=== PATIENT | female | born 1960 | race Caucasian/White ===

== ENCOUNTER → 2020-07-20 14:16 | Outpatient (BNVA) | payer OTHER, SELFPAY | PROVIDERS: PCP Physician Assistant Medical; Referring Provider Physician Assistant Medical; Visit Provider Physician Assistant Medical | DX: Z86.718 Personal history of other venous thrombosis and embolism (principal); Z51.81 Encounter for therapeutic drug level monitoring; Z79.01 Long term (current) use of anticoagulants | CPT/HCPCS: 85610; 99211 ==

== ENCOUNTER → 2020-07-25 13:27 | Outpatient (BNVA) | payer OTHER, SELFPAY | PROVIDERS: PCP Physician Assistant Medical; Visit Provider Internal Medicine | DX: Z86.718 Personal history of other venous thrombosis and embolism (principal); Z51.81 Encounter for therapeutic drug level monitoring; Z79.01 Long term (current) use of anticoagulants | CPT/HCPCS: 85610 ==

== ENCOUNTER → 2020-08-24 14:15 | Outpatient (BNVA) | payer OTHER, SELFPAY | PROVIDERS: PCP Physician Assistant Medical; Visit Provider Internal Medicine | DX: I82.401 Acute embolism and thrombosis of unspecified deep veins of right lower extremity (principal); Z79.01 Long term (current) use of anticoagulants; Z51.81 Encounter for therapeutic drug level monitoring | CPT/HCPCS: 85610; 99211 ==

== ENCOUNTER → 2020-09-07 14:37 | Outpatient (BNVA) | payer OTHER, SELFPAY | PROVIDERS: PCP Physician Assistant Medical; Visit Provider Internal Medicine | DX: Z86.718 Personal history of other venous thrombosis and embolism (principal); Z51.81 Encounter for therapeutic drug level monitoring; Z79.01 Long term (current) use of anticoagulants | CPT/HCPCS: 85610; 99211 ==

== ENCOUNTER → 2020-10-01 15:46 | Outpatient (BNVA) | payer OTHER, SELFPAY | PROVIDERS: PCP Physician Assistant Medical; Referring Provider Physician Assistant Medical; Visit Provider Internal Medicine | DX: I82.401 Acute embolism and thrombosis of unspecified deep veins of right lower extremity (principal); Z51.81 Encounter for therapeutic drug level monitoring; Z79.01 Long term (current) use of anticoagulants | CPT/HCPCS: 85610; 99211 ==

== ENCOUNTER → 2020-10-16 11:30 | Outpatient (BNVA) | payer OTHER, SELFPAY | PROVIDERS: PCP Physician Assistant Medical; Visit Provider Internal Medicine | DX: I82.401 Acute embolism and thrombosis of unspecified deep veins of right lower extremity (principal); Z51.81 Encounter for therapeutic drug level monitoring; Z79.01 Long term (current) use of anticoagulants | CPT/HCPCS: 85610; 99211 ==

== ENCOUNTER → 2020-11-15 14:30 | Outpatient (BNVA) | payer OTHER, SELFPAY | PROVIDERS: PCP Physician Assistant Medical; Visit Provider Internal Medicine | DX: I82.401 Acute embolism and thrombosis of unspecified deep veins of right lower extremity (principal); Z51.81 Encounter for therapeutic drug level monitoring; Z79.01 Long term (current) use of anticoagulants | CPT/HCPCS: 85610; 99211 ==

== ENCOUNTER → 2020-12-14 14:32 | Outpatient (BNVA) | payer OTHER, SELFPAY | PROVIDERS: PCP Physician Assistant Medical; Visit Provider Internal Medicine | DX: I82.401 Acute embolism and thrombosis of unspecified deep veins of right lower extremity (principal); Z51.81 Encounter for therapeutic drug level monitoring; Z79.01 Long term (current) use of anticoagulants | CPT/HCPCS: 85610; 99211 ==

== ENCOUNTER → 2021-01-11 14:36 | Outpatient (BNVA) | payer OTHER, SELFPAY | PROVIDERS: PCP Physician Assistant Medical; Visit Provider Internal Medicine | DX: I82.401 Acute embolism and thrombosis of unspecified deep veins of right lower extremity (principal); Z51.81 Encounter for therapeutic drug level monitoring; Z79.01 Long term (current) use of anticoagulants | CPT/HCPCS: 85610; 99211 ==

== ENCOUNTER → 2021-01-28 11:26 | Outpatient (BNVA) | payer OTHER, SELFPAY | PROVIDERS: PCP Physician Assistant Medical; Visit Provider Internal Medicine | DX: Z86.718 Personal history of other venous thrombosis and embolism (principal); Z79.01 Long term (current) use of anticoagulants; Z51.81 Encounter for therapeutic drug level monitoring | CPT/HCPCS: 85610; 99211 ==

== ENCOUNTER → 2021-02-25 13:14 | Outpatient (BNVA) | payer OTHER, SELFPAY | PROVIDERS: PCP Physician Assistant Medical; Visit Provider Internal Medicine | DX: Z86.718 Personal history of other venous thrombosis and embolism (principal); Z79.01 Long term (current) use of anticoagulants; Z51.81 Encounter for therapeutic drug level monitoring | CPT/HCPCS: 85610; 99211 ==

== ENCOUNTER → 2021-03-14 13:44 | Outpatient (BNVA) | payer OTHER, SELFPAY | PROVIDERS: PCP Physician Assistant Medical; Visit Provider Internal Medicine | DX: Z86.718 Personal history of other venous thrombosis and embolism (principal); Z51.81 Encounter for therapeutic drug level monitoring; Z79.01 Long term (current) use of anticoagulants | CPT/HCPCS: 85610; 99211 ==

== ENCOUNTER → 2021-03-29 14:01 | Outpatient (BNVA) | payer OTHER, SELFPAY | PROVIDERS: PCP Physician Assistant Medical; Visit Provider Internal Medicine | DX: Z86.718 Personal history of other venous thrombosis and embolism (principal); Z51.81 Encounter for therapeutic drug level monitoring; Z79.01 Long term (current) use of anticoagulants | CPT/HCPCS: 85610; 99211 ==

== ENCOUNTER → 2021-04-30 13:24 | Outpatient (BNVA) | payer OTHER, SELFPAY | PROVIDERS: PCP Physician Assistant Medical; Visit Provider Internal Medicine | DX: Z86.718 Personal history of other venous thrombosis and embolism (principal); Z51.81 Encounter for therapeutic drug level monitoring; Z79.01 Long term (current) use of anticoagulants | CPT/HCPCS: 85610; 99211 ==

== ENCOUNTER → 2021-05-31 15:06 | Outpatient (BNVA) | payer OTHER, SELFPAY | PROVIDERS: PCP Physician Assistant Medical; Visit Provider Internal Medicine | DX: Z86.718 Personal history of other venous thrombosis and embolism (principal); Z51.81 Encounter for therapeutic drug level monitoring; Z79.01 Long term (current) use of anticoagulants | CPT/HCPCS: 85610; 99211 ==

== ENCOUNTER 2021-06-27 09:05 | Outpatient (RCR) | payer OTHER, SELFPAY | END 2021-07-30 07:31 | disposition home or self-care (01) | LOC: HO.WCC 09:05 | PROVIDERS: PCP Physician Assistant Medical; Visit Provider Surgery | DX: Z09 Encounter for follow-up examination after completed treatment for conditions other than malignant neoplasm (principal); I87.301 Chronic venous hypertension (idiopathic) without complications of right lower extremity; Z86.718 Personal history of other venous thrombosis and embolism; Z79.01 Long term (current) use of anticoagulants | CPT/HCPCS: 99212; 99214 ==

== ENCOUNTER → 2021-06-28 15:23 | Outpatient (BNVA) | payer OTHER, SELFPAY | PROVIDERS: PCP Physician Assistant Medical; Visit Provider Internal Medicine | DX: Z86.718 Personal history of other venous thrombosis and embolism (principal); Z51.81 Encounter for therapeutic drug level monitoring; Z79.01 Long term (current) use of anticoagulants | CPT/HCPCS: 85610; 99211 ==

== ENCOUNTER 2021-08-02 14:05 | Outpatient (REF) | payer OTHER, SELFPAY ==
--- NOTE | ~2021-08-02 | MM_ITS ---
EXAMINATION: MM SCREENING DIGITAL BREAST TOMOSYNTHESIS, BILATERAL CLINICAL INFORMATION: Screening. Asymptomatic. The lifetime risk of breast cancer based on the Tyrer-Cuzick Model is 5%. COMPARISON: Mammography: 04/27/2020, 02/03/2019, 10/29/2017 TECHNIQUE: Digital breast tomosynthesis is performed in both the craniocaudal and mediolateral oblique views along with computer-aided detection (CAD). Synthesized 2D images are generated from the tomosynthesis. FINDINGS: There are scattered areas of fibroglandular density (ACR BI-RADS breast composition Category b). There is no interval mass or architectural abnormality or abnormal calcifications. No developing density. Parenchymal pattern is similar to prior studies. There is stable small nodular asymmetry posterior central left breast and a stable intramammary node posterior upper outer quadrant right breast. The axilla and skin contours are unremarkable. MM/MM tomosynthesis screening BI IMPRESSION: No mammographic evidence of malignancy. ASSESSMENT: BI-RADS 2: Benign RECOMMENDATION: Routine annual mammography screening. This patient's information was entered into a reminder system with a target due date for their next mammogram.
== END 2021-08-02 14:06 | disposition home or self-care (01) ==
LOC: HO.MAMMO 14:05
PROVIDERS: Visit Provider Physician Assistant Medical
DX: Z12.31 Encounter for screening mammogram for malignant neoplasm of breast (principal); Z86.718 Personal history of other venous thrombosis and embolism; Z51.81 Encounter for therapeutic drug level monitoring; Z79.01 Long term (current) use of anticoagulants
CPT/HCPCS: 77063; 77067; 85610

== ENCOUNTER → 2021-08-09 13:35 | Outpatient (BNVA) | payer OTHER, SELFPAY | PROVIDERS: PCP Physician Assistant Medical; Visit Provider Internal Medicine | DX: Z86.718 Personal history of other venous thrombosis and embolism (principal); Z51.81 Encounter for therapeutic drug level monitoring; Z79.01 Long term (current) use of anticoagulants | CPT/HCPCS: 85610; 99211 ==

== ENCOUNTER → 2021-08-16 13:27 | Outpatient (BNVA) | payer OTHER, SELFPAY | PROVIDERS: PCP Physician Assistant Medical; Visit Provider Internal Medicine | DX: Z86.718 Personal history of other venous thrombosis and embolism (principal); Z51.81 Encounter for therapeutic drug level monitoring; Z79.01 Long term (current) use of anticoagulants | CPT/HCPCS: 85610; 99211 ==

== ENCOUNTER → 2021-09-02 13:14 | Outpatient (BNVA) | payer OTHER, SELFPAY | PROVIDERS: PCP Physician Assistant Medical; Visit Provider Internal Medicine | DX: Z86.718 Personal history of other venous thrombosis and embolism (principal); Z51.81 Encounter for therapeutic drug level monitoring; Z79.01 Long term (current) use of anticoagulants | CPT/HCPCS: 85610; 99211 ==

== ENCOUNTER → 2021-09-19 13:28 | Outpatient (BNVA) | payer OTHER, SELFPAY | PROVIDERS: PCP Physician Assistant Medical; Visit Provider Internal Medicine | DX: Z86.718 Personal history of other venous thrombosis and embolism (principal); Z51.81 Encounter for therapeutic drug level monitoring; Z79.01 Long term (current) use of anticoagulants | CPT/HCPCS: 85610; 99211 ==

== ENCOUNTER → 2021-10-17 13:34 | Outpatient (BNVA) | payer OTHER, SELFPAY | PROVIDERS: PCP Physician Assistant Medical; Visit Provider Internal Medicine | DX: Z86.718 Personal history of other venous thrombosis and embolism (principal); Z51.81 Encounter for therapeutic drug level monitoring; Z79.01 Long term (current) use of anticoagulants | CPT/HCPCS: 85610; 99211 ==

== ENCOUNTER → 2021-11-14 14:02 | Outpatient (BNVA) | payer OTHER, SELFPAY | PROVIDERS: PCP Physician Assistant Medical; Visit Provider Internal Medicine | DX: Z86.718 Personal history of other venous thrombosis and embolism (principal); Z51.81 Encounter for therapeutic drug level monitoring; Z79.01 Long term (current) use of anticoagulants | CPT/HCPCS: 85610; 99211 ==

== ENCOUNTER → 2021-11-29 15:30 | Outpatient (BNVA) | payer OTHER, SELFPAY | PROVIDERS: PCP Physician Assistant Medical; Visit Provider Internal Medicine | DX: Z86.718 Personal history of other venous thrombosis and embolism (principal); Z51.81 Encounter for therapeutic drug level monitoring; Z79.01 Long term (current) use of anticoagulants | CPT/HCPCS: 85610; 99211 ==

== ENCOUNTER → 2021-12-26 14:13 | Outpatient (BNVA) | payer OTHER, SELFPAY | PROVIDERS: PCP Physician Assistant Medical; Visit Provider Internal Medicine | DX: Z86.718 Personal history of other venous thrombosis and embolism (principal); Z51.81 Encounter for therapeutic drug level monitoring; Z79.01 Long term (current) use of anticoagulants | CPT/HCPCS: 85610 ==

== ENCOUNTER → 2022-01-23 13:28 | Outpatient (BNVA) | payer OTHER, SELFPAY | PROVIDERS: PCP Physician Assistant Medical; Visit Provider Internal Medicine | DX: Z86.718 Personal history of other venous thrombosis and embolism (principal); Z51.81 Encounter for therapeutic drug level monitoring; Z79.01 Long term (current) use of anticoagulants | CPT/HCPCS: 85610; 99211 ==

== ENCOUNTER → 2022-02-20 15:33 | Outpatient (BNVA) | payer OTHER, SELFPAY | PROVIDERS: PCP Physician Assistant Medical; Visit Provider Internal Medicine | DX: Z86.718 Personal history of other venous thrombosis and embolism (principal); Z79.01 Long term (current) use of anticoagulants; Z51.81 Encounter for therapeutic drug level monitoring | CPT/HCPCS: 85610; 99211 ==

== ENCOUNTER 2022-02-24 13:10 | Emergency (ER) | payer OTHER, SELFPAY ==
--- NOTE | ~2022-02-24 | CT_ITS ---
EXAMINATION: CT CERVICAL SPINE WITHOUT CONTRAST CLINICAL INFORMATION: Fall, trauma, on Coumadin COMPARISON: CT had 02/24/2022 TECHNIQUE: Multidetector volumetric CT imaging of the cervical spine is performed without contrast in the axial plane. Additional 2D reformatted coronal and sagittal images are generated on the CT workstation and uploaded to PACS. This CT examination was performed using dose optimization techniques as appropriate, variously including the following: *Automated exposure control *Adjustment of mA and/or kV according to patient size (this includes techniques or standardized protocols for targeted exams where dose is matched to indication/reason for exam; i.e. extremities or head) *Use of iterative reconstruction technique DLP: 333 mGy-cm FINDINGS: There is straightening of the cervical lordosis and borderline dextrocurvature which may be related to muscle spasm. There is no cervical vertebral compression, fracture, perched facet, or prevertebral soft tissue swelling. The odontoid appears intact. There are mild degenerative changes facets. There is borderline spondylolisthesis C4-C5 likely related to the degenerative change. No focal significant disc narrowing and no erosive change. There are arachnoid granulations seen at the parasagittal occiput. No paraspinal soft tissue swelling or hematoma. CT/CT cervical spine wo con IMPRESSION: -Straightening cervical lordosis with borderline dextrocurvature likely related to muscle spasm. -No vertebral compression or fracture or paraspinal hematoma. -Mild multilevel facet degeneration. Borderline spondylolisthesis C4-C5.
--- NOTE | ~2022-02-24 | CT_ITS ---
EXAMINATION: CT HEAD WITHOUT CONTRAST CLINICAL INFORMATION: Fall, trauma, on Coumadin COMPARISON: None TECHNIQUE: Contiguous axial imaging was performed from the skull base to vertex without intravenous administration of contrast. Additional 2-D coronal and sagittal reformatted images are generated on the CT workstation and uploaded to PACS. This CT examination was performed using dose optimization techniques as appropriate, variously including the following: *Automated exposure control *Adjustment of mA and/or kV according to patient size (this includes techniques or standardized protocols for targeted exams where dose is matched to indication/reason for exam; i.e. extremities or head) *Use of iterative reconstruction technique DLP: 666 mGy-cm FINDINGS: There is a contusion of the scalp right parietal region with scalp soft tissue swelling approximately 1 cm in thickness. The underlying calvarium appears intact and there is no fracture or pneumocephalus. The sinuses or middle ears and mastoid air cells appear well-aerated and clear. There is no intracranial hemorrhage, hematoma, or extra-axial fluid collection. The ventricles are normal in size. There is no hydrocephalus, edema, or mass effect. The valentino-white matter differentiation appears well preserved . There is no visible acute territorial infarct or mass lesion. CT/CT head/brain wo con IMPRESSION: -Contusion right scalp parietal region 1 cm in thickness. Calvarium intact. -No acute intracranial abnormality.
[2022-02-24 13:25] VITALS: BP 181/85; PULSE 79; RESP 16; TEMP 36.6; O2SAT 97; BMI 34.7
--- NOTE | 2022-02-24 13:58 | ED_ITS ---
HPI - Fall General Chief Complaint: Fall Stated Complaint: fall head inj on blood thinners Time Seen by Provider: 02/24/22 13:57 Source: patient Mode of arrival: ambulatory Limitations: no limitations History of Present Illness complaint: fall Onset (ago): minute(s) (prior to arrival ) Fall from: standing Fall witnessed: no Place fall occurred: home Loss of consciousness: none Prolonged down time: no Symptoms prior to fall: none Context: other (pulled down by her 120lb dog) Location of injury: head Severity: moderate Quality: dull and aching Associated symptoms (after fall): headache Related Data Home Medications Medication Instructions Recorded Confirmed amlodipine 5 mg tablet 5 mg PO DAILY 12/14/20 02/20/22 carvedilol 6.25 mg tablet 6.25 mg PO BID 12/14/20 02/20/22 clonidine HCl 0.1 mg tablet 0.1 mg PO BID 12/14/20 02/20/22 hydrochlorothiazide 25 mg tablet 25 mg PO DAILY 12/14/20 02/20/22 loratadine 10 mg tablet 10 mg PO DAILY PRN 12/14/20 02/20/22 losartan 100 mg tablet 100 mg PO DAILY 12/14/20 02/20/22 fluticasone propionate 50 1 spray INTRANASAL DAILY 05/31/21 02/20/22 mcg/actuation nasal spray,suspension Previous Rx's Medication Instructions Recorded warfarin 5 mg tablet 5 mg PO DAILY #90 tab 07/20/20 warfarin 2.5 mg tablet 2.5 mg PO DAILY #90 tab 07/25/20 Allergies Allergy/AdvReac Type Severity Reaction Status Date / Time lisinopril [Lisinopril] Allergy Mild COUGH Verified 02/20/22 15:38 Sulfa (Sulfonamide Allergy Mild UNKNOWN Verified 02/20/22 15:38 Antibiotics) Sulfa Allergy Unknown UNKNOWN Uncoded 02/20/22 15:38 Review of Systems Review of Systems: Constitutional : No Fever, No Chills, No Fatigue ENT/Mouth : No sore throat, No Rhinorrhea Eyes: No Eye Pain, No Swelling, No Redness Cardiovascular : No Chest Pain, No SOB, No Dyspnea on Exertion Respiratory : No Cough, No Sputum Gastrointestinal : No Nausea, No Vomiting, No Diarrhea, No abdominal Pain Genitourinary : No Dysuria, No Urinary Frequency, No Hematuria, Musculoskeletal : No joint pain, No Myalgias, No Joint Swelling Skin : No Skin Lesions, No rash Neuro : No Weakness, No Numbness, No Dizziness, positive Headache Psych : No Anxiety/Panic, No Depression Heme/Lymph: No Bruising, No Bleeding,No Lymphadenopathy Endocrine : No Polyuria, No Polydipsia All other systems reviewed and are negative [facility] Past Medical History Attestation statement: The following information was validated with the patient. Medical History (Updated 02/24/22 @ 14:19 by Darlene Arenas DO) DVT (deep venous thrombosis) HTN (hypertension) Social History Social History (Updated 02/24/22 @ 13:59 by Darlene Arenas DO) Patient Tobacco Use Status: Never used Tobacco Advance Directives: No Advance Directives Information Provided: Yes Physical Exam Vital Signs: Vital Signs: Last Vital Signs Temp 98.1 F 02/24/22 16:26 Pulse 79 02/24/22 16:26 Resp 18 02/24/22 16:26 BP 161/80 H 02/24/22 16:26 Pulse Ox 96 02/24/22 16:26 BMI result Body Mass Index 34.7 Appearance: Alert. Oriented X3. No acute distress. Eyes: Pupils equal, round and reactive to light. ENT: Pharynx normal. no gordon signs, TMs normal bilaterally. Hematoma noted posterior parietal occiput Neck: Normal inspection. Neck supple. CVS: Normal heart rate and rhythm. Pulses normal. Respiratory: No respiratory distress. Breath sounds normal. Abdomen: Soft and nontender. Skin: Skin warm and dry. Normal skin color. Normal skin turgor. Extremities: No lower extremity edema. No calf ttp Neuro: Oriented X 3. No motor deficit. No sensory deficit. Course Course Course Narrative: GCS 15 stable for DC MDM - Fall MDM Narrative Medical decision making narrative: 61 yo female with hx of DVT on coumadin here with c/o mechanical fall after her dog pulled her down - she hit her head, no LOC she is on coumadin. She denies any other injury. At this time will obtain CT head/cervical spine for trauma, basic labs including INR. tylenol for pain. She is currently GCS 15. Lab Data Result diagrams: 02/24/22 14:20 02/24/22 14:44 Labs: Lab Results 02/24/22 02/24/22 02/24/22 Range/Units 14:19 14:20 14:44 WBC 6.1 (4.8-10.8) X10*3/uL RBC 4.30 (4.20-5.50) X10*6/uL Hgb 13.2 (12.0-16.0) g/dl Hct 38.7 (37.0-47.0) % MCV 90.0 (80.0-98.0) fL MCH 30.7 (27.0-33.0) pg MCHC 34.1 (31.0-35.0) g/dl RDW 13.8 (11.0-16.0) % Plt Count 111 L (160-400) X10*3/uL MPV 12.6 H (9.4-12.3) fL Absolute Nucleated RBC 0.000 (0.0-0.012) X10*3/uL Nucleated RBC % (auto) 0.0 (0.0-0.2) /100WBC PT 23.5 H (9.9-13.0) SEC INR 2.0 H (0.9-1.1) Sodium 136 (135-145) mmol/L Potassium 3.7 (3.3-5.1) mmol/L Chloride 98 (96-108) mmol/L Carbon Dioxide 30 H (22-29) mmol/L Anion Gap 12 (12-20) BUN 11 (9-16) mg/dL Creatinine 0.77 (0.5-1.4) mg/dL Estim Creat Clear Calc 77.1 Estimated GFR > 60 Random Glucose 116 H (60-115) mg/dL Calcium 9.5 (8.4-10.2) mg/dL Discharge Plan Discharge Clinical Impression: Head injury, Hematoma of scalp Patient Disposition: Home, Self-Care Instructions: Head Injury (ED), Contusion in Adults (ED) Additional Instructions: return to ED for any worsening symptoms or concerns INR 2.0 return for severe headaches, change in behaviors, confusion or any other concerns Prescriptions: No Action fluticasone propionate 50 mcg/actuation spray,suspension 1 spray intranasal DAILY 0RF warfarin 5 mg tablet 5 mg PO DAILY Qty: 90 0RF Protocol: Dose Management Condition: Thursday (Week One) Dose/Route: 7.5 mg Instruction: 1 x 2.5 mg tablet, 1 x 5 mg tablet Condition: Thursday Dose/Route: 7.5 mg Instruction: 1 x 2.5 mg tablet, 1 x 5 mg tablet Condition: Thursday Dose/Route: 7.5 mg Instruction: 1 x 2.5 mg tablet, 1 x 5 mg tablet Condition: Thursday Dose/Route: 7.5 mg Instruction: 1 x 2.5 mg tablet, 1 x 5 mg tablet Condition: Dose/Route: 7.5 mg Instruction: 1 x 2.5 mg tablet, 1 x 5 mg tablet Condition: Thursday Dose/Route: 7.5 mg Instruction: 1 x 2.5 mg tablet, 1 x 5 mg tablet Condition: Thursday Dose/Route: 7.5 mg Instruction: 1 x 2.5 mg tablet, 1 x 5 mg tablet Condition: Thursday (Week Two) Dose/Route: 7.5 mg Instruction: 1 x 2.5 mg tablet, 1 x 5 mg tablet Condition: Thursday Dose/Route: 7.5 mg Instruction: 1 x 2.5 mg tablet, 1 x 5 mg tablet Condition: Thursday Dose/Route: 7.5 mg Instruction: 1 x 2.5 mg tablet, 1 x 5 mg tablet Condition: Thursday Dose/Route: 7.5 mg Instruction: 1 x 2.5 mg tablet, 1 x 5 mg tablet Condition: Dose/Route: 7.5 mg Instruction: 1 x 2.5 mg tablet, 1 x 5 mg tablet Condition: Thursday Dose/Route: 7.5 mg Instruction: 1 x 2.5 mg tablet, 1 x 5 mg tablet Condition: Thursday Dose/Route: 7.5 mg Instruction: 1 x 2.5 mg tablet, 1 x 5 mg tablet Protocol Text: Adjustment Start Date: 02/20/22 INR Value: 2.7 INR Date: 02/20/22 Recheck Date: 03/22/22 Additional Instructions: CONT TO EAT A MIX OF REDS AND GREENS Rx Instructions: TAKES 7.5MG DAILY warfarin 2.5 mg tablet 2.5 mg PO DAILY Qty: 90 0RF Protocol: Dose Management Condition: Thursday (Week One) Dose/Route: 7.5 mg Instruction: 1 x 2.5 mg tablet, 1 x 5 mg tablet Condition: Thursday Dose/Route: 7.5 mg Instruction: 1 x 2.5 mg tablet, 1 x 5 mg tablet Condition: Thursday Dose/Route: 7.5 mg Instruction: 1 x 2.5 mg tablet, 1 x 5 mg tablet Condition: Thursday Dose/Route: 7.5 mg Instruction: 1 x 2.5 mg tablet, 1 x 5 mg tablet Condition: Dose/Route: 7.5 mg Instruction: 1 x 2.5 mg tablet, 1 x 5 mg tablet Condition: Thursday Dose/Route: 7.5 mg Instruction: 1 x 2.5 mg tablet, 1 x 5 mg tablet Condition: Thursday Dose/Route: 7.5 mg Instruction: 1 x 2.5 mg tablet, 1 x 5 mg tablet Condition: Thursday (Week Two) Dose/Route: 7.5 mg Instruction: 1 x 2.5 mg tablet, 1 x 5 mg tablet Condition: Thursday Dose/Route: 7.5 mg Instruction: 1 x 2.5 mg tablet, 1 x 5 mg tablet Condition: Thursday Dose/Route: 7.5 mg Instruction: 1 x 2.5 mg tablet, 1 x 5 mg tablet Condition: Thursday Dose/Route: 7.5 mg Instruction: 1 x 2.5 mg tablet, 1 x 5 mg tablet Condition: Dose/Route: 7.5 mg Instruction: 1 x 2.5 mg tablet, 1 x 5 mg tablet Condition: Thursday Dose/Route: 7.5 mg Instruction: 1 x 2.5 mg tablet, 1 x 5 mg tablet Condition: Thursday Dose/Route: 7.5 mg Instruction: 1 x 2.5 mg tablet, 1 x 5 mg tablet Protocol Text: Adjustment Start Date: 02/20/22 INR Value: 2.7 INR Date: 02/20/22 Recheck Date: 03/22/22 Additional Instructions: CONT TO EAT A MIX OF REDS AND GREENS Rx Instructions: 7.5MG DAILY losartan 100 mg tablet 100 mg PO DAILY 0RF hydrochlorothiazide 25 mg tablet 25 mg PO DAILY 0RF amlodipine 5 mg tablet 5 mg PO DAILY 0RF carvedilol 6.25 mg tablet 6.25 mg PO BID 0RF clonidine HCl 0.1 mg tablet 0.1 mg PO BID 0RF loratadine 10 mg tablet 10 mg PO DAILY [id number] Stand Alone Forms: Work/School Release
[2022-02-24 14:27] LABS: Hematocrit 38.7 % (37.0-47.0); Hemoglobin 13.2 g/dl (12.0-16.0); Mean Corpuscular HGB Conc 34.1 g/dl (31.0-35.0); Mean Corpuscular Hemoglobin 30.7 pg (27.0-33.0); Mean Platelet Volume 12.6 fL (9.4-12.3); Platelet Count 111 X10*3/uL (160-400); Red Cell Distribution Width 13.8 % (11.0-16.0); White Blood Count 6.1 X10*3/uL (4.8-10.8)
[2022-02-24 14:38] LABS: Prothrombin Time 23.5 SEC (9.9-13.0)
[2022-02-24 15:08] LABS: Anion Gap 12 (12-20); Blood Urea Nitrogen 11 mg/dL (9-16); Calcium 9.5 mg/dL (8.4-10.2); Carbon Dioxide 30 mmol/L (22-29); Chloride 98 mmol/L (96-108); Creatinine Clr Calc Pharmacy 77.1; Estimated Glomerular Filt Rate > 60; Glucose Random 116 mg/dL (60-115); Potassium 3.7 mmol/L (3.3-5.1); Sodium 136 mmol/L (135-145)
[2022-02-24 16:26] VITALS: BP 161/80; PULSE 79; RESP 18; TEMP 36.7; O2SAT 96
[2022-02-24] MEDS: Acetaminophen 325 MG TABLET 650 MG PO (16:36)
== END 2022-02-24 17:20 | disposition home or self-care (01) ==
PROVIDERS: Emergency Provider Emergency Medicine; PCP Physician Assistant Medical
DX: S00.03XA Contusion of scalp, initial encounter (principal); I10 Essential (primary) hypertension; Z86.718 Personal history of other venous thrombosis and embolism; Z79.01 Long term (current) use of anticoagulants; W18.39XA Other fall on same level, initial encounter; Y93.9 Activity, unspecified; Y92.009 Unspecified place in unspecified non-institutional (private) residence as the place of occurrence of the external cause; Y99.9 Unspecified external cause status
CPT/HCPCS: 36415; 70450; 72125; 80048; 85027; 85610; 99284

== ENCOUNTER → 2022-03-20 13:24 | Outpatient (BNVA) | payer OTHER, SELFPAY | PROVIDERS: PCP Physician Assistant Medical; Visit Provider Internal Medicine | DX: Z86.718 Personal history of other venous thrombosis and embolism (principal); Z79.01 Long term (current) use of anticoagulants; Z51.81 Encounter for therapeutic drug level monitoring | CPT/HCPCS: 85610; 99211 ==

== ENCOUNTER → 2022-04-24 14:37 | Outpatient (BNVA) | payer OTHER, SELFPAY | PROVIDERS: PCP Physician Assistant Medical; Visit Provider Internal Medicine | DX: Z86.718 Personal history of other venous thrombosis and embolism (principal); Z51.81 Encounter for therapeutic drug level monitoring; Z79.01 Long term (current) use of anticoagulants | CPT/HCPCS: 85610; 99211 ==

== ENCOUNTER 2022-05-22 13:59 | Outpatient (REF) | payer OTHER, SELFPAY ==
[2022-05-22 14:30] LABS: Prothrombin Time 81.4 SEC (10.0-13.1)
[2022-05-22 14:33] LABS: INTERNATIONAL NORM RATIO 6.6 (0.9-1.1)
== END 2022-05-22 14:00 | disposition home or self-care (01) ==
LOC: HO.LAB 13:59
PROVIDERS: Visit Provider Internal Medicine
DX: I82.401 Acute embolism and thrombosis of unspecified deep veins of right lower extremity (principal); Z51.81 Encounter for therapeutic drug level monitoring; Z79.01 Long term (current) use of anticoagulants
CPT/HCPCS: 36415; 85610; 99212

== ENCOUNTER → 2022-05-27 13:31 | Outpatient (BNVA) | payer OTHER, SELFPAY | PROVIDERS: PCP Physician Assistant Medical; Visit Provider Internal Medicine | DX: I82.401 Acute embolism and thrombosis of unspecified deep veins of right lower extremity (principal); Z51.81 Encounter for therapeutic drug level monitoring; Z79.01 Long term (current) use of anticoagulants | CPT/HCPCS: 85610; 99211 ==

== ENCOUNTER 2022-06-12 07:59 | Outpatient (RCR) | payer OTHER, SELFPAY | END 2022-08-01 14:21 | disposition home or self-care (01) | LOC: HO.WCC 07:59 | PROVIDERS: Visit Provider Surgery | DX: I87.311 Chronic venous hypertension (idiopathic) with ulcer of right lower extremity (principal); L97.812 Non-pressure chronic ulcer of other part of right lower leg with fat layer exposed; I73.9 Peripheral vascular disease, unspecified; L93.0 Discoid lupus erythematosus | CPT/HCPCS: 11042; 11045; 29580; 97597; 97598; 99212 ==

== ENCOUNTER → 2022-06-26 13:26 | Outpatient (BNVA) | payer OTHER, SELFPAY | PROVIDERS: PCP Physician Assistant Medical; Visit Provider Internal Medicine | DX: Z86.718 Personal history of other venous thrombosis and embolism (principal); Z51.81 Encounter for therapeutic drug level monitoring; Z79.01 Long term (current) use of anticoagulants | CPT/HCPCS: 85610; 99211 ==

== ENCOUNTER → 2022-07-24 13:29 | Outpatient (BNVA) | payer OTHER, SELFPAY | PROVIDERS: PCP Physician Assistant Medical; Visit Provider Internal Medicine | DX: Z86.718 Personal history of other venous thrombosis and embolism (principal); Z51.81 Encounter for therapeutic drug level monitoring; Z79.01 Long term (current) use of anticoagulants | CPT/HCPCS: 85610; 99211 ==

== ENCOUNTER → 2022-08-07 13:08 | Outpatient (BNVA) | payer OTHER, SELFPAY | PROVIDERS: PCP Physician Assistant Medical; Visit Provider Internal Medicine | DX: Z86.718 Personal history of other venous thrombosis and embolism (principal); Z79.01 Long term (current) use of anticoagulants; Z51.81 Encounter for therapeutic drug level monitoring | CPT/HCPCS: 85610; 99211 ==

== ENCOUNTER → 2022-08-22 13:24 | Outpatient (BNVA) | payer OTHER, SELFPAY | PROVIDERS: PCP Physician Assistant Medical; Visit Provider Internal Medicine | DX: I82.401 Acute embolism and thrombosis of unspecified deep veins of right lower extremity (principal); Z51.81 Encounter for therapeutic drug level monitoring; Z79.01 Long term (current) use of anticoagulants | CPT/HCPCS: 85610; 99211 ==

== ENCOUNTER → 2022-09-19 13:27 | Outpatient (BNVA) | payer OTHER, SELFPAY | PROVIDERS: PCP Physician Assistant Medical; Visit Provider Internal Medicine | DX: I82.401 Acute embolism and thrombosis of unspecified deep veins of right lower extremity (principal); Z51.81 Encounter for therapeutic drug level monitoring; Z79.01 Long term (current) use of anticoagulants | CPT/HCPCS: 85610; 99211 ==

== ENCOUNTER → 2022-10-16 13:20 | Outpatient (BNVA) | payer OTHER, SELFPAY | PROVIDERS: PCP Physician Assistant Medical; Visit Provider Internal Medicine | DX: I82.401 Acute embolism and thrombosis of unspecified deep veins of right lower extremity (principal); Z79.01 Long term (current) use of anticoagulants; Z51.81 Encounter for therapeutic drug level monitoring | CPT/HCPCS: 85610; 99211 ==

== ENCOUNTER → 2022-10-23 11:37 | Outpatient (BNVA) | payer OTHER, SELFPAY | PROVIDERS: PCP Physician Assistant Medical; Visit Provider Internal Medicine | DX: I82.401 Acute embolism and thrombosis of unspecified deep veins of right lower extremity (principal); Z51.81 Encounter for therapeutic drug level monitoring; Z79.01 Long term (current) use of anticoagulants | CPT/HCPCS: 85610; 99211 ==

== ENCOUNTER → 2022-11-21 14:59 | Outpatient (BNVA) | payer OTHER, SELFPAY | PROVIDERS: PCP Physician Assistant Medical; Visit Provider Internal Medicine | DX: I82.401 Acute embolism and thrombosis of unspecified deep veins of right lower extremity (principal); Z51.81 Encounter for therapeutic drug level monitoring; Z79.01 Long term (current) use of anticoagulants | CPT/HCPCS: 85610; 99211 ==

== ENCOUNTER → 2022-12-02 11:00 | Outpatient (BNVA) | payer OTHER, SELFPAY | PROVIDERS: PCP Physician Assistant Medical; Visit Provider Internal Medicine | DX: Z51.81 Encounter for therapeutic drug level monitoring (principal); Z79.01 Long term (current) use of anticoagulants | CPT/HCPCS: 85610; 99211 ==

== ENCOUNTER → 2022-12-26 13:15 | Outpatient (BNVA) | payer OTHER, SELFPAY | PROVIDERS: PCP Physician Assistant Medical; Visit Provider Internal Medicine | DX: I82.401 Acute embolism and thrombosis of unspecified deep veins of right lower extremity (principal); Z51.81 Encounter for therapeutic drug level monitoring; Z79.01 Long term (current) use of anticoagulants | CPT/HCPCS: 85610; 99211 ==

== ENCOUNTER 2022-12-30 16:30 | Emergency (ER) | payer OTHER, SELFPAY ==
--- NOTE | ~2022-12-30 | US_ITS ---
EXAMINATION: US VENOUS ULTRASOUND WITH DOPPLER LOWER EXTREMITY, RIGHT CLINICAL INFORMATION: Right lower extremity pain. COMPARISON: None TECHNIQUE: Ultrasound of the deep veins is performed from the hip to the calf with compression sonography and color and pulse Doppler assessment. Spectral analysis with color-flow imaging is performed. FINDINGS: There is normal venous compression and respiratory variation and augmented flow. The visualized common femoral vein, superficial femoral vein, profunda femoral vein, popliteal vein, and the trifurcation region shows no evidence of deep venous thrombosis. There is a popliteal fossa cyst measuring 2.1 x 0.7 x 3 cm. There are varicose veins at the mid thigh which are compressible, no evidence of superficial thrombosis. Morphologically normal-appearing lymph node with fatty luba in the groin. This has a short axis diameter of 0.6 cm. If the patient's symptoms persist, followup ultrasound in 5 days 7 days might be of value to exclude proximal propagation from a non-visualized calf vein. US/US venous duplex LE RT IMPRESSION: No DVT demonstrated in the right lower extremity. Popliteal fossa cyst
[2022-12-30 17:09] VITALS: BP 185/75; PULSE 85; RESP 20; TEMP 36.4; O2SAT 100; BMI 34.7
--- NOTE | 2022-12-30 17:10 | ED_ITS ---
HPI - General Adult General Chief complaint: General Medical Stated complaint: right leg pain/ history of clots Time Seen by Provider: 12/30/22 19:47 Related Data Home Medications Medication Instructions Recorded Confirmed carvedilol 6.25 mg tablet 6.25 mg PO BID 12/14/20 12/26/22 clonidine HCl 0.1 mg tablet 0.1 mg PO BID 12/14/20 12/26/22 hydrochlorothiazide 25 mg tablet 25 mg PO DAILY 12/14/20 12/26/22 loratadine 10 mg tablet 10 mg PO DAILY PRN 12/14/20 12/26/22 losartan 100 mg tablet 100 mg PO DAILY 12/14/20 12/26/22 fluticasone propionate 50 1 spray intranasal DAILY 05/31/21 12/26/22 mcg/actuation nasal spray,suspension famotidine 10 mg tablet 10 mg PO DAILY PRN acid reflux 08/22/22 12/26/22 amlodipine 5 mg tablet 10 mg PO DAILY 10/16/22 12/26/22 atorvastatin 10 mg tablet 10 mg PO DAILY 10/16/22 12/26/22 Previous Rx's Medication Instructions Recorded warfarin 5 mg tablet 5 mg PO DAILY #90 tabs 07/20/20 warfarin 2.5 mg tablet 2.5 mg PO DAILY #90 tabs 07/25/20 tramadol 50 mg tablet 50 mg PO Q6H PRN pain #20 tabs 12/30/22 Allergies Allergy/AdvReac Type Severity Reaction Status Date / Time lisinopril [Lisinopril] Allergy Mild COUGH Verified 12/26/22 13:19 Sulfa (Sulfonamide Allergy Mild UNKNOWN Verified 12/26/22 13:19 Antibiotics) Sulfa Allergy Unknown UNKNOWN Uncoded 12/26/22 13:19 [facility] Past Medical History Medical History DVT (deep venous thrombosis) HTN (hypertension) Social History Social History Patient Tobacco Use Status: Never used Tobacco Physical Exam ED Vital Signs: Vital Signs - 24 hr 12/30/22 17:09 Temperature 97.6 F Pulse Rate 85 Respiratory Rate 20 Blood Pressure 185/75 H Pulse Oximetry 100 Oxygen Delivery Method Room Air BMI result Body Mass Index 34.7 Course Course Course Narrative: RME-- 62-year-old female with a past medical history of DVT on Coumadin, last INR check 12/26/22 & therapeutic presenting to the ED complaining of RLE pain/cramping x today Reports compliance with Coumadin. Denies fall/injury or SOB INR and Venous US ordered Medical Decision Making Lab Data Labs: Lab Results 12/30/22 Range/Units 17:37 PT 32.3 H (10.0-13.1) SEC INR 2.7 H D (0.9-1.1) Discharge Plan Discharge Clinical Impression: Musculoskeletal leg pain Patient Disposition: Home, Self-Care Instructions: Musculoskeletal Pain (ED) Additional Instructions: Your sonogram is negative for blood clot Take Tylenol/tramadol for leg pain Follow with PCP Prescriptions: New tramadol 50 mg tablet 50 mg PO Q6H PRN (Reason: pain) Qty: 20 0RF No Action fluticasone propionate 50 mcg/actuation spray,suspension 1 spray intranasal DAILY warfarin 5 mg tablet 5 mg PO DAILY Qty: 90 0RF Protocol: Dose Management Condition: Thursday (Week One) Dose/Route: 7.5 mg Instruction: 1 x 2.5 mg tablet, 1 x 5 mg tablet Condition: Thursday Dose/Route: 7.5 mg Instruction: 1 x 2.5 mg tablet, 1 x 5 mg tablet Condition: Thursday Dose/Route: 7.5 mg Instruction: 1 x 2.5 mg tablet, 1 x 5 mg tablet Condition: Thursday Dose/Route: 7.5 mg Instruction: 1 x 2.5 mg tablet, 1 x 5 mg tablet Condition: Dose/Route: 7.5 mg Instruction: 1 x 2.5 mg tablet, 1 x 5 mg tablet Condition: Thursday Dose/Route: 7.5 mg Instruction: 1 x 2.5 mg tablet, 1 x 5 mg tablet Condition: Thursday Dose/Route: 7.5 mg Instruction: 1 x 2.5 mg tablet, 1 x 5 mg tablet Condition: Thursday (Week Two) Dose/Route: 7.5 mg Instruction: 1 x 2.5 mg tablet, 1 x 5 mg tablet Condition: Thursday Dose/Route: 7.5 mg Instruction: 1 x 2.5 mg tablet, 1 x 5 mg tablet Condition: Thursday Dose/Route: 7.5 mg Instruction: 1 x 2.5 mg tablet, 1 x 5 mg tablet Condition: Thursday Dose/Route: 7.5 mg Instruction: 1 x 2.5 mg tablet, 1 x 5 mg tablet Condition: Dose/Route: 7.5 mg Instruction: 1 x 2.5 mg tablet, 1 x 5 mg tablet Condition: Thursday Dose/Route: 7.5 mg Instruction: 1 x 2.5 mg tablet, 1 x 5 mg tablet Condition: Thursday Dose/Route: 7.5 mg Instruction: 1 x 2.5 mg tablet, 1 x 5 mg tablet Protocol Text: Adjustment Start Date: Thursday12/26/22 INR Value: 2.1 INR Date: 12/26/22 Recheck Date: 01/23/23 Additional Instructions: INR is in low end of range continue usual dosing no heavy duty greens today or tomorrow then balance greens and reds in diet Rx Instructions: TAKES 7.5MG DAILY warfarin 2.5 mg tablet 2.5 mg PO DAILY Qty: 90 0RF Protocol: Dose Management Condition: Thursday (Week One) Dose/Route: 7.5 mg Instruction: 1 x 2.5 mg tablet, 1 x 5 mg tablet Condition: Thursday Dose/Route: 7.5 mg Instruction: 1 x 2.5 mg tablet, 1 x 5 mg tablet Condition: Thursday Dose/Route: 7.5 mg Instruction: 1 x 2.5 mg tablet, 1 x 5 mg tablet Condition: Thursday Dose/Route: 7.5 mg Instruction: 1 x 2.5 mg tablet, 1 x 5 mg tablet Condition: Dose/Route: 7.5 mg Instruction: 1 x 2.5 mg tablet, 1 x 5 mg tablet Condition: Thursday Dose/Route: 7.5 mg Instruction: 1 x 2.5 mg tablet, 1 x 5 mg tablet Condition: Thursday Dose/Route: 7.5 mg Instruction: 1 x 2.5 mg tablet, 1 x 5 mg tablet Condition: Thursday (Week Two) Dose/Route: 7.5 mg Instruction: 1 x 2.5 mg tablet, 1 x 5 mg tablet Condition: Thursday Dose/Route: 7.5 mg Instruction: 1 x 2.5 mg tablet, 1 x 5 mg tablet Condition: Thursday Dose/Route: 7.5 mg Instruction: 1 x 2.5 mg tablet, 1 x 5 mg tablet Condition: Thursday Dose/Route: 7.5 mg Instruction: 1 x 2.5 mg tablet, 1 x 5 mg tablet Condition: Dose/Route: 7.5 mg Instruction: 1 x 2.5 mg tablet, 1 x 5 mg tablet Condition: Thursday Dose/Route: 7.5 mg Instruction: 1 x 2.5 mg tablet, 1 x 5 mg tablet Condition: Thursday Dose/Route: 7.5 mg Instruction: 1 x 2.5 mg tablet, 1 x 5 mg tablet Protocol Text: Adjustment Start Date: Thursday12/26/22 INR Value: 2.1 INR Date: 12/26/22 Recheck Date: 01/23/23 Additional Instructions: INR is in low end of range continue usual dosing no heavy duty greens today or tomorrow then balance greens and reds in diet Rx Instructions: 7.5MG DAILY losartan 100 mg tablet 100 mg PO DAILY hydrochlorothiazide 25 mg tablet 25 mg PO DAILY carvedilol 6.25 mg tablet 6.25 mg PO BID clonidine HCl 0.1 mg tablet 0.1 mg PO BID loratadine 10 mg tablet 10 mg PO DAILY PRN famotidine 10 mg tablet 10 mg PO DAILY PRN (Reason: acid reflux) amlodipine 5 mg tablet 10 mg PO DAILY atorvastatin 10 mg tablet 10 mg PO DAILY Interventions: ED Discharge Assessment Last Done: 12/30/22 20:18 Discharge Date/Time: 12/30/22 20:19
[2022-12-30 17:49] LABS: INTERNATIONAL NORM RATIO 2.7 (0.9-1.1); Prothrombin Time 32.3 SEC (10.0-13.1)
--- NOTE | 2022-12-30 19:37 | PC.NURSE ---
pt c/o R leg pain accompanied by swelling, states h/o blood clot in R leg, pain started earlier today aox4 resting quietly in room, no apparent distress denies sob, denies chest pain
--- NOTE | 2022-12-30 19:56 | ED.EXTPRO ---
HPI - Extremity Problem General Chief complaint: General Medical Stated complaint: right leg pain/ history of clots Time Seen by Provider: 12/30/22 19:47 Source: patient Mode of arrival: ambulatory Limitations: no limitations History of Present Illness HPI Narrative: Patient with history of chronic right leg pain on Coumadin for DVT for years and for lupus notice increased pain for last few days and slight increase swelling. No shortness of breath patient does have chronic osteoarthritis of the knee also no fever no skin color changes no shortness of breath Related Data Home Medications Medication Instructions Recorded Confirmed carvedilol 6.25 mg tablet 6.25 mg PO BID 12/14/20 12/26/22 clonidine HCl 0.1 mg tablet 0.1 mg PO BID 12/14/20 12/26/22 hydrochlorothiazide 25 mg tablet 25 mg PO DAILY 12/14/20 12/26/22 loratadine 10 mg tablet 10 mg PO DAILY PRN 12/14/20 12/26/22 losartan 100 mg tablet 100 mg PO DAILY 12/14/20 12/26/22 fluticasone propionate 50 1 spray intranasal DAILY 05/31/21 12/26/22 mcg/actuation nasal spray,suspension famotidine 10 mg tablet 10 mg PO DAILY PRN acid reflux 08/22/22 12/26/22 amlodipine 5 mg tablet 10 mg PO DAILY 10/16/22 12/26/22 atorvastatin 10 mg tablet 10 mg PO DAILY 10/16/22 12/26/22 Previous Rx's Medication Instructions Recorded warfarin 5 mg tablet 5 mg PO DAILY #90 tabs 07/20/20 warfarin 2.5 mg tablet 2.5 mg PO DAILY #90 tabs 07/25/20 tramadol 50 mg tablet 50 mg PO Q6H PRN pain #20 tabs 12/30/22 Allergies Allergy/AdvReac Type Severity Reaction Status Date / Time lisinopril [Lisinopril] Allergy Mild COUGH Verified 12/26/22 13:19 Sulfa (Sulfonamide Allergy Mild UNKNOWN Verified 12/26/22 13:19 Antibiotics) Sulfa Allergy Unknown UNKNOWN Uncoded 12/26/22 13:19 Review of Systems Review of Systems: Yes all other systems are reviewed and are negative PMFSH Past Medical History Medical History DVT (deep venous thrombosis) HTN (hypertension) Social History Social History Patient Tobacco Use Status: Never used Tobacco Advance Directives: No Advance Directives Information Provided: Yes Physical Exam Vital Signs: Vital Signs: Last Vital Signs Temp 97.6 F 12/30/22 17:09 Pulse 85 12/30/22 17:09 Resp 20 12/30/22 17:09 BP 185/75 H 12/30/22 17:09 Pulse Ox 100 12/30/22 17:09 O2 Del Method 12/30/22 17:09 BMI result Body Mass Index 34.7 Appearance: Alert. Oriented X3. No acute distress. ENT: Pharynx normal. Oral Mucosa moist Neck: Normal inspection. Neck supple. CVS: Normal heart rate and rhythm. Pulses normal. Respiratory: No respiratory distress. Equal air entry bilateral, Abdomen: Soft and nontender. Bowel sounds are present, Skin: Skin warm and dry. Normal skin color. Normal skin turgor. Extremities: Trace lower extremity edema. Diffuse calf tenderness Nasir sign negative diffuse tenderness at the right knee joint no effusion, popliteal fullness++ Neuro: Oriented X 3. No motor deficit. Medical Decision Making Medical Decision Making MDM Narrative: Venous Doppler negative for DVT INR 2.7 will discharge patient home advised to take tramadol/tylenol Lab Data Labs: Lab Results 12/30/22 Range/Units 17:37 PT 32.3 H (10.0-13.1) SEC INR 2.7 H D (0.9-1.1) Discharge Plan Discharge Clinical Impression: Musculoskeletal leg pain Patient Disposition: Home, Self-Care Instructions: Musculoskeletal Pain (ED) Additional Instructions: Your sonogram is negative for blood clot Take Tylenol/tramadol for leg pain Follow with PCP Prescriptions: New tramadol 50 mg tablet 50 mg PO Q6H PRN (Reason: pain) Qty: 20 0RF No Action fluticasone propionate 50 mcg/actuation spray,suspension 1 spray intranasal DAILY warfarin 5 mg tablet 5 mg PO DAILY Qty: 90 0RF Protocol: Dose Management Condition: Thursday (Week One) Dose/Route: 7.5 mg Instruction: 1 x 2.5 mg tablet, 1 x 5 mg tablet Condition: Thursday Dose/Route: 7.5 mg Instruction: 1 x 2.5 mg tablet, 1 x 5 mg tablet Condition: Thursday Dose/Route: 7.5 mg Instruction: 1 x 2.5 mg tablet, 1 x 5 mg tablet Condition: Thursday Dose/Route: 7.5 mg Instruction: 1 x 2.5 mg tablet, 1 x 5 mg tablet Condition: Dose/Route: 7.5 mg Instruction: 1 x 2.5 mg tablet, 1 x 5 mg tablet Condition: Thursday Dose/Route: 7.5 mg Instruction: 1 x 2.5 mg tablet, 1 x 5 mg tablet Condition: Thursday Dose/Route: 7.5 mg Instruction: 1 x 2.5 mg tablet, 1 x 5 mg tablet Condition: Thursday (Week Two) Dose/Route: 7.5 mg Instruction: 1 x 2.5 mg tablet, 1 x 5 mg tablet Condition: Thursday Dose/Route: 7.5 mg Instruction: 1 x 2.5 mg tablet, 1 x 5 mg tablet Condition: Thursday Dose/Route: 7.5 mg Instruction: 1 x 2.5 mg tablet, 1 x 5 mg tablet Condition: Thursday Dose/Route: 7.5 mg Instruction: 1 x 2.5 mg tablet, 1 x 5 mg tablet Condition: Dose/Route: 7.5 mg Instruction: 1 x 2.5 mg tablet, 1 x 5 mg tablet Condition: Thursday Dose/Route: 7.5 mg Instruction: 1 x 2.5 mg tablet, 1 x 5 mg tablet Condition: Thursday Dose/Route: 7.5 mg Instruction: 1 x 2.5 mg tablet, 1 x 5 mg tablet Protocol Text: Adjustment Start Date: Thursday12/26/22 INR Value: 2.1 INR Date: 12/26/22 Recheck Date: 01/23/23 Additional Instructions: INR is in low end of range continue usual dosing no heavy duty greens today or tomorrow then balance greens and reds in diet Rx Instructions: TAKES 7.5MG DAILY warfarin 2.5 mg tablet 2.5 mg PO DAILY Qty: 90 0RF Protocol: Dose Management Condition: Thursday (Week One) Dose/Route: 7.5 mg Instruction: 1 x 2.5 mg tablet, 1 x 5 mg tablet Condition: Thursday Dose/Route: 7.5 mg Instruction: 1 x 2.5 mg tablet, 1 x 5 mg tablet Condition: Thursday Dose/Route: 7.5 mg Instruction: 1 x 2.5 mg tablet, 1 x 5 mg tablet Condition: Thursday Dose/Route: 7.5 mg Instruction: 1 x 2.5 mg tablet, 1 x 5 mg tablet Condition: Dose/Route: 7.5 mg Instruction: 1 x 2.5 mg tablet, 1 x 5 mg tablet Condition: Thursday Dose/Route: 7.5 mg Instruction: 1 x 2.5 mg tablet, 1 x 5 mg tablet Condition: Thursday Dose/Route: 7.5 mg Instruction: 1 x 2.5 mg tablet, 1 x 5 mg tablet Condition: Thursday (Week Two) Dose/Route: 7.5 mg Instruction: 1 x 2.5 mg tablet, 1 x 5 mg tablet Condition: Thursday Dose/Route: 7.5 mg Instruction: 1 x 2.5 mg tablet, 1 x 5 mg tablet Condition: Thursday Dose/Route: 7.5 mg Instruction: 1 x 2.5 mg tablet, 1 x 5 mg tablet Condition: Thursday Dose/Route: 7.5 mg Instruction: 1 x 2.5 mg tablet, 1 x 5 mg tablet Condition: Dose/Route: 7.5 mg Instruction: 1 x 2.5 mg tablet, 1 x 5 mg tablet Condition: Thursday Dose/Route: 7.5 mg Instruction: 1 x 2.5 mg tablet, 1 x 5 mg tablet Condition: Thursday Dose/Route: 7.5 mg Instruction: 1 x 2.5 mg tablet, 1 x 5 mg tablet Protocol Text: Adjustment Start Date: Thursday12/26/22 INR Value: 2.1 INR Date: 12/26/22 Recheck Date: 01/23/23 Additional Instructions: INR is in low end of range continue usual dosing no heavy duty greens today or tomorrow then balance greens and reds in diet Rx Instructions: 7.5MG DAILY losartan 100 mg tablet 100 mg PO DAILY hydrochlorothiazide 25 mg tablet 25 mg PO DAILY carvedilol 6.25 mg tablet 6.25 mg PO BID clonidine HCl 0.1 mg tablet 0.1 mg PO BID loratadine 10 mg tablet 10 mg PO DAILY PRN famotidine 10 mg tablet 10 mg PO DAILY PRN (Reason: acid reflux) amlodipine 5 mg tablet 10 mg PO DAILY atorvastatin 10 mg tablet 10 mg PO DAILY
== END 2022-12-30 20:19 | disposition home or self-care (01) ==
PROVIDERS: Physician Assistant; Emergency Provider Internal Medicine; PCP Physician Assistant Medical
DX: M79.18 Myalgia, other site (principal); M79.604 Pain in right leg; I10 Essential (primary) hypertension; M17.11 Unilateral primary osteoarthritis, right knee; Z86.718 Personal history of other venous thrombosis and embolism; Z79.01 Long term (current) use of anticoagulants
CPT/HCPCS: 36415; 85610; 93971; 99283; 99284

== ENCOUNTER → 2023-01-23 13:18 | Outpatient (BNVA) | payer OTHER, MEDICAID, SELFPAY | PROVIDERS: PCP Physician Assistant Medical; Visit Provider Internal Medicine | DX: I82.401 Acute embolism and thrombosis of unspecified deep veins of right lower extremity (principal); Z51.81 Encounter for therapeutic drug level monitoring; Z79.01 Long term (current) use of anticoagulants | CPT/HCPCS: 85610; 99211 ==

== ENCOUNTER → 2023-02-06 13:06 | Outpatient (BNVA) | payer OTHER, SELFPAY | PROVIDERS: PCP Physician Assistant Medical; Visit Provider Internal Medicine | DX: I82.401 Acute embolism and thrombosis of unspecified deep veins of right lower extremity (principal); Z51.81 Encounter for therapeutic drug level monitoring; Z79.01 Long term (current) use of anticoagulants | CPT/HCPCS: 85610; 99211 ==

== ENCOUNTER → 2023-02-10 11:33 | Outpatient (BNVA) | payer OTHER, MEDICAID, SELFPAY | PROVIDERS: PCP Physician Assistant Medical; Visit Provider Internal Medicine | DX: I82.401 Acute embolism and thrombosis of unspecified deep veins of right lower extremity (principal); Z51.81 Encounter for therapeutic drug level monitoring; Z79.01 Long term (current) use of anticoagulants | CPT/HCPCS: 85610; 99211 ==

== ENCOUNTER → 2023-02-12 14:36 | Outpatient (BNVA) | payer OTHER, MEDICAID, SELFPAY | PROVIDERS: PCP Physician Assistant Medical; Visit Provider Surgery Vascular Surgery | DX: Z13.89 Encounter for screening for other disorder (principal) ==

== ENCOUNTER → 2023-02-24 11:38 | Outpatient (BNVA) | payer OTHER, MEDICAID, SELFPAY | PROVIDERS: PCP Physician Assistant Medical; Visit Provider Internal Medicine | DX: Z51.81 Encounter for therapeutic drug level monitoring (principal); Z79.01 Long term (current) use of anticoagulants; Z86.718 Personal history of other venous thrombosis and embolism | CPT/HCPCS: 85610; 99211 ==

== ENCOUNTER → 2023-03-10 09:04 | Outpatient (BNVA) | payer OTHER, MEDICAID, SELFPAY | PROVIDERS: PCP Physician Assistant Medical; Visit Provider Internal Medicine | DX: I82.401 Acute embolism and thrombosis of unspecified deep veins of right lower extremity (principal); Z51.81 Encounter for therapeutic drug level monitoring; Z79.01 Long term (current) use of anticoagulants | CPT/HCPCS: 85610; 99211 ==

== ENCOUNTER 2023-03-12 12:54 | Outpatient (REF) | payer OTHER, MEDICAID, SELFPAY ==
--- NOTE | ~2023-03-12 | US_ITS ---
EXAMINATION: US VENOUS REFLUX/INSUFFICIENCY CLINICAL INFORMATION: Varicose veins right lower extremity with inflammation Venous reflux. COMPARISON: None. TECHNIQUE: Bilateral lower extremity venous insufficiency ultrasound was performed with velocity measurements. Color flow Doppler imaging was performed. FINDINGS: RIGHT SIDE: No evidence of DVT or venous reflux within the common femoral, mid femoral, or popliteal vein. GREATER SAPHENOUS VEIN: The right saphenofemoral junction measures 1.1cm. The reflux time is 3600 ms. Proximal thigh measures 1.1cm. Reflux time is 2592ms. Mid thigh measures 1.6cm. Reflux time is 2760ms. Above-knee measures 0.7cm. Reflux time is 3140ms. At the knee measures 1.32cm. Reflux time is 3096ms. Below the knee measures 0.5cm. Reflux time is 2964ms. Mid calf measures 0.2cm. Reflux time is 0ms. At the level of the ankle it measures0.1cm. Reflux time is 0ms. SMALL SAPHENOUS VEIN: The upper right small saphenous vein measures 0.2 cm. Reflux time is 0ms. The lower small saphenous vein measures 0.2cm. Reflux time is 0ms. There is a varicosity at the right mid thigh which measures 1.7 cm in diameter with reflux time 2864 ms. At the proximal calf there is a 0.7 cm varicosity which has reflux time 3172 ms There is a varicosity at the distal calf which measures 0.7 cm and has does not demonstrate reflux Incidental note is made of a Kendrick's cyst on the right which measures 2 x 0.7 x 1.7 cm LEFT SIDE: No evidence of DVT or venous reflux within the common femoral, mid femoral, or popliteal vein. GREATER SAPHENOUS VEIN: The left saphenofemoral junction measures 1.1cm. The reflux time is 0 ms. Proximal thigh measures 0.7cm. Reflux time is 0ms. Mid thigh measures 0.4cm. Reflux time is 0ms. Above-knee measures 0.3cm. Reflux time is 0ms. At the knee measures 0.3cm. Reflux time is 0ms. Below the knee measures 0.7cm. Reflux time is 2008ms. Mid calf measures 0.3cm. Reflux time is 0ms. At the level of the ankle it measures0.3cm. Reflux time is 0ms. SMALL SAPHENOUS VEIN: The upper left small saphenous vein measures 0.3 cm. Reflux time is 0ms. At the mid calf the small saphenous measures 0.5 cm. Reflux time is 0 ms At the distal calf the small saphenous measures 0.2 cm and reflux time is 0 ms. At the left popliteal fossa there is a 0.8 cm varicosity with reflux time 3604 ms. At the proximal thigh there is a 0.3 cm varicosity which does not demonstrate reflux. At the proximal calf there is a 0.5 cm varicosity with reflux time 3600 ms. At the left mid calf there is a 0.6 cm velocity with reflux time 1976 ms. US/US venous duplex LE BI IMPRESSION: No evidence of DVT on limited ultrasound. The right great saphenous vein is dilated and demonstrates reflux from the level of the saphenofemoral junction to below the knee. There are several right lower extremity varicosities, as described, the largest measuring 1.7 cm in diameter with reflux time 2864 ms. The left great saphenous vein demonstrates reflux only at the below the knee segment. There are multiple left lower extremity varicosities which demonstrate reflux, the largest is at the level of the popliteal fossa measures 0.8 cm. Incidental note of a Kendrick cyst on the right.
== END 2023-03-12 12:55 | disposition home or self-care (01) ==
LOC: HO.US 12:54
PROVIDERS: PCP Physician Assistant Medical; Visit Provider Surgery Vascular Surgery
DX: I83.11 Varicose veins of right lower extremity with inflammation (principal)
CPT/HCPCS: 93970

== ENCOUNTER → 2023-04-03 14:02 | Outpatient (BNVA) | payer OTHER, MEDICAID, SELFPAY | PROVIDERS: PCP Physician Assistant Medical; Visit Provider Internal Medicine | DX: Z51.81 Encounter for therapeutic drug level monitoring (principal); Z79.01 Long term (current) use of anticoagulants; Z86.718 Personal history of other venous thrombosis and embolism | CPT/HCPCS: 85610; 99211 ==

== ENCOUNTER → 2023-04-16 13:50 | Outpatient (BNVA) | payer OTHER, MEDICAID, SELFPAY | PROVIDERS: PCP Physician Assistant Medical; Visit Provider Surgery Vascular Surgery ==

== ENCOUNTER 2023-05-01 13:58 | Outpatient (AMB) | payer OTHER, MEDICAID, SELFPAY ==
[2023-05-01 14:20] LABS: Prothrombin Time Whole Bld POC 37.1 sec (11.1-13.5); ~PT, ~INR - Anti Coag Clinic 3.1 (0.9-1.1)
--- NOTE | 2023-05-01 14:28 | MHC.OFFVISCO ---
Intake Intake Visit Reasons: Anticoagulation Allergies lisinopril [Lisinopril] Allergy (Mild, Verified 05/01/23 14:11) COUGH Sulfa (Sulfonamide Antibiotics) Allergy (Mild, Verified 05/01/23 14:11) UNKNOWN Sulfa Allergy (Unknown, Uncoded 04/16/23 13:58) UNKNOWN Medication List - Last Reconciled 05/01/23 by Priya Ulloa, RN amlodipine 10 mg PO DAILY atorvastatin 10 mg PO DAILY carvedilol 6.25 mg PO BID clonidine HCl 0.1 mg PO BID famotidine 10 mg PO DAILY PRN fluticasone propionate 50 mcg/actuation 1 spray intranasal DAILY hydrochlorothiazide 25 mg PO DAILY ketorolac 0.5% 0 drps ophthalmic (eye) loratadine 10 mg PO DAILY PRN losartan 100 mg PO DAILY warfarin 5 mg See Protocol PO DAILY warfarin 2.5 mg See Protocol PO DAILY Nursing Note NO CP,SOB,DIET/MED CHANGES,FALLS ORSX OF BBLEEDING. CONTINUE PRESENT DOSE AND FOLLOW-UP IN 4 WEEKS GOOD UNDERSTYANDING OF DOSING INSTR. 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
== END 2023-05-01 14:43 | disposition home or self-care (01) ==
LOC: HO.ACS 13:58
PROVIDERS: PCP Physician Assistant Medical; Visit Provider Internal Medicine
DX: Z79.01 Long term (current) use of anticoagulants (principal)

== ENCOUNTER → 2023-05-01 13:58 | Outpatient (BNVA) | payer OTHER, SELFPAY | PROVIDERS: PCP Physician Assistant Medical; Visit Provider Internal Medicine | DX: Z51.81 Encounter for therapeutic drug level monitoring (principal); Z79.01 Long term (current) use of anticoagulants; Z86.718 Personal history of other venous thrombosis and embolism | CPT/HCPCS: 85610; 99211 ==

== ENCOUNTER 2023-05-15 09:25 | Outpatient (AMB) | payer OTHER, MEDICAID, SELFPAY ==
[2023-05-15 09:48] VITALS: BMI 34.7
--- NOTE | 2023-05-15 09:48 | MHC.OFFVIS ---
Intake Vital Signs 05/15/23 09:48 Height 5 ft 2 in Weight 190 lb BMI 34.7 Intake Visit Reasons: Right GSV RFA Intake Note: Patient is here for a Right GSV RFA Allergies lisinopril [Lisinopril] Allergy (Mild, Verified 05/15/23 09:48) COUGH Sulfa (Sulfonamide Antibiotics) Allergy (Mild, Verified 05/15/23 09:48) UNKNOWN Sulfa Allergy (Unknown, Uncoded 04/16/23 13:58) UNKNOWN [facility] Medical History DVT (deep venous thrombosis) HTN (hypertension) Social History Patient Tobacco Use Status: Never used Tobacco Physical Exam Vital Signs: BMI result Body Mass Index 34.7 Office Procedures Vascular Office Procedure Details Details: Diagnosis: Varicose veins with inflammation of right leg Procedure: Endovenous radiofrequency ablation of the right great saphenous vein and right accessory great saphenous vein of the lower extremity with Venclose RF ablation Anesthesia: Local infiltration 5 cc, Tumescent 500 cc. Estimated Blood Loss: Minimal The patient was transferred to the procedure suite and the insufficient saphenous vein was mapped by ultrasound and diagrammed on the overlying skin. The depth and diameter of the vein(s) to be treated was documented. The varicose tributary veins and suitable access sites were identified and mapped as well. The patient was then positioned supine on the procedure table. The affected limb was prepped and draped in the usual sterile fashion. The RF catheter was placed on the sterile field, flushed and wiped down, prepared, and connected by a sterile cable. The patient was placed in a supine position and local anesthesia was instilled in the skin overlying the access site. A skin incision was made overlying the identified and mapped great saphenous vein entry site. The vein was accessed using ultrasound guidance and the Seldinger technique, a guide wire was introduced through the needle, which was then exchanged over the guide wire for a 6F sheath, which was secured in place. The guide wire was removed and the sheath was flushed. The RF catheter was placed into the vein through the sheath and preferentially, imaging was used to place the catheter tip just inferior to the superficial epigastric vein to preserve normal physiological flow in that vein. Additionally, it was confirmed by ultrasound guidance that the catheter tip was also placed a minimum of 1.5cm distal to the saphenofemoral junction. After the RF catheter position was verified by ultrasound, tumescent anesthesia was infiltrated, under ultrasound guidance, precisely into the perivenous compartment along the entire length of vein from the entry site to the saphenofemoral junction until a halo of fluid was noted around the vein. The patient was appropriately position. After RF catheter position was again confirmed with ultrasound imaging, and under direct external compression along the length of the heating element, RF energy was applied. The vein was segmentally ablated by heating a 10 cm segment and then indexing the catheter forward by 9.5 cm until the treatment length is completed. Device temperature was maintained at 120 plus or minus 5 degrees C with an initial power level of 4W/cm dropping to below 2W/cm for each treatment. Total vein length treated 15 cm Total cycles of RF 4. In a similar fashion just below the knee the accessory saphenous vein was accessed. The RF catheter was positioned as proximally as possible under direct vision of ultrasound. Tumescence was infiltrated under ultrasound guidance to create a halo of fluid around the vein. Once this was accomplished the vein was segmentally ablated by heating a 10 cm segment and then index Ng the catheter forward by 9.5 cm until the treatment length was completed. Device temperature was maintained at 120+/- 5 degrees C and the initial power of 4 w dropping below 2 w per cm for each treatment. Total vein length treated was 30 cm with a total cycles of RF 7. Repeat ultrasound of the saphenous vein was performed, confirming successful treatment. The catheter and sheath were withdrawn and hemostasis established with direct pressure. After assuring hemostasis, the skin incision over the saphenous vein was closed with a steristip and a compression wrap was applied from the level of the foot to the most proximal level of the thigh. Discharge instructions were given to the patient inclusive of follow-up ultrasound and recommended follow-up with us. 15484 - Endovenous RF, 1st Vein 47174 - RF Ablation, subsequent vein All charges added?: Procedure code (CPT) selection complete Coding Level of Care Code Procedure Only Diagnoses CPT Codes Details - Vascular 1: 12986 - Endovenous RF, 1st Vein ([id number]) Details - Vascular 2: 14549 - RF Ablation, subsequent vein ([id number])
== END 2023-05-15 13:19 | disposition home or self-care (01) ==
PROVIDERS: PCP Physician Assistant Medical; Visit Provider Surgery Vascular Surgery
DX: I83.11 Varicose veins of right lower extremity with inflammation (principal)
CPT/HCPCS: 36475; 36476

== ENCOUNTER → 2023-05-15 09:25 | Outpatient (BNVA) | payer OTHER, MEDICAID, SELFPAY | PROVIDERS: PCP Physician Assistant Medical; Visit Provider Surgery Vascular Surgery | DX: M79.604 Pain in right leg (principal) | CPT/HCPCS: 36475; 36476 ==

== ENCOUNTER 2023-05-18 14:09 | Outpatient (REF) | payer OTHER, MEDICAID, SELFPAY ==
--- NOTE | ~2023-05-18 | US_ITS ---
EXAMINATION: TRIPLEX SCANNING OF RIGHT LOWER EXTREMITY; SUPERFICIAL ULTRASOUND WITH DOPPLER OF RIGHT LOWER EXTREMITY CLINICAL INFORMATION: Status post radiofrequency ablation of the right great saphenous vein Ambulatory phlebectomy performed: No COMPARISON: preprocedure studies. TECHNIQUE: Color flow triplex imaging and compression Doppler were performed as well as superficial ultrasound with Doppler. FINDINGS: RIGHT LOWER EXTREMITY DEEP VENOUS SYSTEM: Respiratory variation, normal compression and augmented flow are noted throughout the lower extremity. The visualized common femoral vein, femoral vein, profunda femoral vein, popliteal vein and the calf veins show no evidence of deep venous thrombosis. There is no evidence of Kendrick's cyst. SUPERFICIAL VENOUS SYSTEM: The great saphenous vein is occluded from the access site to just before the saphenofemoral junction. There is no extension of thrombus into the deep system. US/US venous duplex LE RT IMPRESSION: No evidence of DVT.
== END 2023-05-18 14:10 | disposition home or self-care (01) ==
LOC: HO.US 14:09
PROVIDERS: PCP Physician Assistant Medical; Visit Provider Surgery Vascular Surgery
DX: M79.604 Pain in right leg (principal)
CPT/HCPCS: 93971

== ENCOUNTER 2023-05-29 13:29 | Outpatient (AMB) | payer OTHER, MEDICAID, SELFPAY ==
[2023-05-29 13:38] LABS: ~PT, ~INR - Anti Coag Clinic 1.5 (0.9-1.1)
--- NOTE | 2023-05-29 13:51 | MHC.OFFVISCO ---
Intake Intake Visit Reasons: Anticoagulation Allergies lisinopril [Lisinopril] Allergy (Mild, Verified 05/29/23 13:33) COUGH Sulfa (Sulfonamide Antibiotics) Allergy (Mild, Verified 05/29/23 13:33) UNKNOWN Sulfa Allergy (Unknown, Uncoded 05/29/23 13:33) UNKNOWN Medication List - Last Reconciled 05/29/23 by Ewa Price, RN amlodipine 10 mg PO DAILY atorvastatin 10 mg PO DAILY carvedilol 6.25 mg PO BID clonidine HCl 0.1 mg PO BID famotidine 10 mg PO DAILY PRN fluticasone propionate 50 mcg/actuation 1 spray intranasal DAILY hydrochlorothiazide 25 mg PO DAILY ketorolac 0.5% 0 drps ophthalmic (eye) loratadine 10 mg PO DAILY PRN losartan 100 mg PO DAILY warfarin 5 mg See Protocol PO DAILY warfarin 2.5 mg See Protocol PO DAILY Nursing Note Amb to [facility] feeling well Medications and supplements reviewed No changes in health, diet, medications, or supplements Denies any unusual signs and symptoms of bruising, bleeding Denies any new Chest pain, SOB, or clotting INR: 1.5 below range, pt then sts she missed dose on Thursday and usually takes med in am and did not take yet today (now 1345) encourage to call [facility] if she misses a dose and try to take med at same time, reviewed reminder systems, phone alarm etc Nutritional guidance given:no greens until seen Dose: increase dose today to 12.5mg (vs 7.5mg) and increase tomorrow to 10mg (vs 7.5mg) then resume usual dosing of 7.5mg daily on Thursday; F/U INR: Saturday 06/02 Patient verbalizes understanding of instructions given with accurate read back/ teach back of dosing Critical INR reported to Karley STEPHENSON at PCP office (Dr. 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
== END 2023-05-29 14:04 | disposition home or self-care (01) ==
LOC: HO.ACS 13:29
PROVIDERS: PCP Physician Assistant Medical; Visit Provider Internal Medicine
DX: Z79.01 Long term (current) use of anticoagulants (principal)

== ENCOUNTER → 2023-05-29 13:29 | Outpatient (BNVA) | payer OTHER, MEDICAID, SELFPAY | PROVIDERS: PCP Physician Assistant Medical; Visit Provider Internal Medicine | DX: Z86.718 Personal history of other venous thrombosis and embolism (principal); Z51.81 Encounter for therapeutic drug level monitoring; Z79.01 Long term (current) use of anticoagulants | CPT/HCPCS: 85610; 99211 ==

== ENCOUNTER 2023-06-02 10:42 | Outpatient (AMB) | payer OTHER, MEDICAID, SELFPAY ==
--- NOTE | 2023-06-02 10:49 | MHC.OFFVISCO ---
Intake Intake Visit Reasons: Anticoagulation Allergies lisinopril [Lisinopril] Allergy (Mild, Verified 06/02/23 10:46) COUGH Sulfa (Sulfonamide Antibiotics) Allergy (Mild, Verified 06/02/23 10:46) UNKNOWN Sulfa Allergy (Unknown, Uncoded 06/02/23 10:46) UNKNOWN Medication List - Last Reconciled 06/02/23 by Mahogany Murphy RN amlodipine 10 mg PO DAILY atorvastatin 10 mg PO DAILY carvedilol 6.25 mg PO BID clonidine HCl 0.1 mg PO BID famotidine 10 mg PO DAILY PRN fluticasone propionate 50 mcg/actuation 1 spray intranasal DAILY hydrochlorothiazide 25 mg PO DAILY ketorolac 0.5% 0 drps ophthalmic (eye) loratadine 10 mg PO DAILY PRN losartan 100 mg PO DAILY warfarin 5 mg See Protocol PO DAILY warfarin 2.5 mg See Protocol PO DAILY Nursing Note INR: 2.7 in therapeutic range prev inr low due to missed dose and increased greens Medications and supplements reviewed No changes in health, diet, medications, or supplements, Denies any signs and symptoms of bleeding or bruising or clotting. 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
[2023-06-02 10:50] LABS: Prothrombin Time Whole Bld POC 32.3 sec (11.1-13.5); ~PT, ~INR - Anti Coag Clinic 2.7 (0.9-1.1)
== END 2023-06-02 10:54 | disposition home or self-care (01) ==
LOC: HO.ACS 10:42
PROVIDERS: PCP Physician Assistant Medical; Visit Provider Internal Medicine
DX: Z79.01 Long term (current) use of anticoagulants (principal)

== ENCOUNTER → 2023-06-02 10:42 | Outpatient (BNVA) | payer OTHER, MEDICAID, SELFPAY | PROVIDERS: PCP Physician Assistant Medical; Visit Provider Internal Medicine | DX: I82.4Z1 Acute embolism and thrombosis of unspecified deep veins of right distal lower extremity (principal); I83.11 Varicose veins of right lower extremity with inflammation; Z51.81 Encounter for therapeutic drug level monitoring; Z79.01 Long term (current) use of anticoagulants | CPT/HCPCS: 85610; 99211 ==

== ENCOUNTER 2023-06-02 11:06 | Outpatient (AMB) | payer OTHER, MEDICAID, SELFPAY ==
--- NOTE | 2023-06-02 11:15 | MHC.OFFVIS ---
Intake Intake Visit Reasons: 2 week follow up Right GSV RFA 05/15/23 Intake Note: Patient is here for a follow up s/p right GSV RFA 05/15/23, Allergies lisinopril [Lisinopril] Allergy (Mild, Verified 06/02/23 11:16) COUGH Sulfa (Sulfonamide Antibiotics) Allergy (Mild, Verified 06/02/23 11:16) UNKNOWN Sulfa Allergy (Unknown, Uncoded 06/02/23 10:46) UNKNOWN HPI 2 week follow up Right GSV RFA 05/15/23 HPI Details Very pleasant 63-year-old female presents for follow-up status post radiofrequency ablation of the right great saphenous vein. She reports in prove min in general with decreased swelling. She does have some mild postprocedure phlebitis. She now presents for routine postprocedure follow-up. [facility] Medical History DVT (deep venous thrombosis) HTN (hypertension) Social History Patient Tobacco Use Status: Never used Tobacco Review of Systems Const Reports as per HPI ENT Reports no additional complaints Card Denies chest pain, Denies chest pain at rest and Denies chest pain with activity Resp Denies chest congestion and Denies cough GI Reports no additional complaints Musc Details: pain over varicosities, aching of lower extremities, swelling, cramping, heaviness and tiredness, itching Denies abnormal gait Skin/Breast Reports pruritus and Denies wounds Neuro Reports no additional complaints and Denies abnormal gait Psych Denies no additional complaints Physical Exam Const General: cooperative, healthy appearing and comfortable Orientation/consciousness: oriented to person, oriented to place and oriented to time Neck Carotids: no bruits Chest Chest palpation & inspection: normal inspection of the chest and normal palpation of entire chest wall Resp Effort & Inspection: normal respiratory effort and able to speak in complete sentences Cardio Rate: regular rate Heart sounds: S1 normal heart sound present and S2 normal heart sound present Peripheral pulses: Peripheral pulses 2+ throughout GI Inspection: Yes normal to inspection Skin Other: +2 edema, large rope-like varicosities greater than 4 mm CEAP Classification C4 - skin color changes Ep - Etiology Primary As - superficial veins P - reflux General skin exam: dry skin Neuro General: oriented to person, oriented to place and oriented to time Extrem Right lower extremity: full ROM, normal capillary refill and edema Left lower extremity: full ROM, normal capillary refill and edema Psych Mental Status: mental status grossly normal Results AMB INR Fingerstick AMB INR Fingerstick 2.7 Last Edit by Mahogany Murphy RN on 06/02/23 10:50 Results Reviewed Results Reviewed: Brief summary of venous insufficiency testing is as follows: right great saphenous vein: Ablated right small saphenous vein: negative right accessory vein: none present left great saphenous vein: negative left small saphenous vein: negative left accessory vein: none present Please note there is no evidence of any venous aneurysms or significant tortuosity Assessment & Plan Assessment & Plan (1) Varicose veins of right lower extremity with inflammation: Comment: 05/15/2023- right great saphenous vein radiofrequency ablation Code(s): I83.11 - Varicose veins of right lower extremity with inflammation Plan: In short patient has done well with the right great saphenous vein ablation. She does have significant varicosities in the right lower extremity inclusive of the calf area. There is also skin discoloration. In addition she does have a fair amount of left lower extremity varicosities. She does have a refluxing vein below knee. At the current time we have elected to manage this conservatively. She is going to be working at the [employer] during June. After that she will return for follow-up. She was encouraged to wear compression during this time. She will follow up with us in approximately 3 months time for repeat evaluation for possible microphlebectomy. Thank you for allowing us to assist in her care. If there are questions or concerns please do not hesitate to contact us. Coding Level of Care Code Est Pt Level 4 (78238) Diagnoses Varicose veins of right lower extremity with inflammation I83.11
== END 2023-06-02 12:45 | disposition home or self-care (01) ==
PROVIDERS: PCP Physician Assistant Medical; Visit Provider Surgery Vascular Surgery
DX: I83.11 Varicose veins of right lower extremity with inflammation (principal); I83.92 Asymptomatic varicose veins of left lower extremity
CPT/HCPCS: 99213

== ENCOUNTER 2023-06-30 11:36 | Outpatient (AMB) | payer OTHER, SELFPAY ==
--- NOTE | 2023-06-30 11:40 | MHC.OFFVISCO ---
Intake Intake Visit Reasons: Anticoagulation Allergies lisinopril [Lisinopril] Allergy (Mild, Verified 06/30/23 11:37) COUGH Sulfa (Sulfonamide Antibiotics) Allergy (Mild, Verified 06/30/23 11:37) UNKNOWN Sulfa Allergy (Unknown, Uncoded 06/30/23 11:37) UNKNOWN Medication List - Last Reconciled 06/30/23 by Mahogany Murphy RN amlodipine 10 mg PO DAILY atorvastatin 10 mg PO DAILY carvedilol 6.25 mg PO BID clonidine HCl 0.1 mg PO BID famotidine 10 mg PO DAILY PRN fluticasone propionate 50 mcg/actuation 1 spray intranasal DAILY hydrochlorothiazide 25 mg PO DAILY ketorolac 0.5% 0 drps ophthalmic (eye) loratadine 10 mg PO DAILY PRN losartan 100 mg PO DAILY warfarin 5 mg See Protocol PO DAILY warfarin 2.5 mg See Protocol PO DAILY Nursing Note INR 1.9-?? out of therapeutic range- denies missed dose Medications and supplements reviewed Patient status: no c.o Medications or supplements: no changes Diet: good- has had spinach Denies any signs and symptoms of bleeding or clotting or unusual bruising Bleeding, bruising, clotting discussed Nutritional guidance given: no greens for 2 days, eat a red today Dose: take 10mg today then cont reg 7.5mg x 7 F/U INR Date : pt req 3 weeks?? Patient verbalizing understanding of instructions given. Anti-Coag Initial Assessment Social Hx Patient Tobacco Use Status: Never used Tobacco Coding Level of Care Code Est Patient Level 1 Diagnoses Current use of anticoagulant therapy Z79.01 Assessment & Plan Assessment & Plan (1) Current use of anticoagulant therapy: Code(s): Z79.01 - halfway (current) use of anticoagulants Category: Medical
[2023-06-30 11:41] LABS: Prothrombin Time Whole Bld POC 22.7 sec (11.1-13.5); ~PT, ~INR - Anti Coag Clinic 1.9 (0.9-1.1)
== END 2023-06-30 11:46 | disposition home or self-care (01) ==
LOC: HO.ACS 11:36
PROVIDERS: PCP Physician Assistant Medical; Visit Provider Internal Medicine
DX: Z79.01 Long term (current) use of anticoagulants (principal)

== ENCOUNTER → 2023-06-30 11:36 | Outpatient (BNVA) | payer OTHER, SELFPAY | PROVIDERS: PCP Physician Assistant Medical; Visit Provider Internal Medicine | DX: Z86.718 Personal history of other venous thrombosis and embolism (principal); Z51.81 Encounter for therapeutic drug level monitoring; Z79.01 Long term (current) use of anticoagulants | CPT/HCPCS: 85610; 99211 ==

== ENCOUNTER 2023-07-21 11:15 | Outpatient (AMB) | payer OTHER, SELFPAY ==
--- NOTE | 2023-07-21 11:38 | MHC.OFFVISCO ---
Intake Intake Visit Reasons: Anticoagulation Allergies lisinopril [Lisinopril] Allergy (Mild, Verified 07/21/23 11:34) COUGH Sulfa (Sulfonamide Antibiotics) Allergy (Mild, Verified 07/21/23 11:34) UNKNOWN Sulfa Allergy (Unknown, Uncoded 07/21/23 11:34) UNKNOWN Medication List - Last Reconciled 07/21/23 by Mahogany Murphy RN amlodipine 10 mg PO DAILY atorvastatin 10 mg PO DAILY carvedilol 6.25 mg PO BID clonidine HCl 0.1 mg PO BID famotidine 10 mg PO DAILY PRN fluticasone propionate 50 mcg/actuation 1 spray intranasal DAILY hydrochlorothiazide 25 mg PO DAILY ketorolac 0.5% 0 drps ophthalmic (eye) loratadine 10 mg PO DAILY PRN losartan 100 mg PO DAILY warfarin 5 mg See Protocol PO DAILY warfarin 2.5 mg See Protocol PO DAILY Nursing Note INR: 2.7- in therapeutic range Medications and supplements reviewed- no changes No changes in health, diet, medications, or supplements, Denies any signs and symptoms of bleeding or bruising or clotting. Bleeding, bruising, clotting discussed Nutritional guidance given Dose: 7.5mg x 7 F/U INR: 4 weeks Patient verbalizes understanding of instructions given pt c.o fatigue- worked at the [employer] every day Anti-Coag Initial Assessment Social Hx Patient Tobacco Use Status: Never used Tobacco Coding Level of Care Code Est Patient Level 1 Diagnoses Current use of anticoagulant therapy Z79.01 Results AMB INR Fingerstick AMB INR Fingerstick 2.7 Last Edit by Mahogany Murphy RN on 07/21/23 11:40 Assessment & Plan Assessment & Plan (1) Current use of anticoagulant therapy: Code(s): Z79.01 - FDC (current) use of anticoagulants Category: Medical
[2023-07-21 11:47] LABS: Prothrombin Time Whole Bld POC 32.8 sec (11.1-13.5); ~PT, ~INR - Anti Coag Clinic 2.7 (0.9-1.1)
== END 2023-07-21 11:44 | disposition home or self-care (01) ==
LOC: HO.ACS 11:15
PROVIDERS: PCP Physician Assistant Medical; Visit Provider Internal Medicine
DX: Z79.01 Long term (current) use of anticoagulants (principal)

== ENCOUNTER → 2023-07-21 11:15 | Outpatient (BNVA) | payer OTHER, SELFPAY | PROVIDERS: PCP Physician Assistant Medical; Visit Provider Internal Medicine | DX: Z86.718 Personal history of other venous thrombosis and embolism (principal); Z51.81 Encounter for therapeutic drug level monitoring; Z79.01 Long term (current) use of anticoagulants | CPT/HCPCS: 85610; 99211 ==

== ENCOUNTER 2023-08-07 13:07 | Outpatient (REF) | payer OTHER, SELFPAY | END 2023-08-07 13:08 | disposition home or self-care (01) | LOC: HO.MAMMO 13:07 | PROVIDERS: PCP Physician Assistant Medical; Visit Provider Physician Assistant Medical | DX: Z12.31 Encounter for screening mammogram for malignant neoplasm of breast (principal) | CPT/HCPCS: 77063; 77067 ==

== ENCOUNTER → 2023-08-07 13:15 | Outpatient (BNV) | payer OTHER, SELFPAY | PROVIDERS: PCP Physician Assistant Medical; Visit Provider Radiology Diagnostic Radiology | DX: Z12.31 Encounter for screening mammogram for malignant neoplasm of breast (principal) | CPT/HCPCS: 77063; 77067 ==

== ENCOUNTER 2023-08-21 14:08 | Outpatient (AMB) | payer OTHER, SELFPAY ==
--- NOTE | 2023-08-21 14:12 | MHC.OFFVISCO ---
Intake Intake Visit Reasons: Anticoagulation Allergies lisinopril [Lisinopril] Allergy (Mild, Verified 08/21/23 14:09) COUGH Sulfa (Sulfonamide Antibiotics) Allergy (Mild, Verified 08/21/23 14:09) UNKNOWN Sulfa Allergy (Unknown, Uncoded 08/21/23 14:09) UNKNOWN Medication List - Last Reconciled 08/21/23 by Mahogany Murphy RN amlodipine 10 mg PO DAILY atorvastatin 10 mg PO DAILY carvedilol 6.25 mg PO BID clonidine HCl 0.1 mg PO BID famotidine 10 mg PO DAILY PRN fluticasone propionate 50 mcg/actuation 1 spray intranasal DAILY hydrochlorothiazide 25 mg PO DAILY ketorolac 0.5% 0 drps ophthalmic (eye) loratadine 10 mg PO DAILY PRN losartan 100 mg PO DAILY warfarin 5 mg See Protocol PO DAILY warfarin 2.5 mg See Protocol PO DAILY Nursing Note INR: 3.0- in therapeutic range Medications and supplements reviewed No changes in health, diet, medications, or supplements, Denies any signs and symptoms of bleeding or bruising or clotting. Bleeding, bruising, clotting discussed Nutritional guidance given - eat greens for 2 days Dose: 7.5mg x 7 F/U INR: 4 weeks Patient verbalizes understanding of instructions given pt with c.o prev head cold, occ tylenol Anti-Coag Initial Assessment Social Hx Patient Tobacco Use Status: Never used Tobacco Coding Level of Care Code Est Patient Level 1 Diagnoses Current use of anticoagulant therapy Z79.01 Assessment & Plan Assessment & Plan (1) Current use of anticoagulant therapy: Code(s): Z79.01 - prison (current) use of anticoagulants Category: Medical
[2023-08-21 14:14] LABS: Prothrombin Time Whole Bld POC 35.7 sec (11.1-13.5)
== END 2023-08-21 14:35 | disposition home or self-care (01) ==
LOC: HO.ACS 14:08
PROVIDERS: PCP Physician Assistant Medical; Visit Provider Internal Medicine
DX: Z79.01 Long term (current) use of anticoagulants (principal)

== ENCOUNTER → 2023-08-21 14:08 | Outpatient (BNVA) | payer OTHER, SELFPAY | PROVIDERS: PCP Physician Assistant Medical; Visit Provider Internal Medicine | DX: I82.401 Acute embolism and thrombosis of unspecified deep veins of right lower extremity (principal); Z51.81 Encounter for therapeutic drug level monitoring; Z79.01 Long term (current) use of anticoagulants | CPT/HCPCS: 85610; 99211 ==

== ENCOUNTER → 2023-09-14 17:42 | Outpatient (BNVA) | payer OTHER, SELFPAY | PROVIDERS: PCP Physician Assistant Medical; Visit Provider Internal Medicine ==

== ENCOUNTER 2023-09-17 13:25 | Outpatient (AMB) | payer OTHER, SELFPAY ==
[2023-09-17 13:32] LABS: Prothrombin Time Whole Bld POC 18.5 sec (11.1-13.5); ~PT, ~INR - Anti Coag Clinic 1.5 (0.9-1.1)
--- NOTE | 2023-09-17 13:44 | MHC.OFFVISCO ---
Intake Intake Visit Reasons: Anticoagulation Allergies lisinopril [Lisinopril] Allergy (Mild, Verified 09/17/23 13:26) COUGH Sulfa (Sulfonamide Antibiotics) Allergy (Mild, Verified 09/17/23 13:26) UNKNOWN Sulfa Allergy (Unknown, Uncoded 08/21/23 14:09) UNKNOWN Medication List - Last Reconciled 09/17/23 by Priya Ulloa, RN amlodipine 10 mg PO DAILY amoxicillin-pot clavulanate 875-125 mg 1 tab PO BID atorvastatin 10 mg PO DAILY benzonatate 200 mg PO TID PRN carvedilol 6.25 mg PO BID clonidine HCl 0.1 mg PO BID famotidine 10 mg PO DAILY PRN fluticasone propionate 50 mcg/actuation 1 spray intranasal DAILY hydrochlorothiazide 25 mg PO DAILY ketorolac 0.5% 0 drps ophthalmic (eye) loratadine 10 mg PO DAILY PRN losartan 100 mg PO DAILY warfarin 5 mg See Protocol PO DAILY warfarin 2.5 mg See Protocol PO DAILY Nursing Note PT.TOOK LESS WARFARIN THAN DIRECTED IN ERROR. SHE HAS 3 DAYS REMAINING ON AUGMENTIN. 10MGM 2 DAYS THEN RESUME USUAL DOSE AND FOLOOW-UP IN 1 WEEK. NO GREENS 3 DAYS GOOD UNDERSTANDING OF DOSINFG INSTR. MULTIPLE ATTEMPTS TO REACH PCP TODAY WITHOUT SUCCESS WITH LOW INR AND PLAN OF CARE. Anti-Coag Initial Assessment Social Hx Patient Tobacco Use Status: Never used Tobacco Coding Level of Care Code Est Patient Level 1 Diagnoses Current use of anticoagulant therapy Z79.01 Assessment & Plan Assessment & Plan (1) Current use of anticoagulant therapy: Code(s): Z79.01 - intermission coordinator (current) use of anticoagulants Category: Medical
== END 2023-09-17 15:03 | disposition home or self-care (01) ==
LOC: HO.ACS 13:25
PROVIDERS: PCP Physician Assistant Medical; Visit Provider Internal Medicine
DX: Z79.01 Long term (current) use of anticoagulants (principal)

== ENCOUNTER → 2023-09-17 13:25 | Outpatient (BNVA) | payer OTHER, SELFPAY | PROVIDERS: PCP Physician Assistant Medical; Visit Provider Internal Medicine | DX: Z86.718 Personal history of other venous thrombosis and embolism (principal); Z51.81 Encounter for therapeutic drug level monitoring; Z79.01 Long term (current) use of anticoagulants | CPT/HCPCS: 85610; 99211 ==

== ENCOUNTER 2023-09-25 11:28 | Outpatient (AMB) | payer OTHER, SELFPAY ==
--- NOTE | 2023-09-25 11:42 | MHC.OFFVISCO ---
Intake Intake Visit Reasons: Anticoagulation Allergies lisinopril [Lisinopril] Allergy (Mild, Verified 09/25/23 11:39) COUGH Sulfa (Sulfonamide Antibiotics) Allergy (Mild, Verified 09/25/23 11:39) UNKNOWN Sulfa Allergy (Unknown, Uncoded 09/25/23 11:39) UNKNOWN Medication List - Last Reconciled 09/25/23 by Mahogayn Murphy RN amlodipine 10 mg PO DAILY atorvastatin 10 mg PO DAILY benzonatate 200 mg PO TID PRN carvedilol 6.25 mg PO BID clonidine HCl 0.1 mg PO BID famotidine 10 mg PO DAILY PRN fluticasone propionate 50 mcg/actuation 1 spray intranasal DAILY hydrochlorothiazide 25 mg PO DAILY ketorolac 0.5% 0 drps ophthalmic (eye) loratadine 10 mg PO DAILY PRN losartan 100 mg PO DAILY warfarin 5 mg See Protocol PO DAILY warfarin 2.5 mg See Protocol PO DAILY Nursing Note INR 3.2-? out of therapeutic range of 2-3 Medications and supplements reviewed Patient status: pt finished antibiotics amox/clav yesterday- delayed onset poss Medications or supplements: no other changes Diet: less Denies any signs and symptoms of bleeding or clotting or unusual bruising Bleeding, bruising, clotting discussed Nutritional guidance given: eat greens to lower inr Dose: 5mg today, then 7.5mg x 7 F/U INR Date : 1 week?due to antibiotics Patient verbalizing understanding of instructions given. 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
[2023-09-25 11:43] LABS: Prothrombin Time Whole Bld POC 38.2 sec (11.1-13.5); ~PT, ~INR - Anti Coag Clinic 3.2 (0.9-1.1)
== END 2023-09-25 12:12 | disposition home or self-care (01) ==
LOC: HO.ACS 11:28
PROVIDERS: PCP Physician Assistant Medical; Visit Provider Internal Medicine
DX: Z79.01 Long term (current) use of anticoagulants (principal)

== ENCOUNTER → 2023-09-25 11:28 | Outpatient (BNVA) | payer OTHER, SELFPAY | PROVIDERS: PCP Physician Assistant Medical; Visit Provider Internal Medicine | DX: Z86.718 Personal history of other venous thrombosis and embolism (principal); Z51.81 Encounter for therapeutic drug level monitoring; Z79.01 Long term (current) use of anticoagulants | CPT/HCPCS: 85610; 99211 ==

== ENCOUNTER 2023-10-02 13:36 | Outpatient (AMB) | payer OTHER, SELFPAY ==
[2023-10-02 13:44] LABS: Prothrombin Time Whole Bld POC 28.2 sec (11.1-13.5); ~PT, ~INR - Anti Coag Clinic 2.4 (0.9-1.1)
--- NOTE | 2023-10-02 13:48 | MHC.OFFVISCO ---
Intake Intake Visit Reasons: Anticoagulation Allergies lisinopril [Lisinopril] Allergy (Mild, Verified 10/02/23 13:37) COUGH Sulfa (Sulfonamide Antibiotics) Allergy (Mild, Verified 10/02/23 13:37) UNKNOWN Sulfa Allergy (Unknown, Uncoded 10/02/23 13:37) UNKNOWN Medication List - Last Reconciled 10/02/23 by Ewa Price RN amlodipine 10 mg PO DAILY atorvastatin 10 mg PO DAILY benzonatate 200 mg PO TID PRN carvedilol 6.25 mg PO BID clonidine HCl 0.1 mg PO BID famotidine 10 mg PO DAILY PRN fluticasone propionate 50 mcg/actuation 1 spray intranasal DAILY hydrochlorothiazide 25 mg PO DAILY ketorolac 0.5% 0 drps ophthalmic (eye) loratadine 10 mg PO DAILY PRN losartan 100 mg PO DAILY warfarin 5 mg See Protocol PO DAILY warfarin 2.5 mg See Protocol PO DAILY Nursing Note Amb to [facility] feeling, ok continues with cough, cold, sinus issues completed antibiotic last week and had more greens Medications and supplements reviewed No other changes in health, diet, medications, or supplements Denies any unusual signs and symptoms of bruising, bleeding Denies any new Chest pain, SOB, or clotting INR: 2.4 in therapeutic range Nutritional guidance given: balance greens and reds in diet Dose: continue usual dosing; 7.5mg daily F/U INR: 2 weeks Patient verbalizes understanding of instructions given with accurate read back/ teach back of dosing Anti-Coag Initial Assessment Social Hx Patient Tobacco Use Status: Never used Tobacco Questionnaires HAS-BLED Does the patient had uncontrolled Hypertension?: No Does the patient have renal disease?: No Does the patient have liver disease?: No Does the patient have a history of stroke?: No Has the patient had major bleeding or predisposition to bleeding?: No Does the patient have labile INRs?: Yes Is the patient over 65 years of age?: No Is the patient on medications that gives them a predisposition to bleeding?: Yes Does the patient use alcohol?: No HAS-BLED Score: 2 CHADSVASC Age: <65 Gender: Female Does the patient have a history of CHF?: No Does the patient have a history of Hypertension?: Yes Does the patient have a history of Stroke/TIA/Thromboembolism?: Yes Does the patient have a history of Vascular Disease (prior [place], PAD or aortic plaque)?: No Does the patient have a history of Diabetes?: No CHADS VACS Score: 4 Lyn Prediction Score Rsk VTE Active Cancer: No Previous VTE, excluding superficial vein thrombosis: Yes Reduced mobility: No Already known Thrombophilic Condition: Yes With-in last month Trauma and/or Surgery: No Elderly 70 year or older: No Heart and/or Respiratory Failure: No Acute Myocardial infarction and/or Ischemic Stroke: No Acute Infection and/or Rheumatologic Disorder: No Obesity (BMI 30 or greater): Yes Ongoing Hormonal Treatment: No Score: 7 Lyn Score less than 4; Low Risk of VTE Lyn Score 4 or greater; High Risk of VTE Coding Level of Care Code Est Patient Level 1 Diagnoses Current use of anticoagulant therapy Z79.01 Time Spent (min) 15 Assessment & Plan Assessment & Plan (1) Current use of anticoagulant therapy: Code(s): Z79.01 - 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
== END 2023-10-02 14:20 | disposition home or self-care (01) ==
LOC: HO.ACS 13:36
PROVIDERS: PCP Physician Assistant Medical; Visit Provider Internal Medicine
DX: Z79.01 Long term (current) use of anticoagulants (principal)

== ENCOUNTER → 2023-10-02 13:36 | Outpatient (BNVA) | payer OTHER, SELFPAY | PROVIDERS: PCP Physician Assistant Medical; Visit Provider Internal Medicine | DX: Z86.718 Personal history of other venous thrombosis and embolism (principal); Z51.81 Encounter for therapeutic drug level monitoring; Z79.01 Long term (current) use of anticoagulants | CPT/HCPCS: 85610; 99211 ==

== ENCOUNTER 2023-10-16 13:28 | Outpatient (AMB) | payer OTHER, SELFPAY ==
[2023-10-16 13:50] LABS: Prothrombin Time Whole Bld POC 30.4 sec (11.1-13.5); ~PT, ~INR - Anti Coag Clinic 2.5 (0.9-1.1)
--- NOTE | 2023-10-16 14:01 | MHC.OFFVISCO ---
Intake Intake Visit Reasons: Anticoagulation Allergies lisinopril [Lisinopril] Allergy (Mild, Verified 10/16/23 13:39) COUGH Sulfa (Sulfonamide Antibiotics) Allergy (Mild, Verified 10/16/23 13:39) UNKNOWN Sulfa Allergy (Unknown, Uncoded 10/02/23 13:37) UNKNOWN Medication List - Last Reconciled 10/16/23 by Priya Ulloa, RN amlodipine 10 mg PO DAILY atorvastatin 10 mg PO DAILY benzonatate 200 mg PO TID PRN carvedilol 6.25 mg PO BID clonidine HCl 0.1 mg PO BID famotidine 10 mg PO DAILY PRN fluticasone propionate 50 mcg/actuation 1 spray intranasal DAILY hydrochlorothiazide 25 mg PO DAILY ketorolac 0.5% 0 drps ophthalmic (eye) loratadine 10 mg PO DAILY PRN losartan 100 mg PO DAILY warfarin 5 mg See Protocol PO DAILY warfarin 2.5 mg See Protocol PO DAILY Nursing Note NO CP,SOB,DIET/MED CHANGES,FALLS OR SX OF BLEEDING. CONTINUE PRESENT DOSE AND FOLLOW-UP IN 3 WEKS. GOOD UNDERSTANDING OF DOSING INSTR. Anti-Coag Initial Assessment Social Hx Patient Tobacco Use Status: Never used Tobacco Coding Level of Care Code Est Patient Level 1 Diagnoses Current use of anticoagulant therapy Z79.01 Assessment & Plan Assessment & Plan (1) Current use of anticoagulant therapy: Code(s): Z79.01 - prison (current) use of anticoagulants Category: Medical
== END 2023-10-16 14:02 | disposition home or self-care (01) ==
LOC: HO.ACS 13:28
PROVIDERS: PCP Physician Assistant Medical; Visit Provider Internal Medicine
DX: Z79.01 Long term (current) use of anticoagulants (principal)

== ENCOUNTER → 2023-10-16 13:28 | Outpatient (BNVA) | payer OTHER, SELFPAY | PROVIDERS: PCP Physician Assistant Medical; Visit Provider Internal Medicine | DX: Z86.718 Personal history of other venous thrombosis and embolism (principal); Z51.81 Encounter for therapeutic drug level monitoring; Z79.01 Long term (current) use of anticoagulants | CPT/HCPCS: 85610; 99211 ==

== ENCOUNTER 2023-11-06 13:38 | Outpatient (AMB) | payer OTHER, SELFPAY ==
--- NOTE | 2023-11-06 14:02 | MHC.OFFVISCO ---
Intake Intake Visit Reasons: Anticoagulation Allergies lisinopril [Lisinopril] Allergy (Mild, Verified 11/06/23 13:53) COUGH Sulfa (Sulfonamide Antibiotics) Allergy (Mild, Verified 11/06/23 13:53) UNKNOWN Sulfa Allergy (Unknown, Uncoded 11/06/23 13:53) UNKNOWN Medication List - Last Reconciled 11/06/23 by Valencia Kennedy RN amlodipine 10 mg PO DAILY atorvastatin 10 mg PO DAILY carvedilol 6.25 mg PO BID clonidine HCl 0.1 mg PO BID famotidine 10 mg PO DAILY PRN fluticasone propionate 50 mcg/actuation 1 spray intranasal DAILY hydrochlorothiazide 25 mg PO DAILY ketorolac 0.5% 0 drps ophthalmic (eye) loratadine 10 mg PO DAILY PRN losartan 100 mg PO DAILY warfarin 5 mg See Protocol PO DAILY warfarin 2.5 mg See Protocol PO DAILY Nursing Note INR 3.9? out of therapeutic range Medications and supplements reviewed Patient status: INCREASE IN STRESS WITH FAMILY DOG THAT IS ILL AND BOTH SONS CURRENT CONDITIONS, SHE HAS NOT EATEN VERY MANY GREENS Medications or supplements: NO CHANGES Diet: GOOD Denies any signs and symptoms of bleeding or clotting or unusual bruising Bleeding, bruising, clotting discussed Nutritional guidance given: RESUME WEEKLY GREENS Dose: ALREADY TOOK TODAY'S DOSE HOLD TOMORROWS DOSE THEN RESUME 7.5MG DAILY F/U INR Date : 2 WEEKS?? Patient verbalizing understanding of instructions given. 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
[2023-11-06 14:45] LABS: Prothrombin Time Whole Bld POC 46.4 sec (11.1-13.5); ~PT, ~INR - Anti Coag Clinic 3.9 (0.9-1.1)
== END 2023-11-06 14:05 | disposition home or self-care (01) ==
LOC: HO.ACS 13:38
PROVIDERS: PCP Physician Assistant Medical; Visit Provider Internal Medicine
DX: Z79.01 Long term (current) use of anticoagulants (principal)

== ENCOUNTER → 2023-11-06 13:38 | Outpatient (BNVA) | payer OTHER, SELFPAY | PROVIDERS: PCP Physician Assistant Medical; Visit Provider Internal Medicine | DX: Z86.718 Personal history of other venous thrombosis and embolism (principal); Z51.81 Encounter for therapeutic drug level monitoring; Z79.01 Long term (current) use of anticoagulants | CPT/HCPCS: 85610; 99211 ==

== ENCOUNTER 2023-11-20 13:34 | Outpatient (AMB) | payer OTHER, SELFPAY ==
--- NOTE | 2023-11-20 13:46 | MHC.OFFVISCO ---
Intake Intake Visit Reasons: Anticoagulation Allergies lisinopril [Lisinopril] Allergy (Mild, Verified 11/20/23 13:43) COUGH Sulfa (Sulfonamide Antibiotics) Allergy (Mild, Verified 11/20/23 13:43) UNKNOWN Sulfa Allergy (Unknown, Uncoded 11/20/23 13:43) UNKNOWN Medication List - Last Reconciled 11/20/23 by Mahogany Murphy RN amlodipine 10 mg PO DAILY atorvastatin 10 mg PO DAILY carvedilol 6.25 mg PO BID clonidine HCl 0.1 mg PO BID famotidine 10 mg PO DAILY PRN fluticasone propionate 50 mcg/actuation 1 spray intranasal DAILY hydrochlorothiazide 25 mg PO DAILY ketorolac 0.5% 0 drps ophthalmic (eye) loratadine 10 mg PO DAILY PRN losartan 100 mg PO DAILY warfarin 5 mg See Protocol PO DAILY warfarin 2.5 mg See Protocol PO DAILY Nursing Note INR 3.1-?? out of therapeutic range of 2-3 Medications and supplements reviewed Patient status: no c.o Medications or supplements: no changes Diet: same Denies any signs and symptoms of bleeding or clotting or unusual bruising Bleeding, bruising, clotting discussed Nutritional guidance given: eat greens to lower Dose: 7.5mg x 7 F/U INR Date : 3 weeks?? Patient verbalizing understanding of instructions given. Anti-Coag Initial Assessment Social Hx Patient Tobacco Use Status: Never used Tobacco Coding Level of Care Code Est Patient Level 1 Diagnoses Current use of anticoagulant therapy Z79.01 Assessment & Plan Assessment & Plan (1) Current use of anticoagulant therapy: Code(s): Z79.01 - halfway (current) use of anticoagulants Category: Medical
[2023-11-20 13:47] LABS: Prothrombin Time Whole Bld POC 36.6 sec (11.1-13.5); ~PT, ~INR - Anti Coag Clinic 3.1 (0.9-1.1)
== END 2023-11-20 13:56 | disposition home or self-care (01) ==
LOC: HO.ACS 13:34
PROVIDERS: PCP Physician Assistant Medical; Visit Provider Internal Medicine
DX: Z79.01 Long term (current) use of anticoagulants (principal)

== ENCOUNTER → 2023-11-20 13:34 | Outpatient (BNVA) | payer OTHER, SELFPAY | PROVIDERS: PCP Physician Assistant Medical; Visit Provider Internal Medicine | DX: Z86.718 Personal history of other venous thrombosis and embolism (principal); Z51.81 Encounter for therapeutic drug level monitoring; Z79.01 Long term (current) use of anticoagulants | CPT/HCPCS: 85610; 99211 ==

== ENCOUNTER 2023-12-10 14:29 | Outpatient (AMB) | payer OTHER, SELFPAY ==
--- NOTE | 2023-12-10 14:49 | MHC.OFFVISCO ---
Intake Intake Visit Reasons: Anticoagulation Allergies lisinopril [Lisinopril] Allergy (Mild, Verified 12/10/23 14:35) COUGH Sulfa (Sulfonamide Antibiotics) Allergy (Mild, Verified 12/10/23 14:35) UNKNOWN Sulfa Allergy (Unknown, Uncoded 12/10/23 14:35) UNKNOWN Medication List - Last Reconciled 12/10/23 by Valencia Kennedy RN amlodipine 10 mg PO DAILY atorvastatin 10 mg PO DAILY carvedilol 6.25 mg PO BID clonidine HCl 0.1 mg PO BID famotidine 10 mg PO DAILY PRN fluticasone propionate 50 mcg/actuation 1 spray intranasal DAILY hydrochlorothiazide 25 mg PO DAILY ketorolac 0.5% 0 drps ophthalmic (eye) loratadine 10 mg PO DAILY PRN losartan 100 mg PO DAILY warfarin 5 mg See Protocol PO DAILY warfarin 2.5 mg See Protocol PO DAILY Nursing Note INR: 1.9 Almost in therapeutic range Medications and supplements reviewed she usually takes her warfarin in the morning and has not had her warfarin dose yet today- she waits to have INR chk befor taking it she has eaten more greens recently Denies any signs and symptoms of bleeding or bruising or clotting. Bleeding, bruising, clotting discussed Nutritional guidance given - enc to review food list weekly, avoid greens x 2 days and then resume usual diet with a mix of fruits and vegetables Dose: keep same dose for now 7.5mg daily (previous INR values have been elevated) F/U INR: keep same 3 weeks Patient verbalizes understanding of instructions given Anti-Coag Initial Assessment Social Hx Patient Tobacco Use Status: Never used Tobacco Coding Level of Care Code Est Patient Level 1 Diagnoses Current use of anticoagulant therapy Z79.01 Results AMB INR Fingerstick AMB INR Fingerstick 1.9 Last Edit by Valencia Kennedy RN on 12/10/23 14:44 manual entry Assessment & Plan Assessment & Plan (1) Current use of anticoagulant therapy: Code(s): Z79.01 - alf (current) use of anticoagulants Category: Medical
[2023-12-10 16:07] LABS: Prothrombin Time Whole Bld POC 22.4 sec (11.1-13.5); ~PT, ~INR - Anti Coag Clinic 1.9 (0.9-1.1)
== END 2023-12-10 14:53 | disposition home or self-care (01) ==
LOC: HO.ACS 14:29
PROVIDERS: PCP Physician Assistant Medical; Visit Provider Internal Medicine
DX: Z79.01 Long term (current) use of anticoagulants (principal)

== ENCOUNTER → 2023-12-10 14:29 | Outpatient (BNVA) | payer OTHER, SELFPAY | PROVIDERS: PCP Physician Assistant Medical; Visit Provider Internal Medicine | DX: Z86.718 Personal history of other venous thrombosis and embolism (principal); Z51.81 Encounter for therapeutic drug level monitoring; Z79.01 Long term (current) use of anticoagulants | CPT/HCPCS: 85610; 99211 ==

== ENCOUNTER 2023-12-31 14:27 | Outpatient (AMB) | payer OTHER, SELFPAY ==
[2023-12-31 14:33] LABS: Prothrombin Time Whole Bld POC 29.4 sec (11.1-13.5); ~PT, ~INR - Anti Coag Clinic 2.5 (0.9-1.1)
--- NOTE | 2023-12-31 14:44 | MHC.OFFVISCO ---
Intake Intake Visit Reasons: Anticoagulation Allergies lisinopril [Lisinopril] Allergy (Mild, Verified 12/31/23 14:28) COUGH Sulfa (Sulfonamide Antibiotics) Allergy (Mild, Verified 12/31/23 14:28) UNKNOWN Sulfa Allergy (Unknown, Uncoded 12/31/23 14:28) UNKNOWN Medication List - Last Reconciled 12/31/23 by Ewa Price, RN amlodipine 10 mg PO DAILY atorvastatin 10 mg PO DAILY carvedilol 6.25 mg PO BID clonidine HCl 0.1 mg PO BID famotidine 10 mg PO DAILY PRN fluticasone propionate 50 mcg/actuation 1 spray intranasal DAILY hydrochlorothiazide 25 mg PO DAILY ketorolac 0.5% 0 drps ophthalmic (eye) loratadine 10 mg PO DAILY PRN losartan 100 mg PO DAILY warfarin 5 mg See Protocol PO DAILY warfarin 2.5 mg See Protocol PO DAILY Nursing Note Amb to [facility] feeling well Medications and supplements reviewed No changes in health, diet, medications, or supplements Denies any unusual signs and symptoms of bruising, bleeding Denies any new Chest pain, SOB, or clotting INR: 2.5 in therapeutic range Nutritional guidance given: balance greens and reds in diet Dose: continue usual dosing; 7.5mg daily F/U INR:3 weeks Patient verbalizes understanding of instructions given with accurate read back/ teach back of dosing Anti-Coag Initial Assessment Social Hx Patient Tobacco Use Status: Never used Tobacco Coding Level of Care Code Est Patient Level 1 Diagnoses Current use of anticoagulant therapy Z79.01 Time Spent (min) 15 Assessment & Plan Assessment & Plan (1) Current use of anticoagulant therapy: Code(s): Z79.01 - intermediate manager (current) use of anticoagulants Category: Medical
== END 2023-12-31 14:46 | disposition home or self-care (01) ==
LOC: HO.ACS 14:27
PROVIDERS: PCP Physician Assistant Medical; Visit Provider Internal Medicine
DX: Z79.01 Long term (current) use of anticoagulants (principal)

== ENCOUNTER → 2023-12-31 14:27 | Outpatient (BNVA) | payer OTHER, SELFPAY | PROVIDERS: PCP Physician Assistant Medical; Visit Provider Internal Medicine | DX: Z86.718 Personal history of other venous thrombosis and embolism (principal); Z51.81 Encounter for therapeutic drug level monitoring; Z79.01 Long term (current) use of anticoagulants | CPT/HCPCS: 85610; 99211 ==

== ENCOUNTER 2024-01-21 14:29 | Outpatient (AMB) | payer OTHER, SELFPAY ==
--- NOTE | 2024-01-21 14:39 | MHC.OFFVISCO ---
Intake Intake Visit Reasons: Anticoagulation Allergies lisinopril [Lisinopril] Allergy (Mild, Verified 01/21/24 14:34) COUGH Sulfa (Sulfonamide Antibiotics) Allergy (Mild, Verified 01/21/24 14:34) UNKNOWN Medication List - Last Reconciled 01/21/24 by Valencia Kennedy RN amlodipine 10 mg PO DAILY atorvastatin 10 mg PO DAILY carvedilol 6.25 mg PO BID clonidine HCl 0.1 mg PO BID famotidine 10 mg PO DAILY PRN fluticasone propionate 50 mcg/actuation 1 spray intranasal DAILY hydrochlorothiazide 25 mg PO DAILY ketorolac 0.5% 0 drps ophthalmic (eye) loratadine 10 mg PO DAILY PRN losartan 100 mg PO DAILY warfarin 5 mg See Protocol PO DAILY warfarin 2.5 mg See Protocol PO DAILY Nursing Note INR 1.3? out of therapeutic range Medications and supplements reviewed Patient status: may have had a splurge of greens and chocolate from [facility], and may have missed a dose also - maybe 2 doses not sure. Medications or supplements: no changes Diet: had more greens than usual like cabbage and coleslaw and salads , chocolate and green tea Denies any signs and symptoms of bleeding or clotting or unusual bruising Bleeding, bruising, clotting discussed Nutritional guidance given: avoid all greens x 4 days, eat orange and reds to raise the INR Dose: 10mg x 2 days this week, then 7.5mg daily F/U INR Date: 5 days ?? Patient verbalizing understanding of instructions given. T/C TO PCP WITH PT STATUS AND PLAN OF CARE SPOKE WITH NURSE LAU TO CONVEY MSG TO PCP Anti-Coag Initial Assessment Social Hx Patient Tobacco Use Status: Never used Tobacco Coding Level of Care Code Est Patient Level 1 Diagnoses Current use of anticoagulant therapy Z79.01 Assessment & Plan Assessment & Plan (1) Current use of anticoagulant therapy: Code(s): Z79.01 - skilled nursing (current) use of anticoagulants Category: Medical
[2024-01-21 14:41] LABS: ~PT, ~INR - Anti Coag Clinic 1.3 (0.9-1.1)
== END 2024-01-21 15:03 | disposition home or self-care (01) ==
LOC: HO.ACS 14:29
PROVIDERS: PCP Physician Assistant Medical; Visit Provider Internal Medicine
DX: Z79.01 Long term (current) use of anticoagulants (principal)

== ENCOUNTER → 2024-01-21 14:29 | Outpatient (BNVA) | payer OTHER, SELFPAY | PROVIDERS: PCP Physician Assistant Medical; Visit Provider Internal Medicine | DX: Z86.718 Personal history of other venous thrombosis and embolism (principal); Z51.81 Encounter for therapeutic drug level monitoring; Z79.01 Long term (current) use of anticoagulants | CPT/HCPCS: 85610; 99211 ==

== ENCOUNTER 2024-01-28 14:31 | Outpatient (AMB) | payer OTHER, SELFPAY ==
[2024-01-28 14:49] LABS: ~PT, ~INR - Anti Coag Clinic 2.6 (0.9-1.1)
--- NOTE | 2024-01-28 14:59 | MHC.OFFVISCO ---
Intake Intake Visit Reasons: Anticoagulation Allergies lisinopril [Lisinopril] Allergy (Mild, Verified 01/28/24 14:43) COUGH Sulfa (Sulfonamide Antibiotics) Allergy (Mild, Verified 01/28/24 14:43) UNKNOWN Medication List - Last Reconciled 01/28/24 by Priya Ulloa RN amlodipine 10 mg PO DAILY atorvastatin 10 mg PO DAILY carvedilol 6.25 mg PO BID clonidine HCl 0.1 mg PO BID famotidine 10 mg PO DAILY PRN fluticasone propionate 50 mcg/actuation 1 spray intranasal DAILY hydrochlorothiazide 25 mg PO DAILY ketorolac 0.5% 0 drps ophthalmic (eye) loratadine 10 mg PO DAILY PRN losartan 100 mg PO DAILY warfarin 5 mg See Protocol PO DAILY warfarin 2.5 mg See Protocol PO DAILY Nursing Note NO CP,SOB,DIET/MED CHANGES,FALLS OR SX OF BLEEDING. CONTINUE PRESENT DOSE AND FOLLOW-UP IN 4 WEEKS GOOD UNDERSTANDING OF DOING INSTR. Anti-Coag Initial Assessment Social Hx Patient Tobacco Use Status: Never used Tobacco Coding Level of Care Code Est Patient Level 1 Diagnoses Current use of anticoagulant therapy Z79.01 Assessment & Plan Assessment & Plan (1) Current use of anticoagulant therapy: Code(s): Z79.01 - [facility]P (current) use of anticoagulants Category: Medical
== END 2024-01-28 15:00 | disposition home or self-care (01) ==
LOC: HO.ACS 14:31
PROVIDERS: PCP Physician Assistant Medical; Visit Provider Internal Medicine
DX: Z79.01 Long term (current) use of anticoagulants (principal)

== ENCOUNTER → 2024-01-28 14:31 | Outpatient (BNVA) | payer OTHER, SELFPAY | PROVIDERS: PCP Physician Assistant Medical; Visit Provider Internal Medicine | DX: Z86.718 Personal history of other venous thrombosis and embolism (principal); Z51.81 Encounter for therapeutic drug level monitoring; Z79.01 Long term (current) use of anticoagulants | CPT/HCPCS: 85610; 99211 ==

== ENCOUNTER 2024-02-26 13:02 | Outpatient (AMB) | payer OTHER, SELFPAY ==
[2024-02-26 13:08] LABS: Prothrombin Time Whole Bld POC 40.7 sec (11.1-13.5); ~PT, ~INR - Anti Coag Clinic 3.4 (0.9-1.1)
--- NOTE | 2024-02-26 13:10 | MHC.OFFVISCO ---
Intake Intake Visit Reasons: Anticoagulation Allergies lisinopril [Lisinopril] Allergy (Mild, Verified 02/26/24 13:02) COUGH Sulfa (Sulfonamide Antibiotics) Allergy (Mild, Verified 02/26/24 13:02) UNKNOWN Medication List - Last Reconciled 02/26/24 by Valencia Kennedy RN amlodipine 10 mg PO DAILY atorvastatin 10 mg PO DAILY carvedilol 6.25 mg PO BID clonidine HCl 0.1 mg PO BID famotidine 10 mg PO DAILY PRN fluticasone propionate 50 mcg/actuation 1 spray intranasal DAILY hydrochlorothiazide 25 mg PO DAILY ketorolac 0.5% 0 drps ophthalmic (eye) loratadine 10 mg PO DAILY PRN losartan 100 mg PO DAILY warfarin 5 mg See Protocol PO DAILY warfarin 2.5 mg See Protocol PO DAILY Nursing Note INR 3.4?? out of therapeutic range Medications and supplements reviewed Patient status: She thinks she took an extra dose Medications or supplements: no changes but is going to use a pill box Diet: good Denies any signs and symptoms of bleeding or clotting or unusual bruising Bleeding, bruising, clotting discussed Nutritional guidance given: eat greens today Dose: 3.75mg today then resume usual dose F/U INR Date : 4 weeks ?? Patient verbalizing understanding of instructions given. Anti-Coag Initial Assessment Social Hx Patient Tobacco Use Status: Never used Tobacco Coding Level of Care Code Est Patient Level 1 Diagnoses Current use of anticoagulant therapy Z79.01 Results AMB INR Fingerstick AMB INR Fingerstick 3.4 Last Edit by Valencia Kennedy RN on 02/26/24 13:09 manual entry Assessment & Plan Assessment & Plan (1) Current use of anticoagulant therapy: Code(s): Z79.01 - jail (current) use of anticoagulants Category: Medical
== END 2024-02-26 13:13 | disposition home or self-care (01) ==
LOC: HO.ACS 13:02
PROVIDERS: PCP Physician Assistant Medical; Visit Provider Internal Medicine
DX: Z79.01 Long term (current) use of anticoagulants (principal)

== ENCOUNTER → 2024-02-26 13:02 | Outpatient (BNVA) | payer OTHER, SELFPAY | PROVIDERS: PCP Physician Assistant Medical; Visit Provider Internal Medicine | DX: Z86.718 Personal history of other venous thrombosis and embolism (principal); Z51.81 Encounter for therapeutic drug level monitoring; Z79.01 Long term (current) use of anticoagulants | CPT/HCPCS: 85610; 99211 ==

== ENCOUNTER 2024-03-25 13:04 | Outpatient (AMB) | payer OTHER, SELFPAY ==
[2024-03-25 13:11] LABS: Prothrombin Time Whole Bld POC 40.6 sec (11.1-13.5); ~PT, ~INR - Anti Coag Clinic 3.4 (0.9-1.1)
--- NOTE | 2024-03-25 13:16 | MHC.OFFVISCO ---
Intake Intake Visit Reasons: Anticoagulation Allergies lisinopril [Lisinopril] Allergy (Mild, Verified 03/25/24 13:05) COUGH Sulfa (Sulfonamide Antibiotics) Allergy (Mild, Verified 03/25/24 13:05) UNKNOWN Medication List - Last Reconciled 03/25/24 by Ewa Bajwa, RN amlodipine 10 mg PO DAILY atorvastatin 10 mg PO DAILY carvedilol 6.25 mg PO BID clonidine HCl 0.1 mg PO BID famotidine 10 mg PO DAILY PRN fluticasone propionate 50 mcg/actuation 1 spray intranasal DAILY hydrochlorothiazide 25 mg PO DAILY ketorolac 0.5% 0 drps ophthalmic (eye) loratadine 10 mg PO DAILY PRN losartan 100 mg PO DAILY warfarin 5 mg See Protocol PO DAILY warfarin 2.5 mg See Protocol PO DAILY Nursing Note INR 3.4?out of therapeutic range 2-3 Pt states she took several doses of tylenol over the past week for a persistent headache Medications and supplements reviewed: no changes Patient status: no changes Medications or supplements: no changes Diet: usual diet for pt Denies any signs and symptoms of bleeding or clotting or unusual bruising Bleeding, bruising, clotting discussed Nutritional guidance given: to have greens today and tomorrow Dose: decrease today's dose to 3.75mg (7.5mg) and then resume usual dose of 7.5mg daily F/U INR Date : 1 month?? Patient verbalizing understanding of instructions given. Anti-Coag Initial Assessment Social Hx Patient Tobacco Use Status: Never used Tobacco Coding Level of Care Code Est Patient Level 1 Diagnoses Current use of anticoagulant therapy Z79.01 Assessment & Plan Assessment & Plan (1) Current use of anticoagulant therapy: Code(s): Z79.01 - snf (current) use of anticoagulants Category: Medical
== END 2024-03-25 13:20 | disposition home or self-care (01) ==
LOC: HO.ACS 13:04
PROVIDERS: PCP Physician Assistant Medical; Visit Provider Internal Medicine
DX: Z79.01 Long term (current) use of anticoagulants (principal)

== ENCOUNTER → 2024-03-25 13:04 | Outpatient (BNVA) | payer OTHER, SELFPAY | PROVIDERS: PCP Physician Assistant Medical; Visit Provider Internal Medicine | DX: Z86.718 Personal history of other venous thrombosis and embolism (principal); Z51.81 Encounter for therapeutic drug level monitoring; Z79.01 Long term (current) use of anticoagulants | CPT/HCPCS: 85610; 99211 ==

== ENCOUNTER 2024-04-19 13:01 | Outpatient (AMB) | payer OTHER, SELFPAY ==
[2024-04-19 13:15] LABS: Prothrombin Time Whole Bld POC 33.2 sec (11.1-13.5); ~PT, ~INR - Anti Coag Clinic 2.8 (0.9-1.1)
--- NOTE | 2024-04-19 13:22 | MHC.OFFVISCO ---
Intake Intake Visit Reasons: Anticoagulation Allergies lisinopril [Lisinopril] Allergy (Mild, Verified 04/19/24 13:09) COUGH Sulfa (Sulfonamide Antibiotics) Allergy (Mild, Verified 04/19/24 13:09) UNKNOWN Medication List - Last Reconciled 04/19/24 by Ewa Bajwa, RN amlodipine 10 mg PO DAILY atorvastatin 10 mg PO DAILY carvedilol 6.25 mg PO BID clonidine HCl 0.1 mg PO BID famotidine 10 mg PO DAILY PRN fluticasone propionate 50 mcg/actuation 1 spray intranasal DAILY hydrochlorothiazide 25 mg PO DAILY ketorolac 0.5% 0 drps ophthalmic (eye) loratadine 10 mg PO DAILY PRN losartan 100 mg PO DAILY warfarin 5 mg See Protocol PO DAILY warfarin 2.5 mg See Protocol PO DAILY Nursing Note INR: 2.8 in therapeutic range of 2-3 Medications and supplements reviewed No changes in health, diet, medications, or supplements, Denies any signs and symptoms of bleeding or bruising or clotting. Bleeding, bruising, clotting discussed Nutritional guidance given Dose: 7.5mg daily F/U INR: 4 weeks Patient verbalizes understanding of instructions given Anti-Coag Initial Assessment Social Hx Patient Tobacco Use Status: Never used Tobacco Coding Level of Care Code Est Patient Level 1 Diagnoses Current use of anticoagulant therapy Z79.01 Assessment & Plan Assessment & Plan (1) Current use of anticoagulant therapy: Code(s): Z79.01 - detention (current) use of anticoagulants Category: Medical
== END 2024-04-19 13:23 | disposition home or self-care (01) ==
LOC: HO.ACS 13:01
PROVIDERS: PCP Physician Assistant Medical; Visit Provider Internal Medicine
DX: Z79.01 Long term (current) use of anticoagulants (principal)

== ENCOUNTER → 2024-04-19 13:01 | Outpatient (BNVA) | payer OTHER, SELFPAY | PROVIDERS: PCP Physician Assistant Medical; Visit Provider Internal Medicine | DX: Z86.718 Personal history of other venous thrombosis and embolism (principal); Z51.81 Encounter for therapeutic drug level monitoring; Z79.01 Long term (current) use of anticoagulants | CPT/HCPCS: 85610; 99211 ==

== ENCOUNTER 2024-05-17 13:14 | Outpatient (AMB) | payer OTHER, SELFPAY ==
--- NOTE | 2024-05-17 13:22 | MHC.OFFVISCO ---
Intake Intake Visit Reasons: Anticoagulation Allergies lisinopril [Lisinopril] Allergy (Mild, Verified 05/17/24 13:18) COUGH Sulfa (Sulfonamide Antibiotics) Allergy (Mild, Verified 05/17/24 13:18) UNKNOWN Medication List - Last Reconciled 05/17/24 by Mahogany Murphy RN amlodipine 10 mg PO DAILY atorvastatin 10 mg PO DAILY carvedilol 6.25 mg PO BID clonidine HCl 0.1 mg PO BID famotidine 10 mg PO DAILY PRN fluticasone propionate 50 mcg/actuation 1 spray intranasal DAILY hydrochlorothiazide 25 mg PO DAILY ketorolac 0.5% 0 drps ophthalmic (eye) loratadine 10 mg PO DAILY PRN losartan 100 mg PO DAILY warfarin 5 mg See Protocol PO DAILY warfarin 2.5 mg See Protocol PO DAILY Nursing Note INR 3.1-?? out of therapeutic range of 2-3 Medications and supplements reviewed Patient status: no c.o Medications or supplements: no changes Diet: had oreos and green tomatoes Denies any signs and symptoms of bleeding or clotting or unusual bruising Bleeding, bruising, clotting discussed Nutritional guidance given: eat greens to lower, no reds for 2 days Dose: 7.5mg x 7 F/U INR Date : pt req 4 weeks? Patient verbalizing understanding of instructions given. Anti-Coag Initial Assessment Social Hx Patient Tobacco Use Status: Never used Tobacco Coding Level of Care Code Est Patient Level 1 Diagnoses Current use of anticoagulant therapy Z79.01 Assessment & Plan Assessment & Plan (1) Current use of anticoagulant therapy: Code(s): Z79.01 - shelter (current) use of anticoagulants Category: Medical
[2024-05-17 13:23] LABS: Prothrombin Time Whole Bld POC 37.2 sec (11.1-13.5); ~PT, ~INR - Anti Coag Clinic 3.1 (0.9-1.1)
== END 2024-05-17 13:27 | disposition home or self-care (01) ==
LOC: HO.ACS 13:14
PROVIDERS: PCP Physician Assistant Medical; Visit Provider Internal Medicine
DX: Z79.01 Long term (current) use of anticoagulants (principal)

== ENCOUNTER → 2024-05-17 13:14 | Outpatient (BNVA) | payer OTHER, SELFPAY | PROVIDERS: PCP Physician Assistant Medical; Visit Provider Internal Medicine | DX: Z86.718 Personal history of other venous thrombosis and embolism (principal); Z51.81 Encounter for therapeutic drug level monitoring; Z79.01 Long term (current) use of anticoagulants | CPT/HCPCS: 85610; 99211 ==

== ENCOUNTER → 2024-06-10 13:00 | Outpatient (BNVA) | payer OTHER, SELFPAY | PROVIDERS: PCP Physician Assistant Medical; Visit Provider Internal Medicine | DX: Z86.718 Personal history of other venous thrombosis and embolism (principal); Z51.81 Encounter for therapeutic drug level monitoring; Z79.01 Long term (current) use of anticoagulants | CPT/HCPCS: 85610 ==

== ENCOUNTER 2024-06-30 14:36 | Outpatient (AMB) | payer OTHER, SELFPAY ==
[2024-06-30 14:57] LABS: Prothrombin Time Whole Bld POC 34.5 sec (11.1-13.5); ~PT, ~INR - Anti Coag Clinic 2.9 (0.9-1.1)
--- NOTE | 2024-06-30 14:57 | MHC.OFFVISCO ---
Intake Intake Visit Reasons: Anticoagulation Allergies lisinopril [Lisinopril] Allergy (Mild, Verified 06/30/24 14:40) COUGH Sulfa (Sulfonamide Antibiotics) Allergy (Mild, Verified 06/30/24 14:40) UNKNOWN Medication List - Last Reconciled 06/30/24 by Valencia Kennedy RN amlodipine 10 mg PO DAILY atorvastatin 10 mg PO DAILY carvedilol 6.25 mg PO BID clonidine HCl 0.1 mg PO BID famotidine 10 mg PO DAILY PRN fluticasone propionate 50 mcg/actuation 1 spray intranasal DAILY hydrochlorothiazide 25 mg PO DAILY ketorolac 0.5% 0 drps ophthalmic (eye) loratadine 10 mg PO DAILY PRN losartan 100 mg PO DAILY warfarin 5 mg See Protocol PO DAILY warfarin 2.5 mg See Protocol PO DAILY Nursing Note INR: 2.9 in therapeutic range Medications and supplements reviewed No changes in health, diet, medications, or supplements, Denies any signs and symptoms of bleeding or bruising or clotting. Bleeding, bruising, clotting discussed Nutritional guidance given - make sure to stay hydrated during the big E and eat a mix of fruits and vegetables Dose: 7.5mg daily F/U INR: 4 weeks Patient verbalizes understanding of instructions given Anti-Coag Initial Assessment Social Hx Patient Tobacco Use Status: Never used Tobacco Coding Level of Care Code Est Patient Level 1 Diagnoses Current use of anticoagulant therapy Z79.01 Results AMB INR Fingerstick AMB INR Fingerstick 2.9 Last Edit by Valencia Kennedy RN on 06/30/24 14:48 MANUAL ENTRY Assessment & Plan Assessment & Plan (1) Current use of anticoagulant therapy: 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
== END 2024-06-30 14:59 | disposition home or self-care (01) ==
LOC: HO.ACS 14:36
PROVIDERS: PCP Physician Assistant Medical; Visit Provider Internal Medicine
DX: Z79.01 Long term (current) use of anticoagulants (principal)

== ENCOUNTER → 2024-06-30 14:36 | Outpatient (BNVA) | payer OTHER, SELFPAY | PROVIDERS: PCP Physician Assistant Medical; Visit Provider Internal Medicine | DX: Z86.718 Personal history of other venous thrombosis and embolism (principal); Z79.01 Long term (current) use of anticoagulants; Z51.81 Encounter for therapeutic drug level monitoring | CPT/HCPCS: 85610; 99211 ==

== ENCOUNTER 2024-07-29 13:36 | Outpatient (AMB) | payer OTHER, SELFPAY ==
[2024-07-29 13:46] LABS: Prothrombin Time Whole Bld POC 30.7 sec (11.1-13.5); ~PT, ~INR - Anti Coag Clinic 2.6 (0.9-1.1)
--- NOTE | 2024-07-29 13:50 | MHC.OFFVISCO ---
Intake Intake Visit Reasons: Anticoagulation Allergies lisinopril [Lisinopril] Allergy (Mild, Verified 07/29/24 13:42) COUGH Sulfa (Sulfonamide Antibiotics) Allergy (Mild, Verified 07/29/24 13:42) UNKNOWN Medication List - Last Reconciled 07/29/24 by Ewa Bajwa, RN amlodipine 10 mg PO DAILY atorvastatin 10 mg PO DAILY carvedilol 6.25 mg PO BID clonidine HCl 0.1 mg PO BID famotidine 10 mg PO DAILY PRN fluticasone propionate 50 mcg/actuation 1 spray intranasal DAILY hydrochlorothiazide 25 mg PO DAILY ketorolac 0.5% 0 drps ophthalmic (eye) loratadine 10 mg PO DAILY PRN losartan 100 mg PO DAILY warfarin 5 mg See Protocol PO DAILY warfarin 2.5 mg See Protocol PO DAILY Nursing Note INR: 2.6 in therapeutic range of 2-3 Medications and supplements reviewed No changes in health, diet, medications, or supplements, Denies any signs and symptoms of bleeding or bruising or clotting. 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
== END 2024-07-29 13:52 | disposition home or self-care (01) ==
LOC: HO.ACS 13:36
PROVIDERS: PCP Physician Assistant Medical; Visit Provider Internal Medicine
DX: Z79.01 Long term (current) use of anticoagulants (principal)

== ENCOUNTER → 2024-07-29 13:36 | Outpatient (BNVA) | payer OTHER, SELFPAY | PROVIDERS: PCP Physician Assistant Medical; Visit Provider Internal Medicine | DX: Z86.718 Personal history of other venous thrombosis and embolism (principal); Z79.01 Long term (current) use of anticoagulants; Z51.81 Encounter for therapeutic drug level monitoring | CPT/HCPCS: 85610; 99211 ==

== ENCOUNTER 2024-09-02 13:00 | Outpatient (AMB) | payer OTHER, SELFPAY ==
[2024-09-02 13:18] LABS: Prothrombin Time Whole Bld POC 30.7 sec (11.1-13.5); ~PT, ~INR - Anti Coag Clinic 2.6 (0.9-1.1)
--- NOTE | 2024-09-02 13:18 | MHC.OFFVISCO ---
Intake Intake Visit Reasons: Anticoagulation Allergies lisinopril [Lisinopril] Allergy (Mild, Verified 09/02/24 13:05) COUGH Sulfa (Sulfonamide Antibiotics) Allergy (Mild, Verified 09/02/24 13:05) UNKNOWN Medication List - Last Reconciled 09/02/24 by Ewa Bajwa, RN amlodipine 10 mg PO DAILY atorvastatin 10 mg PO DAILY carvedilol 6.25 mg PO BID clonidine HCl 0.1 mg PO BID famotidine 10 mg PO DAILY PRN fluticasone propionate 50 mcg/actuation 1 spray intranasal DAILY hydrochlorothiazide 25 mg PO DAILY ketorolac 0.5% 0 drps ophthalmic (eye) loratadine 10 mg PO DAILY PRN losartan 100 mg PO DAILY warfarin 5 mg See Protocol PO DAILY warfarin 2.5 mg See Protocol PO DAILY Nursing Note INR: 2.6 in therapeutic range of 2-3 Medications and supplements reviewed No changes in health, diet, medications, or supplements, Denies any signs and symptoms of bleeding or bruising or clotting. Bleeding, bruising, clotting discussed Nutritional guidance given Dose: 7.5mg daily F/U INR: 4 weeks Patient verbalizes understanding of instructions given Anti-Coag Initial Assessment Social Hx Patient Tobacco Use Status: Never used Tobacco Coding Level of Care Code Est Patient Level 1 Diagnoses Current use of anticoagulant therapy Z79.01 Assessment & Plan Assessment & Plan (1) Current use of anticoagulant therapy: Code(s): Z79.01 - longterm (current) use of anticoagulants Category: Medical
== END 2024-09-02 13:19 | disposition home or self-care (01) ==
LOC: HO.ACS 13:00
PROVIDERS: PCP Physician Assistant Medical; Visit Provider Internal Medicine
DX: Z79.01 Long term (current) use of anticoagulants (principal)

== ENCOUNTER → 2024-09-02 13:00 | Outpatient (BNVA) | payer OTHER, SELFPAY | PROVIDERS: PCP Physician Assistant Medical; Visit Provider Internal Medicine | DX: Z86.718 Personal history of other venous thrombosis and embolism (principal); Z79.01 Long term (current) use of anticoagulants; Z51.81 Encounter for therapeutic drug level monitoring | CPT/HCPCS: 85610; 99211 ==

== ENCOUNTER 2024-09-29 15:30 | Outpatient (AMB) | payer OTHER, SELFPAY ==
[2024-09-29 15:36] LABS: Prothrombin Time Whole Bld POC 33.3 sec (11.1-13.5); ~PT, ~INR - Anti Coag Clinic 2.8 (0.9-1.1)
--- NOTE | 2024-09-29 15:39 | MHC.OFFVISCO ---
Intake Intake Visit Reasons: Anticoagulation Allergies lisinopril [Lisinopril] Allergy (Mild, Verified 09/29/24 15:30) COUGH Sulfa (Sulfonamide Antibiotics) Allergy (Mild, Verified 09/29/24 15:30) UNKNOWN Medication List - Last Reconciled 09/29/24 by Ewa Bajwa RN amlodipine 10 mg PO DAILY atorvastatin 10 mg PO DAILY carvedilol 6.25 mg PO BID clonidine HCl 0.1 mg PO BID famotidine 10 mg PO DAILY PRN fluticasone propionate 50 mcg/actuation 1 spray intranasal DAILY hydrochlorothiazide 25 mg PO DAILY ketorolac 0.5% 0 drps ophthalmic (eye) loratadine 10 mg PO DAILY PRN losartan 100 mg PO DAILY warfarin 5 mg See Protocol PO DAILY warfarin 2.5 mg See Protocol PO DAILY Nursing Note INR: 2.8 in therapeutic range of 2-3 Medications and supplements reviewed No changes in health, diet, medications, or supplements, Denies any signs and symptoms of bleeding or bruising or clotting. 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
== END 2024-09-29 15:40 | disposition home or self-care (01) ==
LOC: HO.ACS 15:30
PROVIDERS: PCP Physician Assistant Medical; Visit Provider Internal Medicine
DX: Z79.01 Long term (current) use of anticoagulants (principal)

== ENCOUNTER → 2024-09-29 15:30 | Outpatient (BNVA) | payer OTHER, SELFPAY | PROVIDERS: PCP Physician Assistant Medical; Visit Provider Internal Medicine | DX: Z86.718 Personal history of other venous thrombosis and embolism (principal); Z79.01 Long term (current) use of anticoagulants; Z51.81 Encounter for therapeutic drug level monitoring | CPT/HCPCS: 85610; 99211 ==

== ENCOUNTER 2024-10-28 11:18 | Outpatient (AMB) | payer OTHER, SELFPAY ==
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
--- OUTSIDE RECORDS SUMMARY | 2024-10-28 11:25 | XMS_ITS | Continuity of Care Document ---
Author Organization [facility], , [facility], OFFICE Address [address] [place] [address] Care Team Providers Care Candy Separator Hard Name Role Phone BROOKLYNN CRONIN Primary Care Provider [phone] EDWIN MENSAH Primary Care Provider [phone] [facility] Sports Medicine [facility] Vascular Surgeon CESAR AVILA Sports Medicine ETHEL LAZAR Wire Straightener Assessment No assessment recorded. Plan of Treatment Reminders Order Date Submit Date Provider Last Modified By Organization Details Last Modified Time Details Appointments Sports Med New Patient (20) 2024 10:50A M Cesar Avila MD Not available Not available Not available LAB Follow-Up 2024 11:00A M [facility] Lab Not available Not available Not available Medical Managemen t 15 2024 01:45P M Brooklynn Cronin PA-C Not available Not available Not available Lab culture, urine 2023 024 [facility], [address] [place] [address], [id number], 08/31/2024 16:01:18 Referral None recorded. Procedures None recorded. Surgeries None recorded. Imaging None recorded. Medication Orders None recorded. Patient TargetsNo targets recorded. Patient InstructionsNo instructions recorded. Reason for Referral None Reported. Problems Name Problem SNOMED Code Status Onset Date Resolution Date Notes Provider Name and Address Organization Details Recorded Time Lupus anticoag ulant disorder 46177901 Active [facility] Brooklynn Cronin PA-C [address] [place], [address], [facility] 7 16:36:22 Deep venous thrombos is 489429903 Completed 01/14/20162005 Brooklynn Cronin PA-C [address] [place] [address] [place], [address], [facility] 6 12:36:39 Hyperten sive disorder 74917383 Completed 01/14/2016 Brooklynn Cronin PA-C [address] [place] [address] [place], [address], [facility] 6 12:36:39 Osteoart hritis 145526158 Active knees Brooklynn Cronin PA-C [address] [place], [place] [address]L[place]shmi [place], 1, [facility] 1 14:41:31 Environm ental allergy 389381393 Active Brooklynn Cronin PA-C [address] [place], [place] [address]L[place], 1, [facility] 6 12:36:39 Edema 364848102 Completed 01/14/2016 Brooklynn Cronin PA-C [address] [place] [address] [place], [address], [facility] 6 12:36:39 Obese 388969161 Active Brooklynn Cronin PA-C [address] [place], [place] [address], [address], [facility] 6 12:36:39 [facility] hyperten lynne 18877004 Active Brooklynn Cronin PA-C [address] [place], [place] [address], [address], [facility] 6 15:50:00 History of thrombos is 411535879 Active DVT 2005 Brooklynn Cronin PA-C [address] [place] [address] [place], [address], [facility] 6 12:36:39 Peripher al venous insuffic iency 92697338 Active Brooklynn Cronin PA-C [address] [place], [place] [address], [address], [facility] 6 12:36:39 Venous varices 513133761 Active Brooklynn Cronin PA-C [address] [place] [address] [place], [address], [facility] 6 12:36:39 Thromboc ytopenic disorder 698953143 Active 2016 platelet 130s Brooklynn Cronin PA-C [address] [place], [place] [address], [address], [facility] 2 13:57:31 Hyperlip idemia 61656777 Active 2016 Brooklynn Cronin PA-C [address] [place], [place] [address], [address], [facility] 7 15:00:19 Cataract 721788147 Active 2019 Brooklynn Cronin PA-C [address] [place], [place] [address], [address], [facility] 0 15:02:59 Prediabe cheryle 320257306 Active 2022 Brooklynn Cronin PA-C [address] [place], [place] [address], [address], [facility] 3 15:49:21 Hypercoa gulabili state 42804500 Active 2022 JACOB Modi [address] [place], [place] [address], [address], [facility] 3 14:40:05 Problem Notes None recorded. Procedures Surgical History Date Name Laterality Status Provider Name and Address Organization Details Recorded Time 4 US Guided Knee Joint Injection completed Cesar Avila MD [address] [place], [place] [address] [place], [address], [facility] 01/06/2024 10:46:45 3 US Guided Knee Joint Injection completed Cesar Avila MD [address] [place], [place] [address] [place], [address], [facility] 06/02/2023 16:04:02 3 US Guided Knee Joint Injection completed Cesar Avila MD [address] [place] [address], [phone], [facility] 11/04/2022 10:20:34 2 prevention-monica ual alcohol misuse screening completed Brooklynn Cronin PA-C [address] [place] [address], [phone], [facility] 03/28/2022 16:52:35 1 Knee Injection w/o US completed Cesar Avila MD [address] [place] [address], [address], [facility] 12/20/2020 15:30:23 0 prevention-car diovascular risk reduction counseling completed Jen Dickey [facility] 06/29/2020 11:49:36 0 prevention-monica ual alcohol misuse screening completed Jen Dickey [facility] 06/29/2020 11:49:36 6 POC Strep Testing completed Rhona Marin LPN [facility] 06/02/2016 14:25:26 Imaging Results None recorded. Procedure Notes None recorded. Medical Equipment None Reported. Allergies Allergen ID Allergen Name Allergen Category Reaction Reaction Severity Criticality Documentation Date Start Date Code Code System Note Provider Name and Address Organization Details Recorded Time 896534 Substance with sulfonami de structure and antibacte rial mechanism of action (substanc e) medicatio n Not available Not available Not available 12/05/2014 98808 8003 SNOMED not sure of react ion Jessica Mcgraw MA null, [facility] 5 14:50:15 604888 lisinopri l medicatio n Not available Not available Not available 11/14/2016 54042 RxNorm Brooklynn Cronin PA-C [address] [place] [address] [place], [address], [facility] 7 16:01:00 Medications Name Sig Start Date [...] Available Vitals Date Recorded Body height Body temperature Heart rate Systolic blood pressure Diastolic blood pressure Provider Name and Address Organization Details Last Updated DateTime 08/29/2024 162.56 cm 97.6 [degF] 72 /min 122 mm[Hg] 70 mm[Hg] Joyce Aquino MA [facility] 16:28:53 Social History Question Answer Notes LastModified by Organizat ion Details LastModified Time Tobacco Smoking Status [facility]2014 14:57:22 What Is Your Level Of Alcohol Consumption? Occasional [email or web address] Information not available 12/05/2014 Do You Wear A Helmet When Biking? Yes Information not available 12/05/2014 What Is Your Level Of Caffeine Consumption? Moderate 2 Cups Of Coffee Per Day Information not available 12/05/2014 How Much Tobacco Do You Chew? None [email or web address] Information not available 12/05/2014 Are You Currently Employed? Yes Information not available 10/09/2023 What Type Of Diet Are You Following? REGULAR [email or web address] Information not available 12/05/2014 Which Illicit Or Recreational Drugs Have You Used? None [email or web address] Information not available 05/02/2015 Do You Or Have You Ever Used E-cigarettes Or Vape? 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 No Information not available 10/09/2023 How Many Days In The Past Year Have You Had A Heavy Drinking Consumption (4+ Female, 5+ Male)? 0 [email or web address] Information not available 05/02/2015 Are There Any Guns Present In Your Home? No [email or web address] Information not available 12/05/2014 Do You Use Insect Repellent Routinely? Yes Information not available 10/09/2023 Live Alone Or With Others? With Others With Kids Information not available 12/05/2014 Does The Patient Have Difficulty Speaking Rwandan? No [email or web address] Information not available 12/05/2014 Does The Patient Have Difficulty Reading Rwandan? No [email or web address] Information not available 12/05/2014 Patient Has Health Care Proxy Signed And In Chart Yes [email or web address] Information not available 10/17/2024 Marital Status Single [email or web address] Informati on not available 12/05/2014 Mosquito Repellent Used Routinely Yes Lyme Dz Prevention Reviewed [email or web address] Information not available 05/02/2015 What Was The Date Of Your Most Recent Tobacco Screening? 08/29/2024 [email or web address] Information not available 08/29/2024 How Many Children Do You Have? 3 Ages 25, 35, 38 (in 2015) Son Koby Avina [email or web address] Information not available 12/05/2014 Seat Belts Used Routinely Yes [email or web address] Information not available 12/05/2014 Are You Sexually Active? No [email or web address] Information not available 12/05/2014 Smoke Alarm In Home No [email or web address] Information not available 12/05/2014 Do You Have Smoke And Carbon Monoxide Detectors In Your Home? Yes Information not available 10/09/2023 Are You Passively Exposed To Smoke? No Information not available 10/09/2023 Do You Or Have You Ever Used Smokeless Tobacco? Never Used Smokeless Tobacco [email or web address] Information not available 12/27/2019 How Much Tobacco Do You Smoke? No [email or web address] Information not available 12/27/2019 What Types Of Sporting Activities Do You Participate In? Walking As Much As Possible [email or web address] Information not available 01/14/2016 General Stress Level Low [email or web address] Information not available 01/14/2016 Do You Use Sunscreen Routinely? Yes [email or web address] Information not available 12/05/2014 How Many Years Have You Smoked Tobacco? 0 [email or web address] Information not available 12/27/2019 Sex: Female Functional Status Question Answer Note LastModified by Organizat ion Details LastModified Time What is your exercise level? Occasional Information not available 10/09/2023 Mental Status None recorded. Family History Relationship Description Onset Age of this Age Resolved Age Notes LastModified by Organization Details LastModified Time Mother Chronic obstructive pulmonary disease smoker [email or web address] Not available 2015 16:16:51 Mother Disorder of thyroid gland [email or web address] Not available 2015 16:16:51 Father Malignant tumor of colon 70 ? Not available 2015 16:16:51 Sister Well adult [email or web address] Not availa ble 01/14/2016 16:16:51 Son Multiple sclerosis [email or web address] Not available 2015 16:16:51 Son Alcoholism [email or web address] Not availa ble 06/29/2020 15:03:50 Son Type 2 diabetes mellitus [email or web address] Not available 2022 14:00:05 Paternal Uncle Myocardial infarction [email or web address] Not available 01/13 16:16:51 Maternal Uncle Leukemia (morphologic abnormality) [email or web address] Not available 16:16:51 Notes:No breast ca Medical History Condition Response Obesity Y HEMATOLOGIC Y Hyperlipidemia Y Hypertension Y Gynecological History [...] trivalent, PF 4 completed Brooklynn Cronin PA-C [address] [place] [address], [address], [facility] 10/10/2024 07:43:26 COVID-19, mRNA, LNP-S, PF, 100 mcg/0.5mL dose or 50 mcg/0.25mL dose 2 completed Cassie Briseno [facility] 02/14/2022 15:20:26 COVID-19, mRNA, LNP-S, PF, 100 mcg/0.5mL dose or 50 mcg/0.25mL dose 2 completed Cassie Briseno [facility] 02/18/2022 13:35:40 COVID-19, mRNA, LNP-S, PF, 50 mcg/0.5 mL dose 1 completed Syl Julien MA [facility] 09/26/2022 14:56:29 COVID-19, mRNA, LNP-S, PF, 50 mcg/0.5 mL dose 1 completed Syl Julien MA [facility] 09/26/2022 14:57:13 COVID-19, mRNA, LNP-S, PF, 50 mcg/0.5 mL dose 1 completed Syl Julien MA [facility] 09/26/2022 14:58:00 COVID-19, mRNA, LNP-S, bivalent, PF, 30 mcg/0.3 mL dose 2 completed SACHIN Mora [facility] 09/26/2022 14:58:35 influenza, unspecified formulation 2 completed SACHIN Mora [facility] 09/26/2022 15:08:26 Past Encounters Encounter ID Performer Location Encounter Start Date Encounter Closed Date Diagnosis/Indication Diagnosis SNOMED-CT Code Diagnosis ICD10 Code Diagnosis Note [id number] JACOB Madsen , [facility], OFFICE [address] [place] [address] 08/29/2024 16:21:08 08/29/2024 16:54:16 Increased frequency of urination 634203736 R35.0 Trace LE on UA, no concern for UTI at this time, will confirm with urine cultureNo signs of pyelo- no CVA tenderness or feverDiscu ssed back pain is unrelatedW ill reassess based on culture result, pt to contact the office for any worsening symptoms sooner Low back pain 519270224 M54.50 Low back pain x3 weeks, not related to urinary symptoms, no red flagsPt instructed on supportive care including Tylenol, heat/ice and topicals.I f no improvemen t, recommend PT.Pt instructed to contact the office for any worsening symptoms. Health Concerns Section Related Observation LastModified by Organization Detai ls LastModified Time None Recorded Concern Status LastModified by Organization Details LastModified Time None Recorded Payers Encounter Date Sequence Insurance Name Policy Number Policy Dee Covered Member ID Dee Member ID Guarantor Name 08/29/2024 1 [facility] [id number] Monica Del Real [id number] Monica Del Real Notes Date Note Type Note Provider Name and Address Organization Details Recorded Time 08/29/2024 text/html 4yo presents for back painPt here c/o low back pain x3 weeks.Pt unsure if it is a strain or due to arthritis, not sure if the dog pulling her is making it worsePt has taken tylenol for the back, can't take ibuprofen due to CoumadinBending over makes back symptoms worseAlso noticed frequent urination, started 1.5 weeks ago- denies burning with urination or blood in urineNot sure if this is related to the backNo fever/chills, bowel/bladder incontinence JACOB Madsen [address] [place] [address], [place], [address], [facility] 08/29/2024 17:54:48 OBGyn Episode No OBEpisode recorded.
[2024-10-28 11:26] LABS: Prothrombin Time Whole Bld POC 25.3 sec (11.1-13.5); ~PT, ~INR - Anti Coag Clinic 2.1 (0.9-1.1)
--- NOTE | 2024-10-28 11:32 | MHC.OFFVISCO ---
Intake Intake Visit Reasons: Anticoagulation Allergies lisinopril [Lisinopril] Allergy (Mild, Verified 10/28/24 11:20) COUGH Sulfa (Sulfonamide Antibiotics) Allergy (Mild, Verified 10/28/24 11:20) UNKNOWN Medication List - Last Reconciled 10/28/24 by Ewa Bajwa, RN amlodipine 10 mg PO DAILY atorvastatin 10 mg PO DAILY carvedilol 6.25 mg PO BID clonidine HCl 0.1 mg PO BID fluticasone propionate 50 mcg/actuation 1 spray intranasal DAILY hydrochlorothiazide 25 mg PO DAILY ketorolac 0.5% 0 drps ophthalmic (eye) loratadine 10 mg PO DAILY PRN losartan 100 mg PO DAILY omeprazole 20 mg PO DAILY warfarin 5 mg See Protocol PO DAILY warfarin 2.5 mg See Protocol PO DAILY Nursing Note INR: 2.1 in therapeutic range of 2-3 Medications and supplements reviewed. Started omeprazole which can increase the INR No changes in health, diet, or supplements, Denies any signs and symptoms of bleeding or bruising or clotting. Bleeding, bruising, clotting discussed Nutritional guidance given Dose: 7.5mg daily F/U INR: 4 weeks Patient verbalizes understanding of instructions given Anti-Coag Initial Assessment Social Hx Patient Tobacco Use Status: Never used Tobacco Coding Level of Care Code Est Patient Level 1 Diagnoses Current use of anticoagulant therapy Z79.01 Assessment & Plan Assessment & Plan (1) Current use of anticoagulant therapy: Code(s): Z79.01 - correction (current) use of anticoagulants Category: Medical
== END 2024-10-28 11:36 | disposition home or self-care (01) ==
LOC: HO.ACS 11:18
PROVIDERS: PCP Physician Assistant Medical; Visit Provider Internal Medicine
DX: Z79.01 Long term (current) use of anticoagulants (principal)

== ENCOUNTER → 2024-10-28 11:18 | Outpatient (BNVA) | payer OTHER, SELFPAY | PROVIDERS: PCP Physician Assistant Medical; Visit Provider Internal Medicine | DX: Z86.718 Personal history of other venous thrombosis and embolism (principal); Z79.01 Long term (current) use of anticoagulants; Z51.81 Encounter for therapeutic drug level monitoring | CPT/HCPCS: 85610; 99211 ==

== ENCOUNTER → 2024-11-25 13:27 | Outpatient (AMB) | payer OTHER, SELFPAY ==
[2024-11-25 14:01] LABS: Prothrombin Time Whole Bld POC 21.4 sec (11.1-13.5); ~PT, ~INR - Anti Coag Clinic 1.8 (0.9-1.1)
--- NOTE | 2024-11-25 14:04 | MHC.OFFVISCO ---
Intake Intake Visit Reasons: Anticoagulation Allergies lisinopril [Lisinopril] Allergy (Mild, Verified 11/25/24 13:51) COUGH Sulfa (Sulfonamide Antibiotics) Allergy (Mild, Verified 11/25/24 13:51) UNKNOWN Medication List - Last Reconciled 11/25/24 by Valencia Kennedy RN amlodipine 10 mg PO DAILY atorvastatin 10 mg PO DAILY carvedilol 6.25 mg PO BID clonidine HCl 0.1 mg PO BID fluticasone propionate 50 mcg/actuation 1 spray intranasal DAILY hydrochlorothiazide 25 mg PO DAILY loratadine 10 mg PO DAILY PRN losartan 100 mg PO DAILY omeprazole 20 mg PO DAILY warfarin 5 mg See Protocol PO DAILY warfarin 2.5 mg See Protocol PO DAILY Nursing Note INR 1.8? out of therapeutic range Medications and supplements reviewed Patient status:had a URI last week and missed a dose Medications or supplements: no changes Diet: good Denies any signs and symptoms of bleeding or clotting or unusual bruising Bleeding, bruising, clotting discussed Nutritional guidance given:avoid greens x 3 days , eat orange and reds to help raise the INR Dose: 10mg today then 7.5mg daily F/U INR Date : 2 weeks ?? Patient verbalizing understanding of instructions given with read back . Anti-Coag Initial Assessment Social Hx Patient Tobacco Use Status: Never used Tobacco Questionnaires HAS-BLED Does the patient had uncontrolled Hypertension?: No Does the patient have renal disease?: No Does the patient have liver disease?: No Does the patient have a history of stroke?: No Has the patient had major bleeding or predisposition to bleeding?: No Does the patient have labile INRs?: Yes Is the patient over 65 years of age?: Yes Is the patient on medications that gives them a predisposition to bleeding?: Yes Does the patient use alcohol?: No HAS-BLED Score: 3 CHADSVASC Age: <65 Gender: Female Does the patient have a history of CHF?: No Does the patient have a history of Hypertension?: Yes Does the patient have a history of Stroke/TIA/Thromboembolism?: Yes Does the patient have a history of Vascular Disease (prior WI, PAD or aortic plaque)?: Yes Does the patient have a history of Diabetes?: No CHADS VACS Score: 5 Lyn Prediction Score Rsk VTE Active Cancer: No Previous VTE, excluding superficial vein thrombosis: Yes Reduced mobility: No Already known Thrombophilic Condition: No With-in last month Trauma and/or Surgery: No Elderly 70 year or older: No Heart and/or Respiratory Failure: No Acute Myocardial infarction and/or Ischemic Stroke: No Acute Infection and/or Rheumatologic Disorder: Yes (fibromyalgia ) Obesity (BMI 30 or greater): Yes Ongoing Hormonal Treatment: No Score: 5 Lyn Score less than 4; Low Risk of VTE Lyn Score 4 or greater; High Risk of VTE Coding Level of Care Code Est Patient Level 1 Diagnoses Current use of anticoagulant therapy Z79.01 Results AMB INR Fingerstick AMB INR Fingerstick 1.8 Last Edit by Valencia Kennedy RN on 11/25/24 13:59 FAILED INTERFACING ONGOING Assessment & Plan Assessment & Plan (1) Current use of anticoagulant therapy: Code(s): 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
== END | disposition home or self-care (01) ==
PROVIDERS: PCP Physician Assistant Medical; Visit Provider Internal Medicine
DX: Z79.01 Long term (current) use of anticoagulants (principal)

== ENCOUNTER → 2024-11-25 13:27 | Outpatient (BNVA) | payer OTHER, SELFPAY | PROVIDERS: PCP Physician Assistant Medical; Visit Provider Internal Medicine | DX: Z86.718 Personal history of other venous thrombosis and embolism (principal); Z79.01 Long term (current) use of anticoagulants; Z51.81 Encounter for therapeutic drug level monitoring | CPT/HCPCS: 85610; 99211 ==

== ENCOUNTER 2024-12-08 14:45 | Outpatient (AMB) | payer OTHER, SELFPAY ==
[2024-12-08 14:53] LABS: Prothrombin Time Whole Bld POC 42.8 sec (11.1-13.5); ~PT, ~INR - Anti Coag Clinic 3.6 (0.9-1.1)
--- NOTE | 2024-12-08 14:57 | MHC.OFFVISCO ---
Intake Intake Visit Reasons: Anticoagulation Allergies lisinopril [Lisinopril] Allergy (Mild, Verified 12/08/24 14:48) COUGH Sulfa (Sulfonamide Antibiotics) Allergy (Mild, Verified 12/08/24 14:48) UNKNOWN Medication List - Last Reconciled 12/08/24 by Ewa Bajwa, RN amlodipine 10 mg PO DAILY atorvastatin 10 mg PO DAILY carvedilol 6.25 mg PO BID clonidine HCl 0.1 mg PO BID fluticasone propionate 50 mcg/actuation 1 spray intranasal DAILY hydrochlorothiazide 25 mg PO DAILY loratadine 10 mg PO DAILY PRN losartan 100 mg PO DAILY omeprazole 20 mg PO DAILY warfarin 5 mg See Protocol PO DAILY warfarin 2.5 mg See Protocol PO DAILY Nursing Note INR: 3.6?out of therapeutic range of 2-3 Medications and supplements reviewed Patient status: no changes Medications or supplements: no changes Diet: usual diet per pt Denies any signs and symptoms of bleeding or clotting or unusual bruising Bleeding, bruising, clotting discussed Nutritional guidance given: pt to have a serving of greens today Dose: decrease today's dose to 2.5mg (7.5mg) then resume 7.5mg daily F/U INR Date : 4 weeks Patient verbalizing understanding of instructions given. Anti-Coag Initial Assessment Social Hx Patient Tobacco Use Status: Never used Tobacco Coding Level of Care Code Est Patient Level 1 Diagnoses Current use of anticoagulant therapy Z79.01 Results AMB INR Fingerstick AMB INR Fingerstick 3.6 Last Edit by Ewa Bajwa RN on 12/08/24 14:53 interface delay Assessment & Plan Assessment & Plan (1) Current use of anticoagulant therapy: Code(s): Z79.01 - detention (current) use of anticoagulants Category: Medical
--- OUTSIDE RECORDS SUMMARY | 2024-12-08 15:52 | XMS_ITS | Data Portability ---
Author Organization [place], [facility] Address [address] [place] [address] Care Team Providers Care Systems Software Designer Name Role Phone BROOKLYNN CRONIN Primary Care Provider [phone] EDWIN SALAZAR Primary Care Provider [facility] Sports Medicine [facility] VASCULAR SURGERY Vascular Surgeon CESAR AVILA Sports Medicine ETHEL LAZAR Forge Operator [phone] Assessment Encounter Date Assessment Date Assessment LastModified by Organization Details LastModified Time 01/06/2024 01/06/2024 weightbearing X-rays of the bilateral knees from 2022 were independently interpreted demonstrating 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 INR 2.5 (12/31/2023) Not available 01/06/2024 10:45:38 Plan of Treatment Reminders Order Date Submit Date Provider Last Modified By Organization Details Last Modified Time Details Appointments Sports Med New Patient (20) 2024 01:30P M Cesar Avila MD Not available Not available Not available LAB Follow-Up 2024 11:00A M [facility] Lab Not available Not available Not available Medical Managemen t 15 2024 01:45P M Brooklynn Cronin PA-C Not available Not available Not available Lab fecal occult blood, immunoass ay, stool [address] [facility], [address] [place], [address], 10/07/2024 16:05:53 culture, urine 2023 024 [facility], [address] [facility], [place], [address], 08/31/2024 16:01:18 Referral None recorded. Procedures None recorded. Surgeries None recorded. Imaging DEXA 2023 024 [facility], [address], [place], [address], 10/07/2024 16:10:42 US, guidance 2023 [email or web address] [place] [address] (Imaging), [address] , [place], [address], 01/08/2024 19:58:39 Medication Orders omeprazol e 20 mg capsule,d elayed release 2023 024 [facility]/Pharmacy #[id number], [address] [place], [address], 10/07/2024 16:06:33 famotidin e 20 mg tablet 2022 024 [facility]/Pharmacy #[id number], [address] [facility], [place], [address], 10/07/2024 16:06:29 prednison e 20 mg tablet 2022 024 [facility]/Pharmacy #[id number], [address] [place], [address], 04/15/2024 11:00:52 Patient TargetsNo targets recorded. Patient Instructions Encounter Date Encounter Id Patient Instructions Last Modified By Organization Details Last Modified Time 10/09/2023 [id number] well visit, wome n 50 to 65: care instructions [email or web address] Not available 10/09/2023 16:02:02 This Shingles vaccine was approved in 2017. [...] autoimmune conditions, and a history of Guillain Chatham Syndrome. [email or web address] Not available 10/09/2023 16:22:14 01/06/2024 [id number] Rest and ice for the next week Restart home physical therapy in approximately 7-10 days Follow-up as needed for further care Seek immediate attention for any redness, fevers, chills, worsening or severe pain, or any other concerning symptoms. Not available 01/06/2024 10:40:08 All of the patients questions were answered and they understand the plan of care. Thank you for allowing me to participate in the care of your patient. ??Please feel free to contact me with any questions regarding their care. Not available 01/06/2024 10:40:11 10/07/2024 [id number] This Shingles vaccine was approved in 2017. [...] autoimmune conditions, and a history of Guillain Chatham Syndrome. [email or web address] Not available 10/10/2024 07:44:44 Reason for Referral None Reported. Results Created Date Observation Date Name Description Value Unit Range Abnormal Flag Note LastModifiedBy Organization Detail LastModifiedTime 10/09/2010/13/2023 IMMUN OCHEM ICAL FECAL OCCUL T BLOOD ifobt NEGATI VE negati ve Not Available [address], [address], 10/13/2023 11:11:05 04/15/20 24 04/15/2024 HGB A1C hemoglobin A1C 5.7 % 4.8-6. 0 Goal: <7% in Patie nts with Diabe cheryle An A1c betwe en 5.7-6 .4% is ident ified as pre-d iabet es and sugge sts risk for progr essio n to diabe cheryle Two a1c value s of 6.5% or highe r is consi stent with a diagn osis of diabe cheryle but may need furth er confi rmati on Not Available [address], [address], 04/15/2024 12:27:10 04/15/20 24 04/15/2024 HGB A1C estimated average glucose 116.9 mg/dL Not Available [address], [address], 04/15/2024 12:27:10 04/15/20 24 04/15/2024 COMP. METAB OLIC PANEL glucose 99 mg/dL 70-100 Not Available [address], [address], 04/15/2024 14:09:16 04/15/20 24 04/15/2024 COMP. METAB OLIC PANEL BUN 21 mg/dL 7-18 high Not Available [address], [address], 04/15/2024 14:09:16 04/15/20 24 04/15/2024 COMP. METAB OLIC PANEL creatinine 1.3 mg/dL 0.8-1. 3 Not Available [address], [address], 04/15/2024 14:09:16 04/15/20 24 04/15/2024 COMP. METAB OLIC PANEL B/C 16.2 ratio Not Available [address], [address], 04/15/2024 14:09:16 04/15/20 24 04/15/2024 COMP. METAB OLIC PANEL GFR 45.9 mL/mi n abnormal >=60m L/min - Stephenie l or midly reduc ed <60mL /min- Decre ased kidne y funct ion <15mL /min - Kidne y failu re [facility] calcu lates estim ated Glome rular Filtr ation Rate (eGFR ) using the Chron ic Kidne y Disea se Epide miolo gy Colla borat ion (CKD- EPI) Equat ion (Inke r et. al 2020) as recom kelly d by the Natio nal Kidne y Found ation . eGFR is based on age, serum creat inine , and sex. CKD-E PI does not calcu late eGFR by race, does not apply to child belem (age <18 years ), and shoul d not be used in pregn juju. Not Available [address], [address], 04/15/2024 14:09:16 04/15/20 24 04/15/2024 COMP. METAB OLIC PANEL sodium 141 mmol/ L 136-14 5 Not Available [address], [address], 04/15/2024 14:09:16 04/15/20 24 04/15/2024 COMP. METAB OLIC PANEL potassium 3.7 mmol/ L 3.5-5. 1 Not Available [address], [address], 04/15/2024 14:09:16 04/15/20 24 04/15/2024 COMP. METAB OLIC PANEL chloride 103 mmol/ L 96-107 Not Available [address], [address], 04/15/2024 14:09:16 04/15/20 24 04/15/2024 COMP. METAB OLIC PANEL anion gap 6.7 5.0-15 .0 Not Available [address], [address], 04/15/2024 14:09:16 04/15/20 24 04/15/2024 COMP. METAB OLIC PANEL CO2 31 mmol/ L 21-32 Not Available [address], [address], 04/15/2024 14:09:16 04/15/20 24 04/15/2024 COMP. METAB OLIC PANEL calcium 8.9 mg/dL 8.5-10 .3 Not Available [address], [address], 04/15/2024 14:09:16 04/15/20 24 04/15/2024 COMP. METAB OLIC PANEL total protein 6.3 g/dL 6.4-8. 2 low Not Available [address], [address], 04/15/2024 14:09:16 04/15/20 24 04/15/2024 COMP. METAB OLIC PANEL albumin 3.4 g/dL 3.4-5. 0 Not Available [address], [address], 04/15/2024 14:09:16 04/15/20 24 04/15/2024 COMP. METAB OLIC PANEL globulin 2.9 g/dL Not Available [address], [address], 04/15/2024 14:09:16 04/15/20 24 04/15/2024 COMP. METAB OLIC PANEL A/G 1.2 ratio 0.8-2. 0 Not Available [address], [address], 04/15/2024 14:09:16 04/15/20 24 04/15/2024 COMP. METAB OLIC PANEL total bilirubin 0.70 mg/dL 0.00-1 .00 Not Available [address], [address], 04/15/2024 14:09:16 04/15/20 24 04/15/2024 COMP. METAB OLIC PANEL AST 23 U/L 0-37 Not Available [address], [address], 04/15/2024 14:09:16 04/15/20 24 04/15/2024 COMP. METAB OLIC PANEL ALT 26 U/L 6-63 Not Available [address], [address], 04/15/2024 14:09:16 04/15/20 24 04/15/2024 COMP. METAB OLIC PANEL alk. phos. 102 U/L 50-136 Not Available [address], [address], 04/15/2024 14:09:16 04/15/20 24 04/15/2024 LIPID PANEL cholesterol 159 mg/dL <200 mg/dl Ashley able 200-2 39 mg/dl Borde rline High >240 mg/dl High Not Available [address], [address], 04/15/2024 14:09:17 04/15/20 24 04/15/2024 LIPID PANEL triglyceride s 140 mg/dL <150 mg/dL Stephenie l 150-1 99 mg/dL Borde rline High 200-4 99 mg/dL High >500 mg/dL Very High Not Available [address], [address], 04/15/2024 14:09:17 04/15/20 24 04/15/2024 LIPID PANEL direct HDL 54 mg/dL <40 mg/dl - Major Risk for CHD >60 mg/dl - Negat zak Risk for CHD Not Available [address], [address], 04/15/2024 14:09:17 04/15/20 24 04/15/2024 LDL - CALCU LATED LDL - calculated 77.0 RISK CATEG ORY LDL GOAL _ CHD or CHD Risk Equiv alent s <100 mg/dl (10-y ear risk >20%) 2+ Risk Facto rs <130 mg/dl (10-y ear risk <= 20%) 0-1 Risk Facto r??? <160 mg/dl ??? Almos t all peopl e with 0-1 risk facto r have a 10 year risk <10%, thus 10 year risk asses ment in peopl e with 0-1 risk facto r is not charan pope. Not Available [address], [address], 04/15/2024 14:09:17 08/29/20 24 08/29/2024 POC UA glu UA NEGATI VE Not Available [facility] [address] [place] [address], [address], 08/29/2024 16:38:21 08/29/20 24 08/29/2024 POC UA clarity UA CLEAR Not Available [facility] [address] [place] [address], [address], 08/29/2024 16:38:21 08/29/20 24 08/29/2024 POC UA uro UA 0.2000 Not Available [facility] [address] [place] [address], [address], 08/29/2024 16:38:21 08/29/20 24 08/29/2024 POC UA ket UA NEGATI VE Not Available [facility] [address] [place] [address], [address], 08/29/2024 16:38:21 08/29/20 24 08/29/2024 POC UA pro UA NEGATI VE Not Available [facility] [address] [place] [address], [address], 08/29/2024 16:38:21 08/29/20 24 08/29/2024 POC UA nit UA NEGATI VE Not Available [facility] [address] [place] [address], [address], 08/29/2024 16:38:21 08/29/20 24 08/29/2024 POC UA dayo UA 1+ abnormal Not Available [facility] [address] [place] [address], [address], 08/29/2024 16:38:21 08/29/20 24 08/29/2024 POC UA pH UA 6.0000 Not Available [facility] [address] [place] [address], [address], 08/29/2024 16:38:21 08/29/20 24 08/29/2024 POC UA SG UA 1.0250 Not Available [facility] [address] [place] [address], [address], 08/29/2024 16:38:21 08/29/20 24 08/29/2024 POC UA color UA YELLOW Not Available [facility] [address] [place] [address], [address], 08/29/2024 16:38:21 08/29/20 24 08/29/2024 POC UA blo UA TRACE- INTACT abnormal Not Available [facility] [address] [place] [address], [address], 08/29/2024 16:38:21 08/29/20 24 08/29/2024 POC UA william UA NEGATI VE Not Available [facility] [address] [place] [address], [address], 08/29/2024 16:38:21 08/29/20 24 08/31/2024 CULTU RE, URINE , ROUTI NE culture, urine, routine CULTU RE, URINE , ROUTI NE Micro Numbe r: [id number] Test Statu s: Final Speci men Sourc e: Urine Speci men Quali ty: Adequ ate Resul t: Mixed genit al collin isola hermelinda. These super ficia l bacte sabrina are not indic ative of a urina ry tract infec tion. No furth er organ ism ident ifica tion is warra nted on this speci men. If clini gage indic ated, recol lect clean -catc h, mid-s tream urine and trans arnav immed iatel y to Urine Cultu re Trans port Tube. Not Available [facility] [address], [place], [address], 08/31/2024 16:38:58 10/04/20 24 10/04/2024 CBC WBC 6.07 K/??L 3.98-1 0.04 Not Available [address], [address], 10/04/2024 12:41:14 10/04/20 24 10/04/2024 CBC RBC 4.22 M/??L 3.93-5 .22 Not Available [address], [address], 10/04/2024 12:41:14 10/04/20 24 10/04/2024 CBC HGB 12.4 g/dL 11.2-1 5.7 Not Available [address], [address], 10/04/2024 12:41:14 10/04/20 24 10/04/2024 CBC HCT 38.0 % 34.1-4 4.9 Not Available [address], [address], 10/04/2024 12:41:14 10/04/20 24 10/04/2024 CBC MCV 90.0 fL 79.4-9 4.8 Not Available [address], [address], 10/04/2024 12:41:14 10/04/20 24 10/04/2024 CBC MCH 29.4 pg 25.6-3 2.2 Not Available [address], [address], 10/04/2024 12:41:14 10/04/20 24 10/04/2024 CBC MCHC 32.6 g/dL 32.2-3 5.5 Not Available [address], [address], 10/04/2024 12:41:14 10/04/20 24 10/04/2024 CBC plt 128 K/??L 182-36 9 low Not Available [address], [address], 10/04/2024 12:41:14 10/04/20 24 10/04/2024 CBC MPV 12.5 fL 9.4-12 .3 high Not Available [address], [address], 10/04/2024 12:41:14 10/04/20 24 10/04/2024 CBC neut% 56.0 % 34.0-7 1.1 Not Available [address], [address], 10/04/2024 12:41:14 10/04/20 24 10/04/2024 CBC neut# 3.40 1.56-6 .13 Not Available [address], [address], 10/04/2024 12:41:14 10/04/20 24 10/04/2024 CBC lymph % 30.8 % 19.3-5 1.7 Not Available [address], [address], 10/04/2024 12:41:14 10/04/20 24 10/04/2024 CBC lymph # 1.87 K/??L 1.18-3 .74 Not Available [address], [address], 10/04/2024 12:41:14 10/04/20 24 10/04/2024 CBC mono% 10.5 % 4.7-12 .5 Not Available [address], [address], 10/04/2024 12:41:14 10/04/20 24 10/04/2024 CBC mono# 0.64 0.24-0 .56 high Not Available [address], [address], 10/04/2024 12:41:14 10/04/20 24 10/04/2024 CBC eo% 1.8 % 0.7-5. 8 Not Available [address], [address], 10/04/2024 12:41:14 10/04/20 24 10/04/2024 CBC eo# 0.11 0.04-0 .36 Not Available [address], [address], 10/04/2024 12:41:14 10/04/20 24 10/04/2024 CBC baso% 0.7 % 0.1-1. 2 Not Available [address], [address], 10/04/2024 12:41:14 10/04/20 24 10/04/2024 CBC baso# 0.04 0.00-0 .08 Not Available [address], [address], 10/04/2024 12:41:14 10/04/20 24 10/04/2024 CBC RDW-CV 13.1 % 11.7-1 4.4 Not Available [address], [address], 10/04/2024 12:41:14 10/04/20 24 10/04/2024 CBC Ig% 0.200 % 0.000- 1.500 Ig % >0.5 Indic ates possi ble Left Shift Not Available [address], [address], 10/04/2024 12:41:14 10/04/20 24 10/04/2024 CBC Ig# 0.010 0.000- 0.093 Not Available [address], [address], 10/04/2024 12:41:14 10/04/20 24 10/04/2024 CBC NRBC% 0.0 % 0.0-0. 2 Not Available [address], [address], 10/04/2024 12:41:14 10/04/20 24 10/04/2024 CBC NRBC# 0.000 0.000- 0.012 Not Available [address], [address], 10/04/2024 12:41:14 10/04/20 24 10/04/2024 HGB A1C hemoglobin A1C 5.7 % 4.8-6. 0 Goal: <7% in Patie nts with Diabe cheryle An A1c betwe en 5.7-6 .4% is ident ified as pre-d iabet es and sugge sts risk for progr essio n to diabe cheryle Two a1c value s of 6.5% or highe r is consi stent with a diagn osis of diabe cheryle but may need furth er confi rmati on Not Available [address], [address], 10/04/2024 14:01:48 10/04/20 24 10/04/2024 HGB A1C estimated average glucose 116.9 mg/dL Not Available [address], [address], 10/04/2024 14:01:48 10/04/20 24 10/05/2024 BASIC METAB OLIC PANEL glucose 100 mg/dL 70-100 Not Available [address], [address], 10/05/2024 11:46:25 10/04/20 24 10/05/2024 BASIC METAB OLIC PANEL BUN 10 mg/dL 7-18 Not Available [address], [address], 10/05/2024 11:46:25 10/04/20 24 10/05/2024 BASIC METAB OLIC PANEL creatinine 0.9 mg/dL 0.8-1. 3 Not Available [address], [address], 10/05/2024 11:46:25 10/04/20 24 10/05/2024 BASIC METAB OLIC PANEL B/C 11.1 ratio Not Available [address], [address], 10/05/2024 11:46:25 10/04/20 24 10/05/2024 BASIC METAB OLIC PANEL GFR >=60ML /MIN mL/mi n normal >=60m L/min - Stephenie l or midly reduc ed <60mL /min- Decre ased kidne y funct ion <15mL /min - Kidne y failu re [facility] calcu lates estim ated Glome rular Filtr ation Rate (eGFR ) using the Chron ic Kidne y Disea se Epide miolo gy Colla borat ion (CKD- EPI) Equat ion (Elpidio r et. al 2020) as recom kelly d by the Natio nal Kidne y Found ation . eGFR is based on age, serum creat inine , and sex. CKD-E PI does not calcu late eGFR by race, does not apply to child belem (age <18 years ), and shoul d not be used in pregn juju. Not Available [address], [address], 10/05/2024 11:46:25 10/04/20 24 10/05/2024 BASIC METAB OLIC PANEL sodium 143 mmol/ L 136-14 5 Not Available [address], [address], 10/05/2024 11:46:25 10/04/20 24 10/05/2024 BASIC METAB OLIC PANEL potassium 4.1 mmol/ L 3.5-5. 1 Not Available [address], [address], 10/05/2024 11:46:25 10/04/20 24 10/05/2024 BASIC METAB OLIC PANEL chloride 104 mmol/ L 96-107 Not Available [address], [address], 10/05/2024 11:46:25 10/04/20 24 10/05/2024 BASIC METAB OLIC PANEL anion gap 6.7 5.0-15 .0 Not Available [address], [address], 10/05/2024 11:46:25 10/04/20 24 10/05/2024 BASIC METAB OLIC PANEL CO2 32 mmol/ L 21-32 Not Available [address], [address], 10/05/2024 11:46:25 10/04/20 24 10/05/2024 BASIC METAB OLIC PANEL calcium 9.0 mg/dL 8.5-10 .3 Not Available [address], [address], 10/05/2024 11:46:25 10/04/20 24 10/05/2024 LIPID PANEL cholesterol 175 mg/dL <200 mg/dl Ashley able 200-2 39 mg/dl Borde rline High >240 mg/dl High Not Available [address], [address], 10/05/2024 11:46:26 10/04/20 24 10/05/2024 LIPID PANEL triglyceride s 65 mg/dL <150 mg/dL Stepheine l 150-1 99 mg/dL Borde rline High 200-4 99 mg/dL High >500 mg/dL Very High Not Available [address], [address], 10/05/2024 11:46:26 10/04/20 24 10/05/2024 LIPID PANEL direct HDL 68 mg/dL <40 mg/dl - Major Risk for CHD >60 mg/dl - Negat zak Risk for CHD Not Available [address], [address], 10/05/2024 11:46:26 10/04/2010/05/2024 LDL - CALCU LATED LDL - calculated 94 RISK CATEG ORY LDL GOAL _ CHD or CHD Risk Equiv alent s <100 mg/dl (10-y ear risk >20%) 2+ Risk Facto rs <130 mg/dl (10-y ear risk <= 20%) 0-1 Risk Facto r??? <160 mg/dl ??? Almos t all peopl e with 0-1 risk facto r have a 10 year risk <10%, thus 10 year risk asses ment in peopl e with 0-1 risk facto r is not charan toshia. Not Available [address], [address], 10/05/2024 11:46:27 Result Notes None recorded. Problems Name Problem SNOMED Code Status Onset Date Resolution Date Notes Provider Name and Address Organization Details Recorded Time Lupus anticoag ulant disorder 94838132 Active [facility] Brooklynn Cronin PA-C [address] [place], [place] [address], [address], [facility] 7 16:36:22 Deep venous thrombos is 530418134 Completed 01/14/20162005 Brooklynn Cronin PA-C [address] [place], [place] [address], [address], [facility] 6 12:36:39 Hyperten sive disorder 26809306 Completed 01/14/2016 Brooklynn Cronin PA-C [address] [place], [place] [address], [address], [facility] 6 12:36:39 Osteoart hritis 541125383 Active knees Brooklynn Cronin PA-C [address] [place], [place] [address], [address], [facility] 1 14:41:31 Environm ental allergy 756830823 Active Brooklynn Cronin PA-C [address] [place] [address] [place], [address], [facility] 6 12:36:39 Edema 122500336 Completed 01/14/2016 Brooklynn Cronin PA-C [address] [place] [address] Lakshmi chatman [place], 1, [facility] 6 12:36:39 Obese 351086715 Active Brooklynn Cronin PA-C [address] [place] [address] Lakshmi chatman MA, 1, [facility] 6 12:36:39 Essentia l hyperten lynne 48399746 Active Brooklynn Cronin PA-C [address] [place] [address] Lakshmi chatman [place], 1, [facility] 6 15:50:00 History of thrombos is 923128614 Active DVT 2005 Brooklynn Cronin PA-C [address] [place] [address] [place], [address], [facility] 6 12:36:39 Peripher al venous insuffic iency 59160286 Active Brooklynn Cronin PA-C [address] [place] [address] [place], [address], [facility] 6 12:36:39 Venous varices 465911178 Active Brooklynn Cronin PA-C [address] [place] [address] [place], [address], [facility] 6 12:36:39 Thromboc ytopenic disorder 044055920 Active 2016 platelet 130s Brooklynn Cronin PA-C [address] [place] [address] [place], [address], [facility] 2 13:57:31 Hyperlip idemia 18468082 Active 2016 Brooklynn Cronin PA-C [address] [place] [address] [place], [address], [facility] 7 15:00:19 Cataract 622481064 Active 2019 Brooklynn Cronin PA-C [address] [place], [place] [address], [address], [facility] 0 15:02:59 Prediabe cheryle 307583691 Active 2022 Brooklynn Cronin PA-C [address] [place], [place] [address], [address], [facility] 3 15:49:21 Hypercoa [facility] 05039620 Active 2022 JACOB Modi [address] [place], [place] [address], [address], [facility] 3 14:40:05 Problem Notes None recorded. Procedures Surgical History Date Name Laterality Status Provider Name and Address Organization Details Recorded Time 4 US Guided Knee Joint Injection completed Cesar Avila MD [address] [place] [address], [address], [facility] 01/06/2024 10:46:45 3 US Guided Knee Joint Injection completed Cesar Avila MD [address] [place] [address], [address], [facility] 06/02/2023 16:04:02 3 US Guided Knee Joint Injection completed Cesar Avila MD [address] [place] [address], [address], [facility] 11/04/2022 10:20:34 2 prevention-monica ual alcohol misuse screening completed Brooklynn Cronin PA-C [address] [place] [address], [address], [facility] 03/28/2022 16:52:35 1 Knee Injection w/o US completed Cesar Avila MD [address] [place] [address], [address], [facility] 12/20/2020 15:30:23 0 prevention-car diovascular risk reduction counseling completed Jen Dickey MA [place] 06/29/2020 11:49:36 0 prevention-monica [facility] alcohol misuse screening completed Jen Dickey MA [place] 06/29/2020 11:49:36 6 POC Strep Testing completed Rhona Marin LPN [place] 06/02/2016 14:25:26 Imaging Results None recorded. Procedure Notes None recorded. Medical Equipment None Reported. Allergies Allergen ID Allergen Name Allergen Category Reaction Reaction Severity Criticality Documentation Date Start Date Code Code System Note Provider Name and Address Organization Details Recorded Time 180458 Substance with sulfonami de structure and antibacte rial mechanism of action (substanc e) medicatio n Not available Not available Not available 12/05/2014 30099 8003 SNOMED not sure of react ion Jessica Mcgraw MA [facility], [place] 5 14:50:15 [id number] lisinopri l medicatio n Not available Not available Not available 11/14/2016 05194 RxNorm Brooklynn Cronin PA-C [address] [place] [address], [place], [address] [place] [address] 7 16:01:00 Medications Name Sig Start Date [...] 1 TABLET BY MOUTH TWICE A DAY 2024 active Not Available Not Available Not Avai lable carvedilo l 6.25 mg tablet TAKE 1 [...] Not Available Not Available No t Available penicilli n V potassium 500 mg tablet [...] and Address Organization Details Last Updated DateTime 3 162.56 cm 32.1 kg/m2 06147.4 7 g 77 /min 124 mm[Hg] 60 mm[Hg] Nury Main [facility] 3 15:51:00 Date Recorded Body height Systolic blood pressure Diastolic blood pressure Provider Name and Address Organization Details Last Updated DateTime 01/06/2024 162.56 cm 130 mm[Hg] 70 mm[Hg] Aurora Otto [facility] 01/06/2024 09:55:04 Date Recorded Body height Body mass index (BMI) Body weight Heart rate Systolic blood pressure Diastolic blood pressure Provider Name and Address Organization Details Last Updated DateTime 4 162.56 cm 32.1 kg/m2 94339.1 7 g 80 /min 118 mm[Hg] 68 mm[Hg] Elizabeth antonio Mary [facility] 4 11:03:04 Date Recorded Body height Body temperature Heart rate Systolic blood pressure Diastolic blood pressure Provider Name and Address Organization Details Last Updated DateTime 08/29/2024 162.56 cm 97.6 [degF] 72 /min 122 mm[Hg] 70 mm[Hg] Joyce Aquino MA [facility] 4 16:28:53 Date Recorded Body height Body mass index (BMI) Body weight Heart rate Systolic blood pressure Diastolic blood pressure Systolic blood pressure Diastolic blood pressure Provider Name and Address Organization Details Last Updated DateTime 4 157.48 cm 34.5 kg/m2 48414.1 7 g 64 /min 138 mm[Hg] 76 mm[Hg] 132 mm[Hg] 76 mm[Hg] Elizabeth Nabila antonio, RMA [facility] 4 16:04:42 Social History Question Answer Notes LastModified by Organizat ion Details LastModified Time Tobacco Smoking Status Never Smoker [facility] 12/05/2014 14:57:22 What Is Your Level Of Alcohol Consumption? Occasional [email or web address] Information not available 12/05/2014 Do You Wear A Helmet When Biking? Yes [email or web address] Information not available 12/05/2014 What Is Your Level Of Caffeine Consumption? Moderate 2 Cups Of Coffee Per Day Information not available 12/05/2014 How Much Tobacco Do You Chew? None [email or web address] Information not available 12/05/2014 Are You Currently Employed? Yes Information not available 10/09/2023 What Type Of Diet Are You Following? REGULAR [email or web address] Information not available 12/05/2014 Which Illicit Or Recreational Drugs Have You Used? None Information not available 05/02/2015 Do You Or Have You Ever Used E-cigarettes Or Vape? Never Used Electronic Cigarettes [email or web address] Information not available 12/27/2019 Education 11 Information n ot available 12/05/2014 What Is Your Occupation? [employer] [email or web address] Information not available 12/05/2014 Have There Been Any Changes To Your Family Or Social Situation? No Information not available 10/09/2023 How Many Days In The Past Year Have You Had A Heavy Drinking Consumption (4+ Female, 5+ Male)? 0 [email or web address] Information not available 05/02/2015 Are There Any Guns Present In Your Home? No [email or web address] Information not available 12/05/2014 Do You Use Insect Repellent Routinely? Yes Information not available 10/09/2023 Live Alone Or With Others? With Others With Kids [email or web address] Information not available 12/05/2014 Patient Has Health Care Proxy Signed And In Chart Yes [email or web address] Information not available 10/17/2024 Marital Status Single [email or web address] Informati on not available 12/05/2014 Mosquito Repellent Used Routinely Yes Lyme Dz Prevention Reviewed [email or web address] Information not available 05/02/2015 What Was The Date Of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 itis seen on her recent x-rays. I reviewed this diagnosis with her today as well as discussing options for treatment both short and long-term. We discussed continued physical therapy and the use of Tylenol, corticoste roid injections , and potential surgery. We briefly touched also on viscosuppl ementation . She has done well with past injections which she would like repeat it today. Monica did undergo bilateral knee joint corticoste roid injections under ultrasound guidance. She tolerated this well without complicati on. She will ice and rest over the next week and gradually resume normal activities . She can restart her physical therapy at home in 7-10 days and will follow up with me as needed for further care. Osteoarthr itis of knee 740671513 M17.0 [id number] JACOB Modi, [facility], [address] [place] [address] 09/03/2023 14:00:19 09/04/2023 09:38:40 Upper respiratory infection 24460007 J06.9 Patient presents with symptoms consistent with viral infection. No evidence of pneumonia on exam. Discussed supportive care: pushing fluids, rest, nasal saline, humidifier and Mucinex as needed. Encouraged to follow up if symptoms persist for more then 10 days or if they are worsening. Discussed natural course of viral illnesses and lack of evidence for treating with antibiotic s. Discussed CXR if worsening or not resolving. Essential hypertension 96817916 I10 BP in goal in officeCont inue medication s Active or passive immunization 180016731 Z23 flu - deferred Screening for malignant neoplasm of colon 001044523 Z12.11 kit given 09/03/23 cc History of thrombosis 27 0691107 Z86.718 On CoumadinDi scussed OTC safe options with Coumadin Hypercoagu lability state 81819270 D68.59 as above [id number] BROWN Hernández, [facility], [address] [place] [address] 10/09/2023 15:32:24 10/09/2023 16:05:47 Adult health examination 463041600 Z00.00 Depression screening 171 457394 Z13.31 depression screening tool administer ed - negative Screening for alcohol abuse 061657176 Z13.39 Alcohol use screening tool administer ed Active or passive immunization 876722400 Z23 Shingles: RemindedFl u:declined Screening for malignant neoplasm of colon 841061350 Z12.11 brought it in today! Essential hypertension 36876481 I10 - blood pressure at goal of less than 130/80- continue current medication s Prediabetes 110853293 R7 3.03 Normal blood sugar is less than 100 and diabetic is greater than 126. Sugars between 100-126 suggest an increased risk of developing diabetes in the future. This is best prevented by decreasing simple sugars in the diet from sweets like soda, juice, candy, and bakery items and simple or white starches like bread, potatoes, rice, and pasta. Exercise and weight loss will help. We will continue to monitor your sugars periodical ly. Acute bronchitis 5704087 2 J20.9 Reassured. Lungs completely clear. Enc force fluids, steam inhalation prn, adequate rest. OK to continue otc cold/cough meds prn for symptom management . F/u here if not gradually improving, symptoms worsening. Gastroesop hageal reflux disease 835220979 K21.9 - will trial famotidine - Avoid triggers such as tobacco, alcohol, caffeine, spicy foods, etc - Do not lie down for at least two hours after eating - Avoid over eating [id number] Cesar Avila MD Sports Medicine, [facility] [address] [place] [address] 01/06/2024 09:46:05 01/08/2024 19:58:39 Knee pain 86281577 M25.562 M25.561 Monica is a 63-year-ol d female with bilateral knee pain due to underlying osteoarthr itis. I reviewed this diagnosis with her again today as well as discussing options for treatment both short and long-term. We again discussed the use of Tylenol and physical therapy, repeat corticoste roid injections , Viscosuppl ementation , and surgery. Unfortunakeon rodriguez she had only 2 months of pain relief with her last injections . Specifical ly we discussed a trial of repeat injections with a higher dose of Kenalog to see if this provides better symptom relief for her. We discussed that Viscosuppl ementation is less likely to be beneficial with the severity of her osteoarthr itis although certainly would be reasonable to try. I also stressed to her that she would likely need surgical interventi on at some point in her life but she has not yet ready to pursue this option. After discussion she did undergo bilateral knee joint corticoste roid injections under ultrasound guidance. She tolerated this well without complicati on. I have advised ice and rest over the next week and she can gradually resume normal activities . I am happy to see Monica back as needed further care in the future. 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 Sugars between 100-126 suggest an increased risk of developing diabetes in the future. This is best prevented by decreasing simple sugars in the diet from sweets like soda, juice, candy, and bakery items and simple or white starches like bread, potatoes, rice, and pasta. Exercise and weight loss will help. We will continue to monitor your sugars periodical ly. [id number] JACOB Madsen , [facility], OFFICE [address] [place] [address] 08/29/2024 16:21:08 08/29/2024 16:54:16 Increased frequency of urination 263002279 R35.0 Trace LE on UA, no concern for UTI at this time, will confirm with urine cultureNo signs of pyelo- no CVA tenderness or feverDiscu ssed back pain is unrelatedW ill reassess based on culture result, pt to contact the office for any worsening symptoms sooner Low back pain 048016995 M54.50 Low back pain x3 weeks, not related to urinary symptoms, no red flagsPt instructed on supportive care including Tylenol, heat/ice and topicals.I f no improvemen t, recommend PT.Pt instructed to contact the office for any worsening symptoms. [id number] Brooklynn Cronin PA-C , [facility], [address] [place] [address] 10/07/2024 15:45:53 10/10/2024 12:39:50 Adult health examination 225641491 Z00.00 Depression screening 171 397101 Z13.31 depression screening tool administer ed Screening for alcohol abuse 809736350 Z13.39 Alcohol use screening tool administer ed Screening for malignant neoplasm of colon 383573627 Z12.11 You were given a stool kit today for Colorectal Cancer screening. Please review the instructio ns and return the kit to our office within 7 days. The kits so check the date before submitting the sample. Contact our office with any questions or concerns. Postmenopausal state 764 [address]151 Z78.0 Active or passive immunization 328194475 Z23 iris Falcon: RemindedFl u: Essential hypertension 90431538 I10 - blood pressure at goal of less than 130/80- continue current medication s Hyperlipidemia 65117333 E78.5 - LDL at goal of under 100, continue current medication s Gastroesop hageal reflux disease 586953692 K21.9 - continue omeprazole - Avoid triggers such as tobacco, alcohol, caffeine, spicy foods, etc - Do not lie down for at least two hours after eating - Avoid over eating Health Concerns Section Related Observation LastModified by Organization Detai ls LastModified Time None Recorded Concern Status LastModified by Organization Details LastModified Time None Recorded Advance Directives Directive None Recorded Payers Encounter Date Sequence Insurance Name Policy Number Policy Dee Covered Member ID Dee Member ID Guarantor Name 10/09/2023 1 [facility] [id number] Monica Del Real [id number] 1 Monica Clappsalma 01/06/2024 1 [facility] [id number] Monica Del Real [id number] 1 Monica Bartonppsalma 04/15/2024 1 [facility] [id number] Monica Del Real [id number] 1 Monica Clappsalma 08/29/2024 1 [facility] [id number] Monica Del Real [id number] 1 Monica Clappsalma 10/07/2024 1 [facility] [id number] Monica Del Real [id number] 1 Monica Del Real Notes Date Note Type Note Provider Name and Address Organization Details Recorded Time 3 text/html Physical Exam/FemaleReported bypatient.PHAPatient is here for [...] ischemic heart disease; No peripheral vascular disease ([address]); No diabetes Associated Symptoms:no muscle pain; no [...] at home and has been well controlled. 63 year old patient presents for wellness visit. Continues to have nasal congestion and cough. Cough worse at night. Dry. No chest pain or shortness of breath. Not sleeping well. Ongoing for over a month. Was prescribed antibiotics and a cough medication. Flonase not helping. PHQ-9 score of 9: not sleeping well due to cough Allergies:- taking claritin and flonase, continues to have symptoms of runny nose and post nasal drip- eyes are itchy Obesity:- eating chips and onion dip for snack lately- working two jobs, very busy and stressed- no specific exercise but is on her feet and walks her dog Heartburn - a few times per week. Cut back on coffee which helped. No abdominal pain, nausea, and vomiting. Brooklynn Cronin PA-C [address] [place] [address], [phone], [facility] 10/09/2023 16:22:56 4 text/html Monica is a 63-year-old female who presents today for an exacerbation of chronic bilateral knee pain. She was last evaluated in May 2023 when she underwent bilateral knee joint corticosteroid injections. She states unfortunately this only provided 8 weeks of symptom relief. Since then she has had gradual return of discomfort. She describes pain mostly along the medial knees that is worse with walking and weightbearing. She also states both knees feel swollen and she has clicking sensations. She denies any overt locking or instability. She denies any new injury or trauma. She has been using occasional Tylenol for pain and is unable to use NSAIDs due to her use of Coumadin. She has done previous physical therapy. Cesar Avila MD [address] [place] [address], [phone], [facility] 01/06/2024 11:28:30 4 text/html [facility] HyperlipidemiaReported bypatient.Duration:chronic Control:LDL has been 131-159, goal is <100; treated with diet Compliance:compliant with follow-up visits; compliant with diet Barriers to CareNo identified barriers to care Context:Nonsmoker; No ischemic heart disease; No peripheral vascular disease ([address]); No diabetes Associated Symptoms:no muscle pain; no [...] at home and has been well controlled. 63 year old patient presents for medical management visit. Allergies:- taking claritin and flonase, continues to have symptoms of runny nose and post nasal drip- eyes are itchy Obesity:- working two jobs, very busy and stressed, on her feet often- stress is a little less since her son is doing well- no specific exercise but is on her feet and walks her dog- swimming daily with grand kids Brooklynn Cronin PA-C [address] [place] [address], [phone], [facility] 04/15/2024 11:18:00 4 text/html 4yo presents for back painPt here [...] the backNo fever/chills, bowel/bladder incontinence JACOB Madsen [address] [place] [address], [phone], [facility] 08/29/2024 17:54:48 4 text/html Physical Exam/FemaleReported bypatient.PHAPatient is here [...] ischemic heart disease; No peripheral vascular disease ([address]); No diabetes Associated Symptoms:no muscle pain; no [...] using reading glasses. Brooklynn Cronin PA-C [address] [place] [address], [phone], [facility] 10/10/2024 07:45:13 OBGyn Episode No OBEpisode recorded.
== END 2024-12-08 15:02 | disposition home or self-care (01) ==
LOC: HO.ACS 14:45
PROVIDERS: PCP Physician Assistant Medical; Visit Provider Internal Medicine
DX: Z79.01 Long term (current) use of anticoagulants (principal)

== ENCOUNTER → 2024-12-08 14:45 | Outpatient (BNVA) | payer OTHER, SELFPAY | PROVIDERS: PCP Physician Assistant Medical; Visit Provider Internal Medicine | DX: Z86.718 Personal history of other venous thrombosis and embolism (principal); Z79.01 Long term (current) use of anticoagulants; Z51.81 Encounter for therapeutic drug level monitoring | CPT/HCPCS: 85610; 99211 ==

== ENCOUNTER 2025-01-05 14:55 | Outpatient (AMB) | payer OTHER, MEDICARE, SELFPAY ==
[2025-01-05 15:02] LABS: Prothrombin Time Whole Bld POC 42.9 sec (11.1-13.5); ~PT, ~INR - Anti Coag Clinic 3.6 (0.9-1.1)
--- NOTE | 2025-01-05 15:08 | MHC.OFFVISCO ---
Intake Intake Visit Reasons: Anticoagulation Allergies lisinopril [Lisinopril] Allergy (Mild, Verified 01/05/25 14:56) COUGH Sulfa (Sulfonamide Antibiotics) Allergy (Mild, Verified 01/05/25 14:56) UNKNOWN Medication List - Last Reconciled 01/05/25 by Ewa Bajwa, RN amlodipine 10 mg PO DAILY atorvastatin 10 mg PO DAILY carvedilol 6.25 mg PO BID clonidine HCl 0.1 mg PO BID fluticasone propionate 50 mcg/actuation 1 spray intranasal DAILY hydrochlorothiazide 25 mg PO DAILY loratadine 10 mg PO DAILY PRN losartan 100 mg PO DAILY omeprazole 20 mg PO DAILY warfarin 5 mg See Protocol PO DAILY warfarin 2.5 mg See Protocol PO DAILY Nursing Note INR: 3.6 out of therapeutic range of 2-3 Medications and supplements reviewed: no change Patient status: feels well today but states had a stomach bug Diet: has been a little off due to stomach bug Denies any signs and symptoms of bleeding or clotting or unusual bruising Bleeding, bruising, clotting discussed Nutritional guidance given: to have a serving of greens today Dose: decrease today's dose to 2.5mg then resume usual dose of 7.5mg daily F/U INR Date: 2 weeks Patient verbalizing understanding of instructions given. Anti-Coag Initial Assessment Social Hx Patient Tobacco Use Status: Never used Tobacco Coding Level of Care Code Est Patient Level 1 Diagnoses Current use of anticoagulant therapy Z79.01 Assessment & Plan Assessment & Plan (1) Current use of anticoagulant therapy: Code(s): Z79.01 - correction (current) use of anticoagulants Category: Medical
--- OUTSIDE RECORDS SUMMARY | 2025-01-05 17:23 | XMS_ITS | Data Portability ---
Author Organization [facility], [facility] Address [address] [place] [address] Care Team Providers Care Reinforcement Maker Name Role Phone BROOKLYNN CRONIN Primary Care Provider EDWIN SALAZAR Primary Care Provider [phone] [facility] Sports Medicine [facility] VASCULAR [facility]GERY Vascular Surgeon CESAR [facility] ETHEL LAZAR Board Machine Set Up Operator Assessment Encounter Date Assessment Date Assessment LastModified [...] Not available LAB Follow-Up 2024 11:00A M [facility] Lab Not available Not available Not available Medical Managemen t 15 2024 01:45P M Brooklynn Cronin PA-C Not available Not available Not available Lab fecal occult blood, immunoass ay, stool [address] Lab, [address] [place], [address], 10/07/2024 16:05:53 culture, urine 2023 024 [facility], [address] [facility], [place], [address], 08/31/2024 16:01:18 Referral None recorded. Procedures None recorded. Surgeries None recorded. Imaging DEXA 2023 024 [facility], [address], [place], [address], 10/07/2024 16:10:42 US, guidance 2023 [email or web address] [place] [address] (Imaging), [address] , [place], [address], 01/08/2024 19:58:39 Medication Orders omeprazol e 20 mg capsule,d elayed release 2023 024 [facility][id number], [address] [place], [address], 10/07/2024 16:06:33 famotidin e 20 mg tablet 2022 024 [facility][id number], [address], [place], [address], 10/07/2024 16:06:29 prednison e 20 mg tablet 2022 024 [facility][id number], [address] [place], [address], 04/15/2024 11:00:52 Patient TargetsNo targets recorded. Patient Instructions Encounter Date Encounter Id Patient Instructions Last Modified By Organization Details Last Modified Time 10/09/2023 [id number] well visit, wome n 50 to 65: care instructions [email or web address] Not available 10/09/2023 16:02:02 This Shingles vaccine [...] autoimmune conditions, and a history of Guillain Birmingham Syndrome. [email or web address] Not available 10/09/2023 16:22:14 01/06/2024 [id number] Rest and ice for the next week [...] their care. Not available 01/06/2024 10:40:11 10/07/2024 [id number] This Shingles vaccine was approved in 2017. [...] autoimmune conditions, and a history of Guillain Birmingham Syndrome. [email or web address] Not available 10/10/2024 07:44:44 Reason for Referral None Reported. Results Created Date Observation Date Name Description Value Unit Range Abnormal Flag Note LastModifiedBy Organization Detail LastModifiedTime 10/09/2010/13/2023 IMMUN OCHEM ICAL FECAL OCCUL T BLOOD ifobt NEGATI VE negati ve Not Available [address], [address], 10/13/2023 11:11:05 04/15/20 24 04/15/2024 HGB A1C [...] furth er confi rmati on Not Available [address], [address], 04/15/2024 12:27:10 04/15/20 24 04/15/2024 HGB A1C estimated average glucose 116.9 mg/dL Not Available [address], [address], 04/15/2024 12:27:10 04/15/20 24 04/15/2024 COMP. METAB OLIC PANEL glucose 99 mg/dL 70-100 Not Available [address], [address], 04/15/2024 14:09:16 04/15/20 24 04/15/2024 COMP. METAB OLIC PANEL BUN 21 mg/dL 7-18 high Not Available [address], [address], 04/15/2024 14:09:16 04/15/20 24 04/15/2024 COMP. METAB OLIC PANEL creatinine 1.3 mg/dL 0.8-1. 3 Not Available [address], [address], 04/15/2024 14:09:16 04/15/20 24 04/15/2024 COMP. METAB OLIC PANEL B/C 16.2 ratio Not Available [address], [address], 04/15/2024 14:09:16 04/15/20 24 04/15/2024 COMP. METAB [...] be used in pregn juju. Not Available [address], [address], 04/15/2024 14:09:16 04/15/20 24 04/15/2024 COMP. METAB OLIC PANEL sodium 141 mmol/ L 136-14 5 Not Available [address], [address], 04/15/2024 14:09:16 04/15/20 24 04/15/2024 COMP. METAB OLIC PANEL potassium 3.7 mmol/ L 3.5-5. 1 Not Available [address], [address], 04/15/2024 14:09:16 04/15/20 24 04/15/2024 COMP. METAB OLIC PANEL chloride 103 mmol/ L 96-107 Not Available [address], [address], 04/15/2024 14:09:16 04/15/20 24 04/15/2024 COMP. METAB OLIC PANEL anion gap 6.7 5.0-15 .0 Not Available [address], [address], 04/15/2024 14:09:16 04/15/20 24 04/15/2024 COMP. METAB OLIC PANEL CO2 31 mmol/ L 21-32 Not Available [address], [address], 04/15/2024 14:09:16 04/15/20 24 04/15/2024 COMP. METAB OLIC PANEL calcium 8.9 mg/dL 8.5-10 .3 Not Available [address], [address], 04/15/2024 14:09:16 04/15/20 24 04/15/2024 COMP. METAB OLIC PANEL total protein 6.3 g/dL 6.4-8. 2 low Not Available [address], [address], 04/15/2024 14:09:16 04/15/20 24 04/15/2024 COMP. METAB OLIC PANEL albumin 3.4 g/dL 3.4-5. 0 Not Available [address], [address], 04/15/2024 14:09:16 04/15/20 24 04/15/2024 COMP. METAB OLIC PANEL globulin 2.9 g/dL Not Available [address], [address], 04/15/2024 14:09:16 04/15/20 24 04/15/2024 COMP. METAB OLIC PANEL A/G 1.2 ratio 0.8-2. 0 Not Available [address], [address], 04/15/2024 14:09:16 04/15/20 24 04/15/2024 COMP. METAB OLIC PANEL total bilirubin 0.70 mg/dL 0.00-1 .00 Not Available [address], [address], 04/15/2024 14:09:16 04/15/20 24 04/15/2024 COMP. METAB OLIC PANEL AST 23 U/L 0-37 Not Available [address], [address], 04/15/2024 14:09:16 04/15/20 24 04/15/2024 COMP. METAB OLIC PANEL ALT 26 U/L 6-63 Not Available [address], [address], 04/15/2024 14:09:16 04/15/20 24 04/15/2024 COMP. METAB OLIC PANEL alk. phos. 102 U/L 50-136 Not Available [address], [address], 04/15/2024 14:09:16 04/15/20 24 04/15/2024 LIPID PANEL cholesterol 159 mg/dL <200 mg/dl Ashley able 200-2 39 mg/dl Borde rline High >240 mg/dl High Not Available [address], [address], 04/15/2024 14:09:17 04/15/20 24 04/15/2024 LIPID PANEL triglyceride s 140 mg/dL <150 mg/dL Stephenie l 150-1 99 mg/dL Borde rline High 200-4 99 mg/dL High >500 mg/dL Very High Not Available [address], [address], 04/15/2024 14:09:17 04/15/20 24 04/15/2024 LIPID PANEL direct HDL 54 mg/dL <40 mg/dl - Major Risk for CHD >60 mg/dl - Negat zak Risk for CHD Not Available [address], [address], 04/15/2024 14:09:17 04/15/20 24 04/15/2024 LDL - [...] r is not charan pope. Not Available [address], [address], 04/15/2024 14:09:17 08/29/20 24 08/29/2024 POC UA glu UA NEGATI VE Not Available [facility] [address] [place] [address], [address], 08/29/2024 16:38:21 08/29/20 24 08/29/2024 POC UA clarity UA CLEAR Not Available [facility] [address] [place] [address], [address], 08/29/2024 16:38:21 08/29/20 24 08/29/2024 POC UA uro UA 0.2000 Not Available [facility] [address] [place] [address], [address], 08/29/2024 16:38:21 08/29/20 24 08/29/2024 POC UA ket UA NEGATI VE Not Available [facility] [address] [place] [address], [address], 08/29/2024 16:38:21 08/29/20 24 08/29/2024 POC UA pro UA NEGATI VE Not Available [facility] [address] [place] [address], [address], 08/29/2024 16:38:21 08/29/20 24 08/29/2024 POC UA nit UA NEGATI VE Not Available [facility] [address] [place] [address], [address], 08/29/2024 16:38:21 08/29/20 24 08/29/2024 POC UA dayo UA 1+ abnormal Not Available [facility] [address] [place] [address], [address], 08/29/2024 16:38:21 08/29/20 24 08/29/2024 POC UA pH UA 6.0000 Not Available [facility] [address] [place] [address], [address], 08/29/2024 16:38:21 08/29/20 24 08/29/2024 POC UA SG UA 1.0250 Not Available [facility] [address] [place] [address], [address], 08/29/2024 16:38:21 08/29/20 24 08/29/2024 POC UA color UA YELLOW Not Available [facility] [address] [place] [address], [address], 08/29/2024 16:38:21 08/29/20 24 08/29/2024 POC UA blo UA TRACE- INTACT abnormal Not Available [facility] [address] [place] [address], [address], 08/29/2024 16:38:21 08/29/20 24 08/29/2024 POC UA william UA NEGATI VE Not Available [facility] [address] [place] [address], [address], 08/29/2024 16:38:21 08/29/20 24 08/31/2024 CULTU RE, URINE , ROUTI NE culture, urine, routine CULTU RE, URINE , ROUTI NE Micro Numbe r: [id number] Test Statu s: Final Speci men [...] Cultu re Trans port Tube. Not Available [facility] [address], [place], [address], 08/31/2024 16:38:58 10/04/20 24 10/04/2024 CBC WBC 6.07 K/??L 3.98-1 0.04 Not Available [address], [address], 10/04/2024 12:41:14 10/04/20 24 10/04/2024 CBC RBC 4.22 M/??L 3.93-5 .22 Not Available [address], [address], 10/04/2024 12:41:14 10/04/20 24 10/04/2024 CBC HGB 12.4 g/dL 11.2-1 5.7 Not Available [address], [address], 10/04/2024 12:41:14 10/04/20 24 10/04/2024 CBC HCT 38.0 % 34.1-4 4.9 Not Available [address], [address], 10/04/2024 12:41:14 10/04/20 24 10/04/2024 CBC MCV 90.0 fL 79.4-9 4.8 Not Available [address], [address], 10/04/2024 12:41:14 10/04/20 24 10/04/2024 CBC MCH 29.4 pg 25.6-3 2.2 Not Available [address], [address], 10/04/2024 12:41:14 10/04/20 24 10/04/2024 CBC MCHC 32.6 g/dL 32.2-3 5.5 Not Available [address], [address], 10/04/2024 12:41:14 10/04/20 24 10/04/2024 CBC plt 128 K/??L 182-36 9 low Not Available [address], [address], 10/04/2024 12:41:14 10/04/20 24 10/04/2024 CBC MPV 12.5 fL 9.4-12 .3 high Not Available [address], [address], 10/04/2024 12:41:14 10/04/20 24 10/04/2024 CBC neut% 56.0 % 34.0-7 1.1 Not Available [address], [address], 10/04/2024 12:41:14 10/04/20 24 10/04/2024 CBC neut# 3.40 1.56-6 .13 Not Available [address], [address], 10/04/2024 12:41:14 10/04/20 24 10/04/2024 CBC lymph % 30.8 % 19.3-5 1.7 Not Available [address], [address], 10/04/2024 12:41:14 10/04/20 24 10/04/2024 CBC lymph # 1.87 K/??L 1.18-3 .74 Not Available [address], [address], 10/04/2024 12:41:14 10/04/20 24 10/04/2024 CBC mono% 10.5 % 4.7-12 .5 Not Available [address], [address], 10/04/2024 12:41:14 10/04/20 24 10/04/2024 CBC mono# 0.64 0.24-0 .56 high Not Available [address], [address], 10/04/2024 12:41:14 10/04/20 24 10/04/2024 CBC eo% 1.8 % 0.7-5. 8 Not Available [address], [address], 10/04/2024 12:41:14 10/04/20 24 10/04/2024 CBC eo# 0.11 0.04-0 .36 Not Available [address], [address], 10/04/2024 12:41:14 10/04/20 24 10/04/2024 CBC baso% 0.7 % 0.1-1. 2 Not Available [address], [address], 10/04/2024 12:41:14 10/04/20 24 10/04/2024 CBC baso# 0.04 0.00-0 .08 Not Available [address], [address], 10/04/2024 12:41:14 10/04/20 24 10/04/2024 CBC RDW-CV 13.1 % 11.7-1 4.4 Not Available [address], [address], 10/04/2024 12:41:14 10/04/20 24 10/04/2024 CBC Ig% 0.200 % 0.000- 1.500 Ig % >0.5 Indic ates possi ble Left Shift Not Available [address], [address], 10/04/2024 12:41:14 10/04/20 24 10/04/2024 CBC Ig# 0.010 0.000- 0.093 Not Available [address], [address], 10/04/2024 12:41:14 10/04/20 24 10/04/2024 CBC NRBC% 0.0 % 0.0-0. 2 Not Available [address], [address], 10/04/2024 12:41:14 10/04/20 24 10/04/2024 CBC NRBC# 0.000 0.000- 0.012 Not Available [address], [address], 10/04/2024 12:41:14 10/04/20 24 10/04/2024 HGB A1C [...] furth er confi rmati on Not Available [address], [address], 10/04/2024 14:01:48 10/04/20 24 10/04/2024 HGB A1C estimated average glucose 116.9 mg/dL Not Available [address], [address], 10/04/2024 14:01:48 10/04/20 24 10/05/2024 BASIC METAB OLIC PANEL glucose 100 mg/dL 70-100 Not Available [address], [address], 10/05/2024 11:46:25 10/04/20 24 10/05/2024 BASIC METAB OLIC PANEL BUN 10 mg/dL 7-18 Not Available [address], [address], 10/05/2024 11:46:25 10/04/20 24 10/05/2024 BASIC METAB OLIC PANEL creatinine 0.9 mg/dL 0.8-1. 3 Not Available [address], [address], 10/05/2024 11:46:25 10/04/20 24 10/05/2024 BASIC METAB OLIC PANEL B/C 11.1 ratio Not Available [address], [address], 10/05/2024 11:46:25 10/04/20 24 10/05/2024 BASIC METAB [...] be used in pregn juju. Not Available [address], [address], 10/05/2024 11:46:25 10/04/20 24 10/05/2024 BASIC METAB OLIC PANEL sodium 143 mmol/ L 136-14 5 Not Available [address], [address], 10/05/2024 11:46:25 10/04/20 24 10/05/2024 BASIC METAB OLIC PANEL potassium 4.1 mmol/ L 3.5-5. 1 Not Available [address], [address], 10/05/2024 11:46:25 10/04/20 24 10/05/2024 BASIC METAB OLIC PANEL chloride 104 mmol/ L 96-107 Not Available [address], [address], 10/05/2024 11:46:25 10/04/20 24 10/05/2024 BASIC METAB OLIC PANEL anion gap 6.7 5.0-15 .0 Not Available [address], [address], 10/05/2024 11:46:25 10/04/20 24 10/05/2024 BASIC METAB OLIC PANEL CO2 32 mmol/ L 21-32 Not Available [address], [address], 10/05/2024 11:46:25 10/04/20 24 10/05/2024 BASIC METAB OLIC PANEL calcium 9.0 mg/dL 8.5-10 .3 Not Available [address], [address], 10/05/2024 11:46:25 10/04/20 24 10/05/2024 LIPID PANEL cholesterol 175 mg/dL <200 mg/dl Ashley able 200-2 39 mg/dl Borde rline High >240 mg/dl High Not Available [address], [address], 10/05/2024 11:46:26 10/04/20 24 10/05/2024 LIPID PANEL triglyceride s 65 mg/dL <150 mg/dL Stephenie l 150-1 99 mg/dL Borde rline High 200-4 99 mg/dL High >500 mg/dL Very High Not Available [address], [address], 10/05/2024 11:46:26 10/04/20 24 10/05/2024 LIPID PANEL direct HDL 68 mg/dL <40 mg/dl - Major Risk for CHD >60 mg/dl - Negat zak Risk for CHD Not Available [address], [address], 10/05/2024 11:46:26 10/04/2010/05/2024 LDL - CALCU LATED [...] r is not charan toshia. Not Available [address], [address], 10/05/2024 11:46:27 Result Notes None recorded. Problems Name Problem SNOMED Code Status Onset Date Resolution Date Notes Provider Name and Address Organization Details Recorded Time Lupus anticoag ulant disorder 73380536 Active [facility] Brooklynn Cronin PA-C [address] [place], [place] [address], [address], [facility] 7 16:36:22 Deep venous thrombos is 750551326 Completed 01/14/20162005 Brooklynn Cronin PA-C [address] [place], [place] [address], [address], [facility] 6 12:36:39 Hyperten sive disorder 99960316 Completed 01/14/2016 Brooklynn Cronin PA-C [address] [place], [place] [address], [address], [facility] 6 12:36:39 Osteoart hritis 992242684 Active knees Brooklynn Cronin PA-C [address] [place], [place] [address], [address], [facility] 1 14:41:31 Environm ental allergy 048391392 Active Brooklynn Cronin PA-C [address] [place] [address] [place], [address], [facility] 6 12:36:39 Edema 368634230 Completed 01/14/2016 Brooklynn Cronin PA-C [address] [place] [address] Lakshmi chatman MA, 1, [facility] 6 12:36:39 Obese 747139212 Active Brooklynn Cronin PA-C [address] [place] [address] Lakshmi chatman MA, 1, [facility] 6 12:36:39 [facility] hyperten lynne 23715213 Active Brooklynn Cronin PA-C [address] [place] [address] Lakshmi chamtan MA, 1, [facility] 6 15:50:00 History of thrombos is 873754092 Active DVT 2005 Brooklynn Cronin PA-C [address] [place] [address] [place], [address], [facility] 6 12:36:39 Peripher al venous insuffic iency 19252347 Active Brooklynn Cronin PA-C [address] [place] [address] [place], [address], [facility] 6 12:36:39 Venous varices 621157389 Active Brooklynn Cronin PA-C [address] [place] [address] [place], [address], [facility] 6 12:36:39 Thromboc ytopenic disorder 057788517 Active 2016 platelet 130s Brooklynn Cronin PA-C [address] [place] [address] [place], [address], [facility] 2 13:57:31 Hyperlip idemia 96713981 Active 2016 Brooklynn Cronin PA-C [address] [place] [address] [place], [address], [facility] 7 15:00:19 Cataract 978553303 Active 2019 Brooklynn Cronin PA-C [address] [place], [place] [address], [address], [facility] 0 15:02:59 Prediabe cheryle 546864641 Active 2022 Brooklynn Cronin PA-C [address] [place], [place] [address], [address], [facility] 3 15:49:21 [facility] 23157101 Active 2022 JACOB Modi [address] [place], [place] [address], [address], [facility] 3 14:40:05 Problem Notes None recorded. Procedures Surgical History Date Name Laterality Status Provider Name and Address Organization Details Recorded Time 4 US Guided Knee Joint Injection completed Cesar Avila MD [address] [place] [address], [phone], [facility] 01/06/2024 10:46:45 3 US Guided Knee Joint Injection completed Cesar Avila MD [address] [place] [address], [phone], [facility] 06/02/2023 16:04:02 3 US Guided Knee Joint Injection completed Cesar Avila MD [address] [place] [address], [address], [facility] 11/04/2022 10:20:34 2 prevention-monica ual alcohol misuse screening completed Brooklynn Cronin PA-C [address] [place] [address], [address], [facility] 03/28/2022 16:52:35 1 Knee Injection w/o US completed Cesar Avila MD [address] [place] [address], [address], [facility] 12/20/2020 15:30:23 0 prevention-car diovascular risk reduction counseling completed Jen Dickey MA [facility] 06/29/2020 11:49:36 0 prevention-monica [facility] alcohol misuse screening completed Jen Dickey MA [facility] 06/29/2020 11:49:36 6 POC Strep Testing completed Rhona Marin LPN [facility] 06/02/2016 14:25:26 Imaging Results None recorded. Procedure Notes None recorded. Medical Equipment None Reported. Allergies Allergen ID Allergen Name Allergen Category Reaction Reaction Severity Criticality Documentation Date Start Date Code Code System Note Provider Name and Address Organization Details Recorded Time 285216 Substance with sulfonami de structure and antibacte rial mechanism of action (substanc e) medicatio n Not available Not available Not available 12/05/2014 30024 8003 SNOMED not sure of react ion Jessica Mcgraw MA [facility], [facility] 5 14:50:15 604241 lisinopri l medicatio n Not available Not available Not available 11/14/2016 09225 RxNorm Brooklynn Cronin PA-C [address] [place] [address], [place], [address] [place] [address] 7 16:01:00 Medications Name Sig Start Date [...] TAKE 1 TABLET BY MOUTH EVERY DAY 2024 active Not Available Not Available Not Avai lable warfarin 5 mg tablet TAKE 1 TABLET [...] 1 TABLET BY MOUTH EVERY DAY NEEDED 2024 active Not Available Not Available Not Avai lable amoxicill in 875 mg-potass ium clavulana te 125 mg tablet TAKE 1 TABLET BY MOUTH TWICE A DAY FOR 7 DAYS 10/09 completed Not Available Not Available Not Available Vitals Date Recorded Body height Body mass index (BMI) Body weight Heart rate Systolic blood pressure Diastolic blood pressure Provider Name and Address Organization Details Last Updated DateTime 3 162.56 cm 32.1 kg/m2 21202.4 7 g 77 /min 124 mm[Hg] 60 mm[Hg] Nury Main MA [facility] 3 15:51:00 Date Recorded Body height Systolic blood pressure Diastolic blood pressure Provider Name and Address Organization Details Last Updated DateTime 01/06/2024 162.56 cm 130 mm[Hg] 70 mm[Hg] Aurora Otto MA [facility] 01/06/2024 09:55:04 Date Recorded Body height Body mass index (BMI) Body weight Heart rate Systolic blood pressure Diastolic blood pressure Provider Name and Address Organization Details Last Updated DateTime 4 162.56 cm 32.1 kg/m2 26033.1 7 g 80 /min 118 mm[Hg] 68 mm[Hg] Elizabeth antonio Mary [facility] 4 11:03:04 Date Recorded Body height Body temperature Heart rate Systolic blood pressure Diastolic blood pressure Provider Name and Address Organization Details Last Updated DateTime 08/29/2024 162.56 cm 97.6 [degF] 72 /min 122 mm[Hg] 70 mm[Hg] Joyce Aquino MA [facility] 4 16:28:53 Date Recorded Body height Body mass index (BMI) Body weight Heart rate Systolic blood pressure Diastolic blood pressure Systolic blood pressure Diastolic blood pressure Provider Name and Address Organization Details Last Updated DateTime 4 157.48 cm 34.5 kg/m2 19522.1 7 g 64 /min 138 mm[Hg] 76 mm[Hg] 132 mm[Hg] 76 mm[Hg] AIDE Garay [facility] 4 16:04:42 Social History Question Answer Notes LastModified by Organizat ion Details LastModified Time Tobacco Smoking Status [facility]/2014 14:57:22 What Is Your Level Of Alcohol Consumption? Occasional [email or web address] Information not available 12/05/2014 Do You Wear A Helmet When Biking? Yes [email or web address] Information not available 12/05/2014 What Is Your Level Of Caffeine Consumption? Moderate 2 Cups Of Coffee Per Day [email or web address] Information not available 12/05/2014 How Much Tobacco Do You Chew? None Information not available 12/05/2014 Are You Currently Employed? Yes Information not available 10/09/2023 What Type Of Diet Are You Following? REGULAR [email or web address] Information not available 12/05/2014 Which Illicit Or Recreational Drugs Have You Used? None Information not available 05/02/2015 Do You Or Have You Ever Used E-cigarettes Or Vape? 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 No Information not available 10/09/2023 How Many Days In The Past Year Have You Had A Heavy Drinking Consumption (4+ Female, 5+ Male)? 0 [email or web address] Information not available 05/02/2015 Are There Any Guns Present In Your Home? No [email or web address] Information not available 12/05/2014 Do You Use Insect Repellent Routinely? Yes Information not available 10/09/2023 Live Alone Or With Others? With Others With Kids [email or web address] Information not available 12/05/2014 Patient Has Health Care Proxy Signed And In Chart Yes [email or web address] Information not available 10/17/2024 Marital Status Single [email or web address] Informati on not available 12/05/2014 Mosquito Repellent Used Routinely Yes Lyme Dz Prevention Reviewed [email or web address] Information not available 05/02/2015 What Was The Date Of Your Most Recent Tobacco Screening? 08/29/2024 [email or web address] Information not available 08/29/2024 How Many Children Do You Have? 3 Ages 25, 35, 38 (in 2014) Son Koby Avina [email or web address] Information not available 12/05/2014 Seat Belts Used Routinely Yes [email or web address] Information not available 12/05/2014 Are You Sexually Active? No [email or web address] Information not available 12/05/2014 Smoke Alarm In Home No [email or web address] Information not available 12/05/2014 Do You Have Smoke And Carbon Monoxide Detectors In Your Home? Yes Information not available 10/09/2023 Are You Passively Exposed To Smoke? No Information not available 10/09/2023 Do You Or Have You Ever Used Smokeless Tobacco? Never Used Smokeless Tobacco Information not available 12/27/2019 How Much Tobacco Do You Smoke? No [email or web address] Information not available 12/27/2019 What Types Of Sporting Activities Do You Participate In? Walking As Much As Possible [email or web address] Information not available 01/14/2016 General Stress Level Low [email or web address] Information not available 01/14/2016 Do You Use Sunscreen Routinely? Yes [email or web address] Information not available 12/05/2014 How Many Years Have You Smoked Tobacco? 0 [email or web address] Information not available 12/27/2019 Sex: Female Functional Status Question Answer Note LastModified by Organizat ion Details LastModified Time What is your exercise level? Occasional Information not available 10/09/2023 Mental Status None recorded. Family History Relationship Description Onset Age of this Age Resolved Age Notes LastModified by Organization Details LastModified Time Mother Chronic obstructive pulmonary disease smoker Not available 2015 16:16:51 Mother Disorder of thyroid gland [email or web address] Not available 2015 16:16:51 Father Malignant tumor of colon 70 ? [email or web address] Not available 2015 16:16:51 Sister Well adult [email or web address] Not availa ble 01/14/2016 16:16:51 Son Multiple sclerosis [email or web address] Not available 2015 16:16:51 Son Alcoholism [email or web address] Not availa ble 06/29/2020 15:03:50 Son Type 2 diabetes mellitus [email or web address] Not available 2022 14:00:05 Paternal Uncle Myocardial infarction [email or web address] Not available 01/13 16:16:51 Maternal Uncle Leukemia (morphologic abnormality) [email or web address] Not available 16:16:51 Notes:No breast ca Medical [...] trivalent, PF 4 completed Brooklynn Cronin PA-C [address] [place] [address], [address], [facility] 10/10/2024 07:43:26 COVID-19, mRNA, LNP-S, PF, 100 mcg/0.5mL dose or 50 mcg/0.25mL dose 2 [facility] 15:20:26 COVID-19, mRNA, LNP-S, PF, 100 mcg/0.5mL dose or 50 mcg/0.25mL dose 2 completed Cassie Briseno [facility] 02/18/2022 13:35:40 COVID-19, mRNA, LNP-S, PF, 50 mcg/0.5 mL dose 1 [facility] 09/26/2022 14:56:29 COVID-19, mRNA, LNP-S, PF, 50 mcg/0.5 mL dose 1 [facility] 09/26/2022 14:57:13 COVID-19, mRNA, LNP-S, PF, 50 mcg/0.5 mL dose 1 completed [facility] 09/26/2022 14:58:00 COVID-19, mRNA, LNP-S, bivalent, PF, 30 mcg/0.3 mL dose 2 completed [facility] 09/26/2022 14:58:35 influenza, unspecified formulation 2 completed Syllucila Julien MA [facility] 09/26/2022 15:08:26 Past Encounters Encounter ID Performer Location Encounter Start Date Encounter Closed Date Diagnosis/Indication Diagnosis SNOMED-CT Code Diagnosis ICD10 Code Diagnosis Note [id number] Cari Alek , [facility], [address] [place] [address] 12/05/2014 14:40:48 12/05/2014 15:40:37 Adult health examination [id number] see Risk Assessment and Lifestyle Change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 [...] her dog- swimming daily with grand kids JACOB Hernández-Bita [address] [place] [address], [place], [phone], [facility] 04/15/2024 11:18:00 4 text/html 4yo presents for [...] the backNo fever/chills, bowel/bladder incontinence JACOB Madsen [address] [place] [address], [phone], [facility] 08/29/2024 17:54:48 4 text/html Physical Exam/FemaleReported [...] ischemic heart disease; No peripheral vascular disease ([address]); No diabetes Associated Symptoms:no muscle pain; no [...] been using reading glasses. Brooklynn Cronin PA-C [address] [place] [address], [phone], [facility] 10/10/2024 07:45:13 OBGyn Episode No OBEpisode recorded.
== END 2025-01-05 15:18 | disposition home or self-care (01) ==
LOC: HO.ACS 14:55
PROVIDERS: PCP Physician Assistant Medical; Visit Provider Internal Medicine Medical Oncology
DX: Z79.01 Long term (current) use of anticoagulants (principal)

== ENCOUNTER → 2025-01-05 14:55 | Outpatient (BNVA) | payer OTHER, SELFPAY | PROVIDERS: PCP Physician Assistant Medical; Visit Provider Internal Medicine Medical Oncology | DX: Z86.718 Personal history of other venous thrombosis and embolism (principal); Z51.81 Encounter for therapeutic drug level monitoring; Z79.01 Long term (current) use of anticoagulants | CPT/HCPCS: 85610; 99211 ==

== ENCOUNTER 2025-01-20 13:15 | Outpatient (AMB) | payer OTHER, SELFPAY ==
[2025-01-20 13:29] LABS: Prothrombin Time Whole Bld POC 32.7 sec (11.1-13.5); ~PT, ~INR - Anti Coag Clinic 2.7 (0.9-1.1)
--- NOTE | 2025-01-20 13:37 | MHC.OFFVISCO ---
Intake Intake Visit Reasons: Anticoagulation Allergies lisinopril [Lisinopril] Allergy (Mild, Verified 01/20/25 13:23) COUGH Sulfa (Sulfonamide Antibiotics) Allergy (Mild, Verified 01/20/25 13:23) UNKNOWN Medication List - Last Reconciled 01/20/25 by Valencia Kennedy RN amlodipine 10 mg PO DAILY atorvastatin 10 mg PO DAILY carvedilol 6.25 mg PO BID clonidine HCl 0.1 mg PO BID fluticasone propionate 50 mcg/actuation 1 spray intranasal DAILY hydrochlorothiazide 25 mg PO DAILY loratadine 10 mg PO DAILY PRN losartan 100 mg PO DAILY omeprazole 20 mg PO DAILY warfarin 5 mg See Protocol PO DAILY warfarin 2.5 mg See Protocol PO DAILY Nursing Note INR: 2.7 in therapeutic range Medications and supplements reviewed No changes in health, diet, medications, or supplements, Denies any signs and symptoms of bleeding or bruising or clotting. Bleeding, bruising, clotting discussed Nutritional guidance given Dose: 7.5mg daily F/U INR: 1 month Patient verbalizes understanding of instructions given Anti-Coag Initial Assessment Social Hx Patient Tobacco Use Status: Never used Tobacco Coding Level of Care Code Est Patient Level 1 Diagnoses Current use of anticoagulant therapy Z79.01 Results AMB INR Fingerstick AMB INR Fingerstick 2.7 Last Edit by Valencia Kennedy RN on 01/20/25 13:30 manual entry Assessment & Plan Assessment & Plan (1) Current use of anticoagulant therapy: Code(s): Z79.01 - [facility] (current) use of anticoagulants Category: Medical
--- OUTSIDE RECORDS SUMMARY | 2025-01-20 15:08 | XMS_ITS | Data Portability ---
Author Organization [facility], , [facility] Address [address] [place] [address] Care Team Providers Care Museum Curator Name Role Phone BROOKLYNN CRONIN Primary Care Provider [phone] EDWIN SALAZAR Primary Care Provider [facility] Sports Medicine [facility] Vascular Surgeon CESAR AVILA Sports Medicine ETHEL LAZAR [employer] Superintendent [phone] Assessment Encounter Date Assessment Date Assessment LastModified by Organization Details LastModified Time 01/06/2024 01/06/2024 weightbearing X-rays of the bilateral knees from 2022 were independently interpreted demonstrating 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 INR 2.5 (12/31/2023) Not available 01/06/2024 10:45:38 Plan of Treatment Reminders Order Date Submit Date Provider Last Modified By Organization Details Last Modified Time Details Appointments LAB Follow-Up 2024 11:00A M [facility] Lab Not available Not available Not available Medical Managemen t 15 2024 01:45P M Brooklynn Cronin PA-C Not available Not available Not available Lab fecal occult blood, immunoass ay, stool [address] [facility], [address] [place] [address], [address], 10/07/2024 16:05:53 culture, urine 2023 024 [facility], [address] [place] [address], [address], 08/31/2024 16:01:18 Referral None recorded. Procedures None recorded. Surgeries None recorded. Imaging DEXA 2023 024 [facility], [address] [facility] [address], [place], [address], 10/07/2024 16:10:42 US, guidance 2023 [email or web address] [place] [address] (Imaging), [address], [place], [address], 01/08/2024 19:58:39 Medication Orders omeprazol e 20 mg capsule,d elayed release 2023 024 [facility][id number], [address] [place], [address], 10/07/2024 16:06:33 famotidin e 20 mg tablet 2022 024 [id number] [address] [place], [address], 10/07/2024 16:06:29 prednison e 20 mg tablet 2022 024 [id number] [address] [place], [address], 04/15/2024 11:00:52 Patient TargetsNo targets recorded. Patient Instructions Encounter Date Encounter Id Patient Instructions Last Modified By Organization Details Last Modified Time 10/09/2023 [id number] well visit, wome n 50 to 65: care instructions Not available 10/09/2023 16:02:02 This Shingles vaccine [...] autoimmune conditions, and a history of Guillain Jeffers Syndrome. [email or web address] Not available 10/09/2023 16:22:14 01/06/2024 [id number] Rest and ice for the next week [...] participate in the care of your patient. ? ? ?Please feel free to contact me with any questions regarding their care. Not available 01/06/2024 10:40:11 10/07/2024 [id number] This Shingles vaccine was approved in 2017. [...] autoimmune conditions, and a history of Guillain Jeffers Syndrome. [email or web address] Not available 10/10/2024 07:44:44 Reason for Referral None Reported. Results Created Date Observation Date Name Description Value Unit Range Abnormal Flag Note LastModifiedBy Organization Detail LastModifiedTime 10/09/2010/13/2023 IMMUN OCHEM ICAL FECAL OCCUL T BLOOD ifobt NEGATI VE negati ve Not Available [address], [address], 10/13/2023 11:11:05 04/15/20 24 04/15/2024 HGB A1C [...] furth er confi rmati on Not Available [address], [address], 04/15/2024 12:27:10 04/15/20 24 04/15/2024 HGB A1C estimated average glucose 116.9 mg/dL Not Available [address], [address], 04/15/2024 12:27:10 04/15/20 24 04/15/2024 COMP. METAB OLIC PANEL glucose 99 mg/dL 70-100 Not Available [address], [address], 04/15/2024 14:09:16 04/15/20 24 04/15/2024 COMP. METAB OLIC PANEL BUN 21 mg/dL 7-18 high Not Available [address], [address], 04/15/2024 14:09:16 04/15/20 24 04/15/2024 COMP. METAB OLIC PANEL creatinine 1.3 mg/dL 0.8-1. 3 Not Available [address], [address], 04/15/2024 14:09:16 04/15/20 24 04/15/2024 COMP. METAB OLIC PANEL B/C 16.2 ratio Not Available [address], [address], 04/15/2024 14:09:16 04/15/20 24 04/15/2024 COMP. METAB [...] be used in pregn juju. Not Available [address], [address], 04/15/2024 14:09:16 04/15/2004/15/2024 COMP. METAB OLIC PANEL sodium 141 mmol/ L 136-14 5 Not Available [address], [address], 04/15/2024 14:09:16 04/15/20 24 04/15/2024 COMP. METAB OLIC PANEL potassium 3.7 mmol/ L 3.5-5. 1 Not Available [address], [address], 04/15/2024 14:09:16 04/15/20 24 04/15/2024 COMP. METAB OLIC PANEL chloride 103 mmol/ L 96-107 Not Available [address], [address], 04/15/2024 14:09:16 04/15/20 24 04/15/2024 COMP. METAB OLIC PANEL anion gap 6.7 5.0-15 .0 Not Available [address], [address], 04/15/2024 14:09:16 04/15/20 24 04/15/2024 COMP. METAB OLIC PANEL CO2 31 mmol/ L 21-32 Not Available [address], [address], 04/15/2024 14:09:16 04/15/20 24 04/15/2024 COMP. METAB OLIC PANEL calcium 8.9 mg/dL 8.5-10 .3 Not Available [address], [address], 04/15/2024 14:09:16 04/15/20 24 04/15/2024 COMP. METAB OLIC PANEL total protein 6.3 g/dL 6.4-8. 2 low Not Available [address], [address], 04/15/2024 14:09:16 04/15/20 24 04/15/2024 COMP. METAB OLIC PANEL albumin 3.4 g/dL 3.4-5. 0 Not Available [address], [address], 04/15/2024 14:09:16 04/15/20 24 04/15/2024 COMP. METAB OLIC PANEL globulin 2.9 g/dL Not Available [address], [address], 04/15/2024 14:09:16 04/15/20 24 04/15/2024 COMP. METAB OLIC PANEL A/G 1.2 ratio 0.8-2. 0 Not Available [address], [address], 04/15/2024 14:09:16 04/15/20 24 04/15/2024 COMP. METAB OLIC PANEL total bilirubin 0.70 mg/dL 0.00-1 .00 Not Available [address], [address], 04/15/2024 14:09:16 04/15/20 24 04/15/2024 COMP. METAB OLIC PANEL AST 23 U/L 0-37 Not Available [address], [address], 04/15/2024 14:09:16 04/15/20 24 04/15/2024 COMP. METAB OLIC PANEL ALT 26 U/L 6-63 Not Available [address], [address], 04/15/2024 14:09:16 04/15/20 24 04/15/2024 COMP. METAB OLIC PANEL alk. phos. 102 U/L 50-136 Not Available [address], [address], 04/15/2024 14:09:16 04/15/20 24 04/15/2024 LIPID PANEL cholesterol 159 mg/dL <200 mg/dl Ashley able 200-2 39 mg/dl Borde rline High >240 mg/dl High Not Available [address], [address], 04/15/2024 14:09:17 04/15/20 24 04/15/2024 LIPID PANEL triglyceride s 140 mg/dL <150 mg/dL Stephenie l 150-1 99 mg/dL Borde rline High 200-4 99 mg/dL High >500 mg/dL Very High Not Available [address], [address], 04/15/2024 14:09:17 04/15/20 24 04/15/2024 LIPID PANEL direct HDL 54 mg/dL <40 mg/dl - Major Risk for CHD >60 mg/dl - Negat zak Risk for CHD Not Available [address], [address], 04/15/2024 14:09:17 04/15/20 24 04/15/2024 LDL - CALCU LATED LDL - calculated 77.0 RISK CATEG ORY LDL GOAL _ CHD or CHD Risk Equiv alent s <100 mg/dl (10-y ear risk >20%) 2+ Risk Facto rs <130 mg/dl (10-y ear risk <= 20%) 0-1 Risk Facto r? <160 mg/dl ? Almos t all peopl e with 0-1 risk facto r have a 10 year risk <10%, thus 10 year risk asses ment in peopl e with 0-1 risk facto r is not sandhyainna pope. Not Available [address], [address], 04/15/2024 14:09:17 08/29/20 24 08/29/2024 POC UA glu UA NEGATI VE Not Available [facility] [address] [place] [address], [address], 08/29/2024 16:38:21 08/29/20 24 08/29/2024 POC UA clarity UA CLEAR Not Available [facility] [address] [place] [address], [address], 08/29/2024 16:38:21 08/29/20 24 08/29/2024 POC UA uro UA 0.2000 Not Available [facility] [address] [place] [address], [address], 08/29/2024 16:38:21 08/29/20 24 08/29/2024 POC UA ket UA NEGATI VE Not Available [facility] [address] [place] [address], [address], 08/29/2024 16:38:21 08/29/20 24 08/29/2024 POC UA pro UA NEGATI VE Not Available [facility] [address] [place] [address], [address], 08/29/2024 16:38:21 08/29/20 24 08/29/2024 POC UA nit UA NEGATI VE Not Available [facility] [address] [place] [address], [address], 08/29/2024 16:38:21 08/29/20 24 08/29/2024 POC UA dayo UA 1+ abnormal Not Available [facility] [address] [place] [address], [address], 08/29/2024 16:38:21 08/29/20 24 08/29/2024 POC UA pH UA 6.0000 Not Available [facility] [address] [place], [address], 08/29/2024 16:38:21 08/29/20 24 08/29/2024 POC UA SG UA 1.0250 Not Available [facility] [address] [place], [address], 08/29/2024 16:38:21 08/29/20 24 08/29/2024 POC UA color UA YELLOW Not Available [facility] [address] [place] [address], [address], 08/29/2024 16:38:21 08/29/20 24 08/29/2024 POC UA blo UA TRACE- INTACT abnormal Not Available [facility] [address] [place], [address], 08/29/2024 16:38:21 08/29/20 24 08/29/2024 POC UA william UA NEGATI VE Not Available [facility] [address] [place] [address], [address], 08/29/2024 16:38:21 08/29/20 24 08/31/2024 CULTU RE, URINE , ROUTI NE culture, urine, routine CULTU RE, URINE , ROUTI NE Micro Numbe r: [id number] Test Statu s: Final Speci men [...] Cultu re Trans port Tube. Not Available [facility] [address], [place], [address], 08/31/2024 16:38:58 10/04/20 24 10/04/2024 CBC WBC 6.07 K/? ? ?L 3.98-1 0.04 Not Available [address], [address], 10/04/2024 12:41:14 10/04/20 24 10/04/2024 CBC RBC 4.22 M/? ? ?L 3.93-5 .22 Not Available [address], [address], 10/04/2024 12:41:14 10/04/20 24 10/04/2024 CBC HGB 12.4 g/dL 11.2-1 5.7 Not Available [address], [address], 10/04/2024 12:41:14 10/04/20 24 10/04/2024 CBC HCT 38.0 % 34.1-4 4.9 Not Available [address], [address], 10/04/2024 12:41:14 10/04/20 24 10/04/2024 CBC MCV 90.0 fL 79.4-9 4.8 Not Available [address], [address], 10/04/2024 12:41:14 10/04/20 24 10/04/2024 CBC MCH 29.4 pg 25.6-3 2.2 Not Available [address], [address], 10/04/2024 12:41:14 10/04/20 24 10/04/2024 CBC MCHC 32.6 g/dL 32.2-3 5.5 Not Available [address], [address], 10/04/2024 12:41:14 10/04/20 24 10/04/2024 CBC plt 128 K/? ? ?L 182-36 9 low Not Available [address], [address], 10/04/2024 12:41:14 10/04/20 24 10/04/2024 CBC MPV 12.5 fL 9.4-12 .3 high Not Available [address], [address], 10/04/2024 12:41:14 10/04/20 24 10/04/2024 CBC neut% 56.0 % 34.0-7 1.1 Not Available [address], [address], 10/04/2024 12:41:14 10/04/20 24 10/04/2024 CBC neut# 3.40 1.56-6 .13 Not Available [address], [address], 10/04/2024 12:41:14 10/04/20 24 10/04/2024 CBC lymph % 30.8 % 19.3-5 1.7 Not Available [address], [address], 10/04/2024 12:41:14 10/04/20 24 10/04/2024 CBC lymph # 1.87 K/? ? ?L 1.18-3 .74 Not Available [address], [address], 10/04/2024 12:41:14 10/04/20 24 10/04/2024 CBC mono% 10.5 % 4.7-12 .5 Not Available [address], [address], 10/04/2024 12:41:14 10/04/20 24 10/04/2024 CBC mono# 0.64 0.24-0 .56 high Not Available [address], [address], 10/04/2024 12:41:14 10/04/20 24 10/04/2024 CBC eo% 1.8 % 0.7-5. 8 Not Available [address], [address], 10/04/2024 12:41:14 10/04/20 24 10/04/2024 CBC eo# 0.11 0.04-0 .36 Not Available [address], [address], 10/04/2024 12:41:14 10/04/20 24 10/04/2024 CBC baso% 0.7 % 0.1-1. 2 Not Available [address], [address], 10/04/2024 12:41:14 10/04/20 24 10/04/2024 CBC baso# 0.04 0.00-0 .08 Not Available [address], [address], 10/04/2024 12:41:14 10/04/20 24 10/04/2024 CBC RDW-CV 13.1 % 11.7-1 4.4 Not Available [address], [address], 10/04/2024 12:41:14 10/04/20 24 10/04/2024 CBC Ig% 0.200 % 0.000- 1.500 Ig % >0.5 Indic ates possi ble Left Shift Not Available [address], [address], 10/04/2024 12:41:14 10/04/20 24 10/04/2024 CBC Ig# 0.010 0.000- 0.093 Not Available [address], [address], 10/04/2024 12:41:14 10/04/20 24 10/04/2024 CBC NRBC% 0.0 % 0.0-0. 2 Not Available [address], [address], 10/04/2024 12:41:14 10/04/20 24 10/04/2024 CBC NRBC# 0.000 0.000- 0.012 Not Available [address], [address], 10/04/2024 12:41:14 10/04/20 24 10/04/2024 HGB A1C [...] furth er confi rmati on Not Available [address], [address], 10/04/2024 14:01:48 10/04/20 24 10/04/2024 HGB A1C estimated average glucose 116.9 mg/dL Not Available [address], [address], 10/04/2024 14:01:48 10/04/20 24 10/05/2024 BASIC METAB OLIC PANEL glucose 100 mg/dL 70-100 Not Available [address], [address], 10/05/2024 11:46:25 10/04/20 24 10/05/2024 BASIC METAB OLIC PANEL BUN 10 mg/dL 7-18 Not Available [address], [address], 10/05/2024 11:46:25 10/04/20 24 10/05/2024 BASIC METAB OLIC PANEL creatinine 0.9 mg/dL 0.8-1. 3 Not Available [address], [address], 10/05/2024 11:46:25 10/04/20 24 10/05/2024 BASIC METAB OLIC PANEL B/C 11.1 ratio Not Available [address], [address], 10/05/2024 11:46:25 10/04/20 24 10/05/2024 BASIC METAB [...] be used in pregn juju. Not Available [address], [address], 10/05/2024 11:46:25 10/04/20 24 10/05/2024 BASIC METAB OLIC PANEL sodium 143 mmol/ L 136-14 5 Not Available [address], [address], 10/05/2024 11:46:25 10/04/20 24 10/05/2024 BASIC METAB OLIC PANEL potassium 4.1 mmol/ L 3.5-5. 1 Not Available [address], [address], 10/05/2024 11:46:25 10/04/20 24 10/05/2024 BASIC METAB OLIC PANEL chloride 104 mmol/ L 96-107 Not Available [address], [address], 10/05/2024 11:46:25 10/04/20 24 10/05/2024 BASIC METAB OLIC PANEL anion gap 6.7 5.0-15 .0 Not Available [address], [address], 10/05/2024 11:46:25 10/04/20 24 10/05/2024 BASIC METAB OLIC PANEL CO2 32 mmol/ L 21-32 Not Available [address], [address], 10/05/2024 11:46:25 10/04/20 24 10/05/2024 BASIC METAB OLIC PANEL calcium 9.0 mg/dL 8.5-10 .3 Not Available [address], [address], 10/05/2024 11:46:25 10/04/20 24 10/05/2024 LIPID PANEL cholesterol 175 mg/dL <200 mg/dl Ashley able 200-2 39 mg/dl Borde rline High >240 mg/dl High Not Available [address], [address], 10/05/2024 11:46:26 10/04/20 24 10/05/2024 LIPID PANEL triglyceride s 65 mg/dL <150 mg/dL Stephenie l 150-1 99 mg/dL Borde rline High 200-4 99 mg/dL High >500 mg/dL Very High Not Available [address], [address], 10/05/2024 11:46:26 10/04/20 24 10/05/2024 LIPID PANEL direct HDL 68 mg/dL <40 mg/dl - Major Risk for CHD >60 mg/dl - Negat zak Risk for CHD Not Available [address], [address], 10/05/2024 11:46:26 10/04/2010/05/2024 LDL - CALCU LATED LDL - calculated 94 RISK CATEG ORY LDL GOAL _ CHD or CHD Risk Equiv alent s <100 mg/dl (10-y ear risk >20%) 2+ Risk Facto rs <130 mg/dl (10-y ear risk <= 20%) 0-1 Risk Facto r? <160 mg/dl ? Almos t all peopl e with 0-1 risk facto r have a 10 year risk <10%, thus 10 year risk asses ment in peopl e with 0-1 risk facto r is not neces toshia. Not Available [address], [address], 10/05/2024 11:46:27 Result Notes None recorded. Problems Name Problem SNOMED Code Status Onset Date Resolution Date Notes Provider Name and Address Organization Details Recorded Time Lupus anticoag ulant disorder 26708930 Active [facility] Brooklynn Cronin PA-C [address] [place], [place] [address], [address], [facility] 7 16:36:22 Deep venous thrombos is 402157098 Completed 01/14/20162005 Brooklynn Cronin PA-C [address] [place], [place] [address], [address], [facility] 6 12:36:39 Hyperten sive disorder 34316369 Completed 01/14/2016 Brooklynn Cronin PA-C [address] [place], [place] [address], [address], [facility] 6 12:36:39 Osteoart hritis 507137556 Active knees Brooklynn Cronin PA-C [address] [place], [place] [address], [address], [facility] 1 14:41:31 Environm ental allergy 179484640 Active Brooklynn Cronin PA-C [address] [place] [address] [place], [address], [facility] 6 12:36:39 Edema 448696291 Completed 01/14/2016 Brooklynn Cronin PA-C [address] [place] [address] [place], [address], [facility] 6 12:36:39 Obese 165078996 Active Brooklynn Cronin PA-C [address] [place] [address] [place], [address], [facility] 6 12:36:39 Essentia l hyperten lynne 82498768 Active Brooklynn Cronin PA-C [address] [place] [address] [place], [address], [facility] 6 15:50:00 History of thrombos is 652529631 Active DVT 2005 Brooklynn Cronin PA-C [address] [place] [address] [place], [address], [facility] 6 12:36:39 Peripher al venous insuffic iency 91113799 Active Brooklynn Cronin PA-C [address] [place] [address] [place], [address], [facility] 6 12:36:39 Venous varices 551753396 Active Brooklynn Cronin PA-C [address] [place] [address] [place], [address], [facility] 6 12:36:39 Thromboc ytopenic disorder 815754038 Active 2016 platelet 130s Brooklynn Cronin PA-C [address] [place] [address] [place], [address], [facility] 2 13:57:31 Hyperlip idemia 39844381 Active 2016 Brooklynn Cronin PA-C [address] [place], [place] [address], [address], [facility] 7 15:00:19 Cataract 680904241 Active 2019 Brooklynn Cronin PA-C [address] [place], [place] [address], [address], [facility] 0 15:02:59 Prediabe cheryle 457230026 Active 2022 Brooklynn Cronin PA-C [address] [place] [address] [place], [address], [facility] 3 15:49:21 Hypercoa [facility] 36701333 Active 2022 JACOB Modi [address] [place], [place] [address], [address], [facility] 3 14:40:05 Problem Notes None recorded. Procedures Surgical History Date Name Laterality Status Provider Name and Address Organization Details Recorded Time 4 US Guided Knee Joint Injection completed Cesar Avila MD [address] [place] [address], [address], [facility] 01/06/2024 10:46:45 3 US Guided Knee Joint Injection completed Cesar Avila MD [address] [place] [address], [address], [facility] 06/02/2023 16:04:02 3 US Guided Knee Joint Injection completed Cesar Avila MD [address] [place] [address], [address], [facility] 11/04/2022 10:20:34 2 prevention-monica ual alcohol misuse screening completed Brooklynn Cronin PA-C [address] [place] [address], [address], [facility] 03/28/2022 16:52:35 1 Knee Injection w/o US completed Cesar Avila MD [address] [place] [address], [address], [facility] 12/20/2020 15:30:23 0 prevention-car diovascular risk reduction counseling completed Jen Dickey MA [facility] 06/29/2020 11:49:36 0 prevention-monica ual alcohol misuse screening completed Jen Dickey MA [facility] 06/29/2020 11:49:36 6 POC Strep Testing completed Rhona Marin LPN [facility] 06/02/2016 14:25:26 Imaging Results None recorded. Procedure Notes None recorded. Medical Equipment None Reported. Allergies Allergen ID Allergen Name Allergen Category Reaction Reaction Severity Criticality Documentation Date Start Date Code Code System Note Provider Name and Address Organization Details Recorded Time 227316 Substance with sulfonami de structure and antibacte rial mechanism of action (substanc e) medicatio n Not available Not available Not available 12/05/2014 54026 8003 SNOMED not sure of react ion Jessica Mcgraw MA [facility], [facility] 5 14:50:15 [id number] lisinopri l medicatio n Not available Not available Not available 11/14/2016 50533 RxNorm Brooklynn Cronin PA-C [address] [place] [address], [place], [address] [place] [address] 7 16:01:00 Medications Name Sig Start Date [...] Updated DateTime 3 162.56 cm 32.1 kg/m2 18852.4 7 g 77 /min 124 mm[Hg] 60 [...] Updated DateTime 4 162.56 cm 32.1 kg/m2 62903.1 7 g 80 /min 118 mm[Hg] 68 mm[Hg] Elizabeth antonio Mary [facility] 4 11:03:04 Date Recorded Body height Body temperature Heart rate Systolic blood pressure Diastolic blood pressure Provider Name and Address Organization Details Last Updated DateTime 08/29/2024 162.56 cm 97.6 [degF] 72 /min 122 mm[Hg] 70 mm[Hg] Joyce Aquino MA [facility] 4 16:28:53 Date Recorded Body height Body mass index (BMI) Body weight Heart rate Systolic blood pressure Diastolic blood pressure Systolic blood pressure Diastolic blood pressure Provider Name and Address Organization Details Last Updated DateTime 4 157.48 cm 34.5 kg/m2 63768.1 7 g 64 /min 138 mm[Hg] 76 mm[Hg] 132 mm[Hg] 76 mm[Hg] Elizabeth Nabila antonio MARIA AMary [facility] 4 16:04:42 Social History Question Answer Notes LastModified by Organizat ion Details LastModified Time Tobacco Smoking Status [facility] 14:57:22 What Is Your Level Of Alcohol Consumption? Occasional [email or web address] Information not available 12/05/2014 Do You Wear A Helmet When Biking? Yes [email or web address] Information not available 12/05/2014 What Is Your Level Of Caffeine Consumption? Moderate 2 Cups Of Coffee Per Day [email or web address] Information not available 12/05/2014 How Much Tobacco Do You Chew? None [email or web address] Information not available 12/05/2014 Are You Currently Employed? Yes Information not available 10/09/2023 What Type Of Diet Are You Following? REGULAR [email or web address] Information not available 12/05/2014 Which Illicit Or Recreational Drugs Have You Used? None [email or web address] Information not available 05/02/2015 Do You Or Have You Ever Used E-cigarettes Or Vape? 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 No Information not available 10/09/2023 How Many Days In The Past Year Have You Had A Heavy Drinking Consumption (4+ Female, 5+ Male)? 0 [email or web address] Information not available 05/02/2015 Are There Any Guns Present In Your Home? No [email or web address] Information not available 12/05/2014 Do You Use Insect Repellent Routinely? Yes Information not available 10/09/2023 Live Alone Or With Others? With Others With Kids Information not available 12/05/2014 Patient Has Health Care Proxy Signed And In Chart Yes [email or web address] Information not available 10/17/2024 Marital Status Single [email or web address] Informati on not available 12/05/2014 Mosquito Repellent Used Routinely Yes Lyme Dz Prevention Reviewed [email or web address] Information not available 05/02/2015 What Was The Date Of Your Most Recent Tobacco Screening? 08/29/2024 [email or web address] Information not available 08/29/2024 How Many Children Do You Have? 3 Ages 25, 35, 38 (in 2014) Son Koby Avina [email or web address] Information not available 12/05/2014 Seat Belts Used Routinely Yes [email or web address] Information not available 12/05/2014 Are You Sexually Active? No [email or web address] Information not available 12/05/2014 Smoke Alarm In Home No [email or web address] Information not available 12/05/2014 Do You Have Smoke And Carbon Monoxide Detectors In Your Home? Yes Information not available 10/09/2023 Are You Passively Exposed To Smoke? No Information not available 10/09/2023 Do You Or Have You Ever Used Smokeless Tobacco? Never Used Smokeless Tobacco [email or web address] Information not available 12/27/2019 How Much Tobacco Do You Smoke? No [email or web address] Information not available 12/27/2019 What Types Of Sporting Activities Do You Participate In? Walking As Much As Possible [email or web address] Information not available 01/14/2016 General Stress Level Low [email or web address] Information not available 01/14/2016 Do You Use Sunscreen Routinely? Yes [email or web address] Information not available 12/05/2014 How Many Years Have You Smoked Tobacco? 0 [email or web address] Information not available 12/27/2019 Sex: Female Functional Status Question Answer Note LastModified by Organizat ion Details LastModified Time What is your exercise level? Occasional Information not available 10/09/2023 Mental Status None recorded. Family History Relationship Description Onset Age of this Age Resolved Age Notes LastModified by Organization Details LastModified Time Mother Chronic obstructive pulmonary disease smoker [email or web address] Not available 2015 16:16:51 Mother Disorder of thyroid gland [email or web address] Not available 2015 16:16:51 Father Malignant tumor of colon 70 ? Not available 2015 16:16:51 Sister Well adult [email or web address] Not availa ble 01/14/2016 16:16:51 Son Multiple sclerosis [email or web address] Not available 2015 16:16:51 Son Alcoholism [email or web address] Not availa ble 06/29/2020 15:03:50 Son Type 2 diabetes mellitus [email or web address] Not available 2022 14:00:05 Paternal Uncle Myocardial infarction Not available 01/13 16:16:51 Maternal Uncle Leukemia (morphologic abnormality) Not available 16:16:51 Notes:No breast ca Medical [...] Influenza, high-dose, trivalent, PF 4 completed Brooklynn rConin PA-C [address] [place] [address], [id number], [facility] 10/10/2024 07:43:26 COVID-19, mRNA, LNP-S, PF, 100 mcg/0.5mL dose or 50 mcg/0.25mL dose 2 completed Cassie Briseno [facility] 02/14/2022 15:20:26 COVID-19, mRNA, LNP-S, PF, 100 mcg/0.5mL dose or 50 mcg/0.25mL dose 2 completed Cassie Briseno [facility] 02/18/2022 13:35:40 COVID-19, mRNA, LNP-S, PF, 50 mcg/0.5 mL dose 1 [facility] 14:56:29 COVID-19, mRNA, LNP-S, PF, 50 mcg/0.5 mL dose 1 [facility] 14:57:13 COVID-19, mRNA, LNP-S, PF, 50 mcg/0.5 mL dose 1 [facility] 14:58:00 COVID-19, mRNA, LNP-S, bivalent, PF, 30 mcg/0.3 mL dose 2 [facility]/26[facility] 14:58:35 influenza, unspecified formulation 2 completed [facility] 15:08:26 Past Encounters Encounter ID Performer Location Encounter Start Date Encounter Closed Date Diagnosis/Indication Diagnosis SNOMED-CT Code Diagnosis ICD10 Code Diagnosis Note [id number] Cari Alek , [facility], [address] [place] [address] 12/05/2014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 bowel/bladder incontinence JACOB Madsen [address] [place] [address], [phone], [facility] 08/29/2024 17:54:48 4 text/html Physical Exam/FemaleReported bypatient.PHAPatient [...] ischemic heart disease; No peripheral vascular disease (53969); No diabetes Associated Symptoms:no muscle pain; no [...] been using reading glasses. Brooklynn Cronin PA-C [address] [place] [address], [phone], [facility] 10/10/2024 07:45:13 OBGyn Episode No OBEpisode recorded.
== END 2025-01-20 13:41 | disposition home or self-care (01) ==
LOC: HO.ACS 13:15
PROVIDERS: PCP Physician Assistant Medical; Visit Provider Internal Medicine Medical Oncology
DX: Z79.01 Long term (current) use of anticoagulants (principal)

== ENCOUNTER → 2025-01-20 13:15 | Outpatient (BNVA) | payer OTHER, SELFPAY | PROVIDERS: PCP Physician Assistant Medical; Visit Provider Internal Medicine Medical Oncology | DX: I82.401 Acute embolism and thrombosis of unspecified deep veins of right lower extremity (principal); Z79.01 Long term (current) use of anticoagulants; Z51.81 Encounter for therapeutic drug level monitoring | CPT/HCPCS: 85610; 99211 ==

== ENCOUNTER 2025-02-09 14:24 | Outpatient (AMB) | payer OTHER, SELFPAY ==
[2025-02-09 14:33] LABS: Prothrombin Time Whole Bld POC 21.4 sec (11.1-13.5); ~PT, ~INR - Anti Coag Clinic 1.8 (0.9-1.1)
--- NOTE | 2025-02-09 14:38 | MHC.OFFVISCO ---
Intake Intake Visit Reasons: Anticoagulation Allergies lisinopril [Lisinopril] Allergy (Mild, Verified 02/09/25 14:26) COUGH Sulfa (Sulfonamide Antibiotics) Allergy (Mild, Verified 02/09/25 14:26) UNKNOWN Medication List - Last Reconciled 02/09/25 by Priya Ulloa RN amlodipine 10 mg PO DAILY atorvastatin 10 mg PO DAILY carvedilol 6.25 mg PO BID clonidine HCl 0.1 mg PO BID fluticasone propionate 50 mcg/actuation 1 spray intranasal DAILY hydrochlorothiazide 25 mg PO DAILY loratadine 10 mg PO DAILY PRN losartan 100 mg PO DAILY omeprazole 20 mg PO DAILY warfarin 5 mg See Protocol PO DAILY warfarin 2.5 mg See Protocol PO DAILY Nursing Note PT.STATES THAT SHE HAD COVID 1 WEEK AGO. NO CP,SOB,DIET/MED CHANGES ,FALLS OR SX OF BLEEDING. BOOST TO 10MGM TODAY THEN CONTINUE PRESENT DOSE AND FOLLOW-UP IN 1 WEEK FOR PRE-SCHEDULED APPT. NO GREENS 2-3 DAYS GOOD UNDERSTANDING OF DOSING INSTR. Anti-Coag Initial Assessment Social Hx Patient Tobacco Use Status: Never used Tobacco Coding Level of Care Code Est Patient Level 1 Diagnoses Current use of anticoagulant therapy Z79.01 Results AMB INR Fingerstick AMB INR Fingerstick 1.8 Last Edit by Priya Ulloa RN on 02/09/25 14:34 Assessment & Plan Assessment & Plan (1) Current use of anticoagulant therapy: Code(s): Z79.01 - snf (current) use of anticoagulants Category: Medical
--- OUTSIDE RECORDS SUMMARY | 2025-02-09 16:59 | XMS_ITS | Clinical Summary ---
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 0 05/19/2019 Active clonidine (CATAPRES) 0.1 MG tablet Take 1 Tab by mouth 2 times daily. 0 05/19/2019 Active carvedilol (COREG) 6.25 MG tablet Take 1 Tab by mouth 2 times daily (with meals). 0 05/19/2019 Active losartan (COZAAR) 25 MG tablet Take 1 Tab by mouth daily. 0 05/19/2019 Active hydrochlorothiazide (MICROZIDE) 12.5 MG capsule Take 1 Cap by mouth daily. 0 05/19/2019 Active Active Problems Problem Noted Date Hypertension 05/19/2019 History of DVT of lower extremity 2018 History of lupus anticoagulant disorder 05/19/2019 Varicose veins of both lower extremities Family History Medical History Relation Name Comments CA Colon Father CA Breast Negative Hx CA Ovarian Negative Hx Relation Name Status Comments Father Social History Tobacco Use Types Packs/Day Years Used Date Smoking Tobacco: Never Smokeless Tobacco: Never Alcohol Use Standard Drinks/Week Comments Yes 0 (1 standard drink = 0.6 oz pur e alcohol) Socially Sex Assigned at Date Recorded Not on file Last Filed Vital Signs Vital Sign Reading Time Taken Comments Blood Pressure 116/68 05/19/2019 3:21 PM EDT Pulse 56 05/19/2019 3:21 PM EDT Temperature - - Respiratory Rate 16 05/19/2019 3:21 PM EDT Oxygen Saturation - - Inhaled Oxygen Concentration - - Weight 88.5 kg (195 lb) 05/19/2019 3:21 PM EDT Height 158.8 cm (5' 2.5 ) 05/19/2019 3:21 PM EDT Body Mass Index 35.1 05/19/2019 3:21 PM EDT Plan of Treatment Health Maintenance Due Date Last Done Comments Covid-19 Vaccine (#1) 1960 HEPATITIS C SCREENING 1977 CHOLESTEROL SCREENING 1979 MAMMOGRAM 1999 COLON CANCER SCREENING 2009 SHINGLES VACCINE (1 of 2) 2009 CERVICAL CANCER SCREENING 05/19/2022 05/19/2019 BONE DENSITY SCREENING 2024 PNEUMOCOCCAL VACCINE (1 - PCV) 2024 BMI CHECK/ADVISE 10/19/2024 05/19/2019, 05/19/2019 DTAP/TDAP/TD (2 - Td or Tdap) 05/02/2025 05/02/2015 INFLUENZA (Season Ended) 2025 Care Teams Dipper Machine Operator Relationship Specialty Start Date End Date Parul Childs PCP - General Internal Medicine 11/05/18
== END 2025-02-09 14:42 | disposition home or self-care (01) ==
LOC: HO.ACS 14:24
PROVIDERS: PCP Physician Assistant Medical; Visit Provider Internal Medicine Medical Oncology
DX: Z79.01 Long term (current) use of anticoagulants (principal)

== ENCOUNTER → 2025-02-09 14:24 | Outpatient (BNVA) | payer OTHER, SELFPAY | PROVIDERS: PCP Physician Assistant Medical; Visit Provider Internal Medicine Medical Oncology | DX: Z86.718 Personal history of other venous thrombosis and embolism (principal); Z51.81 Encounter for therapeutic drug level monitoring; Z79.01 Long term (current) use of anticoagulants | CPT/HCPCS: 85610; 99211 ==

== ENCOUNTER 2025-02-17 14:53 | Outpatient (AMB) | payer OTHER, SELFPAY ==
--- OUTSIDE RECORDS SUMMARY | 2025-02-17 14:58 | XMS_ITS | Data Portability ---
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 Assessment Encounter Date Assessment Date Assessment [...] Details Appointments LAB Follow-Up 2024 11:00A M [facility] Lab Not available Not available Not available Medical Managemen t 15 2024 01:45P M Brooklynn Cronin PA-C Not available Not available Not available Lab influenza virus A + B + SARS-CoV- 2 (COVID19) Ag panel, rapid IA, upper respirato ry specimen 2024 025 [facility], [address] [facility], [place], [address], 02/02/2025 14:58:08 fecal occult blood, immunoass ay, stool [address] [facility], [address] [place], [address], 10/07/2024 16:05:53 culture, urine 2023 024 [facility], [address] [place], [address], 08/31/2024 16:01:18 Referral None recorded. Procedures None recorded. Surgeries None recorded. Imaging DEXA 2023 024 [facility], [address], [place], [address], 10/07/2024 16:10:42 [place], guidance 20[email or web address] [place] [address] (Imaging), [address], [place], [address], 01/08/2024 19:58:39 Medication Orders omeprazol e 20 mg capsule,d elayed release 2023 024 [facility] #[id number], [address] [facility], [place], [address], 10/07/2024 16:06:33 Patient TargetsNo targets recorded. Patient Instructions Encounter Date Encounter Id Patient Instructions Last Modified By Organization Details Last Modified Time 01/06/2024 [id number] Rest and ice for the next week [...] their care. Not available 01/06/2024 10:40:11 10/07/2024 [id number] This Shingles vaccine was approved in 2017. [...] autoimmune conditions, and a history of Guillain Pomona Syndrome. Not available 10/10/2024 07:44:44 Reason for Referral None Reported. Results Created Date Observation Date Name Description Value Unit Range Abnormal Flag Note LastModifiedBy Organization Detail LastModifiedTime 04/15/20 24 04/15/2024 HGB A1C hemoglobin A1C [...] furth er confi rmati on Not Available [address], [address], 04/15/2024 12:27:10 04/15/20 24 04/15/2024 HGB A1C estimated average glucose 116.9 mg/dL Not Available [address], [address], 04/15/2024 12:27:10 04/15/20 24 04/15/2024 COMP. METAB OLIC PANEL glucose 99 mg/dL 70-100 Not Available [address], [address], 04/15/2024 14:09:16 04/15/20 24 04/15/2024 COMP. METAB OLIC PANEL BUN 21 mg/dL 7-18 high Not Available [address] [place], [address], 04/15/2024 14:09:16 04/15/20 24 04/15/2024 COMP. METAB OLIC PANEL creatinine 1.3 mg/dL 0.8-1. 3 Not Available [address], [address], 04/15/2024 14:09:16 04/15/20 24 04/15/2024 COMP. METAB OLIC PANEL B/C 16.2 ratio Not Available [address], [address], 04/15/2024 14:09:16 04/15/20 24 04/15/2024 COMP. METAB [...] borat ion (CKD- EPI) Equat ion (Elpidio garcia et. al 2020) as recom kelly d by the Natio nal Kidne y Found ation . eGFR is based on age, serum creat inine , and sex. CKD-E PI does not calcu late eGFR by race, does not apply to child belem (age <18 years ), and shoul d not be used in pregn juju. Not Available [address], [address], 04/15/2024 14:09:16 04/15/20 24 04/15/2024 COMP. METAB OLIC PANEL sodium 141 mmol/ L 136-14 5 Not Available [address], [address], 04/15/2024 14:09:16 04/15/20 24 04/15/2024 COMP. METAB OLIC PANEL potassium 3.7 mmol/ L 3.5-5. 1 Not Available [address], [address], 04/15/2024 14:09:16 04/15/20 24 04/15/2024 COMP. METAB OLIC PANEL chloride 103 mmol/ L 96-107 Not Available [address], [address], 04/15/2024 14:09:16 04/15/20 24 04/15/2024 COMP. METAB OLIC PANEL anion gap 6.7 5.0-15 .0 Not Available [address], [address], 04/15/2024 14:09:16 04/15/20 24 04/15/2024 COMP. METAB OLIC PANEL CO2 31 mmol/ L 21-32 Not Available [address], [address], 04/15/2024 14:09:16 04/15/20 24 04/15/2024 COMP. METAB OLIC PANEL calcium 8.9 mg/dL 8.5-10 .3 Not Available [address], [address], 04/15/2024 14:09:16 04/15/20 24 04/15/2024 COMP. METAB OLIC PANEL total protein 6.3 g/dL 6.4-8. 2 low Not Available [address], [address], 04/15/2024 14:09:16 04/15/20 24 04/15/2024 COMP. METAB OLIC PANEL albumin 3.4 g/dL 3.4-5. 0 Not Available [address], [address], 04/15/2024 14:09:16 04/15/20 24 04/15/2024 COMP. METAB OLIC PANEL globulin 2.9 g/dL Not Available [address], [address], 04/15/2024 14:09:16 04/15/20 24 04/15/2024 COMP. METAB OLIC PANEL A/G 1.2 ratio 0.8-2. 0 Not Available [address], [address], 04/15/2024 14:09:16 04/15/20 24 04/15/2024 COMP. METAB OLIC PANEL total bilirubin 0.70 mg/dL 0.00-1 .00 Not Available [address], [address], 04/15/2024 14:09:16 04/15/20 24 04/15/2024 COMP. METAB OLIC PANEL AST 23 U/L 0-37 Not Available [address], [address], 04/15/2024 14:09:16 04/15/20 24 04/15/2024 COMP. METAB OLIC PANEL ALT 26 U/L 6-63 Not Available [address], [address], 04/15/2024 14:09:16 04/15/20 24 04/15/2024 COMP. METAB OLIC PANEL alk. phos. 102 U/L 50-136 Not Available [address], [address], 04/15/2024 14:09:16 04/15/20 24 04/15/2024 LIPID PANEL cholesterol 159 mg/dL <200 mg/dl Ashley able 200-2 39 mg/dl Borde rline High >240 mg/dl High Not Available [address], [address], 04/15/2024 14:09:17 04/15/20 24 04/15/2024 LIPID PANEL triglyceride s 140 mg/dL <150 mg/dL Stephenie l 150-1 99 mg/dL Borde rline High 200-4 99 mg/dL High >500 mg/dL Very High Not Available [address], [address], 04/15/2024 14:09:17 04/15/20 24 04/15/2024 LIPID PANEL direct HDL 54 mg/dL <40 mg/dl - Major Risk for CHD >60 mg/dl - Negat zak Risk for CHD Not Available [address] [place], [address], 04/15/2024 14:09:17 04/15/20 24 04/15/2024 LDL - [...] r is not charan pope. Not Available [address], [address], 04/15/2024 14:09:17 08/29/20 24 08/29/2024 POC UA glu UA NEGATI VE Not Available [facility] [address] [place] [address], [address], 08/29/2024 16:38:21 08/29/20 24 08/29/2024 POC UA clarity UA CLEAR Not Available [facility] [address] [place] [address], [address], 08/29/2024 16:38:21 08/29/20 24 08/29/2024 POC UA uro UA 0.2000 Not Available [facility] [address] [place] [address], [address], 08/29/2024 16:38:21 08/29/20 24 08/29/2024 POC UA ket UA NEGATI VE Not Available [facility] [address] [place] [address], [address], 08/29/2024 16:38:21 08/29/20 24 08/29/2024 POC UA pro UA NEGATI VE Not Available [facility] [address] [place] [address], [address], 08/29/2024 16:38:21 08/29/20 24 08/29/2024 POC UA nit UA NEGATI VE Not Available [facility] [address] [place] [address], [address], 08/29/2024 16:38:21 08/29/20 24 08/29/2024 POC UA dayo UA 1+ abnormal Not Available [facility] [address] [place] [address], [address], 08/29/2024 16:38:21 08/29/20 24 08/29/2024 POC UA pH UA 6.0000 Not Available [facility] [address] [place] [address], [address], 08/29/2024 16:38:21 08/29/20 24 08/29/2024 POC UA SG UA 1.0250 Not Available [facility] [address] [place] [address], [address], 08/29/2024 16:38:21 08/29/20 24 08/29/2024 POC UA color UA YELLOW Not Available [facility] [address] [place] [address], [address], 08/29/2024 16:38:21 08/29/20 24 08/29/2024 POC UA blo UA TRACE- INTACT abnormal Not Available [facility] [address] [place] [address], [address], 08/29/2024 16:38:21 08/29/20 24 08/29/2024 POC UA william UA NEGATI VE Not Available [facility] [address] [place] [address], [address], 08/29/2024 16:38:21 08/29/20 24 08/31/2024 CULTU RE, URINE , ROUTI NE culture, urine, routine CULTU RE, URINE , ROUTI NE Micro Numbe r: [id number] Test Statu s: Final Speci men Sourc e: Urine Speci men Quali ty: Adequ ate Resul t: Mixed genit al collin isola hermelinda. These super ficia l bacte sabrian are not indic ative of a urina ry tract infec tion. No furth er organ ism ident ifica tion is warra nted on this speci men. If clini gage indic ated, recol lect clean -catc h, mid-s tream urine and trans arnav immed iatel y to Urine Cultu re Trans port Tube. Not Available [facility] [address], [place], [address], 08/31/2024 16:38:58 10/04/20 24 10/04/2024 CBC WBC 6.07 K/? ? ?L 3.98-1 0.04 Not Available [address], [address], 10/04/2024 12:41:14 10/04/20 24 10/04/2024 CBC RBC 4.22 M/? ? ?L 3.93-5 .22 Not Available [address], [address], 10/04/2024 12:41:14 10/04/20 24 10/04/2024 CBC HGB 12.4 g/dL 11.2-1 5.7 Not Available [address], [address], 10/04/2024 12:41:14 10/04/20 24 10/04/2024 CBC HCT 38.0 % 34.1-4 4.9 Not Available [address], [address], 10/04/2024 12:41:14 10/04/20 24 10/04/2024 CBC MCV 90.0 fL 79.4-9 4.8 Not Available [address], [address], 10/04/2024 12:41:14 10/04/20 24 10/04/2024 CBC MCH 29.4 pg 25.6-3 2.2 Not Available [address], [address], 10/04/2024 12:41:14 10/04/20 24 10/04/2024 CBC MCHC 32.6 g/dL 32.2-3 5.5 Not Available [address], [address], 10/04/2024 12:41:14 10/04/20 24 10/04/2024 CBC plt 128 K/? ? ?L 182-36 9 low Not Available [address], [address], 10/04/2024 12:41:14 10/04/20 24 10/04/2024 CBC MPV 12.5 fL 9.4-12 .3 high Not Available [address], [address], 10/04/2024 12:41:14 10/04/20 24 10/04/2024 CBC neut% 56.0 % 34.0-7 1.1 Not Available [address], [address], 10/04/2024 12:41:14 10/04/20 24 10/04/2024 CBC neut# 3.40 1.56-6 .13 Not Available [address], [address], 10/04/2024 12:41:14 10/04/20 24 10/04/2024 CBC lymph % 30.8 % 19.3-5 1.7 Not Available [address], [address], 10/04/2024 12:41:14 10/04/20 24 10/04/2024 CBC lymph # 1.87 K/? ? ?L 1.18-3 .74 Not Available [address], [address], 10/04/2024 12:41:14 10/04/20 24 10/04/2024 CBC mono% 10.5 % 4.7-12 .5 Not Available [address], [address], 10/04/2024 12:41:14 10/04/20 24 10/04/2024 CBC mono# 0.64 0.24-0 .56 high Not Available [address], [address], 10/04/2024 12:41:14 10/04/20 24 10/04/2024 CBC eo% 1.8 % 0.7-5. 8 Not Available [address], [address], 10/04/2024 12:41:14 10/04/20 24 10/04/2024 CBC eo# 0.11 0.04-0 .36 Not Available [address], [address], 10/04/2024 12:41:14 10/04/20 24 10/04/2024 CBC baso% 0.7 % 0.1-1. 2 Not Available [address], [address], 10/04/2024 12:41:14 10/04/20 24 10/04/2024 CBC baso# 0.04 0.00-0 .08 Not Available [address], [address], 10/04/2024 12:41:14 10/04/20 24 10/04/2024 CBC RDW-CV 13.1 % 11.7-1 4.4 Not Available [address], [address], 10/04/2024 12:41:14 10/04/20 24 10/04/2024 CBC Ig% 0.200 % 0.000- 1.500 Ig % >0.5 Indic ates possi ble Left Shift Not Available [address], [address], 10/04/2024 12:41:14 10/04/20 24 10/04/2024 CBC Ig# 0.010 0.000- 0.093 Not Available [address], [address], 10/04/2024 12:41:14 10/04/20 24 10/04/2024 CBC NRBC% 0.0 % 0.0-0. 2 Not Available [address], [address], 10/04/2024 12:41:14 10/04/20 24 10/04/2024 CBC NRBC# 0.000 0.000- 0.012 Not Available [address], [address], 10/04/2024 12:41:14 10/04/20 24 10/04/2024 HGB A1C [...] furth er confi rmati on Not Available [address], [address], 10/04/2024 14:01:48 10/04/20 24 10/04/2024 HGB A1C estimated average glucose 116.9 mg/dL Not Available [address], [address], 10/04/2024 14:01:48 10/04/20 24 10/05/2024 BASIC METAB OLIC PANEL glucose 100 mg/dL 70-100 Not Available [address], [address], 10/05/2024 11:46:25 10/04/20 24 10/05/2024 BASIC METAB OLIC PANEL BUN 10 mg/dL 7-18 Not Available [address], [address], 10/05/2024 11:46:25 10/04/20 24 10/05/2024 BASIC METAB OLIC PANEL creatinine 0.9 mg/dL 0.8-1. 3 Not Available [address], [address], 10/05/2024 11:46:25 10/04/20 24 10/05/2024 BASIC METAB OLIC PANEL B/C 11.1 ratio Not Available [address], [address], 10/05/2024 11:46:25 10/04/20 24 10/05/2024 BASIC METAB [...] be used in pregn juju. Not Available [address], [address], 10/05/2024 11:46:25 10/04/20 24 10/05/2024 BASIC METAB OLIC PANEL sodium 143 mmol/ L 136-14 5 Not Available [address], [address], 10/05/2024 11:46:25 10/04/20 24 10/05/2024 BASIC METAB OLIC PANEL potassium 4.1 mmol/ L 3.5-5. 1 Not Available [address], [address], 10/05/2024 11:46:25 10/04/20 24 10/05/2024 BASIC METAB OLIC PANEL chloride 104 mmol/ L 96-107 Not Available [address], [address], 10/05/2024 11:46:25 10/04/20 24 10/05/2024 BASIC METAB OLIC PANEL anion gap 6.7 5.0-15 .0 Not Available [address], [address], 10/05/2024 11:46:25 10/04/20 24 10/05/2024 BASIC METAB OLIC PANEL CO2 32 mmol/ L 21-32 Not Available [address], [address], 10/05/2024 11:46:25 10/04/20 24 10/05/2024 BASIC METAB OLIC PANEL calcium 9.0 mg/dL 8.5-10 .3 Not Available [address], [address], 10/05/2024 11:46:25 10/04/20 24 10/05/2024 LIPID PANEL cholesterol 175 mg/dL <200 mg/dl Ashley able 200-2 39 mg/dl Borde rline High >240 mg/dl High Not Available [address], [address], 10/05/2024 11:46:26 10/04/20 24 10/05/2024 LIPID PANEL triglyceride s 65 mg/dL <150 mg/dL Stephenie l 150-1 99 mg/dL Borde rline High 200-4 99 mg/dL High >500 mg/dL Very High Not Available [address], [address], 10/05/2024 11:46:26 10/04/20 24 10/05/2024 LIPID PANEL direct HDL 68 mg/dL <40 mg/dl - Major Risk for CHD >60 mg/dl - Negat zak Risk for CHD Not Available [address], [address], 10/05/2024 11:46:26 10/04/20 24 10/05/2024 LDL - CALCU LATED LDL - calculated [...] with 0-1 risk facto r is not necinna toshia. Not Available [address], [address], 10/05/2024 11:46:27 02/03/20 25 02/02/2025 POC FLU/S ARS flu A POC NEGATI VE Not Available [address], [address], 02/02/2025 14:58:04 02/03/20 25 02/02/2025 POC FLU/S ARS flu B POC NEGATI VE Not Available [facility] [address] [place] [address], [address], 02/02/2025 14:58:04 02/03/20 25 02/02/2025 POC FLU/S ARS sars POC POSITI VE positive Not Available [facility] [address] [place], [address], 02/02/2025 14:58:04 Result Notes None recorded. Problems Name Problem SNOMED Code Status Onset Date Resolution Date Notes Provider Name and Address Organization Details Recorded Time Lupus anticoag ulant disorder 73583840 Active [facility] Brooklynn Cronin PA-C [address] [place], [place] [address], [address], [facility] 7 16:36:22 Deep venous thrombos is 242199184 Completed 01/14/20162005 Brooklynn Cronin PA-C [address] [place] [address] [place], [address], [facility] 6 12:36:39 Hyperten sive disorder 05406372 Completed 01/14/2016 Brooklynn Cronin PA-C [address] [place], [place] [address], [address], [facility] 6 12:36:39 Osteoart hritis 655119113 Active knees Brooklynn Cronin PA-C [address] [place], [place] [address], [address], [facility] 1 14:41:31 Environm ental allergy 536448170 Active Brooklynn Cronin PA-C [address] [place], [place] [address], [address], [facility] 6 12:36:39 Edema 869785303 Completed 01/14/2016 Brooklynn Cronin PA-C [address] [place], [place] [address], [address], [facility] 6 12:36:39 Obese 810290790 Active Brooklynn Cronin PA-C [address] [place], [place] [address], [address], [facility] 6 12:36:39 [facility]ia l hyperten lynne 79120286 Active Brooklynn Cronin PA-C [address] [place] [address] [place], [address], [facility] 6 15:50:00 History of thrombos is 507059938 Active DVT 2005 Brooklynn Cronin PA-C [address] [place] [address] [place], [address], [facility] 6 12:36:39 Peripher al venous insuffic iency 68771289 Active Brooklynn Cronin PA-C [address] [place] [address] [place], [address], [facility] 6 12:36:39 Venous varices 790958876 Active Brooklynn Cronin PA-C [address] [place], [place] [address], [address], [facility] 6 12:36:39 Thromboc ytopenic disorder 073984895 Active 2016 platelet 130s Brooklynn Cronin PA-C [address] [place], [place] [address], [address], [facility] 2 13:57:31 Hyperlip idemia 06764471 Active 2016 Brooklynn Cronin PA-C [address] [place], [place] [address], [address], [facility] 7 15:00:19 Cataract 432828478 Active 2019 Brooklynn Cronin PA-C [address] [place], [place] [address], [address], [facility] 0 15:02:59 Prediabe cheryle 631856838 Active 2022 Brooklynn Cronin PA-C [address] [place], [place] [address], [address], [facility] 3 15:49:21 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 Procedures Surgical History Date Name Laterality Status Provider Name and Address Organization Details Recorded Time 4 US Guided Knee Joint Injection completed Cesar Avila MD [address] [place] [address], [address], [facility] 01/06/2024 10:46:45 3 US Guided Knee Joint Injection completed Cesar Avila MD [address] [place] [address], [address], [facility] 06/02/2023 16:04:02 3 US Guided Knee Joint Injection completed Cesar Avila MD [address] [place] [address], [address], [facility] 11/04/2022 10:20:34 2 prevention-monica ual alcohol misuse screening completed Brooklynn Cronin PA-C [address] [place] [address], [address], [facility] 03/28/2022 16:52:35 1 Knee Injection w/o US completed Cesar Avila MD [address] [place] [address], [address], [facility] 12/20/2020 15:30:23 0 prevention-car diovascular risk reduction counseling completed Jen Dickey MA [facility] 06/29/2020 11:49:36 0 prevention-monica ual alcohol misuse screening completed Jen Dickey MA [facility] 06/29/2020 11:49:36 6 POC Strep Testing completed Rhona Marin LPN [facility] 06/02/2016 14:25:26 Imaging Results None recorded. Procedure Notes None recorded. Medical Equipment None Reported. Allergies Allergen ID Allergen Name Allergen Category Reaction Reaction Severity Criticality Documentation Date Start Date Code Code System Note Provider Name and Address Organization Details Recorded Time 990294 Substance with sulfonami de structure and antibacte rial mechanism of action (substanc e) medicatio n Not available Not available Not available 12/05/2014 18097 8003 SNOMED not sure of react ion Jessica Mcgraw MA null, [facility] 5 14:50:15 [id number] lisinopri l medicatio n Not available Not available Not available 11/14/2016 49359 RxNorm Brooklynn Cronin PA-C [address] [facility] [place], [address] [place] [address] 7 16:01:00 Medications Name Sig Start Date [...] Not Available Not Available No t Available losartan 100 mg tablet TAKE 1 TABLET [...] Not Available Vitals Date Recorded Body height Systolic blood pressure Diastolic blood pressure Provider Name and Address Organization Details Last Updated DateTime 01/06/2024 162.56 cm 130 mm[Hg] 70 mm[Hg] Aurora Otto [facility] 01/06/2024 09:55:04 Date Recorded Body height Body mass index (BMI) Body weight Heart rate Systolic blood pressure Diastolic blood pressure Provider Name and Address Organization Details Last Updated DateTime 4 162.56 cm 32.1 kg/m2 57397.1 7 g 80 /min 118 mm[Hg] 68 mm[Hg] Elizabeth antonio [facility] 4 11:03:04 Date Recorded Body height Body temperature Heart rate Systolic blood pressure Diastolic blood pressure Provider Name and Address Organization Details Last Updated DateTime 08/29/2024 162.56 cm 97.6 [degF] 72 /min 122 mm[Hg] 70 mm[Hg] Joyce Aquino [facility] 4 16:28:53 Date Recorded Body height Body mass index (BMI) Body weight Heart rate Systolic blood pressure Diastolic blood pressure Systolic blood pressure Diastolic blood pressure Provider Name and Address Organization Details Last Updated DateTime 4 157.48 cm 34.5 kg/m2 70523.1 7 g 64 /min 138 mm[Hg] 76 mm[Hg] 132 mm[Hg] 76 mm[Hg] Elizabeth antonio [facility] 4 16:04:42 Date Recorded Body height Body temperature Oxygen saturation Oxygen saturation in Arterial blood by Pulse oximetry Heart rate Systolic blood pressure Diastolic blood pressure Provider Name and Address Organization Details Last Updated DateTime 5 157.48 cm 97.8 [degF] 98 % 98 % 90 /min 140 mm[Hg] 70 mm[Hg] Cecy aGllegos [facility] 5 14:33:23 Social History Question Answer Notes LastModified by Organizat ion Details LastModified Time Tobacco Smoking Status [facility] 12/05/2014 14:57:22 What Is Your Level Of Alcohol Consumption? Occasional [email or web address] Information not available 12/05/2014 Do You Wear A Helmet When Biking? Yes [email or web address] Information not available 12/05/2014 What Is Your Level Of Caffeine Consumption? Moderate 2 Cups Of Coffee Per Day [email or web address] Information not available 12/05/2014 How Much Tobacco Do You Chew? None [email or web address] Information not available 12/05/2014 Are You Currently Employed? Yes Information not available 10/09/2023 What Type Of Diet Are You Following? REGULAR [email or web address] Information not available 12/05/2014 Which Illicit Or Recreational Drugs Have You Used? None Information not available 05/02/2015 Do You Or Have You Ever Used E-cigarettes Or Vape? 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 No Information not available 10/09/2023 How Many Days In The Past Year Have You Had A Heavy Drinking Consumption (4+ Female, 5+ Male)? 0 [email or web address] Information not available 05/02/2015 Are There Any Guns Present In Your Home? No [email or web address] Information not available 12/05/2014 Do You Use Insect Repellent Routinely? Yes Information not available 10/09/2023 Live Alone Or With Others? With Others With Kids [email or web address] Information not available 12/05/2014 Patient Has Health Care Proxy Signed And In Chart Yes [email or web address] Information not available 10/17/2024 Marital Status Single Informati on not available 12/05/2014 Mosquito Repellent Used Routinely Yes Lyme Dz Prevention Reviewed [email or web address] Information not available 05/02/2015 What Was The Date Of Your Most Recent Tobacco Screening? 02/02/2025 Information not available 02/02/2025 How Many Children Do You Have? 3 Ages 25, 35, 38 (in 2015) Son Koby Avina [email or web address] Information not available 12/05/2014 Seat Belts Used Routinely Yes [email or web address] Information not available 12/05/2014 Are You Sexually Active? No [email or web address] Information not available 12/05/2014 Smoke Alarm In Home No [email or web address] Information not available 12/05/2014 Do You Have Smoke And Carbon Monoxide Detectors In Your Home? Yes Information not available 10/09/2023 Are You Passively Exposed To Smoke? No Information not available 10/09/2023 Do You Or Have You Ever Used Smokeless Tobacco? Never Used Smokeless Tobacco [email or web address] Information not available 12/27/2019 How Much Tobacco Do You Smoke? No [email or web address] Information not available 12/27/2019 What Types Of Sporting Activities Do You Participate In? Walking As Much As Possible [email or web address] Information not available 01/14/2016 General Stress Level Low [email or web address] Information not available 01/14/2016 Do You Use Sunscreen Routinely? Yes Information not available 12/05/2014 How Many Years Have You Smoked Tobacco? 0 [email or web address] Information not available 12/27/2019 Do You Or Have You Ever Used Any Other Forms Of Tobacco Or Nicotine? No Information not available 02/02/2025 Sex: Female Functional Status Question Answer Note LastModified by Organizat ion Details LastModified Time What is your exercise level? Occasional Information not available 10/09/2023 Mental Status None recorded. Family History Relationship Description Onset Age of this Age Resolved Age Notes LastModified by Organization Details LastModified Time Mother Chronic obstructive pulmonary disease smoker [email or web address] Not available 2015 16:16:51 Mother Disorder of thyroid gland Not available 2015 16:16:51 Father Malignant tumor of colon 70 ? [email or web address] Not available 2015 16:16:51 Sister Well adult [email or web address] Not availa ble 01/14/2016 16:16:51 Son Multiple sclerosis Not available 2015 16:16:51 Son Alcoholism [email or web address] Not availa ble 06/29/2020 15:03:50 Son Type 2 diabetes mellitus Not available 2022 14:00:05 Paternal Uncle Myocardial infarction [email or web address] Not available 01/13 16:16:51 Maternal Uncle Leukemia (morphologic abnormality) [email or web address] Not available 16:16:51 Notes:No breast ca Medical [...] trivalent, PF 4 completed Brooklynn Cronin PA-C [address] [place] [address], [id number], [facility] [place]10[place]2024 07:43:26 COVID-19, mRNA, LNP-S, PF, 100 mcg/0.5mL dose or 50 mcg/0.25mL dose 2 completed Cassie Briseno [facility] 02/14/2022 15:20:26 COVID-19, mRNA, LNP-S, PF, 100 mcg/0.5mL dose or 50 mcg/0.25mL dose 2 completed Cassie Briseno [facility] 02/18/2022 13:35:40 COVID-19, mRNA, LNP-S, PF, 50 mcg/0.5 mL dose 1 completed Syl Julien [facility] 09/26/2022 14:56:29 COVID-19, mRNA, LNP-S, PF, 50 mcg/0.5 mL dose 1 completed Syl Julien [facility] 09/26/2022 14:57:13 COVID-19, mRNA, LNP-S, PF, 50 mcg/0.5 mL dose 1 completed Syl Julien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 Kenny MD , [facility], OFF[address] [place] [address] 02/02/2025 14:27:30 02/06/2025 17:44:30 Nasal congestion 81260369 R09.81 Acute COVID-19 [id number] 8 U07.1 COVID 19 sx an positive testing in officesx started about two days agoHA and fatigue and body aches w mild PND/sinus congestion recommend supportive mgmtdo not recommend Paxlovidin str use of antihistam denise and chlorphene ramine for sinus/misa estionsxin str use of tylenol for pickens and body aches and feverinstr rest, fluids, nutritionh ome for duration until 24 hours w/o fevermask in community for 5 days thereafter f/u any SOB or CP Health Concerns Section Related Observation LastModified by Organization Detai ls LastModified Time None Recorded Concern Status LastModified by Organization Details LastModified Time None Recorded Advance Directives Directive None Recorded Payers Encounter Date Sequence Insurance Name Policy Number Policy Dee Covered Member ID Dee Member ID Guarantor Name 01/06/2024 1 [facility] [id number] Monica Del Real [id number] 1 Monica Del Real 04/15/2024 1 [facility] [id number] Monica Del Real [id number] 1 Monica Del Real 08/29/2024 1 [facility] [id number] Monica Del Real [id number] 1 Monica Del Real 10/07/2024 1 [facility] [id number] Monica Del Real [id number] 1 Monica Del Real 02/02/2025 1 [facility] [id number] Monica Del Real [id number] Monica Del Real Notes Date Note Type Note Provider Name and Address Organization Details Recorded Time 4 text/html Monica is a 63-year-old female [...] done previous physical therapy. Cesar Avila MD [address] [place] [address], [phone], [facility] [place]/06/2024 11:28:30 4 text/html [facility] HyperlipidemiaReported bypatient.Duration:chronic Control:LDL has been 131-159, goal is <100; treated with diet Compliance:compliant with follow-up visits; compliant with diet Barriers to CareNo identified barriers to care Context:Nonsmoker; No ischemic heart disease; No peripheral vascular disease (52659); No diabetes Associated Symptoms:no muscle pain; no [...] swimming daily with grand kids JACOB Hernández-Bita [address] [place], [address], [facility] [place] 04/15/2024 11:18:00 4 text/html 4yo presents for [...] the backNo fever/chills, bowel/bladder incontinence JACOB Madsen [address] [place], [address], [facility] [place] 08/29/2024 17:54:48 4 text/html Physical Exam/FemaleReported bypatient.PHAPatient [...] ischemic heart disease; No peripheral vascular disease (82500); No diabetes Associated Symptoms:no muscle pain; no [...] been using reading glasses. Brooklynn Cronin PA-C [address] [place], [phone], [facility] 10/10/2024 07:45:13 5 text/html here today feeling illpounding headache and pressure in sinus, congestionbut no runny noseeyes feel like they will explodebody aches and fatigue, very tiredno sore throathad fever and chills today and yestedayhad n/v/d yesterdayno cp, sob, coughhas some PND Cecy Kenny MD [address] [place], [address], [facility] [place] 02/02/2025 15:16:03 OBGyn Episode No OBEpisode recorded.
--- NOTE | 2025-02-17 15:08 | MHC.OFFVISCO ---
Intake Intake Visit Reasons: Anticoagulation Allergies lisinopril [Lisinopril] Allergy (Mild, Verified 02/17/25 14:57) COUGH Sulfa (Sulfonamide Antibiotics) Allergy (Mild, Verified 02/17/25 14:57) UNKNOWN Medication List - Last Reconciled 02/17/25 by Valencia Kennedy RN amlodipine 10 mg PO DAILY atorvastatin 10 mg PO DAILY carvedilol 6.25 mg PO BID clonidine HCl 0.1 mg PO BID fluticasone propionate 50 mcg/actuation 1 spray intranasal DAILY hydrochlorothiazide 25 mg PO DAILY loratadine 10 mg PO DAILY PRN losartan 100 mg PO DAILY omeprazole 20 mg PO DAILY warfarin 5 mg See Protocol PO DAILY warfarin 2.5 mg See Protocol PO DAILY Nursing Note INR: 2.7 in therapeutic range- PT has recovered from Flu and covid Medications and supplements reviewed No changes in health, diet, medications, or supplements, Denies any signs and symptoms of bleeding or bruising or clotting. Bleeding, bruising, clotting discussed Nutritional guidance given Dose: 7.5MG DAILY F/U INR: 4 weeks Patient verbalizes understanding of instructions given Anti-Coag Initial Assessment Social Hx Patient Tobacco Use Status: Never used Tobacco Coding Level of Care Code Est Patient Level 1 Diagnoses Current use of anticoagulant therapy Z79.01 Results AMB INR Fingerstick AMB INR Fingerstick 2.7 Last Edit by Valencia Kennedy RN on 02/17/25 15:05 MANUAL ENTRY Assessment & Plan Assessment & Plan (1) Current use of anticoagulant therapy: Code(s): Z79.01 - manager intermediate (current) use of anticoagulants Category: Medical
[2025-02-17 15:14] LABS: Prothrombin Time Whole Bld POC 32.4 sec (11.1-13.5); ~PT, ~INR - Anti Coag Clinic 2.7 (0.9-1.1)
== END 2025-02-17 15:10 | disposition home or self-care (01) ==
LOC: HO.ACS 14:53
PROVIDERS: PCP Physician Assistant Medical; Visit Provider Internal Medicine Medical Oncology
DX: Z79.01 Long term (current) use of anticoagulants (principal)

== ENCOUNTER → 2025-02-17 14:53 | Outpatient (BNVA) | payer OTHER, SELFPAY | PROVIDERS: PCP Physician Assistant Medical; Visit Provider Internal Medicine Medical Oncology | DX: Z86.718 Personal history of other venous thrombosis and embolism (principal); Z51.81 Encounter for therapeutic drug level monitoring; Z79.01 Long term (current) use of anticoagulants | CPT/HCPCS: 85610; 99211 ==

== ENCOUNTER 2025-03-21 13:02 | Outpatient (AMB) | payer OTHER, SELFPAY ==
[2025-03-21 13:12] LABS: Prothrombin Time Whole Bld POC 37.1 sec (11.1-13.5); ~PT, ~INR - Anti Coag Clinic 3.1 (0.9-1.1)
--- NOTE | 2025-03-21 13:16 | MHC.OFFVISCO ---
Intake Intake Visit Reasons: Anticoagulation Allergies lisinopril [Lisinopril] Allergy (Mild, Verified 03/21/25 13:06) COUGH Sulfa (Sulfonamide Antibiotics) Allergy (Mild, Verified 03/21/25 13:06) UNKNOWN Medication List - Last Reconciled 03/21/25 by Valencia Kennedy, RN amlodipine 10 mg PO DAILY atorvastatin 10 mg PO DAILY carvedilol 6.25 mg PO BID clonidine HCl 0.1 mg PO BID fluticasone propionate 50 mcg/actuation 1 spray intranasal DAILY hydrochlorothiazide 25 mg PO DAILY loratadine 10 mg PO DAILY PRN losartan 100 mg PO DAILY nitrofurantoin monohyd/m-cryst 100 mg 1 cap PO BID omeprazole 20 mg PO DAILY warfarin 5 mg See Protocol PO DAILY warfarin 2.5 mg See Protocol PO DAILY Nursing Note INR: 3.1 almost therapeutic range pt was treated for UTI about 2 weeks ago. She only took medication for 1/2 time suggested becuase it turned her urine orange- it was explaned that it can do that and PCP or phramacy should have mentioned that. Medications and supplements reviewed No changes in health, diet, medications, or supplements, Denies any signs and symptoms of bleeding or bruising or clotting. Bleeding, bruising, clotting discussed Nutritional guidance given - enc to drink plenty of water - to eat a mixture of berries for her bladder and try saurkraut as a green when she can to help her bladder Dose: 7.5mg daily F/U INR: 4 weeks Patient verbalizes understanding of instructions given Anti-Coag Initial Assessment Social Hx Patient Tobacco Use Status: Never used Tobacco Coding Level of Care Code Est Patient Level 1 Diagnoses Current use of anticoagulant therapy Z79.01 Assessment & Plan Assessment & Plan (1) Current use of anticoagulant therapy: Code(s): Z79.01 - custodial (current) use of anticoagulants Category: Medical
--- OUTSIDE RECORDS SUMMARY | 2025-03-21 14:29 | XMS_ITS | Data Portability ---
Author Organization [facility], , [facility] Address [address] [place] [address] Care Team Providers Care Plush Finisher Name Role Phone BROOKLYNN CRONIN Primary Care Provider [phone] EDWIN SALAZAR Primary Care Provider [facility] Sports Medicine [facility] VASCULAR SURGERY Vascular Surgeon CESAR AVILA Sports Medicine ETHEL LAZAR Signs And Displays Sales Representative Assessment No assessment recorded. Plan of Treatment Reminders Order Date Submit Date Provider Last Modified By Organization Details Last Modified Time Details Appointments LAB Follow -Up 2024 11:00A M [facility] Lab Not available Not available Not available Sports Med Follow Up (20) 2024 09:50A M Cesar Avila MD Not available Not available Not available Lab cultur e, urine 2024 025 [facility], [address] [place] [address], [address], 03/04/2025 20:53:35 urinal ysis, dipsti ck 2024 025 [facility], [address] [place], [address], 02/28/2025 14:02:18 fecal occult blood, immuno assay, stool 2024 [facility] [address] [place], [address], 02/28/2025 14:51:57 influe nza virus A + B + SARS-C oV-2 (COVID 19) Ag panel, rapid IA, upper respir atory specim en 2024 025 [facility], [address] [place], [address], 02/02/2025 14:58:08 cultur e, urine 2023 024 [facility], [address] [place] [address], [address], 08/31/2024 16:01:18 Referral None record ed. Procedures None record ed. Surgeries None record ed. Imaging DEXA 2023 024 [facility], [address] [place], [address], 10/07/2024 16:10:42 Medication Orders Pyridi um 200 mg tablet 2024 025 [facility]armacy #[id number], [address] [place], [address], 03/10/2025 05:01:10 Macrob id 100 mg capsul e 2024 025 [id number] [address] [place], [address], 03/12/2025 05:01:12 omepra zole 20 mg capsul e,abeba yed releas e 2023 024 [id number] [address] [place], [address], 10/07/2024 16:06:33 Patient TargetsNo targets recorded. Patient Instructions Encounter Date Encounter Id Patient Instructions Last Modified By Organization Details Last Modified Time 10/07/2024 [id number] This Shingles vaccine was approved in 2017. [...] autoimmune conditions, and a history of Guillain Merced Syndrome. [email or web address] Not available 10/10/2024 07:44:44 Reason for Referral None Reported. Results Created Date Observation Date Name Description Value Unit Range Abnormal Flag Note LastModifiedBy Organization Detail LastModifiedTime 04/15/2004/15/2024 HGB A1C hemoglobin A1C 5.7 % 4.8-6. [...] furth er confi rmati on Not Available [address], [address], 04/15/2024 12:27:10 04/15/2004/15/2024 HGB A1C estimated average glucose 116.9 mg/dL Not Available [address], [address], 04/15/2024 12:27:10 04/15/2004/15/2024 COMP. METAB OLIC PANEL glucose 99 mg/dL 70-100 Not Available [address], [address], 04/15/2024 14:09:16 04/15/20 24 04/15/2024 COMP. METAB OLIC PANEL BUN 21 mg/dL 7-18 high Not Available [address], [address], 04/15/2024 14:09:16 04/15/20 24 04/15/2024 COMP. METAB OLIC PANEL creatinine 1.3 mg/dL 0.8-1. 3 Not Available [address], [address], 04/15/2024 14:09:16 04/15/20 24 04/15/2024 COMP. METAB OLIC PANEL B/C 16.2 ratio Not Available [address], [address], 04/15/2024 14:09:16 04/15/20 24 04/15/2024 COMP. METAB [...] be used in pregn juju. Not Available [address], [address], 04/15/2024 14:09:16 04/15/20 24 04/15/2024 COMP. METAB OLIC PANEL sodium 141 mmol/ L 136-14 5 Not Available [address], [address], 04/15/2024 14:09:16 04/15/20 24 04/15/2024 COMP. METAB OLIC PANEL potassium 3.7 mmol/ L 3.5-5. 1 Not Available [address], [address], 04/15/2024 14:09:16 04/15/20 24 04/15/2024 COMP. METAB OLIC PANEL chloride 103 mmol/ L 96-107 Not Available [address], [address], 04/15/2024 14:09:16 04/15/20 24 04/15/2024 COMP. METAB OLIC PANEL anion gap 6.7 5.0-15 .0 Not Available [address], [address], 04/15/2024 14:09:16 04/15/20 24 04/15/2024 COMP. METAB OLIC PANEL CO2 31 mmol/ L 21-32 Not Available [address], [address], 04/15/2024 14:09:16 04/15/20 24 04/15/2024 COMP. METAB OLIC PANEL calcium 8.9 mg/dL 8.5-10 .3 Not Available [address], [address], 04/15/2024 14:09:16 04/15/20 24 04/15/2024 COMP. METAB OLIC PANEL total protein 6.3 g/dL 6.4-8. 2 low Not Available [address], [address], 04/15/2024 14:09:16 04/15/20 24 04/15/2024 COMP. METAB OLIC PANEL albumin 3.4 g/dL 3.4-5. 0 Not Available [address], [address], 04/15/2024 14:09:16 04/15/20 24 04/15/2024 COMP. METAB OLIC PANEL globulin 2.9 g/dL Not Available [address], [address], 04/15/2024 14:09:16 04/15/20 24 04/15/2024 COMP. METAB OLIC PANEL A/G 1.2 ratio 0.8-2. 0 Not Available [address], [address], 04/15/2024 14:09:16 04/15/20 24 04/15/2024 COMP. METAB OLIC PANEL total bilirubin 0.70 mg/dL 0.00-1 .00 Not Available [address], [address], 04/15/2024 14:09:16 04/15/20 24 04/15/2024 COMP. METAB OLIC PANEL AST 23 U/L 0-37 Not Available [address], [address], 04/15/2024 14:09:16 04/15/20 24 04/15/2024 COMP. METAB OLIC PANEL ALT 26 U/L 6-63 Not Available [address], [address], 04/15/2024 14:09:16 04/15/20 24 04/15/2024 COMP. METAB OLIC PANEL alk. phos. 102 U/L 50-136 Not Available [address], [address], 04/15/2024 14:09:16 04/15/20 24 04/15/2024 LIPID PANEL cholesterol 159 mg/dL <200 mg/dl Ashley able 200-2 39 mg/dl Borde rline High >240 mg/dl High Not Available [address], [address], 04/15/2024 14:09:17 04/15/20 24 04/15/2024 LIPID PANEL triglyceride s 140 mg/dL <150 mg/dL Stephenie l 150-1 99 mg/dL Borde rline High 200-4 99 mg/dL High >500 mg/dL Very High Not Available [address], [address], 04/15/2024 14:09:17 04/15/20 24 04/15/2024 LIPID PANEL direct HDL 54 mg/dL <40 mg/dl - Major Risk for CHD >60 mg/dl - Negat zak Risk for CHD Not Available [address], [address], 04/15/2024 14:09:17 04/15/20 24 04/15/2024 LDL - [...] r is not charan pope. Not Available [address], [address], 04/15/2024 14:09:17 08/29/20 24 08/29/2024 POC UA glu UA NEGATI VE Not Available [facility] [address] [place] [address], [address], 08/29/2024 16:38:21 08/29/20 24 08/29/2024 POC UA clarity UA CLEAR Not Available [facility] [address] [place], [address], 08/29/2024 16:38:21 08/29/20 24 08/29/2024 POC UA uro UA 0.2000 Not Available [facility] [address] [place] [address], [address], 08/29/2024 16:38:21 08/29/20 24 08/29/2024 POC UA ket UA NEGATI VE Not Available [facility] [address] [place] [address], [address], 08/29/2024 16:38:21 08/29/20 24 08/29/2024 POC UA pro UA NEGATI VE Not Available [facility] [address] [place] [address], [address], 08/29/2024 16:38:21 08/29/20 24 08/29/2024 POC UA nit UA NEGATI VE Not Available [facility] [address] [place] [address], [address], 08/29/2024 16:38:21 08/29/20 24 08/29/2024 POC UA dayo UA 1+ abnormal Not Available [facility] [address] [place] [address], [address], 08/29/2024 16:38:21 08/29/20 24 08/29/2024 POC UA pH UA 6.0000 Not Available [facility] [address] [place] [address], [address], 08/29/2024 16:38:21 08/29/20 24 08/29/2024 POC UA SG UA 1.0250 Not Available [facility] [address] [place] [address], [address], 08/29/2024 16:38:21 08/29/20 24 08/29/2024 POC UA color UA YELLOW Not Available [facility] [address] [place] [address], [address], 08/29/2024 16:38:21 08/29/20 24 08/29/2024 POC UA blo UA TRACE- INTACT abnormal Not Available [facility] [address] [place] [address], [address], 08/29/2024 16:38:21 08/29/20 24 08/29/2024 POC UA william UA NEGATI VE Not Available [facility] [address] [place] [address], [address], 08/29/2024 16:38:21 08/29/20 24 08/31/2024 CULTU RE, URINE , ROUTI NE culture, urine, routine CULTU RE, URINE , ROUTI NE Micro Numbe r: [id number] Test Statu s: Final Speci men [...] Cultu re Trans port Tube. Not Available [facility] [address], [place], [address], 08/31/2024 16:38:58 10/04/20 24 10/04/2024 CBC WBC 6.07 K/? ? ?L 3.98-1 0.04 Not Available [address], [address], 10/04/2024 12:41:14 10/04/20 24 10/04/2024 CBC RBC 4.22 M/? ? ?L 3.93-5 .22 Not Available [address], [address], 10/04/2024 12:41:14 10/04/20 24 10/04/2024 CBC HGB 12.4 g/dL 11.2-1 5.7 Not Available [address], [address], 10/04/2024 12:41:14 10/04/20 24 10/04/2024 CBC HCT 38.0 % 34.1-4 4.9 Not Available [address], [address], 10/04/2024 12:41:14 10/04/20 24 10/04/2024 CBC MCV 90.0 fL 79.4-9 4.8 Not Available [address], [address], 10/04/2024 12:41:14 10/04/20 24 10/04/2024 CBC MCH 29.4 pg 25.6-3 2.2 Not Available [address], [address], 10/04/2024 12:41:14 10/04/20 24 10/04/2024 CBC MCHC 32.6 g/dL 32.2-3 5.5 Not Available [address], [address], 10/04/2024 12:41:14 10/04/20 24 10/04/2024 CBC plt 128 K/? ? ?L 182-36 9 low Not Available [address], [address], 10/04/2024 12:41:14 10/04/20 24 10/04/2024 CBC MPV 12.5 fL 9.4-12 .3 high Not Available [address], [address], 10/04/2024 12:41:14 10/04/20 24 10/04/2024 CBC neut% 56.0 % 34.0-7 1.1 Not Available [address], [address], 10/04/2024 12:41:14 10/04/20 24 10/04/2024 CBC neut# 3.40 1.56-6 .13 Not Available [address], [address], 10/04/2024 12:41:14 10/04/20 24 10/04/2024 CBC lymph % 30.8 % 19.3-5 1.7 Not Available [address], [address], 10/04/2024 12:41:14 10/04/20 24 10/04/2024 CBC lymph # 1.87 K/? ? ?L 1.18-3 .74 Not Available [address], [address], 10/04/2024 12:41:14 10/04/20 24 10/04/2024 CBC mono% 10.5 % 4.7-12 .5 Not Available [address], [address], 10/04/2024 12:41:14 10/04/20 24 10/04/2024 CBC mono# 0.64 0.24-0 .56 high Not Available [address], [address], 10/04/2024 12:41:14 10/04/20 24 10/04/2024 CBC eo% 1.8 % 0.7-5. 8 Not Available [address], [address], 10/04/2024 12:41:14 10/04/20 24 10/04/2024 CBC eo# 0.11 0.04-0 .36 Not Available [address], [address], 10/04/2024 12:41:14 10/04/20 24 10/04/2024 CBC baso% 0.7 % 0.1-1. 2 Not Available [address], [address], 10/04/2024 12:41:14 10/04/20 24 10/04/2024 CBC baso# 0.04 0.00-0 .08 Not Available [address], [address], 10/04/2024 12:41:14 10/04/20 24 10/04/2024 CBC RDW-CV 13.1 % 11.7-1 4.4 Not Available [address], [address], 10/04/2024 12:41:14 10/04/20 24 10/04/2024 CBC Ig% 0.200 % 0.000- 1.500 Ig % >0.5 Indic ates possi ble Left Shift Not Available [address], [address], 10/04/2024 12:41:14 10/04/20 24 10/04/2024 CBC Ig# 0.010 0.000- 0.093 Not Available [address], [address], 10/04/2024 12:41:14 10/04/20 24 10/04/2024 CBC NRBC% 0.0 % 0.0-0. 2 Not Available [address], [address], 10/04/2024 12:41:14 10/04/20 24 10/04/2024 CBC NRBC# 0.000 0.000- 0.012 Not Available [address], [address], 10/04/2024 12:41:14 10/04/20 24 10/04/2024 HGB A1C [...] furth er confi rmati on Not Available [address], [address], 10/04/2024 14:01:48 10/04/20 24 10/04/2024 HGB A1C estimated average glucose 116.9 mg/dL Not Available [address], [address], 10/04/2024 14:01:48 10/04/20 24 10/05/2024 BASIC METAB OLIC PANEL glucose 100 mg/dL 70-100 Not Available [address], [address], 10/05/2024 11:46:25 10/04/20 24 10/05/2024 BASIC METAB OLIC PANEL BUN 10 mg/dL 7-18 Not Available [address], [address], 10/05/2024 11:46:25 10/04/20 24 10/05/2024 BASIC METAB OLIC PANEL creatinine 0.9 mg/dL 0.8-1. 3 Not Available [address], [address], 10/05/2024 11:46:25 10/04/20 24 10/05/2024 BASIC METAB OLIC PANEL B/C 11.1 ratio Not Available [address], [address], 10/05/2024 11:46:25 10/04/20 24 10/05/2024 BASIC METAB [...] be used in pregn juju. Not Available [address], [address], 10/05/2024 11:46:25 10/04/20 24 10/05/2024 BASIC METAB OLIC PANEL sodium 143 mmol/ L 136-14 5 Not Available [address], [address], 10/05/2024 11:46:25 10/04/20 24 10/05/2024 BASIC METAB OLIC PANEL potassium 4.1 mmol/ L 3.5-5. 1 Not Available [address], [address], 10/05/2024 11:46:25 10/04/20 24 10/05/2024 BASIC METAB OLIC PANEL chloride 104 mmol/ L 96-107 Not Available [address], [address], 10/05/2024 11:46:25 10/04/20 24 10/05/2024 BASIC METAB OLIC PANEL anion gap 6.7 5.0-15 .0 Not Available [address], [address], 10/05/2024 11:46:25 10/04/20 24 10/05/2024 BASIC METAB OLIC PANEL CO2 32 mmol/ L 21-32 Not Available [address], [address], 10/05/2024 11:46:25 10/04/20 24 10/05/2024 BASIC METAB OLIC PANEL calcium 9.0 mg/dL 8.5-10 .3 Not Available [address], [address], 10/05/2024 11:46:25 10/04/20 24 10/05/2024 LIPID PANEL cholesterol 175 mg/dL <200 mg/dl Ashley able 200-2 39 mg/dl Borde rline High >240 mg/dl High Not Available [address], [address], 10/05/2024 11:46:26 10/04/20 24 10/05/2024 LIPID PANEL triglyceride s 65 mg/dL <150 mg/dL Stephenie l 150-1 99 mg/dL Borde rline High 200-4 99 mg/dL High >500 mg/dL Very High Not Available [address], [address], 10/05/2024 11:46:26 10/04/20 24 10/05/2024 LIPID PANEL direct HDL 68 mg/dL <40 mg/dl - Major Risk for CHD >60 mg/dl - Negat zak Risk for CHD Not Available [address], [address], 10/05/2024 11:46:26 10/04/20 24 10/05/2024 LDL - [...] r is not charan pope. Not Available [address], [address], 10/05/2024 11:46:27 02/03/20 25 02/02/2025 POC FLU/S ARS flu A POC NEGATI VE Not Available [facility] [address] [place] [address], [address], 02/02/2025 14:58:04 02/03/20 25 02/02/2025 POC FLU/S ARS flu B POC NEGATI VE Not Available [facility] [address] [place] [address], [address], 02/02/2025 14:58:04 02/03/20 25 02/02/2025 POC FLU/S ARS sars POC POSITI VE positive Not Available [facility] [address] [place], [address], 02/02/2025 14:58:04 02/29/20 25 02/28/2025 POC UA glu UA NEGATI VE Not Available [facility] [address] [place], [address], 02/28/2025 11:59:08 02/29/20 25 02/28/2025 POC UA clarity UA CLOUDY Not Available [facility] [address] [place] [address], [address], 02/28/2025 11:59:08 02/29/20 25 02/28/2025 POC UA uro UA 0.2000 Not Available [facility] [address] [place] [address], [address], 02/28/2025 11:59:08 02/29/20 25 02/28/2025 POC UA ket UA NEGATI VE Not Available [facility] [address] [place] [address], [address], 02/28/2025 11:59:08 02/29/20 25 02/28/2025 POC UA pro UA NEGATI VE Not Available [facility] [address] [place] [address], [address], 02/28/2025 11:59:08 02/29/20 25 02/28/2025 POC UA nit UA NEGATI VE Not Available [facility] [address] [place], [address], 02/28/2025 11:59:08 02/29/20 25 02/28/2025 POC UA dayo UA 1+ abnormal Not Available [facility] [address] [place] [address], [address], 02/28/2025 11:59:08 02/29/20 25 02/28/2025 POC UA pH UA 7.0000 Not Available [facility] [address] [place] [address], [address], 02/28/2025 11:59:08 02/29/20 25 02/28/2025 POC UA SG UA 1.0100 Not Available [facility] [address] [place] [address], [address], 02/28/2025 11:59:08 02/29/2002/28/2025 POC UA color UA YELLOW Not Available [facility] [address] [place] [address], [address], 02/28/2025 11:59:08 02/29/20 25 02/28/2025 POC UA blo UA TRACE- LYSED abnormal Not Available [facility] [address] [place] [address], [address], 02/28/2025 11:59:08 02/29/20 25 02/28/2025 POC UA william UA NEGATI VE Not Available [facility] [address] [place] [address], [address], 02/28/2025 11:59:08 02/29/20 25 03/04/2025 CULTU RE, URINE , ROUTI NE culture, urine, routine abnormal CULTU RE, URINE , ROUTI NE Micro Numbe r: [id number] Test Statu s: Final Speci men Sourc e: Urine Speci men Quali ty: Adequ ate Resul t: 50,00 0-100 ,000 CFU/m L of Enter ococc us faeca lis COMME NT: Addit ional non-p redom inati ng organ ism(s ) isola hermelinda. These organ isms, commo nly found on exter nal and inter nal genit [place], are consi dered colon izers . No furth er testi ng perfo rmed. E.ger calis ----- ----- ----- - INT SHILPA AMPIC ILLIN S <=2 NITRO FURAN TOIN S <=16 VANCO MYCIN S 1 S = Susce ptibl e I = Inter media te R = Resis tant NS = Not susce ptibl e SDD = Susce ptibl e Dose Depen dent * = Not Teste d NR = Not Repor hermelinda NN = See Josh py Comme nts Not Available [facility] [address] [place], [place], [address], 03/04/2025 20:53:35 Result Notes None recorded. Problems Name Problem SNOMED Code Status Onset Date Resolution Date Notes Provider Name and Address Organization Details Recorded Time Lupus anticoag ulant disorder 15788605 Active [facility] Brooklynn Cronin PA-C [address] [place], [place] [address], [address], [facility] 7 16:36:22 Deep venous thrombos is 054417909 Completed 01/14/20162005 Brooklynn Cronin PA-C [address] [place], [place] [address], [address], [facility] 6 12:36:39 Hyperten sive disorder 76917730 Completed 01/14/2016 Brooklynn Cronin PA-C [address] [place], [place] [address], [address], [facility] 6 12:36:39 Osteoart hritis 034752901 Active knees Brooklynn Cronin PA-C [address] [place], [place] [address], [address], [facility] 1 14:41:31 Environm ental allergy 987801354 Active Brooklynn Cronin PA-C [address] [place], [place] [address], [address], [facility] 6 12:36:39 Edema 811050442 Completed 01/14/2016 Brooklynn Cronin PA-C [address] [place], [place] [address], [address], [facility] 6 12:36:39 Obese 218505088 Active Brooklynn Cronin PA-C [address] [place], [place] [address], [address], [facility] 6 12:36:39 Essentia l hyperten lynne 53116563 Active Brooklynn Cronin PA-C [address] [place] [address] [place], [address], [facility] 6 15:50:00 History of thrombos is 634410725 Active DVT 2005 Brooklynn Cronin PA-C [address] [place] [address] [place], [address], [facility] 6 12:36:39 Peripher al venous insuffic iency 42402383 Active Brooklynn Cronin PA-C [address] [place] [address] [place], [address], [facility] 6 12:36:39 Venous varices 003683596 Active Brooklynn Cronin PA-C [address] [place], [place] [address], [address], [facility] 6 12:36:39 Thromboc ytopenic disorder 955145860 Active 2016 platelet 130s Brooklynn Cronin PA-C [address] [place], [place] [address], [address], [facility] 2 13:57:31 Hyperlip idemia 76282374 Active 2016 Brooklynn Cronin PA-C [address] [place], [place] [address], [address], [facility] 7 15:00:19 Cataract 699892861 Active 2019 Brooklynn Cronin PA-C [address] [place], [place] [address], [address], [facility] 0 15:02:59 Prediabe cheryle 626814785 Active 2022 Brooklynn Cronin PA-C [address] [place] [address] [place], [address], [facility] 3 15:49:21 Hypercoa gulabili ty state 20277002 Active 2022 JACOB Modi [address] [place], [place] [address], [address], [facility] 3 14:40:05 Problem Notes None recorded. Procedures Surgical History Date Name Laterality Status Provider Name and Address Organization Details Recorded Time 4 US Guided Knee Joint Injection completed Cesar Avila MD [address] [place] [address], [address], [facility] 01/06/2024 10:46:45 3 US Guided Knee Joint Injection completed Cesar Avila MD [address] [place] [address], [address], [facility] 06/02/2023 16:04:02 3 US Guided Knee Joint Injection completed Cesar Avila MD [address] [place] [address], [address], [facility] 11/04/2022 10:20:34 2 prevention-monica ual alcohol misuse screening completed Brooklynn Cronin PA-C [address] [place] [address], [address], [facility] 03/28/2022 16:52:35 1 Knee Injection w/o US completed Cesar Avila MD [address] [place] [address], [address], [facility] 12/20/2020 15:30:23 0 prevention-car diovascular risk reduction counseling completed Jen Dickey MA [facility] 06/29/2020 11:49:36 0 prevention-monica ual alcohol misuse screening completed Jen Dickey MA [facility] 06/29/2020 11:49:36 6 POC Strep Testing completed Rhona Marin LPN [facility] 06/02/2016 14:25:26 Imaging Results None recorded. Procedure Notes None recorded. Medical Equipment None Reported. Allergies Allergen ID Allergen Name Allergen Category Reaction Reaction Severity Criticality Documentation Date Start Date Code Code System Note Provider Name and Address Organization Details Recorded Time 649064 Substance with sulfonami de structure and antibacte rial mechanism of action (substanc e) medicatio n Not available Not available Not available 12/05/2014 02829 8005 SNOMED not sure of react ion SACHIN Garcia [facility] 5 14:50:15 016066 lisinopri l medicatio n Not available Not available Not available 11/14/2016 91329 RxNorm Brooklynn Cronin PA-C [address] [place] [address], [facility] S[place]IN chat[place], [phone] , [facility] 7 16:01:00 Medications Name Sig [...] stopped Not Available Not Available Not Available Pyridium 200 mg tablet Take 1 tablet 3 times a day by oral route as needed for 3 days, for dysuria. 03/10 completed Not Available Not Available Not Available warfarin [...] 12 hours by oral route for 5 days, for acute cystitis . 03/12 completed Not Available Not Available Not Available [...] Vitals Date Recorded Body height Body temperature Oxygen saturation Oxygen saturation in Arterial blood by Pulse oximetry Heart rate Systolic blood pressure Diastolic blood pressure Provider Name and Address Organization Details Last Updated DateTime 5 157.48 cm 97.8 [degF] 98 % 98 % 90 /min 140 mm[Hg] 70 mm[Hg] Cecy Gallegos [facility] 5 14:33:23 Date Recorded Body height Body mass index (BMI) Body weight Heart rate Systolic blood pressure Diastolic blood pressure Systolic blood pressure Diastolic blood pressure Provider Name and Address Organization Details Last Updated DateTime 5 157.48 cm 35.3 kg/m2 33311.3 3 g 80 /min 140 mm[Hg] 78 mm[Hg] 142 mm[Hg] 78 mm[Hg] Salome Skinner [facility] 5 11:46:56 Date Recorded Body height Body mass index (BMI) Body weight Heart rate Systolic blood pressure Diastolic blood pressure Provider Name and Address Organization Details Last Updated DateTime 4 162.56 cm 32.1 kg/m2 49914.1 7 g 80 /min 118 mm[Hg] 68 mm[Hg] Elizabeth antonio [facility] 4 11:03:04 Date Recorded Body height Body temperature Heart rate Systolic blood pressure Diastolic blood pressure Provider Name and Address Organization Details Last Updated DateTime 08/29/2024 162.56 cm 97.6 [degF] 72 /min 122 mm[Hg] 70 mm[Hg] Joyce Aquino [facility] 4 16:28:53 Date Recorded Body height Body mass index (BMI) Body weight Heart rate Systolic blood pressure Diastolic blood pressure Systolic blood pressure Diastolic blood pressure Provider Name and Address Organization Details Last Updated DateTime 4 157.48 cm 34.5 kg/m2 94742.1 7 g 64 /min 138 mm[Hg] 76 mm[Hg] 132 mm[Hg] 76 mm[Hg] Elizabeth lAysamantha paco, AIDE [facility] 4 16:04:42 Social History Question Answer Notes LastModified by Organizat ion Details LastModified Time Tobacco Smoking Status Never Smoker SACHIN Garcia, [facility] 12/05/2014 14:57:22 Do You Wear A Helmet When Biking? Yes [email or web address] Information not available 12/05/2014 What Is Your Level Of Caffeine Consumption? Moderate 2 Cups Of Coffee Per Day [email or web address] Information not available 12/05/2014 How Much Tobacco Do You Chew? None [email or web address] Information not available 12/05/2014 What Type Of Diet Are You Following? REGULAR [email or web address] Information not available 12/05/2014 Which Illicit Or Recreational Drugs Have You Used? None [email or web address] Information not available 05/02/2015 Education 11 [email or web address] Information n ot available 12/05/2014 Have There Been Any Changes To Your Family Or Social Situation? No Information not available 10/09/2023 How Many Days In The Past Year Have You Had A Heavy Drinking Consumption (4+ Female, 5+ Male)? 0 [email or web address] Information not available 05/02/2015 Are There Any Guns Present In Your Home? No [email or web address] Information not available 12/05/2014 Do You Use Insect Repellent Routinely? Yes Information not available 10/09/2023 Live Alone Or With Others? With Others With Kids [email or web address] Information not available 12/05/2014 Patient Has Health Care Proxy Signed And In Chart Yes [email or web address] Information not available 10/17/2024 Marital Status Single [email or web address] Informati on not available 12/05/2014 Mosquito Repellent Used Routinely Yes Lyme Dz Prevention Reviewed [email or web address] Information not available 05/02/2015 What Was The Date Of Your Most Recent Tobacco Screening? 02/28/2025 [email or web address] Information not available 02/28/2025 How Many Children Do You Have? 3 Ages 25, 35, 38 (in 2014) Son Koby Avina [email or web address] Information not available 12/05/2014 Seat Belts Used Routinely Yes [email or web address] Information not available 12/05/2014 Are You Sexually Active? No [email or web address] Information not available 12/05/2014 Smoke Alarm In Home No [email or web address] Information not available 12/05/2014 Do You Have Smoke And Carbon Monoxide Detectors In Your Home? Yes Information not available 10/09/2023 Are You Passively Exposed To Smoke? No Information not available 10/09/2023 How Much Tobacco Do You Smoke? No [email or web address] Information not available 12/27/2019 What Types Of Sporting Activities Do You Participate In? Walking As Much As Possible [email or web address] Information not available 01/14/2016 General Stress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 contact the office for any worsening symptoms sooner Low back pain 455434067 M54.50 Low back pain x3 weeks, not related to urinary symptoms, no red flagsPt instructed on supportive care including Tylenol, heat/ice and topicals.I f no improvemen t, recommend PT.Pt instructed to contact the office for any worsening symptoms. [id number] Edwin GHOSH, [facility], [address] [place] [address] 10/07/2024 15:45:53 10/10/2024 12:39:50 Adult health examination 264045641 Z00.00 Depression screening 171 510597 Z13.31 depression screening tool administer ed Screening for alcohol abuse 623240229 Z13.39 Alcohol use screening tool administer ed Screening for malignant neoplasm of colon 387819208 Z12.11 You were given a stool kit today for Colorectal Cancer screening. Please review the instructio ns and return the kit to our office within 7 days. The kits so check the date before submitting the sample. Contact our office with any questions or concerns. Postmenopausal state 764 [address]183 Z78.0 Active or passive immunization 608532796 Z23 tanya Falcon neumo: RemindedFl u: Essential hypertension 35054308 I10 - blood pressure at goal of less than 130/80- continue current medication s Hyperlipidemia 14250268 E78.5 - LDL at goal of under 100, continue current medication s Gastroesop hageal reflux disease 243429148 K21.9 - continue omeprazole - Avoid triggers such as tobacco, alcohol, caffeine, spicy foods, etc - Do not lie down for at least two hours after eating - Avoid over eating [id number] Cecy Kenny MD , [facility], [address] [place] [address] 02/02/2025 14:27:30 02/06/2025 17:44:30 Nasal congestion 29912986 R09.81 Acute COVID-19 541281983 8 U07.1 COVID 19 sx an positive [...] days thereafter f/u any SOB or CP [id number] Val Moy MD , [facility], [address] [place] [address] 02/28/2025 11:28:14 02/28/2025 12:13:37 Immunization due 036080643 Z23 Shinomar: aware at pharamcyPn eumo: aware at pharamcy Screening for malignant neoplasm of colon 899196077 Z12.11 You were given a stool kit today for Colorectal Cancer screening. Please review the instructio ns and return the kit to our office within 7 days. The kits so check the date before submitting the sample. Contact our office with any questions or concerns.Tanya kaylamari has home kit 02/28/25 Dysuria 28998189 R30.0 Patient with urinary symptoms. History and exam and urinalysis consistent with UTI. No symptoms of pyelonephr itis. Low risk of . Will send urine for culture. Discussed supportive and preventive measures. Patient instructed to follow up if not better or with new symptoms. Acute cystitis 57312629 N30.01 * advised on timed void q 3-4 hrs; voiding after intercours e, increase fluids/adrián er intake; no harsh soaps, powders, perfumes or douches; cotton underwear; cranberry juice, no tub baths * urine dip positive, start antibiotic s and finish the course. Start probiotics also. Urine specimen sent for culture. advised to call back or return if with persistent symptoms. Health Concerns Section Related Observation LastModified by Organization Detai ls LastModified Time None Recorded Concern Status LastModified by Organization Details LastModified Time None Recorded Advance Directives Directive None Recorded Payers Encounter Date Sequence Insurance Name Policy Number Policy Dee Covered Member ID Dee Member ID Guarantor Name 04/15/2024 1 [employer] [id number] Monica Del Real [id number] 1 Monica Del Real 08/29/2024 1 [employer] [id number] Monica Del Real [id number] 1 Monica Clappsalma 10/07/2024 1 [employer] [id number] Monica Del Real [id number] 1 Monica Del Real 02/02/2025 1 [employer] [id number] Monica Del Real [id number] 1 Monica Del Real 02/28/2025 1 [employer] [id number] Monica Del Real [id number] 1 Monica Del Real Notes Date Note Type Note Provider Name and Address Organization Details Recorded Time 4 text/html [facility] HyperlipidemiaReported bypatient.Duration:chronic Control:LDL has been 131-159, goal is <100; treated with diet Compliance:compliant with follow-up visits; compliant with diet Barriers to CareNo identified barriers to care Context:Nonsmoker; No ischemic heart disease; No peripheral vascular disease (42849); No diabetes Associated Symptoms:no muscle pain; no [...] daily with grand kids Brooklynn Cronin PA-C [address] [place] [address], [phone], [facility] 04/15/2024 11:18:00 4 text/html 4yo presents [...] the backNo fever/chills, bowel/bladder incontinence JACOB Madsen [address] [place] [address], [phone], [facility] 08/29/2024 17:54:48 4 text/html Physical Exam/FemaleReported [...] ischemic heart disease; No peripheral vascular disease (62476); No diabetes Associated Symptoms:no muscle pain; no [...] been using reading glasses. Brooklynn Cronin PA-C [address] [place] [address], [phone], [facility] 10/10/2024 07:45:13 5 text/html here today feeling illpounding headache and pressure in sinus, congestionbut no runny noseeyes feel like they will explodebody aches and fatigue, very tiredno sore throathad fever and chills today and yestedayhad n/v/d yesterdayno cp, sob, coughhas some PND Cecy Kenny MD [address] [place] [address], [phone], [facility] 02/02/2025 15:16:03 5 text/html Patient informed and consents to use of AI assisted recording to improve documentation of visit.Word substitution may have occurred and may have gone unnoticed and uncorrected. The patient presents with symptoms of a urinary tract infection.She has been experiencing symptoms similar to a previous urinary tract infection that occurred approximately two years ago, which included significant back pain and occasional spotting. The current episode began three to four days ago.Her symptoms include lower back pain, occasional spotting noticed yesterday but not today, and urinary frequency. She has a history of urinary tract infections occurring approximately once a year. During the last episode, she was treated with Macrobid, which she tolerated well without any adverse reactions.She is currently on Coumadin and is concerned about potential interactions with pain medication and antibiotics. She is allergic to sulfa medications. She mentions drinking a lot of water as a preventive measure. No recent sexual activity. Val Moy MD [address] [place] [address], [phone], [facility] 03/01/2025 16:27:56 OBGyn Episode No OBEpisode recorded.
== END 2025-03-21 13:26 | disposition home or self-care (01) ==
LOC: HO.ACS 13:02
PROVIDERS: PCP Physician Assistant Medical; Visit Provider Internal Medicine Medical Oncology
DX: Z79.01 Long term (current) use of anticoagulants (principal)

== ENCOUNTER → 2025-03-21 13:02 | Outpatient (BNVA) | payer OTHER, SELFPAY | PROVIDERS: PCP Physician Assistant Medical; Visit Provider Internal Medicine Medical Oncology | DX: I82.401 Acute embolism and thrombosis of unspecified deep veins of right lower extremity (principal); Z79.01 Long term (current) use of anticoagulants; Z15.81 Genetic susceptibility to multiple endocrine neoplasia [MEN] | CPT/HCPCS: 85610; 99211 ==

== ENCOUNTER 2025-04-18 11:27 | Outpatient (REF) | payer OTHER, SELFPAY ==
[2025-04-18 12:04] LABS: Prothrombin Time 74.7 SEC (10.9-12.4)
[2025-04-18 12:09] LABS: INTERNATIONAL NORM RATIO 6.5 (0.9-1.1)
== END 2025-04-18 11:28 | disposition home or self-care (01) ==
LOC: HO.LAB 11:27
PROVIDERS: PCP Physician Assistant Medical; Visit Provider Internal Medicine Medical Oncology
DX: Z79.01 Long term (current) use of anticoagulants (principal)
CPT/HCPCS: 36415; 85610; 99212

== ENCOUNTER 2025-04-18 11:27 | Outpatient (AMB) | payer OTHER, SELFPAY ==
[2025-04-18 11:37] LABS: Prothrombin Time Whole Bld POC 71.4 sec (11.1-13.5); ~PT, ~INR - Anti Coag Clinic 5.9 (0.9-1.1)
--- NOTE | 2025-04-18 12:07 | MHC.OFFVISCO ---
Intake Intake Visit Reasons: Anticoagulation Allergies lisinopril (Lisinopril) Allergy (Mild, Verified 04/18/25 11:31) COUGH Sulfa (Sulfonamide Antibiotics) Allergy (Mild, Verified 04/18/25 11:31) UNKNOWN Medication List - Last Reconciled 04/18/25 by Ewa Bajwa, RN amlodipine 10 mg PO DAILY atorvastatin 10 mg PO DAILY carvedilol 6.25 mg PO BID clonidine HCl 0.1 mg PO BID fluticasone propionate 50 mcg/actuation 1 spray intranasal DAILY hydrochlorothiazide 25 mg PO DAILY loratadine 10 mg PO DAILY PRN losartan 100 mg PO DAILY nitrofurantoin monohyd/m-cryst 100 mg 1 cap PO BID omeprazole 20 mg PO DAILY warfarin 5 mg See Protocol PO DAILY warfarin 2.5 mg See Protocol PO DAILY Nursing Note INR: 5.9?out of therapeutic range of 2-3 Pt states she has been trying to balance foods that raise the INR with foods that lower it but states she has had a lot of strawberries and waterrmelon the past few days. SHe also admits to increased stress at work. Medications and supplements reviewed Patient status: feels well Medications or supplements: no changes Diet: as above Denies any signs and symptoms of bleeding or clotting or unusual bruising Bleeding, bruising, clotting discussed and pt instructed to go to ER if she hits her head or has any trauma with excessive bleeding that won't stop. Also, pt aware to watch for blood in urine or stool. Nutritional guidance given: to have a serving of greens today Dose: hold warfarin today and tomorrow then retest F/U INR Date: 04/20/25?? Patient verbalizing understanding of instructions with read back given. T/C to pcp at [facility], Parul Mansfield PA-C. Spoke to Arianne. Critical INR 6.5 reported with dosing plan and next retest date. Anti-Coag Initial Assessment Social Hx Patient Tobacco Use Status: Never used Tobacco Coding Level of Care Code Est Patient Level 2 Diagnoses Current use of anticoagulant therapy Z79. 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 - care home (current) use of anticoagulants
--- OUTSIDE RECORDS SUMMARY | 2025-04-18 12:40 | XMS_ITS | Data Portability ---
Author Organization [facility], [facility] Address [address] [place] [address] Care Team Providers Care Radiologist Name Role Phone BROOKLYNN CRONIN Primary Care Provider EDWIN SALAZAR Primary Care Provider [phone] [facility] Sports Medicine [facility] Vascular Surgeon CESAR AVILA Sports Medicine Assessment Encounter Date Assessment Date Assessment LastModified by Organization Details LastModified Time 04/04/2025 04/04/2025 weightbearing X-rays of the bilateral knees from 2022 were independently interpreted demonstrating 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 INR 3.1 - 2 weeks ago at [facility] patient Not available 04/04/2025 11:24:57 Plan of Treatment Reminders Order Date Submit Date Provider Last Modified By Organization Details Last Modified Time Details Appointments Medica l Manage ment 15 2024 11:30A M Mani Sesay PA-C Not available Not available Not available Sports Med Follow Up (20) 2024 01:50P M Cesar Avila MD Not available Not available Not available Sports Med Follow Up (20) 2024 10:50A David Avila MD Not available Not available Not available Sports Med Follow Up (20) 2024 09:50A M Cesar Avila MD Not available Not available Not available Lab cultur e, urine 2024 025 [facility], [address] [facility], [place], [address], 03/04/2025 20:53:35 urinal ysis, dipsti ck 2024 025 [facility], [address] [place] [address], [address], 02/28/2025 14:02:18 fecal occult blood, immuno assay, stool [facility] [address] [place] [address], [address], 02/28/2025 14:51:57 influe nza virus A + B + SARS-C oV-2 (COVID 19) Ag panel, rapid IA, upper respir atory specim en [facility] [address] [place] [address], [address], 02/02/2025 14:58:08 cultur e, urine 2023 024 [facility], [address] [place] [address], [address], 08/31/2024 16:01:18 Referral None record ed. Procedures None record ed. Surgeries None record ed. Imaging DEXA 2023 024 [facility], [address] [place], [address], 10/07/2024 16:10:42 Medication Orders Euflex xa 10 mg/mL (mw 2.4-3. 6 millio n) intra- articu lar syring e 2024 025 [email or web address] Not available 04/18/2025 07:42:40 Pyridi um 200 mg tablet [address] [id number], [address] [place], [address], 03/10/2025 05:01:10 Macrob id 100 mg capsul e [address] [facility][id number], [address] [place], [address], 03/12/2025 05:01:12 omepra zole 20 mg capsul eabeba releas e [address] [facility][id number], [address] [place], [address], 10/07/2024 16:06:33 Patient TargetsNo targets recorded. Patient Instructions Encounter Date Encounter Id Patient Instructions Last Modified By Organization Details Last Modified Time 10/07/2024 [id number] This Shingles vaccine was approved in 2017. [...] autoimmune conditions, and a history of Guillain Stanfield Syndrome. [email or web address] Not available 10/10/2024 07:44:44 04/04/2025 [id number] Schedule 3 appointments 1 week apart for your injection We will call you when we have the medication available Not available 04/04/2025 10:05:29 All of the patients questions were answered and they understand the plan of care. Thank you for allowing me to participate in the care of your patient. Please feel free to contact me with any questions regarding their care. Not available 04/04/2025 11:23:08 Reason for Referral None Reported. Results Created Date Observation Date Name Description Value Unit Range Abnormal Flag Note LastModifiedBy Organization Detail LastModifiedTime 08/29/20 24 08/29/2024 POC UA glu UA NEGATI VE Not Available [facility] [address] [place], [address], 08/29/2024 16:38:21 08/29/20 24 08/29/2024 POC UA clarity UA CLEAR Not Available [facility] [address] [place] [address], [address], 08/29/2024 16:38:21 08/29/20 24 08/29/2024 POC UA uro UA 0.[address] [facility] [address] [place] [address], [address], 08/29/2024 16:38:21 08/29/20 24 08/29/2024 POC UA ket UA NEGATI VE Not Available [facility] [address] [place] [address], [address], 08/29/2024 16:38:21 08/29/20 24 08/29/2024 POC UA pro UA NEGATI VE Not Available [facility] [address] [place] [address], [address], 08/29/2024 16:38:21 08/29/20 24 08/29/2024 POC UA nit UA NEGATI VE Not Available [facility] [address] [place] [address], [address], 08/29/2024 16:38:21 08/29/20 24 08/29/2024 POC UA dayo UA 1+ abnormal Not Available [facility] [address] [place] [address], [address], 08/29/2024 16:38:21 08/29/20 24 08/29/2024 POC UA pH UA 6.[address] [facility] [address] [place] [address], [address], 08/29/2024 16:38:21 08/29/20 24 08/29/2024 POC UA SG UA 1.[address] [facility] [address] [place] [address], [address], 08/29/2024 16:38:21 08/29/20 24 08/29/2024 POC UA color UA YELLOW Not Available [facility] [address] [place] [address], [address], 08/29/2024 16:38:21 08/29/20 24 08/29/2024 POC UA blo UA TRACE- INTACT abnormal Not Available [facility] [address] [place] [address], [address], 08/29/2024 16:38:21 08/29/20 24 08/29/2024 POC UA william UA NEGATI VE Not Available [facility] [address] [place] [address], [address], 08/29/2024 16:38:21 08/29/20 24 08/31/2024 CULTU RE, URINE , ROUTI NE culture, urine, routine CULTU RE, URINE , ROUTI NE Micro Numbe r: [id number] Test Statu s: Final Speci men [...] Cultu re Trans port Tube. Not Available [facility] [address], [place], [address], 08/31/2024 16:38:58 10/04/20 24 10/04/2024 CBC WBC 6.07 K/ L 3.98-1 0.04 Not Available [address], [address], 10/04/2024 12:41:14 10/04/20 24 10/04/2024 CBC RBC 4.22 M/ L 3.93-5 .22 Not Available [address], [address], 10/04/2024 12:41:14 10/04/20 24 10/04/2024 CBC HGB 12.4 g/dL 11.2-1 5.7 Not Available [address], [address], 10/04/2024 12:41:14 10/04/20 24 10/04/2024 CBC HCT 38.0 % 34.1-4 4.9 Not Available [address], [address], 10/04/2024 12:41:14 10/04/20 24 10/04/2024 CBC MCV 90.0 fL 79.4-9 4.8 Not Available [address], [address], 10/04/2024 12:41:14 10/04/20 24 10/04/2024 CBC MCH 29.4 pg 25.6-3 2.2 Not Available [address], [address], 10/04/2024 12:41:14 10/04/20 24 10/04/2024 CBC MCHC 32.6 g/dL 32.2-3 5.5 Not Available [address], [address], 10/04/2024 12:41:14 10/04/20 24 10/04/2024 CBC plt 128 K/ L 182-36 9 low Not Available [address], [address], 10/04/2024 12:41:14 10/04/20 24 10/04/2024 CBC MPV 12.5 fL 9.4-12 .3 high Not Available [address], [address], 10/04/2024 12:41:14 10/04/20 24 10/04/2024 CBC neut% 56.0 % 34.0-7 1.1 Not Available [address], [address], 10/04/2024 12:41:14 10/04/20 24 10/04/2024 CBC neut# 3.40 1.56-6 .13 Not Available [address], [address], 10/04/2024 12:41:14 10/04/20 24 10/04/2024 CBC lymph % 30.8 % 19.3-5 1.7 Not Available [address], [address], 10/04/2024 12:41:14 10/04/20 24 10/04/2024 CBC lymph # 1.87 K/ L 1.18-3 .74 Not Available [address], [address], 10/04/2024 12:41:14 10/04/20 24 10/04/2024 CBC mono% 10.5 % 4.7-12 .5 Not Available [address], [address], 10/04/2024 12:41:14 10/04/20 24 10/04/2024 CBC mono# 0.64 0.24-0 .56 high Not Available [address], [address], 10/04/2024 12:41:14 10/04/20 24 10/04/2024 CBC eo% 1.8 % 0.7-5. 8 Not Available [address], [address], 10/04/2024 12:41:14 10/04/20 24 10/04/2024 CBC eo# 0.11 0.04-0 .36 Not Available [address], [address], 10/04/2024 12:41:14 10/04/20 24 10/04/2024 CBC baso% 0.7 % 0.1-1. 2 Not Available [address], [address], 10/04/2024 12:41:14 10/04/20 24 10/04/2024 CBC baso# 0.04 0.00-0 .08 Not Available [address], [address], 10/04/2024 12:41:14 10/04/20 24 10/04/2024 CBC RDW-CV 13.1 % 11.7-1 4.4 Not Available [address], [address], 10/04/2024 12:41:14 10/04/20 24 10/04/2024 CBC Ig% 0.200 % 0.000- 1.500 Ig % >0.5 Indic ates possi ble Left Shift Not Available [address], [address], 10/04/2024 12:41:14 10/04/20 24 10/04/2024 CBC Ig# 0.010 0.000- 0.093 Not Available [address], [address], 10/04/2024 12:41:14 10/04/20 24 10/04/2024 CBC NRBC% 0.0 % 0.0-0. 2 Not Available [address], [address], 10/04/2024 12:41:14 10/04/20 24 10/04/2024 CBC NRBC# 0.000 0.000- 0.012 Not Available [address], [address], 10/04/2024 12:41:14 10/04/20 24 10/04/2024 HGB A1C [...] er confi rmati on Not Available [address], [address], 10/04/2024 14:01:48 10/04/20 24 10/04/2024 HGB A1C estimated average glucose 116.9 mg/dL Not Available [address], [address], 10/04/2024 14:01:48 10/04/20 24 10/05/2024 BASIC METAB OLIC PANEL glucose 100 mg/dL 70-100 Not Available [address], [address], 10/05/2024 11:46:25 10/04/20 24 10/05/2024 BASIC METAB OLIC PANEL BUN 10 mg/dL 7-18 Not Available [address], [address], 10/05/2024 11:46:25 10/04/20 24 10/05/2024 BASIC METAB OLIC PANEL creatinine 0.9 mg/dL 0.8-1. 3 Not Available [address], [address], 10/05/2024 11:46:25 10/04/20 24 10/05/2024 BASIC METAB OLIC PANEL B/C 11.1 ratio Not Available [address], [address], 10/05/2024 11:46:25 10/04/20 24 10/05/2024 BASIC METAB [...] used in pregn juju. Not Available [address], [address], 10/05/2024 11:46:25 10/04/20 24 10/05/2024 BASIC METAB OLIC PANEL sodium 143 mmol/ L 136-14 5 Not Available [address], [address], 10/05/2024 11:46:25 10/04/20 24 10/05/2024 BASIC METAB OLIC PANEL potassium 4.1 mmol/ L 3.5-5. 1 Not Available [address], [address], 10/05/2024 11:46:25 10/04/20 24 10/05/2024 BASIC METAB OLIC PANEL chloride 104 mmol/ L 96-107 Not Available [address], [address], 10/05/2024 11:46:25 10/04/20 24 10/05/2024 BASIC METAB OLIC PANEL anion gap 6.7 5.0-15 .0 Not Available [address], [address], 10/05/2024 11:46:25 10/04/20 24 10/05/2024 BASIC METAB OLIC PANEL CO2 32 mmol/ L 21-32 Not Available [address], [address], 10/05/2024 11:46:25 10/04/20 24 10/05/2024 BASIC METAB OLIC PANEL calcium 9.0 mg/dL 8.5-10 .3 Not Available [address], [address], 10/05/2024 11:46:25 10/04/20 24 10/05/2024 LIPID PANEL cholesterol 175 mg/dL <200 mg/dl Ashley able 200-2 39 mg/dl Borde rline High >240 mg/dl High Not Available [address], [address], 10/05/2024 11:46:26 10/04/20 24 10/05/2024 LIPID PANEL triglyceride s 65 mg/dL <150 mg/dL Stephenie l 150-1 99 mg/dL Borde rline High 200-4 99 mg/dL High >500 mg/dL Very High Not Available [address], [address], 10/05/2024 11:46:26 10/04/20 24 10/05/2024 LIPID PANEL direct HDL 68 mg/dL <40 mg/dl - Major Risk for CHD >60 mg/dl - Negat zak Risk for CHD Not Available [address], [address], 10/05/2024 11:46:26 10/04/20 24 10/05/2024 LDL - CALCU LATED LDL - calculated 94 RISK CATEG ORY LDL GOAL _ CHD or CHD Risk Equiv alent s <100 mg/dl (10-y ear risk >20%) 2+ Risk Facto rs <130 mg/dl (10-y ear risk <= 20%) 0-1 Risk Facto r <160 mg/dl Almo st all peopl e with 0-1 risk facto r have a 10 year risk <10%, thus 10 year risk asses ment in peopl e with 0-1 risk facto r is not neces toshia. Not Available [address], [address], 10/05/2024 11:46:27 02/03/20 25 02/02/2025 POC FLU/S ARS flu A POC NEGATI VE Not Available [facility] [address] [place], [address], 02/02/2025 14:58:04 02/03/20 25 02/02/2025 POC FLU/S ARS flu B POC NEGATI VE Not Available [facility] [address] [place], [address], 02/02/2025 14:58:04 02/03/20 25 02/02/2025 POC FLU/S ARS sars POC POSITI VE positive Not Available [facility] [address] [place] [address], [address], 02/02/2025 14:58:04 02/29/20 25 02/28/2025 POC UA glu UA NEGATI VE Not Available [facility] [address] [place] [address], [address], 02/28/2025 11:59:08 02/29/20 25 02/28/2025 POC UA clarity UA CLOUDY Not Available [facility] [address] [place] [address], [address], 02/28/2025 11:59:08 02/29/20 25 02/28/2025 POC UA uro UA 0.[address] [facility] [address] [place] [address], [address], 02/28/2025 11:59:08 02/29/20 25 02/28/2025 POC UA ket UA NEGATI VE Not Available [facility] [address] [place], [address], 02/28/2025 11:59:08 02/29/20 25 02/28/2025 POC UA pro UA NEGATI VE Not Available [facility] [address] [place] [address], [address], 02/28/2025 11:59:08 05/13/02/28/2025 POC UA nit UA NEGATI VE Not Available [facility] [address] [place] [address], [address], 02/28/2025 11:59:08 02/29/2002/28/2025 POC UA dayo UA 1+ abnormal Not Available [facility] [address] [place] [address], [address], 02/28/2025 11:59:08 02/29/2002/28/2025 POC UA pH UA 7.[address] [facility] [address] [place] [address], [address], 02/28/2025 11:59:08 02/29/2002/28/2025 POC UA SG UA 1.[address] [facility] [address] [place] [address], [address], 02/28/2025 11:59:08 02/29/2002/28/2025 POC UA color UA YELLOW Not Available [facility] [address] [place] [address], [address], 02/28/2025 11:59:08 02/29/2002/28/2025 POC UA blo UA TRACE- LYSED abnormal Not Available [facility] [address] [place] [address], [address], 02/28/2025 11:59:08 02/29/2002/28/2025 POC UA william UA NEGATI VE Not Available [facility] [address] [place] [address], [address], 02/28/2025 11:59:08 02/29/20 25 03/04/2025 CULTU RE, URINE , ROUTI NE culture, urine, routine abnormal CULTU RE, URINE , ROUTI NE Micro Numbe r: [id number] Test Statu s: Final Speci men [...] = Not Repor hermelinda NN = See Thera py Comme nts Not Available [facility] [address], [place], [address], 03/04/2025 20:53:35 Result Notes None recorded. Problems Name Problem SNOMED Code Status Onset Date Resolution Date Notes Provider Name and Address Organization Details Recorded Time Lupus anticoag ulant disorder 20045656 Active [facility] Brooklynn Cronin PA-C [address] [place] [address] [place], [address], [facility] 7 16:36:22 Deep venous thrombos is 650228900 Completed 01/14/20162005 Brooklynn Cronin PA-C [address] [place] [address] [place], [address], [facility] 6 12:36:39 Hyperten sive disorder 05892434 Completed 01/14/2016 Brooklynn Cronin PA-C [address] [place] [address] [place], [address], [facility] 6 12:36:39 Osteoart hritis 580957131 Active knees Brooklynn Cronin PA-C [address] [place] [address] [place], [address], [facility] 1 14:41:31 Environm ental allergy 238596652 Active BROWN Hernández [place], [address], [facility] 6 12:36:39 Edema 622941576 Completed 01/14/2016 Brooklynn Cronin PA-C [address] [place] [address] [place], [address], [facility] 6 12:36:39 Obese 420760690 Active Brooklynn Cronin PA-C [address] [place] [address] [place], [address], [facility] 6 12:36:39 [facility] hyperten lynne 16977694 Active Brooklynn Cronin PA-C [address] [place] [address] [place], [address], [facility] 6 15:50:00 History of thrombos is 793933831 Active DVT 2005 Brooklynn Cronin PA-C [address] [place] [address] [place], [address], [facility] 6 12:36:39 Peripher al venous insuffic iency 80356380 Active Brooklynn Cronin PA-C [address] [place] [address] [place], [address], [facility] 6 12:36:39 Venous varices 245260191 Active Brooklynn Cronin PA-C [address] [place] [address] [place], [address], [facility] 6 12:36:39 Thromboc ytopenic disorder 387900466 Active 2016 platelet 130s Brooklynn Cronin PA-C [address] [place] [address] [place], [address], [facility] 2 13:57:31 Hyperlip idemia 13890113 Active 2016 Brooklynn Cronin PA-C [address] [place] [address] [place], [address], [facility] 7 15:00:19 Cataract 536946969 Active 2019 Brooklynn Cronin PA-C [address] [place] [address] [place], [address], [facility] 0 15:02:59 Prediabe cheryle 213631611 Active 2022 Brooklynn Cronin PA-C [address] [place] [address] [place], [address], [facility] 3 15:49:21 [facility] 73718414 Active 2022 JACOB Modi [address] [place], [place] [address], [address], [facility] 3 14:40:05 Problem Notes None recorded. Procedures Surgical History Date Name Laterality Status Provider Name and Address Organization Details Recorded Time 4 US Guided Knee Joint Injection completed Cesar Avila MD [address] [place] [address], [address], [facility] 01/06/2024 10:46:45 3 US Guided Knee Joint Injection completed Cesar Avila MD [address] [place] [address], [phone], [facility] 06/02/2023 16:04:02 3 US Guided Knee Joint Injection completed Cesar Avila MD [address] [place] [address], [address], [facility] 11/04/2022 10:20:34 2 prevention-monica ual alcohol misuse screening completed Brooklynn Cronin PA-C [address] [place] [address], [address], [facility] 03/28/2022 16:52:35 1 Knee Injection w/o US completed Cesar Avila MD [address] [place] [address], [address], [facility] 12/20/2020 15:30:23 0 prevention-car diovascular risk reduction counseling completed Jen Dickey MA [facility] 06/29/2020 11:49:36 0 prevention-monica ual alcohol misuse screening completed Jen Dickey MA [facility] 06/29/2020 11:49:36 6 POC Strep Testing completed Rhona Marin LPN [facility] 06/02/2016 14:25:26 Imaging Results None recorded. Procedure Notes None recorded. Medical Equipment None Reported. Allergies Allergen ID Allergen Name Allergen Category Reaction Reaction Severity Criticality Documentation Date Start Date Code Code System Note Provider Name and Address Organization Details Recorded Time 372547 Substance with sulfonami de structure and antibacte rial mechanism of action (substanc e) medicatio n Not available Not available Not available 12/05/2014 55094 8003 SNOMED not sure of react ion Jessica Mcgraw MA null, [facility] 5 14:50:15 989237 lisinopri l medicatio n Not available Not available Not available 11/14/2016 89844 RxNorm Brooklynn Cronin PA-C [address] [place] [address], [place], [phone] , [facility] 7 16:01:00 Medications Name Sig Start Date [...] completed Not Available Not Available Not Available Euflexxa 10 mg/mL (mw 2.4-3.6 million) intra-art icular syringe Inject 2 mL every week by intra-ar ticular route for 21 days. 2024 active Will do PA prior to sending in prescrip tion PA APPROVED THRU 04/17/26 Not Available Not Available Not Available Vitals Date Recorded Body height Body temperature Oxygen saturation Oxygen saturation in Arterial blood by Pulse oximetry Heart rate Systolic blood pressure Diastolic blood pressure Provider Name and Address Organization Details Last Updated DateTime 5 157.48 cm 97.8 [degF] 98 % 98 % 90 /min 140 mm[Hg] 70 mm[Hg] Cecy Gallegos MA [facility] 5 14:33:23 Date Recorded Body height Body mass index (BMI) Body weight Heart rate Systolic blood pressure Diastolic blood pressure Systolic blood pressure Diastolic blood pressure Provider Name and Address Organization Details Last Updated DateTime 5 157.48 cm 35.3 kg/m2 47514.3 3 g 80 /min 140 mm[Hg] 78 mm[Hg] 142 mm[Hg] 78 mm[Hg] Salome Skinner MA [facility] 5 11:46:56 Date Recorded Body height Provider Name an d Address Organization Details Last Updated DateTime 04/04/2025 157.48 cm Aurora Otto MA [facility] 04/04/2025 09:48:59 Date Recorded Body height Body temperature Heart rate Systolic blood pressure Diastolic blood pressure Provider Name and Address Organization Details Last Updated DateTime 08/29/2024 162.56 cm 97.6 [degF] 72 /min 122 mm[Hg] 70 mm[Hg] Joyce Aquino MA [facility] 4 16:28:53 Date Recorded Body height Body mass index (BMI) Body weight Heart rate Systolic blood pressure Diastolic blood pressure Systolic blood pressure Diastolic blood pressure Provider Name and Address Organization Details Last Updated DateTime 157.48 cm 34.5 kg/m2 09594.1 7 g 64 /min 138 mm[Hg] 76 mm[Hg] 132 mm[Hg] 76 mm[Hg] Elizabeht antonio Mary [facility] 4 16:04:42 Social History Question Answer Notes LastModified by Organizat ion Details LastModified Time Tobacco Smoking Status [facility]/05/2014 14:57:22 Do You Wear A Helmet When Biking? Yes [email or web address] Information not available 12/05/2014 What Is Your Level Of Caffeine Consumption? Moderate 2 Cups Of Coffee Per Day [email or web address] Information not available 12/05/2014 How Much Tobacco Do You Chew? None [email or web address] Information not available 12/05/2014 What Type Of Diet Are You Following? REGULAR [email or web address] Information not available 12/05/2014 Which Illicit Or Recreational Drugs Have You Used? None [email or web address] Information not available 05/02/2015 Education 11 [email or web address] Information n ot available 12/05/2014 Have There Been Any Changes To Your Family Or Social Situation? No Information not available 10/09/2023 How Many Days In The Past Year Have You Had A Heavy Drinking Consumption (4+ Female, 5+ Male)? 0 [email or web address] Information not available 05/02/2015 Are There Any Guns Present In Your Home? No [email or web address] Information not available 12/05/2014 Do You Use Insect Repellent Routinely? Yes Information not available 10/09/2023 Live Alone Or With Others? With Others With Kids [email or web address] Information not available 12/05/2014 Patient Has Health Care Proxy Signed And In Chart Yes [email or web address] Information not available 10/17/2024 Marital Status Single [email or web address] Informati on not available 12/05/2014 Mosquito Repellent Used Routinely Yes Lyme Dz Prevention Reviewed [email or web address] Information not available 05/02/2015 What Was The Date Of Your Most Recent Tobacco Screening? 02/28/2025 [email or web address] Information not available 02/28/2025 How Many Children Do You Have? 3 Ages 25, 35, 38 (in 2015) Son Koby Avina [email or web address] Information not available 12/05/2014 Seat Belts Used Routinely Yes [email or web address] Information not available 12/05/2014 Are You Sexually Active? No [email or web address] Information not available 12/05/2014 Smoke Alarm In Home No [email or web address] Information not available 12/05/2014 Do You Have Smoke And Carbon Monoxide Detectors In Your Home? Yes Information not available 10/09/2023 Are You Passively Exposed To Smoke? No Information not available 10/09/2023 How Much Tobacco Do You Smoke? No Information not available 12/27/2019 What Types Of Sporting Activities Do You Participate In? Walking As Much As Possible [email or web address] Information not available 01/14/2016 General Stress Level Low [email or web address] Information not available 01/14/2016 Do You Use Sunscreen Routinely? Yes [email or web address] Information not available 12/05/2014 How Many Years Have You Smoked Tobacco? 0 [email or web address] Information not available 12/27/2019 Sex: Female Functional Status Question Answer Note LastModified by Organizat ion Details LastModified Time Do you or have you ever used any other forms of tobacco or nicotine? No Information not available 02/02/2025 What is your level of alcohol consumption? Occasional [email or web address] Information not available 12/05/2014 Do you or have you ever used smokeless tobacco? Never used smokeless tobacco [email or web address] Information not available 12/27/2019 Are you currently employed? Yes Information not available 10/09/2023 What is your occupation? Other [employer] Information not available 03/31/2025 Do you or have you ever used e-cigarettes or vape? Never used electronic cigarettes [email or web address] Information not available 12/27/2019 What is your exercise level? Occasional Information not available 10/09/2023 Mental Status None recorded. Family History Relationship Description Onset Age of this Age Resolved Age Notes LastModified by Organization Details LastModified Time Mother Chronic obstructive pulmonary disease smoker [email or web address] Not available 2015 16:16:51 Mother Disorder of thyroid gland [email or web address] Not available 2015 16:16:51 Father Malignant tumor of colon 70 ? [email or web address] Not available 2015 16:16:51 Sister Well adult [email or web address] Not availa ble 01/14/2016 16:16:51 Son Multiple sclerosis [email or web address] Not available 2015 16:16:51 Son Alcoholism [email or web address] Not availa ble 06/29/2020 15:03:50 Son Type 2 diabetes mellitus [email or web address] Not available 2022 14:00:05 Paternal Uncle Myocardial infarction [email or web address] Not available 01/13 16:16:51 Maternal Uncle Leukemia (morphologic abnormality) [email or web address] Not available 16:16:51 Notes:No breast ca Medical [...] trivalent, PF 4 completed Brooklynn Cronin PA-C [address] [place] [address], [id number], [facility] 10/10/2024 07:43:26 COVID-19, mRNA, LNP-S, PF, 100 mcg/0.5mL dose or 50 mcg/0.25mL dose 2 [facility] 15:20:26 COVID-19, mRNA, LNP-S, PF, 100 mcg/0.5mL dose or 50 mcg/0.25mL dose 2 [facility] 02/18/2022 13:35:40 COVID-19, mRNA, LNP-S, PF, 50 mcg/0.5 mL dose 1 [facility] 09/26/2022 14:56:29 COVID-19, mRNA, LNP-S, PF, 50 mcg/0.5 mL dose 1 [facility] 09/26/2022 14:57:13 COVID-19, mRNA, LNP-S, PF, 50 mcg/0.5 mL dose 1 [facility] 09/26/2022 14:58:00 COVID-19, mRNA, LNP-S, bivalent, PF, 30 mcg/0.3 mL dose 2 [facility] 09/26/2022 14:58:35 influenza, unspecified formulation 2 completed [facility] 09/26/2022 15:08:26 Past Encounters Encounter ID Performer Location Encounter Start Date Encounter Closed Date Diagnosis/Indication Diagnosis SNOMED-CT Code Diagnosis ICD10 Code Diagnosis Note [id number] Edwin GHOSH, [facility], OFFICE [address] [place] [address] 12/05/2014 14:40:48 12/05/2014 15:40:37 Adult health examination [id number] see Risk Assessment and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 MD Sports Medicine, [facility] [address] [place] [address] 04/04/2025 09:46:01 04/04/2025 13:02:36 Knee pain 95508476 M25.562 M25.561 Monica is a 64-year-ol d female with bilateral knee pain due to underlying osteoarthr itis. Reviewed this diagnosis again with her today in detail as well as discussing treatment options. We discussed further physical therapy and the use of oral medication s, Viscosuppl ementation , geniculate nerve ablation, and potential surgery. I did advise with the severity of her osteoarthr itis and continuing symptoms that surgery would likely be indicated this is not something she wishes to proceed with at this time. She is interested in Viscosuppl ementation which I believe would be reasonable . We discussed that this typically worse past for mild to moderate arthritis and has a lower efficacy for more severe degenerati ve changes. She will plan to schedule 3 follow-up appointmen ts 1 week apart for her injections . We will start the prior authorizat ion process for a prescripti on of Euflexxa and contact her once the medication is available. Osteoarthr itis of knee 504103280 M17.0 Health Concerns Section Related Observation LastModified by Organization Detai ls LastModified Time None Recorded Concern Status LastModified by Organization Details LastModified Time None Recorded Advance Directives Directive None Recorded Payers Insurance Date Sequence Insurance Name Policy Number Policy Dee Covered Member ID Dee Member ID Guarantor Name 02/02/2025 2 [place]IC[place]: [employer] Moncia Del Real [id number] Monica Del Real 06/14/2020 PAYMENT PLAN Monica Del Real 03/15/2019 PAYMENT PLAN Monica Del Real 04/04/2025 [employer] Monica Del Real 12/09/2017 1 [facility] - [employer] (PP[place]) [id number] Monica Del Real [id number] Monica Del Real 12/09/2017 1 [employer] (PPO) [id number] Monica Del Real [id number] Monica Del Real 12/09/2017 1 [employer] - OPEN ACCESS PLUS - PHCS [id number] Monica Del Real [id number] Monica Del Real 04/04/2025 1 [employer] [id number] Monica Del Real [id number] Monica Del Real 09/15/2022 [employer] Monica Del Real 12/09/2017 1 [facility] - CIGNA - OPEN ACCESS PLUS - [employer] (PPO) [id number] Monica Del Real [id number] Monica Del Real 11/04/2018 [employer] Monica Del Real Notes Date Note Type Note Provider Name and Address Organization Details Recorded Time 4 text/html 4yo presents for back painPt [...] the backNo fever/chills, bowel/bladder incontinence JACOB Madsen [address] [place] [address], [phone], [facility] 08/29/2024 17:54:48 4 text/html Physical Exam/FemaleReported bypatient.PHAPatient [...] ischemic heart disease; No peripheral vascular disease ([id number]); No diabetes Associated Symptoms:no muscle pain; no [...] been using reading glasses. Brooklynn Cronin PA-C [address] [place] [address], [phone], [facility] 10/10/2024 07:45:13 5 text/html here today feeling illpounding headache and pressure in sinus, congestionbut no runny noseeyes feel like they will explodebody aches and fatigue, very tiredno sore throathad fever and chills today and yestedayhad n/v/d yesterdayno cp, sob, coughhas some PND Cecy Kenny MD [address] [place] [address], [phone], [facility] 02/02/2025 15:16:03 5 text/html Patient informed and [...] No recent sexual activity. Val Moy MD [address] [place] [address], [phone], [facility] 03/01/2025 16:27:56 5 text/html Monica is a 64-year-old female who presents today for an exacerbation of chronic uncontrolled bilateral knee pain. She was last evaluated for her knees in December 2023 when she underwent corticosteroid injections with 80 mg of Kenalog. Unfortunately she does not feel this provided much symptom relief. Since then she has had cracks seen and waning pain that has generally been worsening. She describes pain particularly in the anterior knees that is worse on stairs. She denies any locking or instability episodes or swelling. She denies any new injuries. She has been using Tylenol for pain but continues to have discomfort. She has also previously done physical therapy per Cesar Avila MD [address] [place] [address], [phone], [facility] 04/04/2025 11:26:17 OBGyn Episode No OBEpisode recorded.
== END 2025-04-18 12:52 | disposition home or self-care (01) ==
LOC: HO.ACS 11:27
PROVIDERS: PCP Physician Assistant Medical; Visit Provider Internal Medicine Medical Oncology
DX: Z79.01 Long term (current) use of anticoagulants (principal)

== ENCOUNTER 2025-04-20 07:56 | Outpatient (AMB) | payer OTHER, SELFPAY ==
--- NOTE | 2025-04-20 07:56 | MHC.OFFVISCO ---
Intake Intake Visit Reasons: Anticoagulation Allergies lisinopril (Lisinopril) Allergy (Mild, Verified 04/18/25 11:31) COUGH Sulfa (Sulfonamide Antibiotics) Allergy (Mild, Verified 04/18/25 11:31) UNKNOWN Nursing Note INR: 1.9 out of therapeutic range of 2-3. Previous INR 6.5 on 04/18/25 Pt held warfarin X 2 days and had salad and brussel sprouts and green tea. Overcompensated with too many greens. Medications and supplements reviewed No changes in health, diet, medications, or supplements, Denies any signs and symptoms of bleeding or bruising or clotting. 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
--- OUTSIDE RECORDS SUMMARY | 2025-04-20 07:58 | XMS_ITS | Clinical Summary ---
Author Organization [facility] Address [address] [place] [address] Care Team Providers Care Equipment Scheduler Name Role Phone Parul Childs Primary Care [...] - Td or Tdap) 05/02/2025 05/02/2015 INFLUENZA (#1) 2025 Care Teams Equipment Scheduler Relationship Specialty Start Date End Date Parul Childs PCP - General Internal Medicine 11/05/18
--- OUTSIDE RECORDS SUMMARY | 2025-04-20 07:58 | XMS_ITS | Data Portability ---
Author Organization [facility], [facility] Address [address] [place] [address] Care Team Providers Care Vp Account Director Name Role Phone BROOKLYNN CRONIN Primary Care Provider EDWIN SALAZAR Primary Care Provider [phone] [facility] Vascular Surgeon CESAR AVILA Sports Medicine Assessment Encounter Date Assessment Date Assessment LastModified by Organization Details LastModified Time 04/04/2025 04/04/2025 weightbearing X-rays of the bilateral knees from 2022 were independently interpreted demonstrating 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 [address] [place] [address], [address], 02/28/2025 14:51:57 influe nza virus A + B + SARS-C oV-2 (COVID 19) Ag panel, rapid IA, upper respir atory specim en [facility] [address] [place] [address], [address], 02/02/2025 14:58:08 cultur e, urine 2023 024 [facility], [address] [place] [address], [address], 08/31/2024 16:01:18 Referral None record ed. Procedures None record ed. Surgeries None record ed. Imaging DEXA 2023 024 [facility], [address] [place], [address], 10/07/2024 16:10:42 Medication Orders Euflex xa 10 mg/mL (mw 2.4-3. 6 millio n) intra- articu lar syring e 2024 025 [email or web address] Not available 04/18/2025 07:42:40 Pyridi um 200 mg tablet 2024 025 [id number], [address] [place], [address], 03/10/2025 05:01:10 Macrob id 100 mg capsul e 2024 025 [id number], [address] [place], [address], 03/12/2025 05:01:12 omepra zole 20 mg capsul eabeba releas e 2023 024 [id number], [address] [place], [address], 10/07/2024 16:06:33 Patient TargetsNo targets recorded. Patient Instructions Encounter Date Encounter Id Patient Instructions Last Modified By Organization Details Last Modified Time 10/07/2024 [id number] This Shingles vaccine was approved in 2017. [...] autoimmune conditions, and a history of Guillain Welton Syndrome. [email or web address] Not available 10/10/2024 07:44:44 04/04/2025 [id number] Schedule 3 appointments 1 week apart for [...] UA glu UA NEGATI VE Not Available [facility] [address] [place], [address], 08/29/2024 16:38:21 08/29/20 24 08/29/2024 POC UA clarity UA CLEAR Not Available [facility] [address] [place] [address], [address], 08/29/2024 16:38:21 08/29/20 24 08/29/2024 POC UA uro UA 0.2000 Not Available [facility] [address] [place] [address], [address], 08/29/2024 16:38:21 08/29/20 24 08/29/2024 POC UA ket UA NEGATI VE Not Available [facility] [address] [place] [address], [id number], 08/29/2024 16:38:21 08/29/20 24 08/29/2024 POC UA pro UA NEGATI VE Not Available [facility] [address] [place] [address], [address], 08/29/2024 16:38:21 08/29/20 24 08/29/2024 POC UA nit UA NEGATI VE Not Available [facility] [address] [place] [address], [address], 08/29/2024 16:38:21 08/29/20 24 08/29/2024 POC UA dayo UA 1+ abnormal Not Available [facility] [address] [place] [address], [address], 08/29/2024 16:38:21 08/29/20 24 08/29/2024 POC UA pH UA 6.0000 Not Available [facility] [address] [place] [address], [address], 08/29/2024 16:38:21 08/29/20 24 08/29/2024 POC UA SG UA 1.0250 Not Available [facility] [address] [place] [address], [address], 08/29/2024 16:38:21 08/29/20 24 08/29/2024 POC UA color UA YELLOW Not Available [facility] [address] [place] [address], [address], 08/29/2024 16:38:21 08/29/20 24 08/29/2024 POC UA blo UA TRACE- INTACT abnormal Not Available [facility] [address] [place] [address], [address], 08/29/2024 16:38:21 08/29/20 24 08/29/2024 POC UA william UA NEGATI VE Not Available [facility] [address] [place] [address], [address], 08/29/2024 16:38:21 08/29/20 24 08/31/2024 CULTU RE, URINE , ROUTI NE culture, urine, routine CULTU RE, URINE , ROUTI NE Micro Numbe r: [id number] Test Statu s: Final Speci men [...] Cultu re Trans port Tube. Not Available [facility] [address], [place], [address], 08/31/2024 16:38:58 10/04/20 24 10/04/2024 CBC WBC 6.07 K/ L 3.98-1 0.04 Not Available [address], [address], 10/04/2024 12:41:14 10/04/20 24 10/04/2024 CBC RBC 4.22 M/ L 3.93-5 .22 Not Available [address], [address], 10/04/2024 12:41:14 10/04/20 24 10/04/2024 CBC HGB 12.4 g/dL 11.2-1 5.7 Not Available [address], [address], 10/04/2024 12:41:14 10/04/20 24 10/04/2024 CBC HCT 38.0 % 34.1-4 4.9 Not Available [address], [address], 10/04/2024 12:41:14 10/04/20 24 10/04/2024 CBC MCV 90.0 fL 79.4-9 4.8 Not Available [address], [address], 10/04/2024 12:41:14 10/04/20 24 10/04/2024 CBC MCH 29.4 pg 25.6-3 2.2 Not Available [address], [address], 10/04/2024 12:41:14 10/04/20 24 10/04/2024 CBC MCHC 32.6 g/dL 32.2-3 5.5 Not Available [address], [address], 10/04/2024 12:41:14 10/04/20 24 10/04/2024 CBC plt 128 K/ L 182-36 9 low Not Available [address], [address], 10/04/2024 12:41:14 10/04/20 24 10/04/2024 CBC MPV 12.5 fL 9.4-12 .3 high Not Available [address], [address], 10/04/2024 12:41:14 10/04/20 24 10/04/2024 CBC neut% 56.0 % 34.0-7 1.1 Not Available [address], [address], 10/04/2024 12:41:14 10/04/20 24 10/04/2024 CBC neut# 3.40 1.56-6 .13 Not Available [address], [address], 10/04/2024 12:41:14 10/04/20 24 10/04/2024 CBC lymph % 30.8 % 19.3-5 1.7 Not Available [address], [address], 10/04/2024 12:41:14 10/04/20 24 10/04/2024 CBC lymph # 1.87 K/ L 1.18-3 .74 Not Available [address], [address], 10/04/2024 12:41:14 10/04/20 24 10/04/2024 CBC mono% 10.5 % 4.7-12 .5 Not Available [address], [address], 10/04/2024 12:41:14 10/04/20 24 10/04/2024 CBC mono# 0.64 0.24-0 .56 high Not Available [address], [address], 10/04/2024 12:41:14 10/04/20 24 10/04/2024 CBC eo% 1.8 % 0.7-5. 8 Not Available [address], [address], 10/04/2024 12:41:14 10/04/20 24 10/04/2024 CBC eo# 0.11 0.04-0 .36 Not Available [address], [address], 10/04/2024 12:41:14 10/04/20 24 10/04/2024 CBC baso% 0.7 % 0.1-1. 2 Not Available [address], [address], 10/04/2024 12:41:14 10/04/20 24 10/04/2024 CBC baso# 0.04 0.00-0 .08 Not Available [address], [address], 10/04/2024 12:41:14 10/04/20 24 10/04/2024 CBC RDW-CV 13.1 % 11.7-1 4.4 Not Available [address], [address], 10/04/2024 12:41:14 10/04/20 24 10/04/2024 CBC Ig% 0.200 % 0.000- 1.500 Ig % >0.5 Indic ates possi ble Left Shift Not Available [address], [address], 10/04/2024 12:41:14 10/04/20 24 10/04/2024 CBC Ig# 0.010 0.000- 0.093 Not Available [address], [address], 10/04/2024 12:41:14 10/04/20 24 10/04/2024 CBC NRBC% 0.0 % 0.0-0. 2 Not Available [address], [address], 10/04/2024 12:41:14 10/04/20 24 10/04/2024 CBC NRBC# 0.000 0.000- 0.012 Not Available [address], [address], 10/04/2024 12:41:14 10/04/20 24 10/04/2024 HGB A1C [...] furth er confi rmati on Not Available [address], [address], 10/04/2024 14:01:48 10/04/20 24 10/04/2024 HGB A1C estimated average glucose 116.9 mg/dL Not Available [address], [address], 10/04/2024 14:01:48 10/04/20 24 10/05/2024 BASIC METAB OLIC PANEL glucose 100 mg/dL 70-100 Not Available [address], [address], 10/05/2024 11:46:25 10/04/20 24 10/05/2024 BASIC METAB OLIC PANEL BUN 10 mg/dL 7-18 Not Available [address], [address], 10/05/2024 11:46:25 10/04/20 24 10/05/2024 BASIC METAB OLIC PANEL creatinine 0.9 mg/dL 0.8-1. 3 Not Available [address], [address], 10/05/2024 11:46:25 10/04/20 24 10/05/2024 BASIC METAB OLIC PANEL B/C 11.1 ratio Not Available [address], [address], 10/05/2024 11:46:25 10/04/20 24 10/05/2024 BASIC METAB [...] be used in pregn juju. Not Available [address], [address], 10/05/2024 11:46:25 10/04/20 24 10/05/2024 BASIC METAB OLIC PANEL sodium 143 mmol/ L 136-14 5 Not Available [address], [address], 10/05/2024 11:46:25 10/04/20 24 10/05/2024 BASIC METAB OLIC PANEL potassium 4.1 mmol/ L 3.5-5. 1 Not Available [address], [address], 10/05/2024 11:46:25 10/04/20 24 10/05/2024 BASIC METAB OLIC PANEL chloride 104 mmol/ L 96-107 Not Available [address], [address], 10/05/2024 11:46:25 10/04/20 24 10/05/2024 BASIC METAB OLIC PANEL anion gap 6.7 5.0-15 .0 Not Available [address], [address], 10/05/2024 11:46:25 10/04/20 24 10/05/2024 BASIC METAB OLIC PANEL CO2 32 mmol/ L 21-32 Not Available [address], [address], 10/05/2024 11:46:25 10/04/20 24 10/05/2024 BASIC METAB OLIC PANEL calcium 9.0 mg/dL 8.5-10 .3 Not Available [address], [address], 10/05/2024 11:46:25 10/04/20 24 10/05/2024 LIPID PANEL cholesterol 175 mg/dL <200 mg/dl Ashley able 200-2 39 mg/dl Borde rline High >240 mg/dl High Not Available [address], [address], 10/05/2024 11:46:26 10/04/20 24 10/05/2024 LIPID PANEL triglyceride s 65 mg/dL <150 mg/dL Stephenie l 150-1 99 mg/dL Borde rline High 200-4 99 mg/dL High >500 mg/dL Very High Not Available [address], [address], 10/05/2024 11:46:26 10/04/20 24 10/05/2024 LIPID PANEL direct HDL 68 mg/dL <40 mg/dl - Major Risk for CHD >60 mg/dl - Negat zak Risk for CHD Not Available [address], [address], 10/05/2024 11:46:26 10/04/20 24 10/05/2024 LDL - [...] r is not neces toshia. Not Available [address], [address], 10/05/2024 11:46:27 02/03/20 25 02/02/2025 POC FLU/S ARS flu A POC NEGATI VE Not Available [facility] [address] [place], [address], 02/02/2025 14:58:04 02/03/20 25 02/02/2025 POC FLU/S ARS flu B POC NEGATI VE Not Available [facility] [address] [place], [address], 02/02/2025 14:58:04 02/03/20 25 02/02/2025 POC FLU/S ARS sars POC POSITI VE positive Not Available [facility] [address] [place] [address], [address], 02/02/2025 14:58:04 02/29/20 25 02/28/2025 POC UA glu UA NEGATI VE Not Available [facility] [address] [place] [address], [address], 02/28/2025 11:59:08 02/29/20 25 02/28/2025 POC UA clarity UA CLOUDY Not Available [facility] [address] [place] [address], [address], 02/28/2025 11:59:08 02/29/20 25 02/28/2025 POC UA uro UA 0.2000 Not Available [facility] [address] [place] [address], [address], 02/28/2025 11:59:08 02/29/20 25 02/28/2025 POC UA ket UA NEGATI VE Not Available [facility] [address] [place], [address], 02/28/2025 11:59:08 02/29/20 25 02/28/2025 POC UA pro UA NEGATI VE Not Available [facility] [address] [place] [address], [address], 02/28/2025 11:59:08 05/13/02/28/2025 POC UA nit UA NEGATI VE Not Available [facility] [address] [place] [address], [address], 02/28/2025 11:59:08 02/29/2002/28/2025 POC UA dayo UA 1+ abnormal Not Available [facility] [address] [place] [address], [address], 02/28/2025 11:59:08 02/29/2002/28/2025 POC UA pH UA 7.0000 Not Available [facility] [address] [place] [address], [address], 02/28/2025 11:59:08 02/29/2002/28/2025 POC UA SG UA 1.0100 Not Available [facility] [address] [place] [address], [address], 02/28/2025 11:59:08 02/29/2002/28/2025 POC UA color UA YELLOW Not Available [facility] [address] [place] [address], [address], 02/28/2025 11:59:08 02/29/2002/28/2025 POC UA blo UA TRACE- LYSED abnormal Not Available [facility] [address] [place] [address], [address], 02/28/2025 11:59:08 02/29/2002/28/2025 POC UA william UA NEGATI VE Not Available [facility] [address] [place] [address], [address], 02/28/2025 11:59:08 02/29/20 25 03/04/2025 CULTU RE, URINE , ROUTI NE culture, urine, routine abnormal CULTU RE, URINE , ROUTI NE Micro Numbe r: [id number] Test Statu s: Final Speci men [...] See Thera py Comme nts Not Available [facility] [address], [place], [address], 03/04/2025 20:53:35 Result Notes None recorded. Problems Name Problem SNOMED Code Status Onset Date Resolution Date Notes Provider Name and Address Organization Details Recorded Time Lupus anticoag ulant disorder 18174340 Active [facility] Brooklynn Cronin PA-C [address] [place] [address] [place], [address], [facility] 7 16:36:22 Deep venous thrombos is 570165268 Completed 01/14/20162005 Brooklynn Cronin PA-C [address] [place] [address] [place], [address], [facility] 6 12:36:39 Hyperten sive disorder 68580260 Completed 01/14/2016 Brooklynn Cronin PA-C [address] [place] [address] [place], [address], [facility] 6 12:36:39 Osteoart hritis 679463621 Active knees Brooklynn Cronin PA-C [address] [place] [address] [place], [address], [facility] 1 14:41:31 Environm ental allergy 577120703 Active BROWN Hernández [place], [address], [facility] 6 12:36:39 Edema 050895908 Completed 01/14/2016 Brooklynn Cronin PA-C [address] [place] [address] [place], [address], [facility] 6 12:36:39 Obese 258413360 Active Brooklynn Cronin PA-C [address] [place] [address] [place], [address], [facility] 6 12:36:39 [facility]ia l hyperten lynne 11643371 Active Brooklynn Cronin PA-C [address] [place] [address] [place], [address], [facility] 6 15:50:00 History of thrombos is 816670713 Active DVT 2005 Brooklynn Cronin PA-C [address] [place] [address] [place], [address], [facility] 6 12:36:39 Peripher al venous insuffic iency 13116472 Active Brooklynn Cronin PA-C [address] [place] [address] [place], [address], [facility] 6 12:36:39 Venous varices 149912592 Active Brooklynn Cronin PA-C [address] [place] [address] [place], [address], [facility] 6 12:36:39 Thromboc ytopenic disorder 410207753 Active 2016 platelet 130s Brooklynn Cronin PA-C [address] [place] [address] [place], [address], [facility] 2 13:57:31 Hyperlip idemia 85843170 Active 2016 Brooklynn Cronin PA-C [address] [place] [address] [place], [address], [facility] 7 15:00:19 Cataract 864506260 Active 2019 Brooklynn Cronin PA-C [address] [place] [address] [place], [address], [facility] 0 15:02:59 Prediabe cheryle 344987219 Active 2022 Brooklynn Cronin PA-C [address] [place] [address] [place], [address], [facility] 3 15:49:21 [facility] 88430289 Active 2022 JACOB Modi [address] [place], [place] [address], [address], [facility] 3 14:40:05 Problem Notes None recorded. Procedures Surgical History Date Name Laterality Status Provider Name and Address Organization Details Recorded Time 4 US Guided Knee Joint Injection completed Cesar Avila MD [address] [place] [address], [address], [facility] 01/06/2024 10:46:45 3 US Guided Knee Joint Injection completed Cesar Avila MD [address] [place] [address], [address], [facility] 06/02/2023 16:04:02 3 US Guided Knee Joint Injection completed Cesar Avila MD [address] [place] [address], [phone], [facility] 11/04/2022 10:20:34 2 prevention-monica ual alcohol misuse screening completed Brooklynn Cronin PA-C [address] [place] [address], [address], [facility] 03/28/2022 16:52:35 1 Knee Injection w/o US completed Cesar Avila MD [address] [place] [address], [phone], [facility] 12/20/2020 15:30:23 0 prevention-car diovascular risk reduction counseling completed Jen Dickey MA [facility] 06/29/2020 11:49:36 0 prevention-monica ual alcohol misuse screening completed Jen Dickey MA [facility] 06/29/2020 11:49:36 6 POC Strep Testing completed Rhona Marin LPN [facility] 06/02/2016 14:25:26 Imaging Results None recorded. Procedure Notes None recorded. Medical Equipment None Reported. Allergies Allergen ID Allergen Name Allergen Category Reaction Reaction Severity Criticality Documentation Date Start Date Code Code System Note Provider Name and Address Organization Details Recorded Time 606538 Substance with sulfonami de structure and antibacte rial mechanism of action (substanc e) medicatio n Not available Not available Not available 12/05/2014 20618 8003 SNOMED not sure of react ion Jessica Mcgraw MA null, [facility] 5 14:50:15 590411 lisinopri l medicatio n Not available Not available Not available 11/14/2016 96084 RxNorm Brooklynn Cronin PA-C [address] [place] [address], [place], [address] , [facility] 7 16:01:00 Medications Name Sig Start Date [...] 140 mm[Hg] 70 mm[Hg] Cecy Gallegos MA [facility] 5 14:33:23 Date Recorded Body height Body mass index (BMI) Body weight Heart rate Systolic blood pressure Diastolic blood pressure Systolic blood pressure Diastolic blood pressure Provider Name and Address Organization Details Last Updated DateTime 5 157.48 cm 35.3 kg/m2 49015.3 3 g 80 /min 140 mm[Hg] 78 mm[Hg] 142 mm[Hg] 78 mm[Hg] Salome Skinner MA [facility] 5 11:46:56 Date Recorded Body height Provider Name an d Address Organization Details Last Updated DateTime 04/04/2025 157.48 cm Aurora Otto MA [facility] 04/04/2025 09:48:59 Date Recorded Body height Body temperature Heart rate Systolic blood pressure Diastolic blood pressure Provider Name and Address Organization Details Last Updated DateTime 08/29/2024 162.56 cm 97.6 [degF] 72 /min 122 mm[Hg] 70 mm[Hg] Joyce Aquino MA [facility] 4 16:28:53 Date Recorded Body height Body mass index (BMI) Body weight Heart rate Systolic blood pressure Diastolic blood pressure Systolic blood pressure Diastolic blood pressure Provider Name and Address Organization Details Last Updated DateTime 157.48 cm 34.5 kg/m2 80607.1 7 g 64 /min 138 mm[Hg] 76 mm[Hg] 132 mm[Hg] 76 mm[Hg] Elizabeth antonio Mary [facility] 4 16:04:42 Social History Question Answer Notes LastModified by Organizat ion Details LastModified Time Tobacco Smoking Status [facility]/05/2014 14:57:22 Do You Wear A Helmet When Biking? Yes [email or web address] Information not available 12/05/2014 What Is Your Level Of Caffeine Consumption? Moderate 2 Cups Of Coffee Per Day [email or web address] Information not available 12/05/2014 How Much Tobacco Do You Chew? None [email or web address] Information not available 12/05/2014 What Type Of Diet Are You Following? REGULAR [email or web address] Information not available 12/05/2014 Which Illicit Or Recreational Drugs Have You Used? None [email or web address] Information not available 05/02/2015 Education 11 [email or web address] Information n ot available 12/05/2014 Have There Been Any Changes To Your Family Or Social Situation? No Information not available 10/09/2023 How Many Days In The Past Year Have You Had A Heavy Drinking Consumption (4+ Female, 5+ Male)? 0 [email or web address] Information not available 05/02/2015 Are There Any Guns Present In Your Home? No [email or web address] Information not available 12/05/2014 Do You Use Insect Repellent Routinely? Yes Information not available 10/09/2023 Live Alone Or With Others? With Others With Kids [email or web address] Information not available 12/05/2014 Patient Has Health Care Proxy Signed And In Chart Yes [email or web address] Information not available 10/17/2024 Marital Status Single [email or web address] Informati on not available 12/05/2014 Mosquito Repellent Used Routinely Yes Lyme Dz Prevention Reviewed [email or web address] Information not available 05/02/2015 What Was The Date Of Your Most Recent Tobacco Screening? 02/28/2025 [email or web address] Information not available 02/28/2025 How Many Children Do You Have? 3 Ages 25, 35, 38 (in 2015) Son Koby Avina [email or web address] Information not available 12/05/2014 Seat Belts Used Routinely Yes [email or web address] Information not available 12/05/2014 Are You Sexually Active? No [email or web address] Information not available 12/05/2014 Smoke Alarm In Home No [email or web address] Information not available 12/05/2014 Do You Have Smoke And Carbon Monoxide Detectors In Your Home? Yes Information not available 10/09/2023 Are You Passively Exposed To Smoke? No Information not available 10/09/2023 How Much Tobacco Do You Smoke? No [email or web address] Information not available 12/27/2019 What Types Of Sporting Activities Do You Participate In? Walking As Much As Possible Information not available 01/14/2016 General Stress Level Low [email or web address] Information not available 01/14/2016 Do You Use Sunscreen Routinely? Yes [email or web address] Information not available 12/05/2014 How Many Years Have You Smoked Tobacco? 0 [email or web address] Information not available 12/27/2019 Sex: Female Functional Status Question Answer Note LastModified by Organizat ion Details LastModified Time Do you or have you ever used any other forms of tobacco or nicotine? No Information not available 02/02/2025 What is your level of alcohol consumption? Occasional [email or web address] Information not available 12/05/2014 Do you or have you ever used smokeless tobacco? Never used [email or web address] tobacco Information not available 12/27/2019 Are you currently employed? Yes Information not available 10/09/2023 What is your occupation? Other [email or web address] Information not available 03/31/2025 Do you or have you ever used e-cigarettes or vape? Never used electronic cigarettes [email or web address] Information not available 12/27/2019 What is your exercise level? Occasional Information not available 10/09/2023 Mental Status None recorded. Family History Relationship Description Onset Age of this Age Resolved Age Notes LastModified by Organization Details LastModified Time Mother Chronic obstructive pulmonary disease smoker [email or web address] Not available 2015 16:16:51 Mother Disorder of thyroid gland [email or web address] Not available 2015 16:16:51 Father Malignant tumor of colon 70 ? [email or web address] Not available 2015 16:16:51 Sister Well adult [email or web address] Not availa ble 01/14/2016 16:16:51 Son Multiple sclerosis [email or web address] Not available 2015 16:16:51 Son Alcoholism [email or web address] Not availa ble 06/29/2020 15:03:50 Son Type [...] PF 4 completed Brooklynn Cronin PA-C [address] [place] [address], [phone], [facility] 10/10/2024 07:43:26 COVID-19, mRNA, LNP-S, PF, 100 mcg/0.5mL dose or 50 mcg/0.25mL dose 2 [facility]/14/2022 15:20:26 COVID-19, mRNA, LNP-S, PF, 100 mcg/0.5mL dose or 50 mcg/0.25mL dose 2 completed [facility] 02/18/2022 13:35:40 COVID-19, mRNA, LNP-S, PF, 50 mcg/0.5 mL dose 1 completed [facility] 09/26/2022 14:56:29 COVID-19, mRNA, LNP-S, PF, 50 mcg/0.5 mL dose 1 completed [facility] 09/26/2022 14:57:13 COVID-19, mRNA, LNP-S, PF, 50 mcg/0.5 mL dose 1 [facility] 09/26/2022 14:58:00 COVID-19, mRNA, LNP-S, bivalent, PF, 30 mcg/0.3 mL dose [facility] 14[facility]58:35 influenza, unspecified formulation 2 [facility] 15:08:26 Past Encounters Encounter ID Performer Location Encounter Start Date Encounter Closed Date Diagnosis/Indication Diagnosis SNOMED-CT Code Diagnosis ICD10 Code Diagnosis Note [id number] Edwin GHOSH, [facility], OFFICE [address] [place] [address] 12/05/2014 14:40:48 12/05/2014 15:40:37 Adult health examination [id number] see Risk Assessment and Lifestyle Change Counseling section above Counseling [id number] Screening mammography 92477279 Essential hypertension 72789014 Deep venou s thrombosis 511461895 [id number] Elizabeth GHOSH, [facility], OFFICE [address] [place] [address] 6 05/02/2015 13:35:32 05/02/2015 14:34:14 Environmental allergy 678569326 related to her son's dog sleeping her in room trial of Claritin, if no help can try zyrtec or flori Platelet c ount below reference range 781786131 125 ~12/2014 year ago, recheck now to trend, check tsh and lft as well for metab eval Edema 748739110 on feet all day w/ amlodipine as well encoruged raising legs, comp stockings at work Screening for malignant neoplasm of colon 213554402 willing to get fit and will consider cscope if +; + fh father w/ colon ca age 70, pt with hemorrhoid s Obese 685997337 recomme nd 1-2 lb wt loss for next 7 month, goal 184 at least from 191 Essential hypertension 97987999 at goal but on 4 meds encouraged wt loss and core strength (reviewed) goal ot taper off 1-2 bp meds if possible Lupus anti coagulant disorder 02395240 reviewd other meds than Coumadin available; she will think about it gets labs at [place] due to close to work; needs good communicat ion as she is requesting we fill her coumadin Active or passive immunization 254940678 Tdap prescripti on needed fro Medicare and [employer] [id number] Elizabeth Mcnally M.D. , [facility], OFFICE [address] [place] [address] 07/25/2015 10:55:44 07/25/2015 11:25:41 Essential hypertension 59004126 I10 at goal but on 4 meds encouraged wt loss and core strength (reviewed) goal ot taper off 1-2 bp meds if possible reviewed optimal practice guidelines and ideally she would not be on BB and ARB goal is to taper off bb with her effort at low salt diet and wt loss [id number] Brooklynn Cronin PA-C , [facility], OFFICE [address] [place] [address] 01/14/2016 15:26:07 01/14/2016 16:34:59 Adult health examination 875323926 Z00.00 see Risk Assessment and Lifestyle Change Counseling section above Counseling 672259048 Z71 .9 Benign ess ential hypertension 0727028 I10 Blood pressure at goal Edema of l ower extremity 965616400 R60.0 Thrombocyt openic disorder 572077050 D69.6 Screening for disorder 787080476 Z11.59 Eruption 456898354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 text/html Patient informed and [...] recent sexual activity. Val Moy MD [address] [place] [address], [phone], [facility] 03/01/2025 16:27:56 5 text/html Monica is a [...] physical therapy per Cesar Avila MD [address] [place] [address], [phone], [facility] 04/04/2025 11:26:17 OBGyn Episode No OBEpisode recorded.
[2025-04-20 08:01] LABS: Prothrombin Time Whole Bld POC 22.9 sec (11.1-13.5); ~PT, ~INR - Anti Coag Clinic 1.9 (0.9-1.1)
== END 2025-04-20 08:12 | disposition home or self-care (01) ==
LOC: HO.ACS 07:56
PROVIDERS: PCP Physician Assistant Medical; Visit Provider Internal Medicine Medical Oncology
DX: Z79.01 Long term (current) use of anticoagulants (principal)

== ENCOUNTER → 2025-04-20 07:56 | Outpatient (BNVA) | payer OTHER, SELFPAY | PROVIDERS: PCP Physician Assistant Medical; Visit Provider Internal Medicine Medical Oncology | DX: Z79.01 Long term (current) use of anticoagulants (principal) | CPT/HCPCS: 85610; 99211 ==

== ENCOUNTER 2025-05-05 13:21 | Outpatient (AMB) | payer OTHER, SELFPAY ==
--- OUTSIDE RECORDS SUMMARY | 2025-05-05 13:23 | XMS_ITS | Clinical Summary ---
Author Organization [facility] Address [address] [address] Phone Care Team Providers Care Institutional Commodity Analyst Name Role Phone Parul Childs Primary Care Provider [phone]- [phone] Social History Tobacco Use Types Packs/Day Years Used Date Smoking Tobacco: Never Assessed Education Answer Date Recorded Are you interested in more education? Not on yvon e 02/13/2023 Are you concerned about learning? Not on file 02/13/2023 No 02/13/2023 No 02/13/2023 Digital Access Answer Date Recorded No 03/16/2023 No 03/16/2023 No 03/16/2023 Reliable internet access at home? Not on file 03/16/2023 Device with a working camera? Not on file Comments Unknown Sex and Gender Information Value Date Recorded Sex Assigned at Not on file Legal Sex Female 10:35 PM EDT Gender Identity Not on file Sexual Orientation Not on file Plan of Treatment Upcoming Encounters Date Type Department Care Team (Late st Contact Info) Description 08/18/2025 2:15 PM EDT Appointment [facility] [place] [address] [address] Parul Childs PA [address] [place] [address] [place] [phone] Health Maintenance Due Date Last Done Comments LIPID PANEL 1959 DEPRESSION SCREENING 1971 SMOKING Hx and SMOKELESS TOBACCO SCREENING 1972 HEPATITIS C SCREENING 1977 HIV ONE-TIME SCREENING (18-65 YEARS) 1977 MAMMOGRAM 1999 COLOGUARD 2004 COLONOSCOPY 2004 COLORECTAL CANCER SCREENING 2004 FIT TEST 2004 FOBT 2004 SIGMOIDOSCOPY 2004 VIRTUAL COLONOSCOPY 2004 PNEUMOCOCCAL VACCINES (50+ years) (1 of 1 - PCV) 2009 ZOSTER VACCINES (1 of 2) 2009 OSTEOPOROSIS SCREENING INITIAL (ONE-TIME) 2024 COVID-19 VACCINE ( - season) 2024 02/06/2022, 09/26/2021, 02/16/2021, Additional history exists Adult Td,Tdap Booster 05/02/2025 05/02/2015 RSV VACCINE (1 - 1-dose 75+ series) 2034 HEPATITIS A VACCINES Aged Out No long er eligible based on patient's age to complete this topic HIB VACCINES Aged Out No longer eligi ble based on patient's age to complete this topic MENINGOCOCCAL VACCINES (ACWY) Aged Out No longer eligible based on patient's age to complete this topic MENINGOCOCCAL VACCINES (B) Aged Out N o longer eligible based on patient's age to complete this topic Medical Devices Not on file Insurance [email or web address] O POS [email or web address] [facility] [place] [address] [place], [place] [address] [place] [address] [place] [address] [facility] POS Care Teams Institutional Commodity Analyst Relationship Specialty Start Date End Date Parul Childs PA [address] [place] [phone] PCP - General Physician Funeral Pre Arrangement Counselor 10/26/24 Additional Source Comments The information contained in this document represents components of the legal health record. It is not the complete legal health record.[facility]
--- OUTSIDE RECORDS SUMMARY | 2025-05-05 13:24 | XMS_ITS | Data Portability ---
Author Organization [facility], [facility] Address [address] [place] [address] Care Team Providers Care Publications Writer Name Role Phone BROOKLYNN CRONIN Primary Care Provider EDWIN SALAZAR Primary Care Provider [facility] Sports Medicine [facility] Vascular Surgeon CESAR AVILA Sports Medicine Assessment Encounter Date Assessment Date Assessment LastModified by Organization Details LastModified Time 04/04/2025 04/04/2025 weightbearing X-rays of the bilateral knees from 2022 were independently interpreted demonstrating 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 INR 3.1 - 2 weeks ago at [facility] per patient Not available 04/04/2025 11:24:57 Plan of Treatment Reminders Order Date Submit Date Provider Last Modified By Organization Details Last Modified Time Details Appointments Sports Med Follow Up (20) 2024 01:50P David Avila MD Not available Not available Not available Sports Med Follow Up (20) 2024 10:50A M Cesar Avila MD Not available Not available Not available Sports Med Follow Up (20) 2024 09:50A David Avila MD Not available Not available Not available LAB Follow -Up 2024 11:00A [facility] Not available Not available Not available [facility] Visit 30 2024 11:15A M Brooklynn Cronin PA-C Not available Not available Not available Lab HbA1c (hemog lobin A1c), blood 2024 025 [facility], [address] [place] [address], [address], 04/25/2025 16:08:55 fecal occult blood, immuno assay, stool 2024 025 [email or web address], [address] [place] [address], [address], 04/27/2025 15:54:39 cultur e, urine 2024 025 [facility], [address] [place] [address], [address], 03/04/2025 20:53:35 urinal ysis, dipsti ck 2024 025 [email or web address], [address] [place] [address], [address], 02/28/2025 14:02:18 influe nza virus A + B + SARS-C oV-2 (COVID 19) Ag panel, rapid IA, upper respir atory specim en 2024 [email or web address] [address] [place] [address], [address], 02/02/2025 14:58:08 Referral None record ed. Procedures None record ed. Surgeries None record ed. Imaging DEXA 2023 024 [facility], [address] [place], [address], 10/07/2024 16:10:42 Medication Orders Euflex xa 10 mg/mL (mw 2.4-3. 6 millio n) intra- articu lar syring e 2024 025 Not available 04/25/2025 11:38:08 Pyridi um 200 mg tablet 2024 025 [facility]acy #[id number], [address], [place], [address], 03/10/2025 05:01:10 Macrob id 100 mg capsul e 2024 025 [facility] #[id number], [address] [place], [address], 03/12/2025 05:01:12 omepra zole 20 mg capsul eabeba releas e 2023 024 [facility] #[id number], [address] [place], [address], 10/07/2024 16:06:33 Patient TargetsNo targets recorded. Patient Instructions Encounter Date Encounter Id Patient Instructions Last Modified By Organization Details Last Modified Time 10/07/2024 [id number] This Shingles vaccine was approved in 2017. [...] autoimmune conditions, and a history of Guillain [place] Syndrome. Not available 10/10/2024 07:44:44 04/04/2025 [id number] Schedule 3 appointments 1 week apart for [...] Abnormal Flag Note LastModifiedBy Organization Detail LastModifiedTime 10/04/20 24 10/04/2024 CBC WBC 6.07 K/ L 3.98-1 0.04 Not Available [address], [address], 10/04/2024 12:41:14 10/04/20 24 10/04/2024 CBC RBC 4.22 M/ L 3.93-5 .22 Not Available [address], [address], 10/04/2024 12:41:14 10/04/20 24 10/04/2024 CBC HGB 12.4 g/dL 11.2-1 5.7 Not Available [address], [address], 10/04/2024 12:41:14 10/04/20 24 10/04/2024 CBC HCT 38.0 % 34.1-4 4.9 Not Available [address], [address], 10/04/2024 12:41:14 10/04/20 24 10/04/2024 CBC MCV 90.0 fL 79.4-9 4.8 Not Available [address], [address], 10/04/2024 12:41:14 10/04/20 24 10/04/2024 CBC MCH 29.4 pg 25.6-3 2.2 Not Available [address], [address], 10/04/2024 12:41:14 10/04/20 24 10/04/2024 CBC MCHC 32.6 g/dL 32.2-3 5.5 Not Available [address], [address], 10/04/2024 12:41:14 10/04/20 24 10/04/2024 CBC plt 128 K/ L 182-36 9 low Not Available [address], [address], 10/04/2024 12:41:14 12/17/20 24 10/04/2024 CBC MPV 12.5 fL 9.4-12 .3 high Not Available [address], [address], 10/04/2024 12:41:14 10/04/20 24 10/04/2024 CBC neut% 56.0 % 34.0-7 1.1 Not Available [address], [address], 10/04/2024 12:41:14 10/04/20 24 10/04/2024 CBC neut# 3.40 1.56-6 .13 Not Available [address], [address], 10/04/2024 12:41:14 10/04/20 24 10/04/2024 CBC lymph % 30.8 % 19.3-5 1.7 Not Available [address], [address], 10/04/2024 12:41:14 10/04/20 24 10/04/2024 CBC lymph # 1.87 K/ L 1.18-3 .74 Not Available [address], [address], 10/04/2024 12:41:14 10/04/20 24 10/04/2024 CBC mono% 10.5 % 4.7-12 .5 Not Available [address], [address], 10/04/2024 12:41:14 10/04/20 24 10/04/2024 CBC mono# 0.64 0.24-0 .56 high Not Available [address], [address], 10/04/2024 12:41:14 10/04/20 24 10/04/2024 CBC eo% 1.8 % 0.7-5. 8 Not Available [address], [address], 10/04/2024 12:41:14 10/04/20 24 10/04/2024 CBC eo# 0.11 0.04-0 .36 Not Available [address], [address], 10/04/2024 12:41:14 10/04/20 24 10/04/2024 CBC baso% 0.7 % 0.1-1. 2 Not Available [address], [address], 10/04/2024 12:41:14 10/04/20 24 10/04/2024 CBC baso# 0.04 0.00-0 .08 Not Available [address], [address], 10/04/2024 12:41:14 10/04/20 24 10/04/2024 CBC RDW-CV 13.1 % 11.7-1 4.4 Not Available [address], [address], 10/04/2024 12:41:14 10/04/20 24 10/04/2024 CBC Ig% 0.200 % 0.000- 1.500 Ig % >0.5 Indic ates possi ble Left Shift Not Available [address], [address], 10/04/2024 12:41:14 10/04/20 24 10/04/2024 CBC Ig# 0.010 0.000- 0.093 Not Available [address], [address], 10/04/2024 12:41:14 10/04/20 24 10/04/2024 CBC NRBC% 0.0 % 0.0-0. 2 Not Available [address], [address], 10/04/2024 12:41:14 10/04/20 24 10/04/2024 CBC NRBC# 0.000 0.000- 0.012 Not Available [address], [address], 10/04/2024 12:41:14 10/04/20 24 10/04/2024 HGB A1C [...] furth er confi rmati on Not Available [address], [address], 10/04/2024 14:01:48 10/04/20 24 10/04/2024 HGB A1C estimated average glucose 116.9 mg/dL Not Available [address], [address], 10/04/2024 14:01:48 10/04/20 24 10/05/2024 BASIC METAB OLIC PANEL glucose 100 mg/dL 70-100 Not Available [address], [address], 10/05/2024 11:46:25 10/04/20 24 10/05/2024 BASIC METAB OLIC PANEL BUN 10 mg/dL 7-18 Not Available [address], [address], 10/05/2024 11:46:25 10/04/20 24 10/05/2024 BASIC METAB OLIC PANEL creatinine 0.9 mg/dL 0.8-1. 3 Not Available [address], [address], 10/05/2024 11:46:25 10/04/20 24 10/05/2024 BASIC METAB OLIC PANEL B/C 11.1 ratio Not Available [address], [address], 10/05/2024 11:46:25 10/04/20 24 10/05/2024 BASIC METAB [...] be used in pregn juju. Not Available [address], [address], 10/05/2024 11:46:25 10/04/20 24 10/05/2024 BASIC METAB OLIC PANEL sodium 143 mmol/ L 136-14 5 Not Available [address], [address], 10/05/2024 11:46:25 10/04/20 24 10/05/2024 BASIC METAB OLIC PANEL potassium 4.1 mmol/ L 3.5-5. 1 Not Available [address], [address], 10/05/2024 11:46:25 10/04/20 24 10/05/2024 BASIC METAB OLIC PANEL chloride 104 mmol/ L 96-107 Not Available [address], [address], 10/05/2024 11:46:25 10/04/20 24 10/05/2024 BASIC METAB OLIC PANEL anion gap 6.7 5.0-15 .0 Not Available [address], [address], 10/05/2024 11:46:25 10/04/20 24 10/05/2024 BASIC METAB OLIC PANEL CO2 32 mmol/ L 21-32 Not Available [address], [address], 10/05/2024 11:46:25 10/04/20 24 10/05/2024 BASIC METAB OLIC PANEL calcium 9.0 mg/dL 8.5-10 .3 Not Available [address], [address], 10/05/2024 11:46:25 10/04/20 24 10/05/2024 LIPID PANEL cholesterol 175 mg/dL <200 mg/dl Ashley able 200-2 39 mg/dl Borde rline High >240 mg/dl High Not Available [address], [address], 10/05/2024 11:46:26 10/04/20 24 10/05/2024 LIPID PANEL triglyceride s 65 mg/dL <150 mg/dL Stephenie l 150-1 99 mg/dL Borde rline High 200-4 99 mg/dL High >500 mg/dL Very High Not Available [address], [address], 10/05/2024 11:46:26 10/04/20 24 10/05/2024 LIPID PANEL direct HDL 68 mg/dL <40 mg/dl - Major Risk for CHD >60 mg/dl - Negat zak Risk for CHD Not Available [address], [address], 10/05/2024 11:46:26 10/04/20 24 10/05/2024 LDL - CALCU LATED LDL - calculated 94 RISK CATEG ORY LDL GOAL _ CHD or CHD Risk Equiv alent s <100 mg/dl (10-y ear risk >20%) 2+ Risk Facto rs <130 mg/dl (10-y ear risk <= 20%) 0-1 Risk Facto r <160 mg[facility] pe[facility] e with 0-1 risk facto r have a 10 year risk <10%, thus 10 year risk asses ment in peopl e with 0-1 risk facto r is not sandhyainna pope. Not Available [address], [address], 10/05/2024 11:46:27 02/03/20 25 02/02/2025 POC FLU/S ARS flu A POC NEGATI VE Not Available [facility] [address] [place] [address], [address], 02/02/2025 14:58:04 02/03/20 25 02/02/2025 POC FLU/S ARS flu B POC NEGATI VE Not Available [facility] [address] [place] [address], [address], 02/02/2025 14:58:04 02/03/20 25 02/02/2025 POC FLU/S ARS sars POC POSITI VE positive Not Available [facility] [address] [place] [address], [address], 02/02/2025 14:58:04 02/29/20 25 02/28/2025 POC UA glu UA NEGATI VE Not Available [facility] [address] [place] [address], [address], 02/28/2025 11:59:08 02/29/20 25 02/28/2025 POC UA clarity UA CLOUDY Not Available [facility] [address] [place] [address], [address], 02/28/2025 11:59:08 02/29/20 25 02/28/2025 POC UA uro UA 0.2000 Not Available [facility] [address] [place] [address], [address], 02/28/2025 11:59:08 05/1302/28/2025 POC UA ket UA NEGATI VE Not Available [facility] [address] [place] [address], [address], 02/28/2025 11:59:08 02/29/20 25 02/28/2025 POC UA pro UA NEGATI VE Not Available [facility] [address] [place] [address], [address], 02/28/2025 11:59:08 02/29/2002/28/2025 POC UA nit UA NEGATI VE Not Available [facility] [address] [place] [address], [address], 02/28/2025 11:59:08 02/29/2002/28/2025 POC UA dayo UA 1+ abnormal Not Available [facility] [address] [place] [address], [address], 02/28/2025 11:59:08 02/29/2002/28/2025 POC UA pH UA 7.0000 Not Available [facility] [address] [place] [address], [address], 02/28/2025 11:59:08 02/29/2002/28/2025 POC UA SG UA 1.0100 Not Available [facility] [address] [place] [address], [address], 02/28/2025 11:59:08 02/29/2002/28/2025 POC UA color UA YELLOW Not Available [facility] [address] [place] [address], [address], 02/28/2025 11:59:08 02/29/2002/28/2025 POC UA blo UA TRACE- LYSED abnormal Not Available [facility] [address] [place] [address], [address], 02/28/2025 11:59:08 02/29/20 25 02/28/2025 POC UA william UA NEGATI VE Not Available [facility] [address] [place] [address], [address], 02/28/2025 11:59:08 02/29/20 25 03/04/2025 CULTU RE, URINE , ROUTI NE culture, urine, routine abnormal CULTU RE, URINE , ROUTI NE Micro Numbe r: [id number] Test Statu s: Final Speci men [...] See Thera py Comme nts Not Available [facility] [address], [address], 03/04/2025 20:53:35 Result Notes None recorded. Problems Name Problem SNOMED Code Status Onset Date Resolution Date Notes Provider Name and Address Organization Details Recorded Time Lupus anticoag ulant disorder 99024241 Active [facility] Brooklynn Cronin PA-C [address] [place], [place] [address], [address], [facility] 16:36:22 Deep venous thrombos is 190242257 Completed 01/14/20162005 Brooklynn Cronin PA-C [address] [place], [place] [address], [address], [facility] 12:36:39 Hyperten sive disorder 58445217 Completed 01/14/2016 Brooklynn Cronin PA-C [address] [place] [address] [place], [address], [facility] 12:36:39 Osteoart hritis 838891232 Active knees Brooklynn Cronin PA-C [address] [place] [address] [place], [address], [facility] 14:41:31 Environm ental allergy 727432465 Active Brooklynn Cronin PA-C [address] [place] [address] Lakshmi [place], 1, [facility] 12:36:39 Edema 069140656 Completed 01/14/2016 Brooklynn Cronin PA-C [address] [place] [address] [place], [address], [facility] 12:36:39 Obese 358687596 Active Brooklynn Cronin PA-C [address] [place] [address] Lakshmi [place], 1, [facility] 12:36:39 [facility]ia l hyperten lynne 45447686 Active Brooklynn Cronin PA-C [address] [place] [address] Lakshmi [place], 1, [facility] 15:50:00 History of thrombos is 756473222 Active DVT 2005 Brooklynn Cronin PA-C [address] [place], [place] [address], [address], [facility] 12:36:39 Peripher al venous insuffic iency 87612878 Active Brooklynn Cronin PA-C [address] [place] [address] [place], [address], [facility] 12:36:39 Venous varices 353309918 Active Brooklynn Cronin PA-C [address] [place], [place] [address], [address], [facility] 12:36:39 Thromboc ytopenic disorder 633581133 Active 2016 platelet 130s Brooklynn Cronin PA-C [address] [place] [address] [place], [address], [facility] 13:57:31 Hyperlip idemia 41038413 Active 2016 Brooklynn Cronin PA-C [facility] Lakshmi [place] lurdes [place], [address], [facility] 15:00:19 Cataract 112624906 Active 2019 Brooklynn Cronin PA-C [address] [place] [address] [place], [address], [facility] 15:02:59 Prediabe cheryle 682635562 Active 2022 Brooklynn Cronin PA-C [address] [place] [address] [place], [address], [facility] 15:49:21 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 Procedures Surgical History Date Name Laterality Status Provider Name and Address Organization Details Recorded Time 4 US Guided Knee Joint Injection completed Cesar Avila MD [address] [place] [address], [phone], [facility] 01/06/2024 10:46:45 3 US Guided Knee Joint Injection completed Cesar Avila MD [address] [place] [address], [phone], [facility] 06/02/2023 16:04:02 3 US Guided Knee Joint Injection completed Cesar Avila MD [address] [place] [address], [phone], [facility] 11/04/2022 10:20:34 2 prevention-monica [facility] alcohol misuse screening completed Brooklynn Cronin PA-C [address] [place] [address], [address], [facility] 03/28/2022 16:52:35 1 Knee Injection w/o US completed Cesar Avila MD [address] [place], [address], [facility] 12/20/2020 15:30:23 0 prevention-car diovascular risk reduction counseling completed Jen Dickey MA [facility] 06/29/2020 11:49:36 0 prevention-monica ual alcohol misuse screening completed Jen Dickey MA [facility] 06/29/2020 11:49:36 6 POC Strep Testing completed Rhona Marin LPN [facility] 06/02/2016 14:25:26 Imaging Results None recorded. Procedure Notes None recorded. Medical Equipment None Reported. Allergies Allergen ID Allergen Name Allergen Category Reaction Reaction Severity Criticality Documentation Date Start Date Code Code System Note Provider Name and Address Organization Details Recorded Time 292126 Substance with sulfonami de structure and antibacte rial mechanism of action (substanc e) medicatio n Not available Not available Not available 12/05/2014 23080 8003 SNOMED not sure of react ion Jessica Mcgraw MA null, [facility] 5 14:50:15 761110 lisinopri l medicatio n Not available Not available Not available 11/14/2016 39002 RxNorm Brooklynn Cronin PA-C [address] [place] [address], [phone], [facility] 16:01:00 Medications Name Sig Start Date [...] 1 TABLET BY MOUTH EVERY DAY DIRECTED 2024 active Not Available Not Available Not [...] mg/mL (mw 2.4-3.6 million) intra-art icular syringe inject 2mL into both knees once per week for 21 days 2024 active Not Available Not Available Not Avai lable Vitals Date Recorded Body height Body temperature Oxygen saturation Oxygen saturation in Arterial blood by Pulse oximetry Heart rate Systolic And Diastolic Provider Name and Address Organization Details Last Updated DateTime 5 157.48 cm 97.8 [degF] 98 % 98 % 90 /min 140/70 mm[Hg] Cecy Gallegos MA [facility] 5 14:33:23 Date Recorded Body height Body mass index (BMI) Body weight Heart rate Systolic And Diastolic Systolic And Diastolic Provider Name and Address Organization Details Last Updated DateTime 5 157.48 cm 35.3 kg/m2 09290.3 3 g 80 /min 140/78 mm[Hg] 142/78 mm[Hg] Salome Skinner MA [facility] 5 11:46:56 Date Recorded Body height Provider Name an d Address Organization Details Last Updated DateTime 04/04/2025 157.48 cm [facility] 04/04/2025 09:48:59 Date Recorded Body height Body mass index (BMI) Body weight Heart rate Systolic And Diastolic Provider Name and Address Organization Details Last Updated DateTime 04/25/2025 157.48 cm 35.3 kg/m2 78958.03 g 62 /min 138/68 mm[Hg] Waqas Moore [facility] 04/25/2025 11:43:50 Date Recorded Body height Body mass index (BMI) Body weight Heart rate Systolic And Diastolic Systolic And Diastolic Provider Name and Address Organization Details Last Updated DateTime 4 157.48 cm 34.5 kg/m2 90107.1 7 g 64 /min 138/76 mm[Hg] 132/76 mm[Hg] Elizabeth antonio [facility] 4 16:04:42 Social History Question Answer Notes LastModified by Organizat ion Details LastModified Time Tobacco Smoking Status [facility] 12/05/2014 14:57:22 Do You Wear A Helmet When Biking? Yes [email or web address] Information not available 12/05/2014 What Is Your Level Of Caffeine Consumption? Moderate 2 Cups Of Coffee Per Day [email or web address] Information not available 12/05/2014 How Much Tobacco Do You Chew? None [email or web address] Information not available 12/05/2014 What Type Of Diet Are You Following? REGULAR [email or web address] Information not available 12/05/2014 Which Illicit Or Recreational Drugs Have You Used? None [email or web address] Information not available 05/02/2015 Education 11 [email or web address] Information n ot available 12/05/2014 Have There Been Any Changes To Your Family Or Social Situation? No Information not available 10/09/2023 How Many Days In The Past Year Have You Had A Heavy Drinking Consumption (4+ Female, 5+ Male)? 0 [email or web address] Information not available 05/02/2015 Are There Any Guns Present In Your Home? No [email or web address] Information not available 12/05/2014 Do You Use Insect Repellent Routinely? Yes Information not available 10/09/2023 Live Alone Or With Others? With Others With Kids [email or web address] Information not available 12/05/2014 Patient Has Health Care Proxy Signed And In Chart Yes [email or web address] Information not available 10/17/2024 Marital Status Single [email or web address] Informati on not available 12/05/2014 Mosquito Repellent Used Routinely Yes Lyme Dz Prevention Reviewed [email or web address] Information not available 05/02/2015 What Was The Date Of Your Most Recent Tobacco Screening? 04/25/2025 Information not available 04/25/2025 How Many Children Do You Have? 3 Ages 25, 35, 38 (in 2014) Son Koby Avina Information not available 12/05/2014 Seat Belts Used Routinely Yes [email or web address] Information not available 12/05/2014 Are You Sexually Active? No [email or web address] Information not available 12/05/2014 Smoke Alarm In Home No Information not available 12/05/2014 Do You Have Smoke And Carbon Monoxide Detectors In Your Home? Yes Information not available 10/09/2023 Are You Passively Exposed To Smoke? No Information not available 10/09/2023 How Much Tobacco Do You Smoke? No Information not available 12/27/2019 What Types Of Sporting Activities Do You Participate In? Walking As Much As Possible [email or web address] Information not available 01/14/2016 General Stress Level Low [email or web address] Information not available 01/14/2016 Do You Use Sunscreen Routinely? Yes [email or web address] Information not available 12/05/2014 How Many Years Have You Smoked Tobacco? 0 [email or web address] Information not available 12/27/2019 Sex: Female Functional Status Question Answer Note LastModified by Organizat ion Details LastModified Time Do you or have you ever used any other forms of tobacco or nicotine? No Information not available 02/02/2025 What is your level of alcohol consumption? Occasional Information not available 12/05/2014 Do you or have you ever used smokeless tobacco? Never used smokeless tobacco [email or web address] Information not available 12/27/2019 Are you currently employed? Yes Information not available 10/09/2023 What is your occupation? Other [email or web address] Information not available 03/31/2025 Do you or have you ever used e-cigarettes or vape? Never used electronic cigarettes [email or web address] Information not available 12/27/2019 What is your exercise level? Occasional Information not available 10/09/2023 Mental Status None recorded. Family History Relationship Description Onset Age of this Age Resolved Age Notes LastModified by Organization Details LastModified Time Mother Chronic obstructive pulmonary disease smoker [email or web address] Not available 2015 16:16:51 Mother Disorder of thyroid gland [email or web address] Not available 2015 16:16:51 Father Malignant tumor of colon 70 ? [email or web address] Not available 2015 16:16:51 Sister Well adult [email or web address] Not availa ble 01/14/2016 16:16:51 Son Multiple sclerosis [email or web address] Not available 2015 16:16:51 Son Alcoholism [email or web address] Not availa ble 06/29/2020 15:03:50 Son Type 2 diabetes mellitus [email or web address] Not available 2022 14:00:05 Paternal Uncle Myocardial infarction [email or web address] Not available 01/13 16:16:51 Maternal Uncle Leukemia (morphologic abnormality) [email or web address] Not available 16:16:51 Notes:No breast ca Medical [...] trivalent, PF 4 completed Brooklynn Cronin PA-C [address] [place] [address], [phone], [facility] [place]/10/2024 07:43:26 COVID-19, mRNA, LNP-S, PF, 100 mcg/0.5mL dose or 50 mcg/0.25mL dose 2 completed Cassie Briseno [facility] 02/14/2022 15:20:26 COVID-19, mRNA, LNP-S, PF, 100 mcg/0.5mL dose or 50 mcg/0.25mL dose 2 completed Cassie Briseno [facility] 02/18/2022 13:35:40 COVID-19, mRNA, LNP-S, PF, 50 mcg/0.5 mL dose 1 completed Syl Julien MA [facility] 09/26/2022 14:56:29 COVID-19, mRNA, LNP-S, PF, 50 mcg/0.5 mL dose 1 completed Syl Julien MA [facility] 09/26/2022 14:57:13 COVID-19, mRNA, LNP-S, PF, 50 mcg/0.5 mL dose 1 completed Syl Julien MA [facility] 09/26/2022 14:58:00 COVID-19, mRNA, LNP-S, bivalent, PF, 30 mcg/0.3 mL dose 2 [facility]/26[facility]2022 14:58:35 influenza, unspecified formulation 2 completed Syl Julien MA [facility] 09/26/2022 15:08:26 Past Encounters Encounter ID Performer Location Encounter Start Date Encounter Closed Date Diagnosis/Indication Diagnosis SNOMED-CT Code Diagnosis ICD10 Code Diagnosis Note [id number] Edwin Salazar FP, [facility], OFFICE [address] [place] [address] 12/05/2014 14:40:48 12/05/2014 15:40:37 Adult health examination [id number] see Risk Assessment and Lifestyle Change Counseling section above Counseling [id number] Screening mammography 23883733 Essential hypertension 30236528 Deep venou s thrombosis 603765856 [id number] Elizabeth GHOSH, [facility], OFFICE [address] [place] [address] 05/02/2015 13:35:32 05/02/2015 14:34:14 Environmental allergy 648710669 related to her son's dog sleeping her in room trial of Claritin, if no help can try zyrtec or flori Platelet c ount below reference range 335571130 125 ~12/2014 year ago, recheck now to trend, check tsh and lft as well for metab eval Edema 791327260 on feet all day w/ amlodipine as well encoruged raising legs, comp stockings at work Screening for malignant neoplasm of colon 476065663 willing to get fit and will consider cscope if +; + fh father w/ colon ca age 70, pt with hemorrhoid s Obese [id number] recomme nd 1-2 lb wt loss for next 7 month, goal 184 at least from 191 Essential hypertension 85232768 at goal but on 4 meds encouraged wt loss and core strength (reviewed) goal ot taper off 1-2 bp meds if possible Lupus anti coagulant disorder 02352653 reviewd other meds than Coumadin available; she will think about it gets labs at [place] due to close to work; needs good communicat ion as she is requesting we fill her coumadin Active or passive immunization 750603815 Tdap prescripti on needed fro Medicare and [facility] [id number] Elizabeth GHOSH, [facility], OFF[address] [place] [address] 07/25/2015 10:55:44 07/25/2015 11:25:41 Essential hypertension 06435354 I10 at goal but on 4 meds encouraged wt loss and core strength (reviewed) goal ot taper off 1-2 bp meds if possible reviewed optimal practice guidelines and ideally she would not be on BB and ARB goal is to taper off bb with her effort at low salt diet and wt loss [id number] BROWN Hernández, [facility], OFFICE [address] [place] [address] 01/14/2016 15:26:07 01/14/2016 16:34:59 Adult health examination 383308879 Z00.00 see Risk Assessment and Lifestyle Change Counseling section above Counseling 609989036 Z71 .9 Benign ess ential hypertension 4664939 I10 Blood pressure at goal Edema of l ower extremity 579110515 R60.0 Thrombocyt openic disorder 001154788 D69.6 Screening for disorder 557102547 Z11.59 Eruption 581872080 R21 Peripheral venous insufficiency 27194924 I87.2 Venous varices 244353308 I83.93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 ACCESS PLUS - [place] (PPO) [id number] Monica Del Real [id number] Monica Del Real 11/04/2018 [employer] Monica [...] ischemic heart disease; No peripheral vascular disease (63739); No diabetes Associated Symptoms:no muscle pain; no [...] using reading glasses. Brooklynn Cronin PA-C [address] [place], [address], [facility]10/2024 07:45:13 5 text/html here today feeling illpounding headache and pressure in sinus, congestionbut no runny noseeyes feel like they will explodebody aches and fatigue, very tiredno sore throathad fever and chills today and yestedayhad n/v/d yesterdayno cp, sob, coughhas some PND Cecy Kenny MD [address] [place], [address], [facility] 02/02/2025 15:16:03 5 text/html Patient informed and [...] No recent sexual activity. Val Moy MD [address] [place], [phone], [facility] 03/01/2025 16:27:56 5 text/html Monica is a [...] done physical therapy per Cesar Avila MD [address] [place] [address], [phone], [facility] 04/04/2025 11:26:17 5 text/html Presents for routine f/u HTN, HLD, PreDM. No concerns today. Mani Sesay PA-C [address] [place] [address], [phone], [facility] 04/25/2025 11:51:16 OBGyn Episode No OBEpisode recorded.
[2025-05-05 13:53] LABS: Prothrombin Time Whole Bld POC 33.1 sec (11.1-13.5); ~PT, ~INR - Anti Coag Clinic 2.8 (0.9-1.1)
--- NOTE | 2025-05-05 14:10 | MHC.OFFVISCO ---
Intake Intake Visit Reasons: Anticoagulation Allergies lisinopril (Lisinopril) Allergy (Mild, Verified 05/05/25 13:43) COUGH Sulfa (Sulfonamide Antibiotics) Allergy (Mild, Verified 05/05/25 13:43) UNKNOWN Medication List - Last Reconciled 05/05/25 by Ewa Bajwa RN amlodipine 10 mg PO DAILY atorvastatin 10 mg PO DAILY carvedilol 6.25 mg PO BID clonidine HCl 0.1 mg PO BID fluticasone propionate 50 mcg/actuation 1 spray intranasal DAILY hydrochlorothiazide 25 mg PO DAILY loratadine 10 mg PO DAILY PRN losartan 100 mg PO DAILY nitrofurantoin monohyd/m-cryst 100 mg 1 cap PO BID omeprazole 20 mg PO DAILY warfarin 5 mg See Protocol PO DAILY warfarin 2.5 mg See Protocol PO DAILY Nursing Note INR: 2.8 in therapeutic range of 2-3 Medications and supplements reviewed No changes in health, diet, medications, or supplements, Denies any signs and symptoms of bleeding or bruising or clotting. Bleeding, bruising, clotting discussed Nutritional guidance given Dose: 7.5mg daily F/U INR: 2 weeks Patient verbalizes understanding of instructions given Anti-Coag Initial Assessment Social Hx Patient Tobacco Use Status: Never used Tobacco Coding Level of Care Code Est Patient Level 1 Diagnoses Current use of anticoagulant therapy Z79.01 Results AMB INR Fingerstick AMB INR Fingerstick 2.8 Last Edit by Ewa Bajwa, BO on 05/05/25 13:53 interface delay Assessment & Plan Assessment & Plan (1) Current use of anticoagulant therapy: Code(s): Z79.01 - buttermaker (current) use of anticoagulants Category: Medical
== END 2025-05-05 15:00 | disposition home or self-care (01) ==
LOC: HO.ACS 13:21
PROVIDERS: PCP Physician Assistant Medical; Visit Provider Internal Medicine Medical Oncology
DX: Z79.01 Long term (current) use of anticoagulants (principal)

== ENCOUNTER → 2025-05-05 13:21 | Outpatient (BNVA) | payer OTHER, SELFPAY | PROVIDERS: PCP Physician Assistant Medical; Visit Provider Internal Medicine Medical Oncology | DX: Z86.718 Personal history of other venous thrombosis and embolism (principal); Z79.01 Long term (current) use of anticoagulants; Z51.81 Encounter for therapeutic drug level monitoring | CPT/HCPCS: 85610; 99211 ==

== ENCOUNTER 2025-05-19 13:50 | Outpatient (AMB) | payer OTHER, SELFPAY ==
--- OUTSIDE RECORDS SUMMARY | 2025-05-19 13:52 | XMS_ITS | Clinical Summary ---
Author Organization [facility] Address [address] [place] [address] Phone Care Team Providers Care Garland Machine Operator Name Role Phone Parul Childs Primary Care Provider +1- [phone] Social History Tobacco Use Types Packs/Day Years [...] Info) Description 08/18/2025 2:15 PM EDT Appointment [facility], Bone [address] [address] Parul Childs PA [address] [place] [address] [place] [address] Health Maintenance Due Date Last Done Comments [...] topic Medical Devices Not on file Insurance [employer] O POS [employer] [facility] [place] [address] [place] [address] [address] [place] [address]O POS [facility] POS [facility] Address: [facility] [address] [place] [address] Care Teams Garland Machine Operator Relationship Specialty Start Date End Date Parul Childs PA [address] [place] [address] PCP - General Physician Rigging Helper 10/26/24 Additional Source Comments The information contained in this document represents components of the legal health record. It is not the complete legal health record.[facility]
[2025-05-19 14:10] LABS: Prothrombin Time Whole Bld POC 32.3 sec (11.1-13.5); ~PT, ~INR - Anti Coag Clinic 2.7 (0.9-1.1)
--- NOTE | 2025-05-19 14:15 | MHC.OFFVISCO ---
Intake Intake Visit Reasons: Anticoagulation Allergies lisinopril (Lisinopril) Allergy (Mild, Verified 05/19/25 14:04) COUGH Sulfa (Sulfonamide Antibiotics) Allergy (Mild, Verified 05/19/25 14:04) UNKNOWN Medication List - Last Reconciled 05/19/25 by Valencia Kennedy RN amlodipine 10 mg PO DAILY atorvastatin 10 mg PO DAILY carvedilol 6.25 mg PO BID clonidine HCl 0.1 mg PO BID fluticasone propionate 50 mcg/actuation 1 spray intranasal DAILY hydrochlorothiazide 25 mg PO DAILY loratadine 10 mg PO DAILY PRN losartan 100 mg PO DAILY nitrofurantoin monohyd/m-cryst 100 mg 1 cap PO BID omeprazole 20 mg PO DAILY warfarin 5 mg See Protocol PO DAILY warfarin 2.5 mg See Protocol PO DAILY Nursing Note INR: 2.7 in therapeutic range Medications and supplements reviewed No changes in health, diet, medications, or supplements, Denies any signs and symptoms of bleeding or bruising or clotting. Bleeding, bruising, clotting discussed Nutritional guidance given Dose: 7.5mg daily F/U INR: 3weeks Patient verbalizes understanding of instructions given Anti-Coag Initial Assessment Social Hx Patient Tobacco Use Status: Never used Tobacco Coding Level of Care Code Est Patient Level 1 Diagnoses Current use of anticoagulant therapy Z79.01 Assessment & Plan Assessment & Plan (1) Current use of anticoagulant therapy: Code(s): Z79.01 - USP (current) use of anticoagulants Category: Medical
== END 2025-05-19 14:18 | disposition home or self-care (01) ==
LOC: HO.ACS 13:50
PROVIDERS: PCP Physician Assistant Medical; Visit Provider Internal Medicine Medical Oncology
DX: Z79.01 Long term (current) use of anticoagulants (principal)

== ENCOUNTER → 2025-05-19 13:50 | Outpatient (BNVA) | payer OTHER, SELFPAY | PROVIDERS: PCP Physician Assistant Medical; Visit Provider Internal Medicine Medical Oncology | DX: Z79.01 Long term (current) use of anticoagulants (principal) | CPT/HCPCS: 85610; 99211 ==

== ENCOUNTER 2025-06-09 13:31 | Outpatient (AMB) | payer OTHER, SELFPAY ==
--- OUTSIDE RECORDS SUMMARY | 2025-06-09 13:32 | XMS_ITS | Clinical Summary ---
Author Organization [facility] Address [address] [place] [address] Phone Care Team Providers Care Repair Table Operator Name Role Phone Parul Childs Primary Care Provider +1- [phone] Social History Tobacco Use Types Packs/Day Years [...] Info) Description 08/18/2025 2:15 PM EDT Appointment [facility], Bone [address] [address] Parul Childs PA [address] [place] [address] [place] [address] Health Maintenance Due Date Last Done Comments [...] topic Medical Devices Not on file Insurance [employer] O POS Member Subscriber Plan / Payer (Ef fective 2019-Present) Name:Jaimie Del Real Relation to Subscriber:Self Name:Jaimie Del Real Payer ID:[id number] ([facility]) Type:O Address: [facility] [address] [place] [address] [employer] [facility] [place] [address] [place] [address]O POS Member Subscriber Plan / Payer ( fective 2019-Present) Name:Jaimie Del Real Relation to Subscriber:Self Name:Jaimie Del Real Payer ID:[id number] ([facility]) Type:HMO Address: [address] [place] [address] [place], [place] [address]O POS Member Subscriber Plan / Payer ( fective 2019-Present) Name:Jaimie Del Real Relation to Subscriber:Self Name:Jaimie Del Real Payer ID:[id number] ([facility]) Type:HMO Address: [address] [place] [address] [facility] Member Subscriber Plan / Payer (Ef fective 2019-Present) Name:Jaimie Del Real Relation to Subscriber:Self Name:Jaimie Del Real Payer ID:[id number] ([facility]) Type:HMO Address: [address] [place] [address] [facility] HMO POS [facility] HMO POS [facility] H[facility] POS Care Teams Repair Table Operator Relationship Specialty Start Date End Date Parul Childs PA [address] [place] [address] PCP - General Physician Youth Development Specialist 10/26/24 Additional Source Comments The information contained in this document represents components of the legal health record. It is not the complete legal health record.[facility]
[2025-06-09 13:42] LABS: Prothrombin Time Whole Bld POC 34.6 sec (11.1-13.5); ~PT, ~INR - Anti Coag Clinic 2.9 (0.9-1.1)
--- NOTE | 2025-06-09 13:46 | MHC.OFFVISCO ---
Intake Intake Visit Reasons: Anticoagulation Allergies lisinopril (Lisinopril) Allergy (Mild, Verified 06/09/25 13:37) COUGH Sulfa (Sulfonamide Antibiotics) Allergy (Mild, Verified 06/09/25 13:37) UNKNOWN Medication List - Last Reconciled 06/09/25 by Valencia Kennedy RN amlodipine 10 mg PO DAILY atorvastatin 10 mg PO DAILY carvedilol 6.25 mg PO BID clonidine HCl 0.1 mg PO BID fluticasone propionate 50 mcg/actuation 1 spray intranasal DAILY hydrochlorothiazide 25 mg PO DAILY loratadine 10 mg PO DAILY PRN losartan 100 mg PO DAILY nitrofurantoin monohyd/m-cryst 100 mg 1 cap PO BID omeprazole 20 mg PO DAILY sodium hyaluronate (viscosup) (Euflexxa) mg intra-articular warfarin 5 mg See Protocol PO DAILY warfarin 2.5 mg See Protocol PO DAILY Nursing Note INR: 2.9 in therapeutic range Medications and supplements reviewed No changes in health, diet, medications, or supplements, Denies any signs and symptoms of bleeding or bruising or clotting. Bleeding, bruising, clotting discussed Nutritional guidance given- keep up weekly greens Dose: 7.5mg daily F/U INR: 06/29/25 before she works the [employer] for several weeks Patient verbalizes understanding of instructions given Anti-Coag Initial Assessment Social Hx Patient Tobacco Use Status: Never used Tobacco Coding Level of Care Code Est Patient Level 1 Diagnoses Current use of anticoagulant therapy Z79.01 Results AMB INR Fingerstick AMB INR Fingerstick 2.9 Last Edit by Valencia Kennedy RN on 06/09/25 13:47 manual entry Assessment & Plan Assessment & Plan (1) Current use of anticoagulant therapy: Code(s): Z79.01 - intermediate (current) use of anticoagulants Category: Medical
== END 2025-06-09 13:53 | disposition home or self-care (01) ==
LOC: HO.ACS 13:31
PROVIDERS: PCP Physician Assistant Medical; Visit Provider Internal Medicine Medical Oncology
DX: Z79.01 Long term (current) use of anticoagulants (principal)

== ENCOUNTER → 2025-06-09 13:31 | Outpatient (BNVA) | payer OTHER, SELFPAY | PROVIDERS: PCP Physician Assistant Medical; Visit Provider Internal Medicine Medical Oncology | DX: Z86.718 Personal history of other venous thrombosis and embolism (principal); Z79.01 Long term (current) use of anticoagulants; Z51.81 Encounter for therapeutic drug level monitoring | CPT/HCPCS: 85610; 99211 ==

== ENCOUNTER 2025-06-29 13:03 | Outpatient (AMB) | payer OTHER, SELFPAY ==
[2025-06-29 13:12] LABS: Prothrombin Time Whole Bld POC 34.6 sec (11.1-13.5); ~PT, ~INR - Anti Coag Clinic 2.9 (0.9-1.1)
--- NOTE | 2025-06-29 13:19 | MHC.OFFVISCO ---
Intake Intake Visit Reasons: Anticoagulation Allergies lisinopril (Lisinopril) Allergy (Mild, Verified 06/29/25 13:04) COUGH Sulfa (Sulfonamide Antibiotics) Allergy (Mild, Verified 06/29/25 13:04) UNKNOWN Medication List - Last Reconciled 06/29/25 by Valencia Kennedy RN amlodipine 10 mg PO DAILY atorvastatin 10 mg PO DAILY carvedilol 6.25 mg PO BID clonidine HCl 0.1 mg PO BID fluticasone propionate 50 mcg/actuation 1 spray intranasal DAILY hydrochlorothiazide 25 mg PO DAILY loratadine 10 mg PO DAILY PRN losartan 100 mg PO DAILY nitrofurantoin monohyd/m-cryst 100 mg 1 cap PO BID omeprazole 20 mg PO DAILY warfarin 5 mg See Protocol PO DAILY warfarin 2.5 mg See Protocol PO DAILY Nursing Note INR: 2.9 in therapeutic range Medications and supplements reviewed No changes in health, diet, medications, or supplements, *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 Bleeding, bruising, clotting discussed Nutritional guidance given Dose: 7.5mg daily F/U INR: after Big E 07/17/25Thursday Patient verbalizes understanding of instructions given Anti-Coag Initial Assessment Social Hx Patient Tobacco Use Status: Never used Tobacco Coding Level of Care Code Est Patient Level 1 Diagnoses Current use of anticoagulant therapy Z79.01 Results AMB INR Fingerstick AMB INR Fingerstick 2.9 Last Edit by Valencia Kennedy RN on 06/29/25 13:15 MANUAL ENTRY Assessment & Plan Assessment & Plan (1) Current use of anticoagulant therapy: Code(s): Z79.01 - superintendent terminal (current) use of anticoagulants Category: Medical
--- OUTSIDE RECORDS SUMMARY | 2025-06-29 17:05 | XMS_ITS | Clinical Summary ---
Author Organization [facility] Address [address] [address] Phone Care Team Providers Care Field Supervisor Seed Production Name Role Phone Parul Childs Primary Care Provider +1- [phone] Social History Tobacco Use Types Packs/Day Years [...] Info) Description 08/18/2025 2:15 PM EDT Appointment [facility], Bone [address] [address] Praul Childs PA [address] [place] [address] [place] [address] Health Maintenance Due Date Last Done Comments [...] topic Medical Devices Not on file Insurance [employer] O POS [employer] [facility] [place] [address] [place] [id number] [place] [address] [place] [id number] POS [facility] HMO POS Care Teams Field Supervisor Seed Production Relationship Specialty Start Date End Date Parul Childs PA [address] [place] [address] PCP - General Physician Special Education Curriculum Specialist 10/26/24 Additional Source Comments The information contained in this document represents components of the legal health record. It is not the complete legal health record.[facility]
--- OUTSIDE RECORDS SUMMARY | 2025-06-29 17:05 | XMS_ITS | Encounter Summary ---
Author Organization [facility] Address [address] [place], [place] [address] Phone Care Team Providers Care Environmental Services Specialist Name Role Phone Pcp, Unknown Primary Care Provider Parul Perez Primary Care Provider +1- [phone] Encounter Details Date Type Department Care Team (Latest Contact Info) Description 10/07/2024 Transcribe Orders Virtual Department [address] [place], [place] [id number] Parul Childs PA [address] [place] [address] Asymptomatic menopausal state (Primary Dx) Social History Tobacco Use Types Packs/Day Years [...] on file Sexual Orientation Not on file documented as of this encounter Plan of Treatment Upcoming Encounters Date Type Department Care Team (Late st Contact Info) Description 08/18/2025 2:15 PM EDT Appointment [facility], Bone [facility] [address] [place] [address] Parul Childs PA [address] [place] [address] Scheduled Orders Name Type Priority Associated Diagnoses Orde r Schedule DXA Screening Imaging Routine Asymptomatic menopausal state Expected: 11/06/2024, Expires: 10/07/2026 documented as of this encounter Visit Diagnoses Diagnosis Asymptomatic menopausal state- Primary documented in this encounter Care Teams Environmental Services Specialist Relationship Specialty Start Date End Date Pcp, Unknown PCP - General 03/28/22 10/25/24 Parul Childs PA [address] [place] [address] PCP - General Physician Assistant Therapy Aide 10/26/24 documented as of this encounter Additional Source Comments The information contained in this document represents components of the legal health record. It is not the complete legal health record.[facility]
== END 2025-06-29 13:21 | disposition home or self-care (01) ==
LOC: HO.ACS 13:03
PROVIDERS: PCP Physician Assistant Medical; Visit Provider Internal Medicine Medical Oncology
DX: Z79.01 Long term (current) use of anticoagulants (principal)

== ENCOUNTER → 2025-06-29 13:03 | Outpatient (BNVA) | payer OTHER, SELFPAY | PROVIDERS: PCP Physician Assistant Medical; Visit Provider Internal Medicine Medical Oncology | DX: Z86.718 Personal history of other venous thrombosis and embolism (principal); Z79.01 Long term (current) use of anticoagulants; Z51.81 Encounter for therapeutic drug level monitoring | CPT/HCPCS: 85610; 99211 ==

== ENCOUNTER 2025-07-17 13:24 | Outpatient (AMB) | payer OTHER, SELFPAY ==
[2025-07-17 13:42] LABS: Prothrombin Time Whole Bld POC 21.2 sec (11.1-13.5); ~PT, ~INR - Anti Coag Clinic 1.8 (0.9-1.1)
--- NOTE | 2025-07-17 13:43 | MHC.OFFVISCO ---
Intake Intake Visit Reasons: Anticoagulation Allergies lisinopril (Lisinopril) Allergy (Mild, Verified 07/17/25 13:27) COUGH Sulfa (Sulfonamide Antibiotics) Allergy (Mild, Verified 07/17/25 13:27) UNKNOWN Medication List - Last Reconciled 07/17/25 by Valencia Kennedy RN amlodipine 10 mg PO DAILY atorvastatin 10 mg PO DAILY carvedilol 6.25 mg PO BID clonidine HCl 0.1 mg PO BID fluticasone propionate 50 mcg/actuation 1 spray intranasal DAILY hydrochlorothiazide 25 mg PO DAILY loratadine 10 mg PO DAILY PRN losartan 100 mg PO DAILY nitrofurantoin monohyd/m-cryst 100 mg 1 cap PO BID omeprazole 20 mg PO DAILY warfarin 5 mg See Protocol PO DAILY warfarin 2.5 mg See Protocol PO DAILY Nursing Note INR 1.8 out of therapeutic range Medications and supplements reviewed Patient status: S/P BIG E- ate more greens due to previous INR in the past post Big E Medications or supplements: no changes Diet: good Denies any signs and symptoms of bleeding or clotting or unusual bruising Bleeding, bruising, clotting discussed Nutritional guidance given: no greens x 2 days Dose: booster dose 10mg today then resume usual dose F/U INR Date: 2 weeks ?? Patient verbalizing understanding of instructions given. Anti-Coag Initial Assessment Social Hx Patient Tobacco Use Status: Never used Tobacco Coding Level of Care Code Est Patient Level 1 Diagnoses Current use of anticoagulant therapy Z79.01 Results AMB INR Fingerstick AMB INR Fingerstick 1.8 Last Edit by Valencia Kennedy RN on 07/17/25 13:33 manual entry Assessment & Plan Assessment & Plan (1) Current use of anticoagulant therapy: Code(s): Z79.01 - terminologist (current) use of anticoagulants Category: Medical
--- OUTSIDE RECORDS SUMMARY | 2025-07-17 14:53 | XMS_ITS | Encounter Summary ---
Author Organization [facility] Address [address] [place], [place] [address] Phone Care Team Providers Care Wool Grader Name Role Phone Pcp, Unknown Primary Care Provider Parul Perez Primary Care Provider +1- [phone] Encounter Details Date Type Department Care Team (Latest Contact Info) Description 10/07/2024 Transcribe Orders Virtual Department [address] [place], [place] [phone] Parul Childs PA [address] [place] [address] Asymptomatic menopausal state (Primary Dx) Social [...] Info) Description 08/18/2025 2:15 PM EDT Appointment [facility], Bone [facility] [address] [place] [address] Parul Childs PA [address] [place] [address] Scheduled Orders Name Type Priority Associated Diagnoses Orde r Schedule DXA Screening Imaging Routine Asymptomatic menopausal state Expected: 11/06/2024, Expires: 10/07/2026 documented as of this encounter Visit Diagnoses Diagnosis Asymptomatic menopausal state- Primary documented in this encounter Care Teams Wool Grader Relationship Specialty Start Date End Date Pcp, Unknown PCP - General 03/28/22 10/25/24 Parul Childs PA [address] [place] [address] PCP - General Physician Contact Center Rep 10/26/24 documented as of this encounter Additional Source Comments The information contained in this document represents components of the legal health record. It is not the complete legal health record.[facility]
--- OUTSIDE RECORDS SUMMARY | 2025-07-17 14:53 | XMS_ITS | Clinical Summary ---
Author Organization [facility] Address [address] [address] Phone Care Team Providers Care Pin Machine Tender Name Role Phone Parul Childs Primary Care Provider +1- [phone] Social History Tobacco Use Types Packs/Day Years [...] Info) Description 08/18/2025 2:15 PM EDT Appointment [facility], Bone [address] [address] Parul Childs PA [address] [place] [address] [place] [address] Health Maintenance Due Date Last Done Comments [...] topic Medical Devices Not on file Insurance ZEFR O POS ZEFR [facility] [place] [place] [address] [place] [id number] [place] [address] [place] [id number] [facility] POS Care Teams Pin Machine Tender Relationship Specialty Start Date End Date Parul Childs PA [address] [place] [address] PCP - General Physician Skate Maker 10/26/24 Additional Source Comments The information contained in this document represents components of the legal health record. It is not the complete legal health record.[facility]
== END 2025-07-17 13:46 | disposition home or self-care (01) ==
LOC: HO.ACS 13:24
PROVIDERS: PCP Physician Assistant Medical; Visit Provider Internal Medicine Medical Oncology
DX: Z79.01 Long term (current) use of anticoagulants (principal)

== ENCOUNTER → 2025-07-17 13:24 | Outpatient (BNVA) | payer OTHER, SELFPAY | PROVIDERS: PCP Physician Assistant Medical; Visit Provider Internal Medicine Medical Oncology | DX: Z86.718 Personal history of other venous thrombosis and embolism (principal); Z79.01 Long term (current) use of anticoagulants; Z51.81 Encounter for therapeutic drug level monitoring | CPT/HCPCS: 85610; 99211 ==

== ENCOUNTER 2025-08-04 13:30 | Outpatient (AMB) | payer OTHER, SELFPAY ==
[2025-08-04 13:47] LABS: Prothrombin Time Whole Bld POC 18.0 sec (11.1-13.5); ~PT, ~INR - Anti Coag Clinic 1.5 (0.9-1.1)
--- NOTE | 2025-08-04 13:56 | MHC.OFFVISCO ---
Intake Intake Visit Reasons: Anticoagulation Allergies lisinopril (Lisinopril) Allergy (Mild, Verified 08/04/25 13:43) COUGH Sulfa (Sulfonamide Antibiotics) Allergy (Mild, Verified 08/04/25 13:43) UNKNOWN Medication List - Last Reconciled 08/04/25 by Ewa Bajwa, RN amlodipine 10 mg PO DAILY atorvastatin 10 mg PO DAILY carvedilol 6.25 mg PO BID clonidine HCl 0.1 mg PO BID fluticasone propionate 50 mcg/actuation 1 spray intranasal DAILY hydrochlorothiazide 25 mg PO DAILY loratadine 10 mg PO DAILY PRN losartan 100 mg PO DAILY nitrofurantoin monohyd/m-cryst 100 mg 1 cap PO BID omeprazole 20 mg PO DAILY warfarin 5 mg See Protocol PO DAILY warfarin 2.5 mg See Protocol PO DAILY Nursing Note INR: 1.5 out of therapeutic range of 2-3 Medications and supplements reviewed Patient status: pt feels well Medications or supplements: no changes Diet: has been eating a lot of baby spinach lately Denies any signs and symptoms of bleeding or clotting or unusual bruising Bleeding, bruising, clotting discussed Nutritional guidance given: to stop the spinach for a few days Dose: today's dose increased to 10mg (7.5mg) then 7.5mg daily Would have increased to 10mg X 2 days but pt states she is going to have a beer tonight, just one. F/U INR Date: 2 weeks Patient verbalizing understanding of instructions given. T/C to pcp Parul Childs, [facility]. Office closed today. Reported critical INR to service awaiting call back from . Anti-Coag Initial Assessment Social Hx Patient Tobacco Use Status: Never used Tobacco Coding Level of Care Code Est Patient Level 1 Diagnoses Current use of anticoagulant therapy Z79.01 Assessment & Plan Assessment & Plan (1) Current use of anticoagulant therapy: Code(s): Z79.01 - emt intermediate (current) use of anticoagulants Category: Medical
--- OUTSIDE RECORDS SUMMARY | 2025-08-04 16:06 | XMS_ITS | Clinical Summary ---
Author Organization [facility] Address [address] [place] [address] Phone Care Team Providers Care Concession Manager Name Role Phone Parul Childs Primary Care Provider +1- [phone] Social History Tobacco Use Types Packs/Day Years [...] Info) Description 08/18/2025 2:15 PM EDT Appointment [facility], [address] [address] Parul Childs PA [address] [place] [address] [place] [address] Health Maintenance Due Date Last Done Comments LIPID PANEL 1959 DEPRESSION SCREENING 1971 SMOKING Hx and SMOKELESS TOBACCO SCREENING 1972 HEPATITIS C SCREENING 1977 MAMMOGRAM 1999 COLOGUARD 2004 COLONOSCOPY 2004 COLORECTAL CANCER SCREENING 2004 FIT TEST 2004 FOBT 2004 SIGMOIDOSCOPY 2004 VIRTUAL COLONOSCOPY 2004 PNEUMOCOCCAL VACCINES (50+ years) (1 of 1 - PCV) 2009 ZOSTER VACCINES (1 of 2) 2009 OSTEOPOROSIS SCREENING INITIAL (ONE-TIME) 2024 Adult Td,Tdap Booster 05/02/2025 05/02/2015 INFLUENZA VACCINE (#1) 2025 08/08/2020, 2010 COVID-19 VACCINE ( season) 2025 02/06/2022, 09/26/2021, 02/16/2021, Additional history exists RSV VACCINE (1 - 1-dose 75+ series) [...] topic Medical Devices Not on file Insurance [facility] POS [facility] Care Teams Concession Manager Relationship Specialty Start Date End Date Parul Childs PA [address] [place] [id number] PCP - General Physician Proof Machine Operator 10/26/24 Additional Source Comments The information contained in this document represents components of the legal health record. It is not the complete legal health record.[facility]
--- OUTSIDE RECORDS SUMMARY | 2025-08-04 16:07 | XMS_ITS | Encounter Summary ---
Author Organization [facility] Address [address] [place], [place] [id number] Phone Care Team Providers Care Real Property Appraiser Name Role Phone Pcp, Unknown Primary Care Provider Parul Peerz Primary Care Provider +1- [phone] Encounter Details Date Type Department Care Team (Latest Contact Info) Description 10/07/2024 Transcribe Orders Virtual Department [address] [place], [place] [id number] Parul Childs PA [address] [place] [address] Asymptomatic menopausal state (Primary Dx) Social [...] Info) Description 08/18/2025 2:15 PM EDT Appointment [facility], [facility] [address] [place] [address] Parul Childs PA [address] [place] [address] Scheduled Orders Name Type Priority Associated Diagnoses Orde r Schedule DXA Screening Imaging Routine Asymptomatic menopausal state Expected: 11/06/2024, Expires: 10/07/2026 documented as of this encounter Visit Diagnoses Diagnosis Asymptomatic menopausal state- Primary documented in this encounter Care Teams Real Property Appraiser Relationship Specialty Start Date End Date Pcp, Unknown PCP - General 03/28/22 10/25/24 Parul Childs PA [address] [place] [id number] PCP - General Physician Account Leader 10/26/24 documented as of this encounter Additional Source Comments The information contained in this document represents components of the legal health record. It is not the complete legal health record.[facility]
== END 2025-08-04 15:33 | disposition home or self-care (01) ==
LOC: HO.ACS 13:30
PROVIDERS: PCP Physician Assistant Medical; Visit Provider Internal Medicine Medical Oncology
DX: Z79.01 Long term (current) use of anticoagulants (principal)

== ENCOUNTER → 2025-08-04 13:30 | Outpatient (BNVA) | payer OTHER, SELFPAY | PROVIDERS: PCP Physician Assistant Medical; Visit Provider Internal Medicine Medical Oncology | DX: Z86.718 Personal history of other venous thrombosis and embolism (principal); Z79.01 Long term (current) use of anticoagulants; Z51.81 Encounter for therapeutic drug level monitoring | CPT/HCPCS: 85610; 99211 ==

== ENCOUNTER → 2025-08-11 13:54 | Outpatient (BNVA) | payer OTHER, SELFPAY | PROVIDERS: PCP Physician Assistant Medical; Visit Provider Internal Medicine Medical Oncology | DX: I82.401 Acute embolism and thrombosis of unspecified deep veins of right lower extremity (principal); Z79.01 Long term (current) use of anticoagulants; Z51.81 Encounter for therapeutic drug level monitoring | CPT/HCPCS: 85610; 99211 ==

== ENCOUNTER 2025-08-22 11:15 | Outpatient (AMB) | payer OTHER, SELFPAY ==
--- NOTE | 2025-08-22 11:26 | MHC.OFFVISCO ---
Intake Intake Visit Reasons: Anticoagulation Allergies lisinopril (Lisinopril) Allergy (Mild, Verified 08/22/25 11:22) COUGH Sulfa (Sulfonamide Antibiotics) Allergy (Mild, Verified 08/22/25 11:22) UNKNOWN Medication List - Last Reconciled 08/22/25 by Ewa Bajwa, RN amlodipine 10 mg PO DAILY atorvastatin 10 mg PO DAILY carvedilol 6.25 mg PO BID clonidine HCl 0.1 mg PO BID fluticasone propionate 50 mcg/actuation 1 spray intranasal DAILY PRN hydrochlorothiazide 25 mg PO DAILY loratadine 10 mg PO DAILY PRN losartan 100 mg PO DAILY omeprazole 20 mg PO DAILY [VITAMIN B 12 PO DAILY] [VITAMIN D 3 PO DAILY] warfarin 5 mg See Protocol PO DAILY warfarin 2.5 mg See Protocol PO DAILY Nursing Note INR: 2.8 in therapeutic range of 2-3 Medications and supplements reviewed No changes in health, diet, medications, or supplements, Denies any signs and symptoms of bleeding or bruising or clotting. Bleeding, bruising, clotting discussed Nutritional guidance given Dose: 7.5mg daily F/U INR: 09/08/25 Patient verbalizes understanding of instructions with read back given Anti-Coag Initial Assessment Social Hx Patient Tobacco Use Status: Never used Tobacco Coding Level of Care Code Est Patient Level 1 Diagnoses Current use of anticoagulant therapy Z79.01 Assessment & Plan Assessment & Plan (1) Current use of anticoagulant therapy: Code(s): Z79.01 - watermaster (current) use of anticoagulants Category: Medical
[2025-08-22 11:27] LABS: Prothrombin Time Whole Bld POC 33.3 sec (11.1-13.5); ~PT, ~INR - Anti Coag Clinic 2.8 (0.9-1.1)
== END 2025-08-22 11:35 | disposition home or self-care (01) ==
LOC: HO.ACS 11:15
PROVIDERS: PCP Physician Assistant Medical; Visit Provider Internal Medicine Medical Oncology
DX: Z79.01 Long term (current) use of anticoagulants (principal)

== ENCOUNTER → 2025-08-22 11:15 | Outpatient (BNVA) | payer OTHER, SELFPAY | PROVIDERS: PCP Physician Assistant Medical; Visit Provider Internal Medicine Medical Oncology | DX: Z86.718 Personal history of other venous thrombosis and embolism (principal); Z79.01 Long term (current) use of anticoagulants; Z51.81 Encounter for therapeutic drug level monitoring | CPT/HCPCS: 85610; 99211 ==

== ENCOUNTER 2025-09-08 13:36 | Outpatient (AMB) | payer OTHER, SELFPAY ==
--- NOTE | 2025-09-08 13:53 | MHC.OFFVISCO ---
Intake Intake Visit Reasons: Anticoagulation Allergies lisinopril (Lisinopril) Allergy (Mild, Verified 09/08/25 13:38) COUGH Sulfa (Sulfonamide Antibiotics) Allergy (Mild, Verified 09/08/25 13:38) UNKNOWN Medication List - Last Reconciled 09/08/25 by Valencia Kennedy RN amlodipine 10 mg PO DAILY atorvastatin 10 mg PO DAILY carvedilol 6.25 mg PO BID clonidine HCl 0.1 mg PO BID fluticasone propionate 50 mcg/actuation 1 spray intranasal DAILY PRN hydrochlorothiazide 25 mg PO DAILY loratadine 10 mg PO DAILY PRN losartan 100 mg PO DAILY omeprazole 20 mg PO DAILY [VITAMIN B 12 PO DAILY] [VITAMIN D 3 PO DAILY] warfarin 5 mg See Protocol PO DAILY warfarin 2.5 mg See Protocol PO DAILY Nursing Note INR: 2.5 in therapeutic range Medications and supplements reviewed No changes in health, diet, medications, or supplements, Denies any signs and symptoms of bleeding or bruising or clotting. Bleeding, bruising, clotting discussed Nutritional guidance given Dose: keep same dose 7.5mg daily F/U INR: 4 weeks - she has 3 stable INRs Patient verbalizes understanding of instructions given Anti-Coag Initial Assessment Social Hx Patient Tobacco Use Status: Never used Tobacco Coding Level of Care Code Est Patient Level 1 Diagnoses Current use of anticoagulant therapy Z79.01 Results AMB INR Fingerstick AMB INR Fingerstick 2.5 Last Edit by Valencia Kennedy RN on 09/08/25 13:44 manual entry Assessment & Plan Assessment & Plan (1) Current use of anticoagulant therapy: Code(s): Z79.01 - intermediate designer (current) use of anticoagulants Category: Medical
--- OUTSIDE RECORDS SUMMARY | 2025-09-08 13:57 | XMS_ITS | Encounter Summary ---
Author Organization [facility] Address [address] [place] [address] Phone Care Team Providers Care Concrete Rubber Name Role Phone Pcp, Unknown Primary Care Provider Unavailelvia e Parul Childs Primary Care Provider +1- [phone] Encounter Details Date Type Department Care Team (Latest Contact Info) Description 10/07/2024 Transcribe Orders Virtual Department [address] [place] [address] Parul Childs PA [address] [place] [phone] Asymptomatic menopausal state (Primary Dx) Social History [...] as of this encounter Plan of Treatment Not on file documented as of this encounter Visit Diagnoses Diagnosis Asymptomatic menopausal state- Primary documented in this encounter Care Teams Concrete Rubber Relationship Specialty Start Date End Date Pcp, Unknown PCP - General 03/28/22 10/25/24 Parul Childs PA [address] [place] [phone] PCP - General Physician Landfill Gas Technician 10/26/24 documented as of this encounter Additional Source Comments The information contained in this document represents components of the legal health record. It is not the complete legal health record.[facility]
--- OUTSIDE RECORDS SUMMARY | 2025-09-08 13:57 | XMS_ITS | Clinical Summary ---
Author Organization [facility] Address [address] [place] [address] Phone Care Team Providers Care Children'S Tutor Name Role Phone Parul Childs Primary Care Provider +1- [phone] Social History Tobacco Use Types Packs/Day Years [...] Orientation Not on file Plan of Treatment Health Maintenance Due Date [...] topic Medical Devices Not on file Insurance DAVID PPO CIGLANCE PPO CIGNA PPO Member Subscriber Plan / Payer (Ef fective 2025-Present) Name:Jaimie Del Real Relation to Subscriber:Self Name:Jaimie Del Real Payer ID:[id number] ([facility]) Type:PPO Address: [place] [id number] CIGNA PPO CIGNA PPO CIGNA PPO CIGNA PPO CIGNA PPO CIGNA PPO Care Teams Children'S Tutor Relationship Specialty Start Date End Date Parul Childs PA [address] [place] [address] PCP - General Physician Steamtable Attendant Railroad 10/26/24 Additional Source Comments The information contained in this document represents components of the legal health record. It is not the complete legal health record.[facility]
[2025-09-09 13:34] LABS: Prothrombin Time Whole Bld POC 29.5 sec (11.1-13.5); ~PT, ~INR - Anti Coag Clinic 2.5 (0.9-1.1)
== END 2025-09-08 13:55 | disposition home or self-care (01) ==
LOC: HO.ACS 13:36
PROVIDERS: PCP Physician Assistant Medical; Visit Provider Internal Medicine Medical Oncology
DX: Z79.01 Long term (current) use of anticoagulants (principal)

== ENCOUNTER → 2025-09-08 13:36 | Outpatient (BNVA) | payer OTHER, SELFPAY | PROVIDERS: PCP Physician Assistant Medical; Visit Provider Internal Medicine Medical Oncology | DX: Z79.01 Long term (current) use of anticoagulants (principal) | CPT/HCPCS: 85610; 99211 ==

== ENCOUNTER 2025-10-05 14:25 | Outpatient (AMB) | payer OTHER, SELFPAY ==
--- NOTE | 2025-10-05 14:42 | MHC.OFFVISCO ---
Intake Intake Visit Reasons: Anticoagulation Allergies lisinopril (Lisinopril) Allergy (Mild, Verified 10/05/25 14:29) COUGH Sulfa (Sulfonamide Antibiotics) Allergy (Mild, Verified 10/05/25 14:29) UNKNOWN Medication List - Last Reconciled 10/05/25 by Valencia Kennedy RN amlodipine 10 mg PO DAILY atorvastatin 10 mg PO DAILY carvedilol 6.25 mg PO BID clonidine HCl 0.1 mg PO BID fluticasone propionate 50 mcg/actuation 1 spray intranasal DAILY PRN hydrochlorothiazide 25 mg PO DAILY loratadine 10 mg PO DAILY PRN losartan 100 mg PO DAILY omeprazole 20 mg PO DAILY [VITAMIN B 12 PO DAILY] [VITAMIN D 3 PO DAILY] warfarin 5 mg See Protocol PO DAILY warfarin 2.5 mg See Protocol PO DAILY Nursing Note INR 4.2 out of therapeutic range 2.0-3.0 Medications and supplements reviewed Patient status: Increase in life stressors (Pt son in critical care in [place]) plus other family concerns, has not been eating Medications or supplements: will run out of carvedilol- trying to get refill Diet: has not eaten usual meals or greens Denies any signs and symptoms of bleeding or clotting or unusual bruising Bleeding, bruising, clotting discussed Nutritional guidance given: try to eat protein, greens and water weekly Dose: hold today's dose then resume 7.5mg daily F/U INR Date : 1 week ?? Patient verbalizing understanding of instructions given. Anti-Coag Initial Assessment Social Hx Patient Tobacco Use Status: Never used Tobacco Coding Level of Care Code Est Patient Level 1 Diagnoses Current use of anticoagulant therapy Z79.01 Results AMB INR Fingerstick AMB INR Fingerstick 4.3 Last Edit by Valencia Kennedy RN on 10/05/25 14:37 MANUAL ENTRY Assessment & Plan Assessment & Plan (1) Current use of anticoagulant therapy: Code(s): Z79.01 - MCFP (current) use of anticoagulants Category: Medical
[2025-10-05 14:46] LABS: Prothrombin Time Whole Bld POC 52.0 sec (11.1-13.5); ~PT, ~INR - Anti Coag Clinic 4.3 (0.9-1.1)
--- OUTSIDE RECORDS SUMMARY | 2025-10-05 18:35 | XMS_ITS | Encounter Summary ---
Author Organization [facility] Address [address] [place] [address] Phone Care Team Providers Care Operating Room Registered Nurse Name Role Phone Pcp, Unknown Primary Care Provider Unavailelvia e Parul Childs Primary Care Provider +1- [phone] Encounter Details Date Type Department Care Team (Latest Contact Info) Description 10/07/2024 Transcribe Orders Virtual Department [address] [place] [address] Parul Childs PA [address] [phone] Asymptomatic menopausal state (Primary Dx) Social History [...] Primary documented in this encounter Care Teams Operating Room Registered Nurse Relationship Specialty Start Date End Date Pcp, Unknown PCP - General 03/28/22 10/25/24 Parul Childs PA [address] [place] [address] [id number] PCP - General Physician Skip Pitman 10/26/24 documented as of this encounter Additional Source Comments The information contained in this document represents components of the legal health record. It is not the complete legal health record.[facility]
--- OUTSIDE RECORDS SUMMARY | 2025-10-05 18:35 | XMS_ITS | Clinical Summary ---
Author Organization [facility] Address [address] [place] [address] Phone Care Team Providers Care Wafer Cutter Name Role Phone Parul Childs Primary Care Provider +1- [phone] Social History Tobacco Use Types Packs/Day Years [...] to Subscriber:Self Name:Jaimie Del Real Payer ID:[id number] ([facility]) Type:PPO Address: [place] [id number] CIGNA PPO CIGNA PPO CIGNA PPO CIGNA PPO CIGNA PPO CIGNA PPO Care Teams Wafer Cutter Relationship Specialty Start Date End Date Parul Childs PA [address] [place] [address] PCP - General Physician Associate Publisher 10/26/24 Additional Source Comments The information contained in this document represents components of the legal health record. It is not the complete legal health record.[facility]
== END 2025-10-05 14:46 | disposition home or self-care (01) ==
LOC: HO.ACS 14:25
PROVIDERS: PCP Physician Assistant Medical; Visit Provider Internal Medicine Medical Oncology
DX: Z79.01 Long term (current) use of anticoagulants (principal)

== ENCOUNTER → 2025-10-05 14:25 | Outpatient (BNVA) | payer OTHER, SELFPAY | PROVIDERS: PCP Physician Assistant Medical; Visit Provider Internal Medicine Medical Oncology | DX: Z86.718 Personal history of other venous thrombosis and embolism (principal); Z79.01 Long term (current) use of anticoagulants; Z51.81 Encounter for therapeutic drug level monitoring | CPT/HCPCS: 85610; 99211 ==

== ENCOUNTER 2025-10-10 11:34 | Outpatient (AMB) | payer OTHER, SELFPAY ==
--- NOTE | 2025-10-10 11:53 | MHC.OFFVISCO ---
Intake Intake Visit Reasons: Anticoagulation Allergies lisinopril (Lisinopril) Allergy (Mild, Verified 10/10/25 11:35) COUGH Sulfa (Sulfonamide Antibiotics) Allergy (Mild, Verified 10/10/25 11:35) UNKNOWN Medication List - Last Reconciled 10/10/25 by Valencia Kennedy RN amlodipine 10 mg PO DAILY atorvastatin 10 mg PO DAILY carvedilol 6.25 mg PO BID clonidine HCl 0.1 mg PO BID fluticasone propionate 50 mcg/actuation 1 spray intranasal DAILY PRN hydrochlorothiazide 25 mg PO DAILY loratadine 10 mg PO DAILY PRN losartan 100 mg PO DAILY omeprazole 20 mg PO DAILY [VITAMIN B 12 PO DAILY] [VITAMIN D 3 PO DAILY] warfarin 5 mg See Protocol PO DAILY warfarin 2.5 mg See Protocol PO DAILY Nursing Note INR 1.4 out of therapeutic range Medications and supplements reviewed Patient status: Pt has been under stress with ill son(showing signs of improvement), she now has a cold, previous INR was elevated 4.3, Medications or supplements: no changes Diet: she has been having green tea and extra greens to lower her INR Denies any signs and symptoms of bleeding or clotting or unusual bruising Bleeding, bruising, clotting discussed Nutritional guidance given: avoid all greens x 3 days Dose: 10mg today then 7.5mg x 6 days F/U INR Date : 10/13/25 Pt knows to go to ER with any c/p sob or s/sx of clotting any where Patient verbalizing understanding of instructions given Telephone call to JACOB Childs 2451 Critical INR reported with plan of care Patient instructed to go to ER with any unusual bruising, bleeding or clotting Spoke with Liz to convey message to provider- Nurse Ashley SORIANO responded to call with the above information and will inform PCP and retrun call with any changes in plan of care Anti-Coag Initial Assessment Social Hx Patient Tobacco Use Status: Never used Tobacco Coding Level of Care Code Est Patient Level 1 Diagnoses Current use of anticoagulant therapy Z79.01 Comment t/c to PCP office with critical result spoke with nurse Results AMB INR Fingerstick AMB INR Fingerstick 1.4 Last Edit by Valencia Kennedy RN on 10/10/25 11:46 manual entry Assessment & Plan Assessment & Plan (1) Current use of anticoagulant therapy: Code(s): Z79.01 - long term (current) use of anticoagulants Category: Medical
--- OUTSIDE RECORDS SUMMARY | 2025-10-10 12:58 | XMS_ITS | Encounter Summary ---
Author Organization [facility] Address [address] [place] [address] Phone Care Team Providers Care Sanding Machine Operator Name Role Phone Pcp, Unknown Primary Care Provider Unavailelvia e Parul Childs Primary Care Provider +1- [phone] Encounter Details Date Type Department Care Team (Latest Contact Info) Description 10/07/2024 Transcribe Orders Virtual Department [address] [place] [address] Parul Childs PA [address] [place] [phone] Asymptomatic menopausal state (Primary Dx) Social History [...] Primary documented in this encounter Care Teams Sanding Machine Operator Relationship Specialty Start Date End Date Pcp, Unknown PCP - General 03/28/22 10/25/24 Parul Childs PA [address] [place] [phone] PCP - General Physician Sales Agent Business Services 10/26/24 documented as of this encounter Additional Source Comments The information contained in this document represents components of the legal health record. It is not the complete legal health record.[facility]
--- OUTSIDE RECORDS SUMMARY | 2025-10-10 12:58 | XMS_ITS | Clinical Summary ---
Author Organization [facility] Address [address] [place] [address] Phone Care Team Providers Care Termite Exterminator Helper Name Role Phone Parul Childs Primary Care Provider +1- [phone] Social History Tobacco Use Types Packs/Day Years [...] to Subscriber:Self Name:Jaimie Del Real Payer ID:[id number] ([facility]) Type:PPO Address: [place] [id number] CIGNA PPO CIGNA PPO CIGNA PPO CIGNA PPO CIGNA PPO CIGNA PPO Care Teams Termite Exterminator Helper Relationship Specialty Start Date End Date Parul Childs PA [address] [place] [address] PCP - General Physician Car Rental Manager 10/26/24 Additional Source Comments The information contained in this document represents components of the legal health record. It is not the complete legal health record.[facility]
[2025-10-11 08:59] LABS: Prothrombin Time Whole Bld POC 16.8 sec (11.1-13.5); ~PT, ~INR - Anti Coag Clinic 1.4 (0.9-1.1)
== END 2025-10-10 12:12 | disposition home or self-care (01) ==
LOC: HO.ACS 11:34
PROVIDERS: PCP Physician Assistant Medical; Visit Provider Internal Medicine Medical Oncology
DX: Z79.01 Long term (current) use of anticoagulants (principal)

== ENCOUNTER → 2025-10-10 11:34 | Outpatient (BNVA) | payer OTHER, SELFPAY | PROVIDERS: PCP Physician Assistant Medical; Visit Provider Internal Medicine Medical Oncology | DX: Z79.01 Long term (current) use of anticoagulants (principal) | CPT/HCPCS: 85610; 99211 ==

== ENCOUNTER 2025-10-13 13:29 | Outpatient (AMB) | payer OTHER, SELFPAY ==
--- OUTSIDE RECORDS SUMMARY | 2025-10-13 13:30 | XMS_ITS | Clinical Summary ---
Author Organization [facility] Address [address] [place] [address] Phone Care Team Providers Care Brake Operator Helper Name Role Phone Parul Childs Primary Care Provider +1- [phone] Social History Tobacco Use Types Packs/Day Years [...] (#1) 2025 08/08/2020, 2010 COVID-19 VACCINE ( - 2025-26 season) 2025 02/06/2022, 09/26/2021, 02/16/2021, Additional history [...] to Subscriber:Self Name:Jaimie Del Real Payer ID:[id number] ([facility]) Type:PPO Address: [place] [id number] CIGNA PPO CIGNA PPO CIGNA PPO CIGNA PPO CIGNA PPO CIGNA PPO Care Teams Brake Operator Helper Relationship Specialty Start Date End Date Parul Childs PA [address] [place] [address] PCP - General Physician Glazier Metal Furniture 10/26/24 Additional Source Comments The information contained in this document represents components of the legal health record. It is not the complete legal health record.[facility]
--- OUTSIDE RECORDS SUMMARY | 2025-10-13 13:30 | XMS_ITS | Encounter Summary ---
Author Organization [facility] Address [address] [place] [address] Phone Care Team Providers Care Newspaper Correspondent Name Role Phone Pcp, Unknown Primary Care Provider Unavailelvia e Parul Childs Primary Care Provider +1- [phone] Encounter Details Date Type Department Care Team (Latest Contact Info) Description 10/07/2024 Transcribe Orders Virtual Department [address] [place] [address] Parul Childs PA [address] [place] [phone] Asymptomatic menopausal state (Primary Dx) Social History [...] Primary documented in this encounter Care Teams Newspaper Correspondent Relationship Specialty Start Date End Date Pcp, Unknown PCP - General 03/28/22 10/25/24 Parul Childs PA [address] [place] [address] [phone] PCP - General Physician Plate Straightener 10/26/24 documented as of this encounter Additional Source Comments The information contained in this document represents components of the legal health record. It is not the complete legal health record.[facility]
[2025-10-13 13:34] LABS: Prothrombin Time Whole Bld POC 24.6 sec (11.1-13.5); ~PT, ~INR - Anti Coag Clinic 2.1 (0.9-1.1)
--- NOTE | 2025-10-13 13:38 | MHC.OFFVISCO ---
Intake Intake Visit Reasons: Anticoagulation Allergies lisinopril (Lisinopril) Allergy (Mild, Verified 10/13/25 13:30) COUGH Sulfa (Sulfonamide Antibiotics) Allergy (Mild, Verified 10/13/25 13:30) UNKNOWN Medication List - Last Reconciled 10/13/25 by Ewa Bajwa RN amlodipine 10 mg PO DAILY atorvastatin 10 mg PO DAILY carvedilol 6.25 mg PO BID clonidine HCl 0.1 mg PO BID fluticasone propionate 50 mcg/actuation 1 spray intranasal DAILY PRN hydrochlorothiazide 25 mg PO DAILY loratadine 10 mg PO DAILY PRN losartan 100 mg PO DAILY omeprazole 20 mg PO DAILY [VITAMIN B 12 PO DAILY] [VITAMIN D 3 PO DAILY] warfarin 5 mg See Protocol PO DAILY warfarin 2.5 mg See Protocol PO DAILY Nursing Note INR: 2.1 in therapeutic range of 2-3 Pt has had a cold for approximately 1 week and states she is not eating much at all but will be going to the grocery store today and plans on buying soup Medications and supplements reviewed No changes in diet, medications, or supplements Denies any signs and symptoms of bleeding or bruising or clotting. Nutritional guidance given to avoid greens today and to have a serving of foods that raise the INR. Food list discussed. Dose: 7.5mg daily Anti-Coag Initial Assessment Social Hx Patient Tobacco Use Status: Never used Tobacco Coding Level of Care Code Est Patient Level 1 Diagnoses Current use of anticoagulant therapy Z79.01 Results AMB INR Fingerstick AMB INR Fingerstick 2.1 Last Edit by Ewa Bajwa RN on 10/13/25 13:34 interface delay Assessment & Plan Assessment & Plan (1) Current use of anticoagulant therapy: Code(s): Z79.01 - prescription clerk lenses (current) use of anticoagulants Category: Medical
== END 2025-10-13 13:45 | disposition home or self-care (01) ==
LOC: HO.ACS 13:29
PROVIDERS: PCP Physician Assistant Medical; Visit Provider Internal Medicine Medical Oncology
DX: Z79.01 Long term (current) use of anticoagulants (principal)

== ENCOUNTER → 2025-10-13 13:29 | Outpatient (BNVA) | payer OTHER, SELFPAY | PROVIDERS: PCP Physician Assistant Medical; Visit Provider Internal Medicine Medical Oncology | DX: I82.401 Acute embolism and thrombosis of unspecified deep veins of right lower extremity (principal); Z51.81 Encounter for therapeutic drug level monitoring; Z79.01 Long term (current) use of anticoagulants | CPT/HCPCS: 85610; 99211 ==